=== PATIENT | female | born 1945 | race African-American/Black ===

== ENCOUNTER 2016-06-13 12:23 | Emergency (ER) | payer OTHER ==
[2016-06-13 12:38] VITALS: BMI 51.6
--- NOTE | 2016-06-13 12:43 | PDOC ---
History of Present Illness - History of Present Illness Initial Comments: 06/13/16 13:19 The patient is a 71 year old female with a past medical hx of hypertension, rheumatoid arthritis, diabetes, hypothyroidism, CHF who presents to the ED complaining of right lower back pain radiating down her right lower extremity for 1 week. The patient states she went to her PCP on Tuesday (2 days ago) for her symptoms. She notes the Doctor wrote her a prescription to get some testing done. She states she was unable to get into contact with a nurse to go over the testing. She reports she fell this morning. She states she was getting out of her bed to go to the bathroom when her right leg gave out. She notes this has not happened prior to today. The patient is also complaining of SOB. She reports she has been feeling short of breath when walking, which is not her baseline. The patient denies chest pain, fever, chills The patient denies abdominal pain, nausea, vomiting. PCP: Dr. Mccullough <Cora Morin - Last Filed: 06/13/16 18:42> <Jesus Duncan - Last Filed: 06/13/16 18:51> - General Chief Complaint: Pain Stated Complaint: SOB Time Seen by Provider: 06/13/16 12:42 Past History <Cora Morin - Last Filed: 06/13/16 18:42> - Past Medical History Anemia: Yes Asthma: Yes Cancer: No Cardiac Disorders: Yes CVA: Yes (2011) COPD: No CHF: No Dementia: No Diabetes: Yes (NIDDM) GI Disorders: Yes (HIATAL HERNIA, GASTRITIS, COLON POLYP, HEMORRHOIDS) Disorders: Yes (GOUT) HTN: Yes Hypercholesterolemia: Yes Liver Disease: No Suicide Attempt (Hx): No Seizures: No Thyroid Disease: Yes (HYPO) - Surgical History Abdominal Surgery: No Appendectomy: Yes Cardiac Surgery: No Cholecystectomy: Yes Lung Surgery: No Neurologic Surgery: No Orthopedic Surgery: Yes (CARITO. KNEE REPLACEMENTS) - Psycho/Social/Smoking Cessation Hx Anxiety: No Suicidal Ideation: No Smoking Status: Yes Smoking History: Never smoked Have you smoked in the past 12 months: No Number of Cigarettes Smoked Daily: 0 If you are a former smoker, when did you quit?: as a teenager Information on smoking cessation initiated: No Hx Alcohol Use: No Drug/Substance Use Hx: No Substance Use Type: None Hx Substance Use Treatment: No <Jesus Duncan - Last Filed: 06/13/16 18:51> - Past Medical History Allergies/Adverse Reactions: Allergies Allergy/AdvReac Type Severity Reaction Status Date / Time No Known Allergies Allergy Verified 06/13/16 12:37 Home Medications: Ambulatory Orders Albuterol Sulfate Inhaler - [Ventolin Hfa Inhaler -] 1 - 2 inh PO Q4H 06/13/16 Alprazolam [Xanax] 1 mg PO HS PRN 06/13/16 Amlodipine/Valsartan [Amlodipine-Valsartan 5-320 mg] 1 each PO DAILY 06/13/16 Atorvastatin Ca [Lipitor] 40 mg PO HS 06/13/16 Baclofen 10 mg PO DAILY 06/13/16 Cyclobenzaprine HCl [Flexeril 10 mg] 10 mg PO TID #30 tablet 06/13/16 Cyclosporine [Restasis] 1 each OU HS 06/13/16 Duloxetine HCl 30 mg PO DAILY 06/13/16 Febuxostat [Uloric -] 40 mg PO DAILY 06/13/16 Fluticasone/Vilanterol [Breo Ellipta 100-25 Mcg INH] 1 each IH BID 06/13/16 Furosemide [Lasix] 40 mg PO DAILY 06/13/16 Leflunomide 20 mg PO TID 06/13/16 Levothyroxine [Synthroid -] 175 mcg PO DAILY 06/13/16 Metoprolol Succinate [Toprol Xl] 200 mg PO DAILY 06/13/16 Montelukast Na [Singulair -] 10 mg PO HS 06/13/16 Nitrofurantoin Monohyd/M-Cryst [Macrobid -] 100 mg PO BID 06/13/16 Omeprazole 40 mg PO DAILY 06/13/16 Oxybutynin Chloride [Ditropan Xl] 10 mg PO BID 06/13/16 Oxycodone HCl/Acetaminophen [Endocet 7.5-325 mg Tablet] 1 each PO Q6H PRN Oxycodone HCl/Acetaminophen [Percocet 5-325 mg Tablet] 1 - 2 tab PO Q6H #20 tab MDD 4 06/13/16 Potassium Chloride [K-Dur -] 20 meq PO DAILY 06/13/16 Pregabalin [Lyrica -] 150 mg PO BID 06/13/16 Salmeterol/Fluticasone [Advair 500Mcg/50Mcg] 1 inh PO BID 06/13/16 Tofacitinib Citrate [Xeljanz] 5 mg PO BID 06/13/16 Review of Systems - Review of Systems Able to Perform ROS?: Yes Comments:: 06/13/16 13:20 GENERAL/CONSTITUTIONAL: No fever or chills. No weakness. HEAD, EYES, EARS, NOSE AND THROAT: No change in vision. No ear pain or discharge. No sore throat. CARDIOVASCULAR: No chest pain or shortness of breath. RESPIRATORY:+SOB. No cough, wheezing, or hemoptysis. GASTROINTESTINAL: No nausea, vomiting, diarrhea or constipation. GENITOURINARY: No dysuria, frequency, or change in urination. MUSCULOSKELETAL: +Right lower back pain radiating down right lower extremity. No neck pain. SKIN: No rash NEUROLOGIC: No headache, vertigo, loss of consciousness, or change in strength/ sensation. ENDOCRINE: No increased thirst. No abnormal weight change. HEMATOLOGIC/LYMPHATIC: No anemia, easy bleeding, or history of blood clots. ALLERGIC/IMMUNOLOGIC: No hives or skin allergy. <Cora Morin - Last Filed: 06/13/16 18:42> *Physical Exam - Vital Signs Last Vital Signs Temp Pulse Resp BP Pulse Ox 56 L 18 151/85 96 06/13/16 12:34 06/13/16 12:34 06/13/16 12:34 06/13/16 13:00 - Physical Exam Comments: 06/13/16 13:47 GENERAL: Awake, alert, and fully oriented, in no acute distress HEAD: No signs of trauma EYES: PERRLA, EOMI, sclera anicteric, conjunctiva clear ENT: Auricles normal inspection, hearing grossly normal, nares patent, oropharynx clear without exudates. Moist mucosa NECK: +JVD. Normal ROM, supple, no lymphadenopathy, or masses LUNGS: Breath sounds equal, clear to auscultation bilaterally, no rales. No wheezes, and no crackles HEART: Regular rate and rhythm, normal S1 and S2, no murmurs, rubs or gallops ABDOMEN: +Morbidly obese. Soft, nontender, normoactive bowel sounds. No guarding, no rebound. No masses EXTREMITIES:+Movement grossly restricted by size, swollen legs. No clubbing or cyanosis. No cords, erythema, or tenderness NEUROLOGICAL: Cranial nerves II through XII grossly intact. Normal speech, normal gait SKIN: Warm, Dry, normal turgor, no rashes or lesions noted. <Cora Morin - Last Filed: 06/13/16 18:42> - Vital Signs Last Vital Signs Temp Pulse Resp BP Pulse Ox 56 L 18 151/85 100 06/13/16 12:34 06/13/16 12:34 06/13/16 12:34 06/13/16 12:34 <Jesus Duncan - Last Filed: 06/13/16 18:51> ED Treatment Course - LABORATORY CBC & Chemistry Diagram: 06/13/16 15:50 06/13/16 14:50 - RADIOLOGY Radiograph Interpretation: 06/13/16 15:38 Chest X-Ray Imaging reveals a large heart with prominent central markings and increased density in the retrocardiac area which could represent some atelectasis or early infiltrate. There are some degenerative spine and shoulder changes. The angles are sharp and the soft tissues are intact. Correlation recommended Impression: Large heart. Prominent central markings. Questionable retrocardiac changes. Reported By: Davie Josue MD 06/13/16 1532 06/13/16 18:41 Referring Physician: Jesus Duncan Patient Name: Soo Gordon THIS IS A PRELIMINARY REPORT FROM [facility] EXAM: CT lumbar spine without contrast IMAGES: 287 DATE OF SERVICE: 2016-06-13 17:23:08.0 REASON FOR EXAM: Right- sided radiculopathy COMPARISON: None FINDINGS: No lumbar fracture is seen. The There is lumbar scoliosis. There is grade 1 spondylolisthesis of L4-L5. There is lumbar endplate spondylosis and facet arthropathy. Vacuum disc phenomena is noted at multiple levels. There is bulging of the annulus noted at L3-L4, L4-L5 and L5-S1. There is moderate central spinal stenosis a L3-L4 and L4-L5 due to bulging annulus and ligamentum flavum and facet hypertrophy. THIS DOCUMENT HAS BEEN ELECTRONICALLY SIGNED Iker Wasserman MD 2016 18:33 EST <Cora Morin - Last Filed: 06/13/16 18:42> - LABORATORY CBC & Chemistry Diagram: 06/13/16 15:50 06/13/16 14:50 <Jesus Duncan - Last Filed: 06/13/16 18:51> Medical Decision Making - Medical Decision Making 06/13/16 18:29 The patient is a 71 year old female with a past medical hx of hypertension, rheumatoid arthritis, diabetes, hypothyroidism, CHF who presents to the ED complaining of right lower back pain radiating down her right lower extremity for 1 week. The patient reports she went to see her PCP, Dr. Mccullough on Tuesday and was given a prescription for some tests. She states she was unable to read what the paper said so she called the nurse for clarification and did not receive a call back. She notes her right leg gave out today. She is also complaining of dyspnea and dyspnea on exertion for a few days. The plan is to order labs, CT lumbar spine, CXR 06/13/16 18:42 The patient can be discharged home. The radiology results and plan for discharge were discussed with the patient. The patient understands and agrees with the plan. All questions answered. <Cora Morin - Last Filed: 06/13/16 18:42> *DC/Admit/Observation/Transfer - Attestations Scribe Attestion: 06/13/16 13:19 Documentation prepared by Cora Morin, acting as medical parasitologist for Jesus Duncan MD/. <Cora Morin - Last Filed: 06/13/16 18:42> - Discharge Dispostion Admit: No - Attestations Physician Attestion: 06/13/16 12:43 I, Dr. Jesus Duncan, attest that this document has been prepared under my direction and personally reviewed by me in its entirety. I further attest, that it accurately reflects all work, treatment, procedures and medical decision -making performed by me. <Jesus Duncan - Last Filed: 06/13/16 18:51> Diagnosis at time of Disposition: Acute lumbar radiculopathy Sciatica Qualifiers: Laterality: right Qualified Code(s): M54.31 - Sciatica, right side - Discharge Dispostion Disposition: HOME Condition at time of disposition: Good - Prescriptions Prescriptions: Cyclobenzaprine HCl [Flexeril 10 mg] 10 mg PO TID #30 tablet Oxycodone HCl/Acetaminophen [Percocet 5-325 mg Tablet] 1 - 2 tab PO Q6H #20 tab MDD 4 - Patient Instructions Printed Discharge Instructions: DI for Lumbar Radiculopathy Additional Instructions: Mrs Gordon, Talk to your doctor about a referral for a surgeon. Walk !!! Yoga- Feel Better- Be Well Dr. Jesus Duncan
[2016-06-13] MEDS ORDERED: ONDANSETRON 4 MG/2 ML VIAL IVPUSH ONE (13:37)
[2016-06-13] MEDS ORDERED: HYDROmorphone HCL CARPU-JECT 1 MG/1 ML DISP.SYRIN IVPB ONE (13:37)
[2016-06-13] MEDS ORDERED: HYDROmorphone HCL CARPU-JECT 1 MG/1 ML DISP.SYRIN IVPUSH ONE (13:38)
[2016-06-13] MEDS ORDERED: HYDROmorphone HCL CARPU-JECT 1 MG/1 ML DISP.SYRIN ONE ×2 (13:59→15:32)
[2016-06-13] MEDS ORDERED: ONDANSETRON 4 MG/2 ML VIAL ONE (13:59)
[2016-06-13 15:28] LABS: URINE APPEARANCE SLCLOUDY; URINE BILIRUBIN NEGATIVE (NEGATIVE); URINE BLOOD NEGATIVE (NEGATIVE); URINE COLOR AMBER; URINE GLUCOSE (UA) NEGATIVE (NEGATIVE); URINE KETONE NEGATIVE (NEGATIVE); URINE NITRITE POSITIVE (NEGATIVE); URINE PROTEIN NEGATIVE (NEGATIVE); URINE UROBILINOGEN NEGATIVE E.U./dl (0.2-1.0)
[2016-06-13 15:31] LABS: URINE LEUK ESTERASE 3+ (NEGATIVE)
[2016-06-13 15:38] LABS: URINE BACTERIA FEW /hpf (NONE SEEN); URINE MUCUS RARE; URINE RBC 2 /hpf (0-3); URINE WBC 317 /hpf (3-5)
[2016-06-13 15:42] LABS: ALBUMIN 3.2 g/dl (3.4-5.0); ALK PHOS 87 U/L (45-117); ANION GAP 3 (8-16); BILIRUBIN,TOTAL 0.3 mg/dL (0.2-1.0); CO2 35 mmol/L (21-32); CREATININE 0.7 mg/dL (0.55-1.02); GLUCOSE,RANDOM 90 mg/dL (74-106); SGOT/AST 19 U/L (15-37); SGPT/ALT 20 U/L (12-78); TOT PROT 6.3 g/dl (6.4-8.2)
[2016-06-13] MEDS ORDERED: cefTRIAXone 1 GM/50 ML BAG (PRE-DOCKED) IVPB ONE (15:55)
[2016-06-13 15:56] VITALS: TEMP 97.2
[2016-06-13] MEDS ORDERED: CEFTRIAXONE 50 ML ONE (15:57)
[2016-06-13 16:03] LABS: EOSINOPHIL 1.6 % (0-4.5); MCH 28.7 pg (25.7-33.7); MCHC 32.4 g/dl (32.0-36.0); MEAN CELL VOLUME 88.6 fl (80-96); NEUTROPHILS 36.8 % (42.8-82.8); PLATELET COUNT 219 K/MM3 (134-434); RDW 16.9 % (11.6-15.6); WHITE BLOOD COUNT 4.3 K/mm3 (4.0-10.0)
[2016-06-13 16:19] LABS: INR 1.04 (0.82-1.09); PROTHROMBIN TIME (PATIENT) 11.5 SEC (9.98-11.88)
[2016-06-13 18:13] VITALS: BP 132/79; PULSE 67
[2016-06-13] MEDS ORDERED: CYCLOBENZAPRINE HCL 10 MG TABLET (FP) PO ONE (18:48)
[2016-06-13] MEDS ORDERED: CYCLOBENZAPRINE HCL 10 MG TABLET (FP) ONE (18:49)
[2016-06-13] MEDS ORDERED: ACETAMINOPHEN 325 MG TABLET (FP) ONE (18:51)
== END 2016-06-13 19:01 | disposition home or self-care (01) ==
LOC: JER 12:23
PROC: 3E033NZ Introduction of Analgesics, Hypnotics, Sedatives into Peripheral Vein, Percutaneous Approach (ICD-10-PCS; principal; 2016-06-13)
PROC: 3E033GC Introduction of Other Therapeutic Substance into Peripheral Vein, Percutaneous Approach (ICD-10-PCS; 2016-06-13)
PROC: 3E03329 Introduction of Other Anti-infective into Peripheral Vein, Percutaneous Approach (ICD-10-PCS; 2016-06-13)
DX: M54.16 Radiculopathy, lumbar region (principal); M54.41 Lumbago with sciatica, right side; D64.9 Anemia, unspecified; J45.909 Unspecified asthma, uncomplicated; I10 Essential (primary) hypertension; E11.9 Type 2 diabetes mellitus without complications; E03.9 Hypothyroidism, unspecified; M06.9 Rheumatoid arthritis, unspecified; Z86.73 Personal history of transient ischemic attack (TIA), and cerebral infarction without residual deficits; E66.01 Morbid (severe) obesity due to excess calories; Z68.43 Body mass index [BMI] 50.0-59.9, adult; W06.XXXA Fall from bed, initial encounter; Y93.89 Activity, other specified; Y92.032 Bedroom in apartment as the place of occurrence of the external cause
CPT/HCPCS: 36415; 71010-TC; 72131-TC; 80053; 81003; 81015; 83880; 85025; 85610; 87086; 87186; 96374; 96375; 99283-25

== ENCOUNTER 2016-06-19 10:59 | Inpatient (IN) | payer OTHER ==
--- NOTE | 2016-06-19 11:12 | PDOC ---
History of Present Illness - General History Source: Patient, Old Records Exam Limitations: No Limitations <Cathy Owens - Last Filed: 06/19/16 15:19> - History of Present Illness Initial Comments: 06/19/16 11:32 The patient is a morbidly obese 71 year old female with significant medical history of hypertension, hyperlipidemia, NIDDM, CHF, asthma, brought in by EMS for approximately 1 week of progressively shortness of breath, worse with exertion, with associated chest tightness and worsening bilateral lower extremity edema. She states she has been sleeping with 2 pillows instead of 1 in the past week. The patient states she has been taking her Albuterol pump for her shortness of breath, attributing it to asthma, with some relief of her symptoms. The patient also complains of pain in her right hip with radiation to the right thigh and groin. She is scheduled for a vascular US to r/o DVT in 2 days. The patient also complains of choking sensation and feelings of indigestion after eating. It is unclear whether this is related to her chest tightness. She states she forced herself to vomit secondary to her choking sensation, but denies abdominal pain, nausea, or diarrhea. The patient denies fever, chills, or diaphoresis. She denies lightheadedness or palpitations. The patient also reports she slipped and hit the back of her head several days ago. Her health aide at bedside reports the patient has seemed more forgetful lately. The patient denies headache, visual changes, paresthesias, or focal weakness. PCP: Dr. Madison Henriquez Library Assistant: Dr. Jurado <Benita Hernández - Last Filed: 06/19/16 16:27> - General Stated Complaint: TROUBLING BREATHING Time Seen by Provider: 06/19/16 11:12 Past History - Past Medical History Anemia: Yes Asthma: Yes Cancer: No Cardiac Disorders: Yes CVA: Yes (2011) COPD: No CHF: No Dementia: No Diabetes: Yes (NIDDM) GI Disorders: Yes (HIATAL HERNIA, GASTRITIS, COLON POLYP, HEMORRHOIDS) Disorders: Yes (GOUT) HTN: Yes Hypercholesterolemia: Yes Liver Disease: No Suicide Attempt (Hx): No Seizures: No Thyroid Disease: Yes (HYPO) - Surgical History Abdominal Surgery: No Appendectomy: Yes Cardiac Surgery: No Cholecystectomy: Yes Lung Surgery: No Neurologic Surgery: No Orthopedic Surgery: Yes (CARITO. KNEE REPLACEMENTS) - Psycho/Social/Smoking Cessation Hx Anxiety: No Suicidal Ideation: No Smoking Status: Yes Smoking History: Never smoked Have you smoked in the past 12 months: No Number of Cigarettes Smoked Daily: 0 If you are a former smoker, when did you quit?: as a teenager Hx Alcohol Use: No Drug/Substance Use Hx: No Substance Use Type: None Hx Substance Use Treatment: No <Cathy Owens - Last Filed: 06/19/16 15:19> <Benita Hernández - Last Filed: 06/19/16 16:27> - Past Medical History Allergies/Adverse Reactions: Allergies Allergy/AdvReac Type Severity Reaction Status Date / Time No Known Allergies Allergy Verified 06/19/16 13:35 Home Medications: Ambulatory Orders Albuterol Sulfate Inhaler - [Ventolin Hfa Inhaler -] 1 - 2 inh PO Q4H 06/13/16 Alprazolam [Xanax] 1 mg PO HS PRN 06/13/16 Amlodipine/Valsartan [Amlodipine-Valsartan 5-320 mg] 1 each PO DAILY 06/13/16 Atorvastatin Ca [Lipitor] 40 mg PO HS 06/13/16 Baclofen 10 mg PO DAILY 06/13/16 Cyclobenzaprine HCl [Flexeril 10 mg] 10 mg PO TID #30 tablet 06/13/16 Cyclosporine [Restasis] 1 each OU HS 06/13/16 Duloxetine HCl 30 mg PO DAILY 06/13/16 Febuxostat [Uloric -] 40 mg PO DAILY 06/13/16 Fluticasone/Vilanterol [Breo Ellipta 100-25 Mcg INH] 1 each IH BID 06/13/16 Furosemide [Lasix] 40 mg PO DAILY 06/13/16 Leflunomide 20 mg PO TID 06/13/16 Levothyroxine [Synthroid -] 175 mcg PO DAILY 06/13/16 Metoprolol Succinate [Toprol Xl] 200 mg PO DAILY 06/13/16 Montelukast Na [Singulair -] 10 mg PO HS 06/13/16 Nitrofurantoin Monohyd/M-Cryst [Macrobid -] 100 mg PO BID 06/13/16 Omeprazole 40 mg PO DAILY 06/13/16 Oxybutynin Chloride [Ditropan Xl] 10 mg PO BID 06/13/16 Oxycodone HCl/Acetaminophen [Endocet 7.5-325 mg Tablet] 1 each PO Q6H PRN Oxycodone HCl/Acetaminophen [Percocet 5-325 mg Tablet] 1 - 2 tab PO Q6H #20 tab MDD 4 06/13/16 Potassium Chloride [K-Dur -] 20 meq PO DAILY 06/13/16 Pregabalin [Lyrica -] 150 mg PO BID 06/13/16 Salmeterol/Fluticasone [Advair 500Mcg/50Mcg] 1 inh PO BID 06/13/16 Tofacitinib Citrate [Xeljanz] 5 mg PO BID 06/13/16 Review of Systems - Review of Systems Able to Perform ROS?: Yes Comments:: 06/19/16 11:41 GENERAL/CONSTITUTIONAL: No fever or chills. No weakness. HEAD, EYES, EARS, NOSE AND THROAT: +choking sensation. No change in vision. No ear pain or discharge. No sore throat. CARDIOVASCULAR: +Chest tightness, shortness of breath, worsening b/l LE edema. No true chest pain, lightheadedness, palpitations. RESPIRATORY: +Chest tightness, SOB. No wheezing or hemoptysis. GASTROINTESTINAL: +Voluntary vomiting. No abdominal pain, nausea, diarrhea or constipation. GENITOURINARY: No dysuria, frequency, or change in urination. MUSCULOSKELETAL: +Right hip pain with radiation to groin. No neck or back pain. SKIN: No rash NEUROLOGIC: +increased forgetfullness. No headache, vertigo, loss of consciousness, or change in strength/sensation. ENDOCRINE: No increased thirst. No abnormal weight change. HEMATOLOGIC/LYMPHATIC: No anemia, easy bleeding, or history of blood clots. ALLERGIC/IMMUNOLOGIC: No hives or skin allergy. <Benita Hernández - Last Filed: 06/19/16 16:27> *Physical Exam - Physical Exam Comments: 06/19/16 11:46 GENERAL: Awake, alert, and fully oriented, in no acute distress HEAD: 2x2 contusion to right occipital region. EYES: PERRLA, EOMI, sclera anicteric, conjunctiva clear ENT: Auricles normal inspection, hearing grossly normal, nares patent, oropharynx clear without exudates. Moist mucosa NECK: Normal ROM, supple, no lymphadenopathy, JVD, or masses LUNGS: Breath sounds equal, clear to auscultation bilaterally. No wheezes, and no crackles HEART: Regular rate and rhythm, normal S1 and S2, no murmurs, rubs or gallops ABDOMEN: Soft, obese, nontender, normoactive bowel sounds. No guarding, no rebound. No masses EXTREMITIES: +1 bipedal edema with right calf tenderness. Normal range of motion. No clubbing or cyanosis. No cords, erythema. NEUROLOGICAL: Cranial nerves II through XII grossly intact. Normal speech, gait deferred. Moving all extremities. SKIN: Warm, Dry, normal turgor, no rashes or lesions noted. <Benita Hernández - Last Filed: 06/19/16 16:27> ED Treatment Course - LABORATORY CBC & Chemistry Diagram: 06/19/16 12:30 06/19/16 12:30 <Cathy Owens - Last Filed: 06/19/16 15:19> - LABORATORY CBC & Chemistry Diagram: 06/19/16 12:30 06/19/16 12:30 - RADIOLOGY Radiograph Interpretation: 06/19/16 14:28 RLE Vascular Study, reviewed and interpreted by Dr. Montague, shows no DVT identified. 06/19/16 14:[address], reviewed and interpreted by Dr. Montague, shows no acute intracranial pathology. Chest x-ray, read and reviewed by Dr. Josue, shows elevated right hemidiaphragm, large heart, unfolded aorta, and congestive changes. Follow up recommended. <Benita Hernández - Last Filed: 06/19/16 16:27> Medical Decision Making - Medical Decision Making 06/19/16 12:00 71-year-old female with history of morbid obesity, diabetes, hypertension, hyperlipidemia, asthma/RULA, rheumatoid arthritis presents to the emergency department with one week history of right lower extremity pain and difficulty breathing with intermittent chest tightness. Differential diagnosis includes but is not limited to: PE/DVT, ACS, CHF, asthma exacerbation, electrolyte abnormality, anemia, toxic/metabolic derangement. Plan: 1. EKG 2. Chest x-ray 3. Labs 4. Right lower extremity duplex 5. Observe and reevaluate <Cathy Owens - Last Filed: 06/19/16 15:19> - Medical Decision Making 06/19/16 14:50 Placed call to patient's PCP, Dr. Henriquez, at [phone]. Awaiting call back. 06/19/16 14:[address] Henriquez, who requested the patient be admitted to covering physician, Dr. Mccullough. Call placed to Dr. Mccullough at [phone]. Awaiting callback. <Benita Hernández - Last Filed: 06/19/16 16:27> *DC/Admit/Observation/Transfer - Discharge Dispostion Admit: Yes - Attestations Physician Attestion: 06/19/16 12:02 I, Dr. Cathy Owens, attest that the scribes documentation that appears above has been prepared under my direction and personally reviewed by me in its entirety. I confirmed that the note above accurately reflects all work, treatment, procedures, and medical decision-making performed by me. <Cathy Owens - Last Filed: 06/19/16 15:19> - Attestations Scribe Attestion: 06/19/16 11:50 Documentation prepared by Benita Hernández, acting as biomedical manager for Cathy Owens MD. <Benita Hernández - Last Filed: 06/19/16 16:27> Diagnosis at time of Disposition: Shortness of breath, Chest pain, CHF (congestive heart failure), Asthma exacerbation - Discharge Dispostion Condition at time of disposition: Stable - Referrals Referrals: Madison Henriquez MD [Primary Care Provider] -
[2016-06-19] MEDS ORDERED: OXYCODONE/APAP 5/325MG COMBO TABLET ONE ×2 (12:44→17:22)
[2016-06-19 12:46] LABS: BASOPHIL 0.7 % (0-2.0); EOSINOPHIL 0.4 % (0-4.5); MCH 28.6 pg (25.7-33.7); MCHC 32.3 g/dl (32.0-36.0); MEAN CELL VOLUME 88.5 fl (80-96); MEAN PLT VOLUME 8.1 fl (7.5-11.1); NEUTROPHILS 77.1 % (42.8-82.8); PLATELET COUNT 215 K/MM3 (134-434); RDW 17.2 % (11.6-15.6); WHITE BLOOD COUNT 6.1 K/mm3 (4.0-10.0)
[2016-06-19 13:54] LABS: ALBUMIN 3.2 g/dl (3.4-5.0); ANION GAP 6 (8-16); BILIRUBIN,TOTAL 0.5 mg/dL (0.2-1.0); CALCIUM 8.8 mg/dL (8.5-10.1); CO2 28 mmol/L (21-32); CREATININE 0.7 mg/dL (0.55-1.02); GLUCOSE,RANDOM 110 mg/dL (74-106); SGPT/ALT 27 U/L (12-78); TOT PROT 6.6 g/dl (6.4-8.2)
[2016-06-19 13:57] LABS: ALK PHOS 88 U/L (45-117); TROPONIN I 0.03 ng/ml (0.00-0.05)
[2016-06-19 13:59] LABS: SGOT/AST 61 U/L (15-37)
[2016-06-19] MEDS ORDERED: IPRATROPIUM BR 0.02% 0.5 MG/2.5 ML VIAL.NEB. NEB ONE ×2 (14:49→14:59)
[2016-06-19] MEDS ORDERED: ALBUTEROL SO4 0.083% IH SOL 2.5 MG/3 ML VIAL.NEB. NEB ONE (14:49)
[2016-06-19] MEDS ORDERED: predniSONE 20 MG TABLET (UD) PO ONE (14:49)
[2016-06-19] MEDS ORDERED: FUROSEMIDE 40 MG/4 ML INJECTABLE VIAL IVPUSH ONE (14:57)
[2016-06-19] MEDS ORDERED: predniSONE 20 MG TABLET (UD) ONE (14:59)
[2016-06-19] MEDS ORDERED: FUROSEMIDE 40 MG TABLET (FP) ONE (15:18)
[2016-06-19] MEDS ORDERED: FUROSEMIDE 40 MG/4 ML INJECTABLE VIAL ONE (15:18)
[2016-06-19 16:52] LABS: URINE APPEARANCE CLEAR; URINE BILIRUBIN NEGATIVE (NEGATIVE); URINE BLOOD NEGATIVE (NEGATIVE); URINE COLOR AMBER; URINE GLUCOSE (UA) NEGATIVE (NEGATIVE); URINE KETONE NEGATIVE (NEGATIVE); URINE NITRITE NEGATIVE (NEGATIVE); URINE PROTEIN NEGATIVE (NEGATIVE); URINE UROBILINOGEN NEGATIVE E.U./dl (0.2-1.0)
[2016-06-19 16:57] LABS: URINE LEUK ESTERASE 1+ (NEGATIVE)
[2016-06-19 16:58] LABS: URINE MUCUS RARE; URINE RBC 1 /hpf (0-3); URINE WBC 20 /hpf (3-5)
[2016-06-19] MEDS ORDERED: ALPRAZolam 2 MG TABLET PO PRN ×2 (17:33→18:05)
[2016-06-19] MEDS ORDERED: ALBUTEROL SO4 2.5/IPRATROPIUM 0.5 INH SOL 3 ML VIAL.NEB. NEB PRN (17:37)
[2016-06-19] MEDS ORDERED: OXYCODONE/APAP 5/325MG COMBO TABLET PO SCH (17:45)
[2016-06-19] MEDS ORDERED: OXYCODONE/APAP 5/325MG COMBO TABLET PO ONE (17:57)
[2016-06-19] MEDS ORDERED: methylPREDNISolone NA SUCC 40 MG/1 ML VIAL ONE (21:03)
[2016-06-19] MEDS: methylPREDNISolone NA SUCC 40 MG/1 ML VIAL IVPB SCH (21:09)
[2016-06-19] MEDS ORDERED: HEPARIN NA (PORCINE) 5,000 UNITS/ML 1ML VIAL ONE (22:21)
[2016-06-19 22:26] LABS: TROPONIN I 0.04 ng/ml (0.00-0.05)
[2016-06-19] MEDS: ATORVASTATIN CA 40 MG TABLET (FP) PO SCH (22:28)
[2016-06-19] MEDS: HEPARIN NA (PORCINE) 5,000 UNITS/ML 1ML VIAL SQ SCH (22:28)
[2016-06-19] MEDS: MONTELUKAST NA 10 MG TABLET PO SCH (22:29)
[2016-06-19] MEDS: SOLIFENACIN SUCCINATE 5 MG TAB (FP) PO SCH (22:29)
[2016-06-19] MEDS: BUDESONIDE/FORMETEROL FUMARATE 160/4.5 mcg INHALER IH SCH (22:29)
[2016-06-19] MEDS ORDERED: PREGABALIN 50 MG CAPSULE ONE (22:32)
[2016-06-19] MEDS ORDERED: PREGABALIN 100 MG CAPSULE ONE (22:33)
[2016-06-19] MEDS: PREGABALIN 50 MG CAPSULE PO SCH (22:38)
[2016-06-19] MEDS: PATIENT'S OWN MEDICATION (NON-FORMULARY) (Cyclosporine [Restasis] 1 EACH) OU SCH (22:40)
[2016-06-19] MEDS: TOFACITINIB CITRATE 5 MG PO SCH (22:40)
[2016-06-19] MEDS: LEFLUNOMIDE 20 MG PO SCH (22:41)
[2016-06-20] MEDS: methylPREDNISolone NA SUCC 40 MG/1 ML VIAL IVPB SCH ×4 (03:25→20:17)
[2016-06-20] MEDS: oxyCODONE HCL 5 MG TABLET PO PRN (03:27)
[2016-06-20] MEDS: ACETAMINOPHEN 325 MG TABLET (FP) PO PRN (03:28)
[2016-06-20 03:51] LABS: TROPONIN I 0.04 ng/ml (0.00-0.05)
[2016-06-20 04:24] VITALS: BMI 52.9
[2016-06-20 06:02] LABS: BASOPHIL 0.2 % (0-2.0); MCH 28.7 pg (25.7-33.7); MCHC 32.3 g/dl (32.0-36.0); MEAN CELL VOLUME 89.1 fl (80-96); MEAN PLT VOLUME 8.6 fl (7.5-11.1); NEUTROPHILS 87.3 % (42.8-82.8); PLATELET COUNT 226 K/MM3 (134-434); WHITE BLOOD COUNT 5.4 K/mm3 (4.0-10.0)
[2016-06-20] MEDS: LEFLUNOMIDE 20 MG PO SCH ×3 (06:09→21:22)
[2016-06-20] MEDS ORDERED: LEVOTHYROXINE NA 75 MCG TABLET (FP) ONE (06:10)
[2016-06-20] MEDS ORDERED: LEVOTHYROXINE NA 100 MCG TABLET (FP) ONE (06:10)
[2016-06-20 06:23] LABS: ALBUMIN 3.1 g/dl (3.4-5.0); ALK PHOS 87 U/L (45-117); ANION GAP 9 (8-16); BILIRUBIN,TOTAL 0.4 mg/dL (0.2-1.0); CALCIUM 9.2 mg/dL (8.5-10.1); CO2 28 mmol/L (21-32); CREATININE 0.6 mg/dL (0.55-1.02); GLUCOSE,RANDOM 167 mg/dL (74-106); SGOT/AST 22 U/L (15-37); SGPT/ALT 24 U/L (12-78); TOT PROT 6.2 g/dl (6.4-8.2)
[2016-06-20] MEDS: LEVOTHYROXINE 100 MCG, LEVOTHYROXINE 75 MCG PO SCH (06:23)
[2016-06-20] MEDS ORDERED: PT OWN MED DRAWER 7, Y5N ONE ×2 (09:50→21:03)
[2016-06-20] MEDS: HEPARIN NA (PORCINE) 5,000 UNITS/ML 1ML VIAL SQ SCH ×2 (09:52→21:08)
[2016-06-20] MEDS: PREGABALIN 50 MG CAPSULE PO SCH ×2 (09:53→21:05)
[2016-06-20] MEDS: SOLIFENACIN SUCCINATE 5 MG TAB (FP) PO SCH ×2 (09:54→22:39)
[2016-06-20] MEDS ORDERED: VALSARTAN PO SCH (10:00)
[2016-06-20] MEDS ORDERED: amLODIPine BESYLATE 5 MG TABLET (FP) PO SCH (10:00)
[2016-06-20] MEDS ORDERED: AMLODIPINE PO SCH (10:00)
[2016-06-20] MEDS ORDERED: PANTOPRAZOLE 40 MG TABLET (FP) PO SCH ×2 (10:00)
[2016-06-20] MEDS ORDERED: POTASSIUM CHLORIDE TABS 20 MEQ TABLET.ER (FP) PO SCH (10:00)
[2016-06-20] MEDS ORDERED: METOPROLOL SUCCINATE 100 MG TAB.SR.24H (FP) PO SCH (10:00)
[2016-06-20] MEDS ORDERED: DULoxetine HCL 30 MG CAPSULE.DR (FP) PO SCH (10:00)
[2016-06-20] MEDS ORDERED: VALSARTAN 160 MG TABLET (UD) PO SCH (10:00)
[2016-06-20] MEDS ORDERED: [UNRECOGNIZED DRUG - OTHER] PO SCH (10:00)
[2016-06-20] MEDS ORDERED: BACLOFEN 10 MG TABLET (FP) PO SCH (10:00)
[2016-06-20] MEDS ORDERED: LEVOTHYROXINE NA 175 MCG TABLET PO SCH (10:00)
[2016-06-20] MEDS ORDERED: FEBUXOSTAT 40 MG TAB PO SCH (10:00)
[2016-06-20] MEDS: BUDESONIDE/FORMETEROL FUMARATE 160/4.5 mcg INHALER IH SCH ×2 (10:14→22:39)
--- NOTE | 2016-06-20 12:26 | EKG ---
Test Reason : Blood Pressure : / mmHG Vent. Rate : 076 BPM Atrial Rate : 076 BPM P-R Int : 192 ms QRS Dur : 074 ms QT Int : 358 ms P-R-T Axes : 048 -34 007 degrees QTc Int : 402 ms POOR DATA QUALITY, INTERPRETATION MAY BE ADVERSELY AFFECTED NORMAL SINUS RHYTHM LEFT AXIS DEVIATION NONSPECIFIC T WAVE ABNORMALITY ABNORMAL ECG WHEN COMPARED WITH ECG OF 01-OCT-2014 17:58, QT HAS LENGTHENED Confirmed by WAYNE PEREZ MD ([id number]) on 06/20/2016 12:26:45 PM Referred By: Confirmed By:WAYNE PEREZ MD
[2016-06-20] MEDS: TOFACITINIB CITRATE 5 MG PO SCH ×2 (14:12→22:35)
--- NOTE | 2016-06-20 15:22 | HP ---
Admitting History and Physical - Primary Care Physician PCP: Madison Henriquez I - Admission Chief Complaint: AAE. 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) Home Medications - Allergies Allergies/Adverse Reactions: Allergies Allergy/AdvReac Type Severity Reaction Status Date / Time No Known Allergies Allergy Verified 06/19/16 13:35 - Home Medications Home Medications: Ambulatory Orders Albuterol Sulfate Inhaler - [Ventolin Hfa Inhaler -] 1 - 2 inh PO Q4H 06/13/16 Alprazolam [Xanax] 1 mg PO HS PRN 06/13/16 Amlodipine/Valsartan [Amlodipine-Valsartan 5-320 mg] 1 each PO DAILY 06/13/16 Atorvastatin Ca [Lipitor] 40 mg PO HS 06/13/16 Baclofen 10 mg PO DAILY 06/13/16 Cyclobenzaprine HCl [Flexeril 10 mg] 10 mg PO TID #30 tablet 06/13/16 Cyclosporine [Restasis] 1 each OU HS 06/13/16 Duloxetine HCl 30 mg PO DAILY 06/13/16 Febuxostat [Uloric -] 40 mg PO DAILY 06/13/16 Fluticasone/Vilanterol [Breo Ellipta 100-25 Mcg INH] 1 each IH BID 06/13/16 Furosemide [Lasix] 40 mg PO DAILY 06/13/16 Leflunomide 20 mg PO TID 06/13/16 Levothyroxine [Synthroid -] 175 mcg PO DAILY 06/13/16 Metoprolol Succinate [Toprol Xl] 200 mg PO DAILY 06/13/16 Montelukast Na [Singulair -] 10 mg PO HS 06/13/16 Nitrofurantoin Monohyd/M-Cryst [Macrobid -] 100 mg PO BID 06/13/16 Omeprazole 40 mg PO DAILY 06/13/16 Oxybutynin Chloride [Ditropan Xl] 10 mg PO BID 06/13/16 Oxycodone HCl/Acetaminophen [Endocet 7.5-325 mg Tablet] 1 each PO Q6H PRN Oxycodone HCl/Acetaminophen [Percocet 5-325 mg Tablet] 1 - 2 tab PO Q6H #20 tab MDD 4 06/13/16 Potassium Chloride [K-Dur -] 20 meq PO DAILY 06/13/16 Pregabalin [Lyrica -] 150 mg PO BID 06/13/16 Salmeterol/Fluticasone [Advair 500Mcg/50Mcg] 1 inh PO BID 06/13/16 Tofacitinib Citrate [Xeljanz] 5 mg PO BID 06/13/16 Review of Systems - Review of Systems Constitutional: denies: Chills, Fever Cardiovascular: reports: Edema. denies: Chest Pain Respiratory: denies: SOB Gastrointestinal: denies: Abdominal Pain Physical Examination Vital Signs: Vital Signs Temperature 98.2 F 06/20/16 14:00 Pulse Rate 67 06/20/16 14:00 Respiratory Rate 15 06/20/16 14:00 Blood Pressure 132/68 06/20/16 14:00 O2 Sat by Pulse Oximetry (%) 94 L 06/20/16 08:20 Constitutional: Yes: Calm Eyes: Yes: PERRL HENT: Yes: Normocephalic Neck: Yes: Supple Cardiovascular: Yes: Regular Rate and Rhythm, S1, S2 Respiratory: Yes: CTA Bilaterally Gastrointestinal: Yes: Normal Bowel Sounds, Soft Edema: LLE: 1+, RLE: 1+ Neurological: Yes: WNL Labs: CBC, BMP 06/20/16 05:20 06/20/16 05:20 Imaging - Results Chest X-ray: Report Reviewed Cat Scan: Report Reviewed Ultrasound: Report Reviewed EKG: Report Reviewed Problem List - Problems (1) Asthma exacerbation Code(s): J45.901 - UNSPECIFIED ASTHMA WITH (ACUTE) EXACERBATION (2) CHF (congestive heart failure) Code(s): I50.9 - HEART FAILURE, UNSPECIFIED (3) Chest pain Code(s): R07.9 - CHEST PAIN, UNSPECIFIED (4) Shortness of breath Code(s): R06.02 - SHORTNESS OF BREATH (5) Diabetes Code(s): E11.9 - TYPE 2 DIABETES MELLITUS WITHOUT COMPLICATIONS (6) Hypertension Code(s): I10 - ESSENTIAL (PRIMARY) HYPERTENSION (7) Hypothyroid Code(s): E03.9 - HYPOTHYROIDISM, UNSPECIFIED (8) Leg edema Code(s): R60.0 - LOCALIZED EDEMA (9) UTI (urinary tract infection) Code(s): N39.0 - URINARY TRACT INFECTION, SITE NOT SPECIFIED Assessment/Plan 69-year-old female with past medical history significant for hypertension, rheumatoid arthritis, diabetes, hypothyroidism presents emergency department secondary to dyspnea. Patient states that she was seen by her leather belt shaper approximately 2 days ago. At that time she was given Lasix by her Dr. Patient states she has been taking the medication as directed but states that she has noted increased swelling to her lower extremities. Patient states that she feels winded and cannot ambulate as quickly or as far as she normally does secondary to the shortness of breath. Patient states that she did call her PCP informed her go to the emergency department for evaluation. Patient states that she has been experiencing these symptoms for a total of 3 days. Patient denies exacerbating or alleviating factors. Patient denies chest pain, back pain, wheezing, nausea/vomiting, dysuria, hematuria, fever, chills, abdominal pain, diarrhea or constipation.Patient denies use of any pvvy-oio-evsrucm medication for the treatment of this complaint. (1) Asthma exacerbation Code(s): J45.901 - UNSPECIFIED ASTHMA WITH (ACUTE) EXACERBATION ICU PULM CONSULTED IV STEROIDS DUONEB CXr SHOWS NO PNA (2) CHF (congestive heart failure) Code(s): I50.9 - HEART FAILURE, UNSPECIFIED TROP NEG x 3 -> NO ACS CXr SHOWS CONGESTIVE CHANGES IV LASIX CARDIO CONSULTED (3) Chest pain Code(s): R07.9 - CHEST PAIN, UNSPECIFIED (4) Shortness of breath Code(s): R06.02 - SHORTNESS OF BREATH (5) Diabetes Code(s): E11.9 - TYPE 2 DIABETES MELLITUS WITHOUT COMPLICATIONS BGM ISS (6) Hypertension Code(s): I10 - ESSENTIAL (PRIMARY) HYPERTENSION ACCEPTABLE CONTROL (7) Hypothyroid Code(s): E03.9 - HYPOTHYROIDISM, UNSPECIFIED TSH (8) Leg edema Code(s): R60.0 - LOCALIZED EDEMA IV LASIX DUPLEX -> NO DVT CPK 400 -> IV NS BOLUS -> MONITOR (9) UTI (urinary tract infection) Code(s): N39.0 - URINARY TRACT INFECTION, SITE NOT SPECIFIED 06/13 UCx +trae -> F/U BCx & UCx WBC NEG NO FEVER - ID RAT BREED[facility]
[2016-06-20] MEDS ORDERED: FUROSEMIDE 40 MG/4 ML INJECTABLE VIAL IVPUSH SCH (15:30)
[2016-06-20] MEDS ORDERED: SODIUM CHLORIDE 500 ML IV STA (15:35)
[2016-06-20] MEDS: INSULIN SLIDING SCALE (NOVOLOG) 1 VIAL SQ SCH ×2 (16:09→21:19)
[2016-06-20] MEDS: ATORVASTATIN CA 40 MG TABLET (FP) PO SCH (21:07)
[2016-06-20] MEDS: MONTELUKAST NA 10 MG TABLET PO SCH (21:07)
[2016-06-20] MEDS: PATIENT'S OWN MEDICATION (NON-FORMULARY) (Cyclosporine [Restasis] 1 EACH) OU SCH (21:20)
[2016-06-20] MEDS ORDERED: DOCUSATE SODIUM 100 MG CAPSULE (FP) PO SCH (22:00)
[2016-06-21] MEDS: ACETAMINOPHEN 325 MG TABLET (FP) PO PRN ×2 (01:14→17:24)
[2016-06-21] MEDS: oxyCODONE HCL 5 MG TABLET PO PRN ×2 (01:15→17:23)
[2016-06-21] MEDS: methylPREDNISolone NA SUCC 40 MG/1 ML VIAL IVPB SCH ×3 (03:08→23:04)
[2016-06-21 05:53] LABS: ANION GAP 7 (8-16); BILIRUBIN,TOTAL 0.3 mg/dL (0.2-1.0); CALCIUM 8.3 mg/dL (8.5-10.1); CO2 28 mmol/L (21-32); CREATININE 0.8 mg/dL (0.55-1.02); GLUCOSE,RANDOM 157 mg/dL (74-106); SGOT/AST 18 U/L (15-37); SGPT/ALT 24 U/L (12-78); TOT PROT 5.9 g/dl (6.4-8.2)
[2016-06-21 05:59] LABS: MCH 28.8 pg (25.7-33.7); MCHC 32.6 g/dl (32.0-36.0); MEAN CELL VOLUME 88.3 fl (80-96); MEAN PLT VOLUME 8.7 fl (7.5-11.1); PLATELET COUNT 245 K/MM3 (134-434); WHITE BLOOD COUNT 8.6 K/mm3 (4.0-10.0)
[2016-06-21 06:02] LABS: ALK PHOS 81 U/L (45-117); THYROID STIMULATING HORMONE 0.17 uIU/ml (0.358-3.74)
[2016-06-21] MEDS: LEFLUNOMIDE 20 MG PO SCH ×3 (06:09→22:47)
[2016-06-21] MEDS ORDERED: LEVOTHYROXINE NA 100 MCG TABLET (FP) ONE ×2 (06:18→07:16)
[2016-06-21] MEDS ORDERED: LEVOTHYROXINE NA 75 MCG TABLET (FP) ONE ×2 (06:18→07:17)
[2016-06-21] MEDS: LEVOTHYROXINE 100 MCG, LEVOTHYROXINE 75 MCG PO SCH (06:24)
[2016-06-21] MEDS: INSULIN SLIDING SCALE (NOVOLOG) 1 VIAL SQ SCH ×4 (06:26→23:07)
[2016-06-21] MEDS ORDERED: LEVOTHYROXINE NA 150 MCG TABLET PO SCH (07:23)
--- NOTE | 2016-06-21 07:26 | PN ---
Progress Note, Physician Chief Complaint: no complaints "i am ready to go home" had concerns about insurance - Current Medication List Current Medications: Active Medications Acetaminophen (Tylenol -) 325 mg PO Q6H PRN PRN Reason: PAIN Last Admin: 06/21/16 01:14 Dose: 325 mg Albuterol/Ipratropium (Duoneb -) 1 amp NEB Q4H PRN PRN Reason: SHORTNESS OF BREATH Alprazolam (Xanax -) 1 mg PO HS PRN PRN Reason: INSOMNIA Amlodipine Besylate (Norvasc -) 5 mg PO DAILY [facility] Last Admin: 06/20/16 10:01 Dose: 5 mg Atorvastatin Calcium (Lipitor -) 40 mg PO HS [facility] Last Admin: 06/20/16 21:07 Dose: 40 mg Baclofen (Lioresal -) 10 mg PO DAILY [facility] Last Admin: 06/20/16 11:08 Dose: 10 mg Budesonide/Formoterol Fumarate (Symbicort 160/4.5mcg -) 1 puff IH BID [facility] Last Admin: 06/20/16 22:39 Dose: 1 puff Docusate Sodium (Colace -) 100 mg PO HS [facility] Last Admin: 06/20/16 21:07 Dose: 100 mg Duloxetine HCl (Cymbalta -) 30 mg PO DAILY [facility] Last Admin: 06/20/16 09:52 Dose: 30 mg Febuxostat (Uloric -) 40 mg PO DAILY [facility] Last Admin: 06/20/16 12:39 Dose: 40 mg Furosemide (Lasix Injection -) 40 mg IVPUSH DAILY [facility] Last Admin: 06/20/16 16:02 Dose: 40 mg Heparin Sodium (Porcine) (Heparin -) 5,000 unit SQ BID [facility] Last Admin: 06/20/16 21:08 Dose: 5,000 unit Pantoprazole Sodium (Protonix 40mg Ivpb (Pre-Docked)) 100 mls @ 200 mls/hr IVPB DAILY [facility] Insulin Aspart (Novolog Vial Sliding Scale -) 1 vial SQ ACHS [facility] PRN Reason: Protocol Last Admin: 06/21/16 06:26 Dose: 2 units Levothyroxine Sodium (Synthroid -) 150 mcg PO DAILY@0700 [facility] Metoprolol Succinate (Toprol Xl -) 200 mg PO DAILY [facility] Last Admin: 06/20/16 09:54 Dose: 200 mg Montelukast Sodium (Singulair -) 10 mg PO HS [facility] Last Admin: 06/20/16 21:07 Dose: 10 mg Non-Formulary Medication (Cyclosporine [Restasis]) 1 each OU HS [facility] Last Admin: 06/20/16 21:20 Dose: Not Given Non-Formulary Medication (Leflunomide [Leflunomide]) 20 mg PO TID [facility] Last Admin: 06/21/16 06:09 Dose: Not Given Non-Formulary Medication (Tofacitinib Citrate [Xeljanz]) 5 mg PO BID [facility] Last Admin: 06/20/16 22:35 Dose: Not Given Oxycodone HCl (Roxicodone -) 5 mg PO Q6H PRN PRN Reason: PAIN Last Admin: 06/21/16 01:15 Dose: 5 mg Potassium Chloride (K-Dur -) 20 meq PO DAILY [facility] Last Admin: 06/20/16 09:52 Dose: 20 meq Pregabalin (Lyrica -) 150 mg PO BID [facility] Last Admin: 06/20/16 21:05 Dose: 150 mg Solifenacin (Vesicare -) 5 mg PO BID [facility] Last Admin: 06/20/16 22:39 Dose: 5 mg Valsartan (Diovan -) 320 mg PO DAILY [facility] Last Admin: 06/20/16 09:52 Dose: 320 mg - Objective Vital Signs: Vital Signs Temperature 98 F 06/21/16 06:00 Pulse Rate 65 06/21/16 06:00 Respiratory Rate 20 06/21/16 06:00 Blood Pressure 138/80 06/21/16 06:00 O2 Sat by Pulse Oximetry (%) 95 06/20/16 21:32 Constitutional: Yes: Calm Cardiovascular: Yes: Regular Rate and Rhythm, S1, S2 Respiratory: Yes: CTA Bilaterally Gastrointestinal: Yes: Normal Bowel Sounds, Soft Edema: Yes Labs: CBC, BMP 06/21/16 05:00 06/21/16 05:00 Problem List - Problems (1) Asthma exacerbation Code(s): J45.901 - UNSPECIFIED ASTHMA WITH (ACUTE) EXACERBATION (2) CHF (congestive heart failure) Code(s): I50.9 - HEART FAILURE, UNSPECIFIED (3) Chest pain Code(s): R07.9 - CHEST PAIN, UNSPECIFIED (4) Shortness of breath Code(s): R06.02 - SHORTNESS OF BREATH (5) Diabetes Code(s): E11.9 - TYPE 2 DIABETES MELLITUS WITHOUT COMPLICATIONS (6) Hypertension Code(s): I10 - ESSENTIAL (PRIMARY) HYPERTENSION (7) Hypothyroid Code(s): E03.9 - HYPOTHYROIDISM, UNSPECIFIED (8) Leg edema Code(s): R60.0 - LOCALIZED EDEMA (9) UTI (urinary tract infection) Code(s): N39.0 - URINARY TRACT INFECTION, SITE NOT SPECIFIED Assessment/Plan 69-year-old female with past medical history significant for hypertension, rheumatoid arthritis, diabetes, hypothyroidism presents emergency department secondary to dyspnea. Patient states that she was seen by her business insight and analytics manager approximately 2 days ago. At that time she was given Lasix by her Dr. Patient states she has been taking the medication as directed but states that she has noted increased swelling to her lower extremities. Patient states that she feels winded and cannot ambulate as quickly or as far as she normally does secondary to the shortness of breath. Patient states that she did call her PCP informed her go to the emergency department for evaluation. Patient states that she has been experiencing these symptoms for a total of 3 days. Patient denies exacerbating or alleviating factors. Patient denies chest pain, back pain, wheezing, nausea/vomiting, dysuria, hematuria, fever, chills, abdominal pain, diarrhea or constipation.Patient denies use of any hand-sjj-jkaeett medication for the treatment of this complaint. (1) Asthma exacerbation Code(s): J45.901 - UNSPECIFIED ASTHMA WITH (ACUTE) EXACERBATION ICU PULM CONSULTED IV STEROIDS -> TAPERING DUONEB CXr SHOWS NO PNA (2) CHF (congestive heart failure) Code(s): I50.9 - HEART FAILURE, UNSPECIFIED TROP NEG x 3 -> NO ACS CXr SHOWS CONGESTIVE CHANGES IV LASIX CARDIO CONSULTED (3) Chest pain Code(s): R07.9 - CHEST PAIN, UNSPECIFIED (4) Shortness of breath Code(s): R06.02 - SHORTNESS OF BREATH (5) Diabetes Code(s): E11.9 - TYPE 2 DIABETES MELLITUS WITHOUT COMPLICATIONS BGM ISS (6) Hypertension Code(s): I10 - ESSENTIAL (PRIMARY) HYPERTENSION ACCEPTABLE CONTROL (7) Hypothyroid Code(s): E03.9 - HYPOTHYROIDISM, UNSPECIFIED TSH LOW -> SYNTHROID ADJUSTED. RECHECK IN 4 WEEKS. (8) Leg edema Code(s): R60.0 - LOCALIZED EDEMA IV LASIX DUPLEX -> NO DVT CPK 400 -> IV NS BOLUS -> MONITOR (9) UTI (urinary tract infection) Code(s): N39.0 - URINARY TRACT INFECTION, SITE NOT SPECIFIED 3/ UCx +trae -> F/U BCx & UCx WBC NEG NO FEVER ID CONSULTED DISCHARGE PLANNING TRANSFER TO [facility]
[2016-06-21] MEDS ORDERED: ALBUTEROL SO4 2.5/IPRATROPIUM 0.5 INH SOL 3 ML VIAL.NEB. NEB PRN (08:35)
[2016-06-21] MEDS ORDERED: ALPRAZolam 0.25 MG TABLET PO PRN (08:35)
--- NOTE | 2016-06-21 08:40 | PN ---
Physical Exam: SUBJECTIVE: Patient seen and examined. Patient was sitting comfortably on couch no respiratory distress . Patient states that her breathing has slightly improved since before. Patient also reports regurgitation of food. patient also states that she has chronic edema on her legs and it has increased since before and she has not noticed any change in swelling since admission. OBJECTIVE: Vital Signs Period Temp Pulse Resp BP Sys/Santiago Pulse Ox Last 24 Hr 97.7 F-98.4 F 60-84 14-20 93-158/23-99 95-96 GENERAL: The patient is awake, alert, and fully oriented, in no acute distress. HEAD: Normal with no signs of trauma. EYES: PERRL, extraocular movements intact, ENT: nares patent, oropharynx clear without exudates, moist mucous membranes. NECK: Trachea midline, full range of motion, supple. LUNGS: Breath sounds equal, clear to auscultation bilaterally, no wheezes, no crackles, no accessory muscle use. HEART: Regular rate and rhythm, S1, S2 without murmur ABDOMEN: Soft, nontender, nondistended, normoactive bowel sounds, no guarding, no rebound, midline scar present. EXTREMITIES: 2+ pulses, warm, well-perfused, edema present. NEUROLOGICAL: Cranial nerves II through XII grossly intact. Normal speech, PSYCH: Normal mood, normal affect. SKIN: Warm, dry, normal turgor, Laboratory Results - last 24 hr 06/21/16 06/21/16 05:00 05:00 WBC 8.6 D RBC 4.18 Hgb 12.0 Hct 36.9 MCV 88.3 MCHC 32.6 RDW 18.0 H Plt Count 245 MPV 8.7 Neutrophils % 87.0 H Lymphocytes % 6.4 L D Monocytes % 6.6 D Eosinophils % 0.0 Basophils % 0.0 Sodium 143 Potassium 3.7 Chloride 108 H Carbon Dioxide 28 Anion Gap 7 L BUN 16 D Creatinine 0.8 D Creat Clearance w eGFR > 60 Random Glucose 157 H Calcium 8.3 L Total Bilirubin 0.3 D AST 18 ALT 24 Alkaline Phosphatase 81 Total Protein 5.9 L Albumin 3.0 L TSH 0.17 L Active Medications Generic Name Dose Route Start Last Admin Trade Name Freq PRN Reason Stop Dose Admin Acetaminophen 325 mg 06/19/16 18:30 06/21/16 01:14 Tylenol - PO 325 mg Q6H PRN Administration PAIN Albuterol/Ipratropium 1 amp 06/19/16 17:37 Duoneb - NEB Q4H PRN SHORTNESS OF BREATH Alprazolam 1 mg 06/19/16 18:05 Xanax - PO HS PRN INSOMNIA Amlodipine Besylate 5 mg 06/20/16 10:00 06/20/16 10:01 Norvasc - PO 5 mg DAILY [facility] Administration Atorvastatin Calcium 40 mg 06/19/16 22:00 06/20/16 21:07 Lipitor - PO 40 mg HS [facility] Administration Baclofen 10 mg 06/20/16 10:00 06/20/16 11:08 Lioresal - PO 10 mg DAILY [facility] Administration Budesonide/Formoterol Fumarate 1 puff 06/19/16 22:00 06/20/16 22:39 Symbicort 160/4.5mcg - IH 1 puff BID [facility] Administration Docusate Sodium 100 mg 06/20/16 22:00 06/20/16 21:07 Colace - PO 100 mg HS [facility] Administration Duloxetine HCl 30 mg 06/20/16 10:00 06/20/16 09:52 Cymbalta - PO 30 mg DAILY [facility] Administration Febuxostat 40 mg 06/20/16 10:00 06/20/16 12:39 Uloric - PO 40 mg DAILY [facility] Administration Furosemide 40 mg 06/20/16 15:30 06/20/16 16:02 Lasix Injection - IVPUSH 40 mg DAILY [facility] Administration Heparin Sodium (Porcine) 5,000 unit 06/19/16 22:00 06/20/16 21:08 Heparin - SQ 5,000 unit BID [facility] Administration Pantoprazole Sodium 100 mls @ 200 mls/hr 06/21/16 10:00 Protonix 40mg Ivpb (Pre-Docked) IVPB DAILY [facility] Insulin Aspart 1 vial 06/20/16 16:30 06/21/16 06:26 Novolog Vial Sliding Scale - SQ 2 units ACHS [facility] Administration Protocol Levothyroxine Sodium 150 mcg 06/21/16 07:23 Synthroid - PO DAILY@0700 [facility] Methylprednisolone Sodium Succinate 40 mg 06/21/16 10:00 Solu-Medrol - IVPB Q8H-IV [facility] Metoprolol Succinate 200 mg 06/20/16 10:00 06/20/16 09:54 Toprol Xl - PO 200 mg DAILY [facility] Administration Montelukast Sodium 10 mg 06/19/16 22:00 06/20/16 21:07 Singulair - PO 10 mg HS [facility] Administration Non-Formulary Medication 1 each 06/19/16 22:00 06/20/16 21:20 Cyclosporine [Restasis] OU Not Given HS [facility] Non-Formulary Medication 20 mg 06/19/16 22:00 06/21/16 06:09 Leflunomide [Leflunomide] PO Not Given TID [facility] Non-Formulary Medication 5 mg 06/19/16 22:00 06/20/16 22:35 Tofacitinib Citrate [Xeljanz] PO Not Given BID [facility] Oxycodone HCl 5 mg 06/19/16 18:30 06/21/16 01:15 Roxicodone - PO 5 mg Q6H PRN Administration PAIN Potassium Chloride 20 meq 06/20/16 10:00 06/20/16 09:52 K-Dur - PO 20 meq DAILY [facility] Administration Pregabalin 150 mg 06/19/16 22:00 06/20/16 21:05 Lyrica - PO 150 mg BID [facility] Administration Solifenacin 5 mg 06/19/16 22:00 06/20/16 22:39 Vesicare - PO 5 mg BID [facility] Administration Valsartan 320 mg 06/20/16 10:00 06/20/16 09:52 Diovan - PO 320 mg DAILY [facility] Administration ASSESSMENT/PLAN: (1) Asthma exacerbation Spo2 96% on room air On IV Steroid 40 mg ibv q8h ( taper ) Continue with Duoneb CXR reviewed NO PNA (2) CHF (congestive heart failure) TROP NEG x 3 -> NO ACS CXr Shows Congestive Changes continue with IV LASIX 40 mg IV push daily weight monitor intake/ output, maintain negative balance. repeat cxr cardiology consult (3) DM blood glucose monitoring on insulin sliding scale Diabetic diet (4) Hypertension controlled on medication on toprol xl 200 0n valsartan 320 on amlodipine 5 mg (5) Hypothyroid TSH LOW SYNTHROID decreased to 150 from 175 . RECHECK IN 4 WEEKS. (6) Leg edema IV LASIX DUPLEX -> NO DVT (7) UTI (urinary tract infection) F/U BCx & UCx wbc in urine 20 afebrile sleep apnea CPAP at 13 cm H2O QHS & PRN Fluid orally allowed Nutrition : Diabetic and low salt diet Dispo ; patient transferred to med surg Visit type - Emergency Visit Emergency Visit: Yes ED Registration Date: 06/19/16 Care time: The patient presented to the Emergency Department on the above date and was hospitalized for further evaluation of their emergent condition. - New Patient This patient is new to me today: Yes Date on this admission: 06/21/16 - Critical Care Critical Care patient: Yes Total Critical Care Time (in minutes): 30 Critical Care Statement: The care of this patient involved high complexity decision making to prevent further life threatening deterioration of the patient 's condition and/or to evalute & treat vital organ system(s) failure or risk of failure.
--- NOTE | 2016-06-21 08:49 | PN ---
Progress Note, Physician - Current Medication List Current Medications: Active Medications Acetaminophen (Tylenol -) 325 mg PO Q6H PRN PRN Reason: PAIN Albuterol/Ipratropium (Duoneb -) 1 amp NEB QID [facility] Alprazolam (Xanax -) 1 mg PO HS PRN PRN Reason: INSOMNIA Amlodipine Besylate (Norvasc -) 5 mg PO DAILY [facility] Atorvastatin Calcium (Lipitor -) 40 mg PO HS [facility] Baclofen (Lioresal -) 10 mg PO DAILY [facility] Budesonide/Formoterol Fumarate (Symbicort 160/4.5mcg -) 1 puff IH BID [facility] Docusate Sodium (Colace -) 100 mg PO HS [facility] Duloxetine HCl (Cymbalta -) 30 mg PO DAILY [facility] Febuxostat (Uloric -) 40 mg PO DAILY [facility] Furosemide (Lasix -) 60 mg PO DAILY [facility] Heparin Sodium (Porcine) (Heparin -) 5,000 unit SQ BID [facility] Insulin Aspart (Novolog Vial Sliding Scale -) 1 vial SQ ACHS [facility] PRN Reason: Protocol Levothyroxine Sodium (Synthroid -) 150 mcg PO DAILY@0700 [facility] Methylprednisolone Sodium Succinate (Solu-Medrol -) 40 mg IVPB BID [facility] Metoprolol Succinate (Toprol Xl -) 200 mg PO DAILY [facility] Montelukast Sodium (Singulair -) 10 mg PO HS [facility] Non-Formulary Medication (Cyclosporine [Restasis]) 1 each OU HS [facility] Non-Formulary Medication (Leflunomide [Leflunomide]) 20 mg PO TID [facility] Non-Formulary Medication (Tofacitinib Citrate [Xeljanz]) 5 mg PO BID [facility] Oxycodone HCl (Roxicodone -) 5 mg PO Q6H PRN PRN Reason: PAIN Pantoprazole Sodium (Protonix -) 40 mg PO DAILY [facility] Potassium Chloride (K-Dur -) 20 meq PO DAILY [facility] Pregabalin (Lyrica -) 150 mg PO BID [facility] Solifenacin (Vesicare -) 5 mg PO BID [facility] Valsartan (Diovan -) 320 mg PO DAILY [facility] - Objective Vital Signs: Vital Signs Temperature 98 F 06/21/16 06:00 Pulse Rate 72 06/21/16 07:45 Respiratory Rate 20 06/21/16 07:45 Blood Pressure 137/70 06/21/16 08:43 O2 Sat by Pulse Oximetry (%) 96 06/21/16 07:57 Labs: CBC, BMP 06/21/16 05:00 06/21/16 05:00 Assessment/Plan 69-year-old female with past medical history significant for hypertension, rheumatoid arthritis, diabetes, hypothyroidism presents emergency department secondary to dyspnea. Patient states that she was seen by her manager clinic approximately 2 days ago. At that time she was given Lasix by her Dr. Patient states she has been taking the medication as directed but states that she has noted increased swelling to her lower extremities. Patient states that she feels winded and cannot ambulate as quickly or as far as she normally does secondary to the shortness of breath. Patient states that she did call her PCP informed her go to the emergency department for evaluation. Patient states that she has been experiencing these symptoms for a total of 3 days. Patient denies exacerbating or alleviating factors. Patient denies chest pain, back pain, wheezing, nausea/vomiting, dysuria, hematuria, fever, chills, abdominal pain, diarrhea or constipation.Patient denies use of any mscr-qbv-bfsaatt medication for the treatment of this complaint. (1) Asthma exacerbation Code(s): J45.901 - UNSPECIFIED ASTHMA WITH (ACUTE) EXACERBATION ICU PULM CONSULTED IV STEROIDS -> TAPERING DUONEB CXr SHOWS NO PNA (2) CHF (congestive heart failure) Code(s): I50.9 - HEART FAILURE, UNSPECIFIED TROP NEG x 3 -> NO ACS CXr SHOWS CONGESTIVE CHANGES IV LASIX CARDIO CONSULTED (3) Chest pain Code(s): R07.9 - CHEST PAIN, UNSPECIFIED (4) Shortness of breath Code(s): R06.02 - SHORTNESS OF BREATH (5) Diabetes Code(s): E11.9 - TYPE 2 DIABETES MELLITUS WITHOUT COMPLICATIONS BGM ISS (6) Hypertension Code(s): I10 - ESSENTIAL (PRIMARY) HYPERTENSION ACCEPTABLE CONTROL (7) Hypothyroid Code(s): E03.9 - HYPOTHYROIDISM, UNSPECIFIED TSH LOW -> SYNTHROID ADJUSTED. RECHECK IN 4 WEEKS. (8) Leg edema Code(s): R60.0 - LOCALIZED EDEMA IV LASIX DUPLEX -> NO DVT CPK 400 -> IV NS BOLUS -> MONITOR (9) UTI (urinary tract infection) Code(s): N39.0 - URINARY TRACT INFECTION, SITE NOT SPECIFIED 06/13 UCx +trae -> F/U BCx & UCx WBC NEG NO FEVER ID CONSULTED
[2016-06-21] MEDS ORDERED: PT OWN MED DRAWER 7, Y5N ONE (09:07)
[2016-06-21] MEDS: VALSARTAN 160 MG TABLET (UD) PO SCH (09:09)
[2016-06-21] MEDS: DULoxetine HCL 30 MG CAPSULE.DR (FP) PO SCH (09:09)
[2016-06-21] MEDS: HEPARIN NA (PORCINE) 5,000 UNITS/ML 1ML VIAL SQ SCH ×2 (09:10→23:03)
[2016-06-21] MEDS: BACLOFEN 10 MG TABLET (FP) PO SCH (09:10)
[2016-06-21] MEDS: POTASSIUM CHLORIDE TABS 20 MEQ TABLET.ER (FP) PO SCH (09:10)
[2016-06-21] MEDS: amLODIPine BESYLATE 5 MG TABLET (FP) PO SCH (09:11)
[2016-06-21] MEDS: PREGABALIN 50 MG CAPSULE PO SCH ×2 (09:11→23:04)
[2016-06-21] MEDS: BUDESONIDE/FORMETEROL FUMARATE 160/4.5 mcg INHALER IH SCH ×2 (09:12→23:05)
[2016-06-21] MEDS: FEBUXOSTAT 40 MG TAB PO SCH (09:13)
[2016-06-21] MEDS: METOPROLOL SUCCINATE 100 MG TAB.SR.24H (FP) PO SCH (09:13)
[2016-06-21] MEDS: SOLIFENACIN SUCCINATE 5 MG TAB (FP) PO SCH ×2 (09:14→23:02)
[2016-06-21] MEDS: TOFACITINIB CITRATE 5 MG PO SCH ×2 (09:36→22:49)
[2016-06-21] MEDS: FUROSEMIDE 40 MG TABLET (FP) PO SCH (09:36)
[2016-06-21] MEDS: PANTOPRAZOLE 40 MG TABLET (FP) PO SCH (09:36)
--- NOTE | 2016-06-21 09:49 | PN ---
Progress Note (short form) - Note Progress Note: ID consult dictated imp/reccd 71 year old female pmh HTN, DM, CHF, asthma, RA, obesity admitted from home with increased CORNEJO and leg edema for the last week no fevers, no cough,no dysuria she has been using her inhaler more frequently she has chronic right hip pain and saw her PME about a week ago- he gave her an injection and an oral antibiotic (macrobid) for UTI she had a fall at home on Tuesday as well when her right leg gave out (she uses a walker) she took macrobid for 2-3 days it made her feel sick and she stopped former smoker given steroids and diuretics in the ED with some improvement duplex of legs negative for DVT, head ct od cxray-no infiltrate no suprapubic tenderness no CVAT probable copd exacerbation CHF improving with diuretics doubt UTI- follow up cultures observe off antibiotics RA- followed by Dr Chino
[2016-06-21] MEDS ORDERED: methylPREDNISolone NA SUCC 40 MG/1 ML VIAL IVPB SCH ×2 (10:00)
[2016-06-21] MEDS ORDERED: PANTOPRAZOLE SODIUM 100 ML IVPB SCH ×2 (10:00)
[2016-06-21] MEDS ORDERED: FUROSEMIDE 40 MG/4 ML INJECTABLE VIAL IVPUSH SCH (10:00)
--- NOTE | 2016-06-21 10:03 | CON.CARD ---
Consult Consult Specialty:: Cardiology Referred by:: Jennifer Mccullough MD Reason for Consultation:: Dyspnea on exertion, orthopnea - History of Present Illness Chief Complaint: CORNEJO, orthopnea History of Present Illness: 71-year-old -[place] female with past medical history significant for hypertension, rheumatoid arthritis, type 2 diabetes, hypothyroidism, hyperlipidemia, polymyalgia rheumatica, OSAS on cpap presented for progressive dyspnea on exertion, peripheral edema, orthopnea, PND and exercise intolerance despite increased outpatient diuresis. She denies associated sxs of chest pain, near or true syncope, palpitations, reports medication and diet compliance. - History Source History Provided By: Patient Limitations to Obtaining History: No Limitations - Past Medical History [facility]: Yes: CVA (?) Cardio/Vascular: Yes: CHF, HTN, Hyperlipdemia Pulmonary: Yes: Asthma Renal/: Yes: Renal Calculi ...: No Rheumatology: Yes: Rheumatoid Arthritis Endocrine: Yes: Diabetes Mellitus, Hypothyroidism - Alcohol/Substance Use Hx Alcohol Use: No - Smoking History Smoking history: Never smoked Have you smoked in the past 12 months: No Aproximately how many cigarettes per day: 0 If you are a former smoker, when did you quit?: as a teenager - Social History 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, 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) Home Medications - Allergies Allergies/Adverse Reactions: Allergies Allergy/AdvReac Type Severity Reaction Status Date / Time No Known Allergies Allergy Verified 06/19/16 13:35 - Home Medications Home Medications: Ambulatory Orders Albuterol Sulfate Inhaler - [Ventolin Hfa Inhaler -] 1 - 2 inh PO Q4H 06/13/16 Alprazolam [Xanax] 1 mg PO HS PRN 06/13/16 Amlodipine/Valsartan [Amlodipine-Valsartan 5-320 mg] 1 each PO DAILY 06/13/16 Atorvastatin Ca [Lipitor] 40 mg PO HS 06/13/16 Baclofen 10 mg PO DAILY 06/13/16 Cyclobenzaprine HCl [Flexeril 10 mg] 10 mg PO TID #30 tablet 06/13/16 Cyclosporine [Restasis] 1 each OU HS 06/13/16 Duloxetine HCl 30 mg PO DAILY 06/13/16 Febuxostat [Uloric -] 40 mg PO DAILY 06/13/16 Fluticasone/Vilanterol [Breo Ellipta 100-25 Mcg INH] 1 each IH BID 06/13/16 Furosemide [Lasix] 40 mg PO DAILY 06/13/16 Leflunomide 20 mg PO TID 06/13/16 Levothyroxine [Synthroid -] 175 mcg PO DAILY 06/13/16 Metoprolol Succinate [Toprol Xl] 200 mg PO DAILY 06/13/16 Montelukast Na [Singulair -] 10 mg PO HS 06/13/16 Nitrofurantoin Monohyd/M-Cryst [Macrobid -] 100 mg PO BID 06/13/16 Omeprazole 40 mg PO DAILY 06/13/16 Oxybutynin Chloride [Ditropan Xl] 10 mg PO BID 06/13/16 Oxycodone HCl/Acetaminophen [Endocet 7.5-325 mg Tablet] 1 each PO Q6H PRN Oxycodone HCl/Acetaminophen [Percocet 5-325 mg Tablet] 1 - 2 tab PO Q6H #20 tab MDD 4 06/13/16 Potassium Chloride [K-Dur -] 20 meq PO DAILY 06/13/16 Pregabalin [Lyrica -] 150 mg PO BID 06/13/16 Salmeterol/Fluticasone [Advair 500Mcg/50Mcg] 1 inh PO BID 06/13/16 Tofacitinib Citrate [Xeljanz] 5 mg PO BID 06/13/16 Review of Systems - Review of Systems Cardiovascular: reports: Edema, Shortness of Breath Respiratory: reports: Orthopnea, PND, SOB on Exertion Vital Signs: Vital Signs Temperature 98 F 06/21/16 06:00 Pulse Rate 72 06/21/16 07:45 Respiratory Rate 20 06/21/16 07:45 Blood Pressure 137/70 06/21/16 08:43 O2 Sat by Pulse Oximetry (%) 96 06/21/16 07:57 Constitutional: Yes: No Distress, Calm Neck: Yes: Supple Respiratory: Yes: Regular, Diminished, Orthopnea Gastrointestinal: Yes: Normal Bowel Sounds, Soft, Abdomen, Obese Cardiovascular: Yes: Regular Rate and Rhythm JVD: No Carotid Bruit: No Heart Sounds: Yes: S1, S2 Edema: Yes Edema: LLE: 2+, RLE: 2+ - Other Data Labs, Other Data: CBC, BMP 06/21/16 05:00 06/21/16 05:00 NSR low volts Imaging - Results Chest X-ray: Report Reviewed (NAD) Problem List - Problems (1) Leg edema Code(s): R60.0 - LOCALIZED EDEMA Qualifiers: Laterality: bilateral Qualified Code(s): R60.0 - Localized edema (2) Shortness of breath Code(s): R06.02 - SHORTNESS OF BREATH (3) Asthma Code(s): J45.909 - UNSPECIFIED ASTHMA, UNCOMPLICATED Qualifiers: Asthma severity: mild persistent (4) Diabetes Code(s): E11.9 - TYPE 2 DIABETES MELLITUS WITHOUT COMPLICATIONS Qualifiers: Diabetes mellitus type: type 2 (5) Hypertension Code(s): I10 - ESSENTIAL (PRIMARY) HYPERTENSION Qualifiers: Hypertension type: essential hypertension Qualified Code(s): I10 - Essential (primary) hypertension (6) Hypothyroid Code(s): E03.9 - HYPOTHYROIDISM, UNSPECIFIED (7) Volume overload Code(s): E87.70 - FLUID OVERLOAD, UNSPECIFIED Qualifiers: Hypervolemia type: unspecified Qualified Code(s): E87.70 - Fluid overload, unspecified (8) Acute on chronic diastolic CHF (congestive heart failure) Code(s): I50.33 - ACUTE ON CHRONIC DIASTOLIC (CONGESTIVE) HEART FAILURE (9) Arthritis, rheumatoid Code(s): M06.9 - RHEUMATOID ARTHRITIS, UNSPECIFIED (10) Obstructive sleep apnea on CPAP Code(s): G47.33 - OBSTRUCTIVE SLEEP APNEA (ADULT) (PEDIATRIC) (11) Polymyalgia rheumatica Code(s): M35.3 - POLYMYALGIA RHEUMATICA Assessment/Plan 1. Acute on chronic diastolic failure 2. Asthma 3. OSAS on cpap 4. HTN/HCVD 5. Type 2 DM 6. Hypothyroidism P:1. Diuresis with monitor diuretic response, renal fxn and electrolytes 2. Continue ASA 81 qd, Exforge 5/320 qd, Toprol XL 200 qd, Lipitor 40 qd 3. BD, O2, cpap qhs prn, steroid taper, off abx 4. DVT and GI prophylaxis 5. Thank you for consultative opportunity
[2016-06-21] MEDS ORDERED: ALBUTEROL SO4 2.5/IPRATROPIUM 0.5 INH SOL 3 ML VIAL.NEB. NEB ONE (10:04)
[2016-06-21] MEDS: ALBUTEROL SO4 2.5/IPRATROPIUM 0.5 INH SOL 3 ML VIAL.NEB. NEB SCH ×3 (11:26→23:03)
--- NOTE | 2016-06-21 12:26 | PN ---
Progress Note (short form) - Note Progress Note: Dr Ralph reports he is unable to come in today for EMG, and unable to come in tomorrow most likely due to severe weather. He will be in to perform EMG either Tuesday06/23/16 or 06/24/16.
--- NOTE | 2016-06-21 12:44 | PN ---
Teaching Attending Note Name of Resident: Rene Moy ATTENDING PHYSICIAN STATEMENT I saw and evaluated the patient. I reviewed the resident's note and discussed the case with the resident. I agree with the resident's findings and plan as documented. SUBJECTIVE: Patient seen and examined in the ICU. Breathing feels better. Some dry cough. No CP. Intake & Output 06/18/16 06/19/16 06/20/16 06/21/16 22:59 22:59 23:59 23:59 Intake Total 200 Output Total Balance 200 Weight 328 lb Last Vital Signs Temp Pulse Resp BP Pulse Ox 98 F 66 18 126/75 96 06/21/16 06:00 06/21/16 11:21 06/21/16 11:21 06/21/16 11:21 06/21/16 07:57 Active Medications Acetaminophen (Tylenol -) 325 mg PO Q6H PRN PRN Reason: PAIN Albuterol/Ipratropium (Duoneb -) 1 amp NEB QIDR [facility] Last Admin: 06/21/16 11:26 Dose: 1 amp Alprazolam (Xanax -) 1 mg PO HS PRN PRN Reason: INSOMNIA Amlodipine Besylate (Norvasc -) 5 mg PO DAILY [facility] Last Admin: 06/21/16 09:11 Dose: 5 mg Atorvastatin Calcium (Lipitor -) 40 mg PO HS [facility] Baclofen (Lioresal -) 10 mg PO DAILY [facility] Last Admin: 06/21/16 09:10 Dose: 10 mg Budesonide/Formoterol Fumarate (Symbicort 160/4.5mcg -) 1 puff IH BID [facility] Last Admin: 06/21/16 09:12 Dose: 1 puff Docusate Sodium (Colace -) 100 mg PO HS [facility] Duloxetine HCl (Cymbalta -) 30 mg PO DAILY [facility] Last Admin: 06/21/16 09:09 Dose: 30 mg Febuxostat (Uloric -) 40 mg PO DAILY [facility] Last Admin: 06/21/16 09:13 Dose: 40 mg Furosemide (Lasix -) 60 mg PO DAILY [facility] Last Admin: 06/21/16 09:36 Dose: 60 mg Heparin Sodium (Porcine) (Heparin -) 5,000 unit SQ BID [facility] Last Admin: 06/21/16 09:10 Dose: 5,000 unit Insulin Aspart (Novolog Vial Sliding Scale -) 1 vial SQ ACHS [facility] PRN Reason: Protocol Last Admin: 06/21/16 11:18 Dose: 2 units Levothyroxine Sodium (Synthroid -) 150 mcg PO DAILY@0700 [facility] Methylprednisolone Sodium Succinate (Solu-Medrol -) 40 mg IVPB BID [facility] Last Admin: 06/21/16 09:12 Dose: 40 mg Metoprolol Succinate (Toprol Xl -) 200 mg PO DAILY [facility] Last Admin: 06/21/16 09:13 Dose: 200 mg Montelukast Sodium (Singulair -) 10 mg PO HS [facility] Non-Formulary Medication (Cyclosporine [Restasis]) 1 each OU HS [facility] Non-Formulary Medication (Leflunomide [Leflunomide]) 20 mg PO TID [facility] Non-Formulary Medication (Tofacitinib Citrate [Xeljanz]) 5 mg PO BID [facility] Last Admin: 06/21/16 09:36 Dose: Not Given Oxycodone HCl (Roxicodone -) 5 mg PO Q6H PRN PRN Reason: PAIN Pantoprazole Sodium (Protonix -) 40 mg PO DAILY [facility] Last Admin: 06/21/16 09:36 Dose: 40 mg Potassium Chloride (K-Dur -) 20 meq PO DAILY [facility] Last Admin: 06/21/16 09:10 Dose: 20 meq Pregabalin (Lyrica -) 150 mg PO BID [facility] Last Admin: 06/21/16 09:11 Dose: 150 mg Solifenacin (Vesicare -) 5 mg PO BID [facility] Last Admin: 06/21/16 09:14 Dose: 5 mg Valsartan (Diovan -) 320 mg PO DAILY [facility] Last Admin: 06/21/16 09:09 Dose: 320 mg Constitutional: Yes: Awake and alert, NAD Cardiovascular: Yes: Regular Rate and Rhythm, S1, S2 Respiratory: Yes: Clear, diminished at the bases Gastrointestinal: Yes: Normal Bowel Sounds, Soft Edema: Yes Labs: Laboratory Results - last 24 hr 06/21/16 06/21/16 05:00 05:00 WBC 8.6 D RBC 4.18 Hgb 12.0 Hct 36.9 MCV 88.3 MCHC 32.6 RDW 18.0 H Plt Count 245 MPV 8.7 Neutrophils % 87.0 H Lymphocytes % 6.4 L D Monocytes % 6.6 D Eosinophils % 0.0 Basophils % 0.0 Sodium 143 Potassium 3.7 Chloride 108 H Carbon Dioxide 28 Anion Gap 7 L BUN 16 D Creatinine 0.8 D Creat Clearance w eGFR > 60 Random Glucose 157 H Calcium 8.3 L Total Bilirubin 0.3 D AST 18 ALT 24 Alkaline Phosphatase 81 Total Protein 5.9 L Albumin 3.0 L TSH 0.17 L Problem List - Problems (1) Asthma exacerbation Code(s): J45.901 - UNSPECIFIED ASTHMA WITH (ACUTE) EXACERBATION (2) CHF (congestive heart failure) Code(s): I50.9 - HEART FAILURE, UNSPECIFIED (3) Chest pain Code(s): R07.9 - CHEST PAIN, UNSPECIFIED (4) Shortness of breath Code(s): R06.02 - SHORTNESS OF BREATH (5) Diabetes Code(s): E11.9 - TYPE 2 DIABETES MELLITUS WITHOUT COMPLICATIONS (6) Hypertension Code(s): I10 - ESSENTIAL (PRIMARY) HYPERTENSION (7) Hypothyroid Code(s): E03.9 - HYPOTHYROIDISM, UNSPECIFIED (8) Leg edema Code(s): R60.0 - LOCALIZED EDEMA (9) UTI (urinary tract infection) Code(s): N39.0 - URINARY TRACT INFECTION, SITE NOT SPECIFIED Assessment/Plan Medrol -> can likely change to Prednisone in AM O2 as needed BD TX Symbicort BID CPAP at 13 cm H2O QHS & PRN VTE prophylaxis Lasix Monitor off ABX Floor Dr Mo CCTime 35"
--- NOTE | 2016-06-21 17:10 | CONSULT ---
- Consultation REQUESTING PROVIDER: Rm Perez (Vascular Surgery / Wound Care) CONSULT REQUEST: We have been asked to surgically evaluate this patient for right thigh pain. PCP: Aly Baptiste MD History Source: Patient and her medical records Limitations to Obtaining History: No Limitations HPI: Called to nikita 71 yo female with PMHx noted below. Admitted to [facility] for her progressive CORNEJO, PND, orthopnea, peripheral edema, and exercise intolerance despite increased outpatient diuresis. Patient is followed by Dr. Huff as out- patient. She is also c/o right thigh pain (lateral aspect). Patient admits to having this for the past couple of years. She states she just went for a stand- up MRI and will obtain the official impression for her medical record. She ambulates with a rolling walker device. Denies numbness/tingling/burning to her extremity. Denies difficulty urinating. RLE vascular study performed on 06/19/16 and DVT was ruled out. Lumbar CT performed on 06/13/16: chronic cogenic disease, facet joint arthropathy. Spinal stenosis. Severe narrowing of the neural foramina at L5-S1 PMHx: CVA (?), HTN, Asthma, Renal Calculi, Rheumatoid Arthritis, Type 2 DM, Hypothyroidism, Morbid Obesity, Sleep apnea (on CPAP), Chronic RLE pain, Scoliosis PSHx: Right TKR Allergies: NKDA Home Meds: Albuterol Sulfate Inhaler - [Ventolin Hfa Inhaler -] 1 - 2 inh PO Q4H 06/13/16 Alprazolam [Xanax] 1 mg PO HS PRN 06/13/16 Amlodipine/Valsartan [Amlodipine-Valsartan 5-320 mg] 1 each PO DAILY 06/13/16 Atorvastatin Ca [Lipitor] 40 mg PO HS 06/13/16 Baclofen 10 mg PO DAILY 06/13/16 Cyclobenzaprine HCl [Flexeril 10 mg] 10 mg PO TID #30 tablet 06/13/16 Cyclosporine [Restasis] 1 each OU HS 06/13/16 Duloxetine HCl 30 mg PO DAILY 06/13/16 Febuxostat [Uloric -] 40 mg PO DAILY 06/13/16 Fluticasone/Vilanterol [Breo Ellipta 100-25 Mcg INH] 1 each IH BID 06/13/16 Furosemide [Lasix] 40 mg PO DAILY 06/13/16 Leflunomide 20 mg PO TID 06/13/16 Levothyroxine [Synthroid -] 175 mcg PO DAILY 06/13/16 Metoprolol Succinate [Toprol Xl] 200 mg PO DAILY 06/13/16 Montelukast Na [Singulair -] 10 mg PO HS 06/13/16 Nitrofurantoin Monohyd/M-Cryst [Macrobid -] 100 mg PO BID 06/13/16 Omeprazole 40 mg PO DAILY 06/13/16 Oxybutynin Chloride [Ditropan Xl] 10 mg PO BID 06/13/16 Oxycodone HCl/Acetaminophen [Endocet 7.5-325 mg Tablet] 1 each PO Q6H PRN Oxycodone HCl/Acetaminophen [Percocet 5-325 mg Tablet] 1 - 2 tab PO Q6H #20 tab MDD 4 06/13/16 Potassium Chloride [K-Dur -] 20 meq PO DAILY 06/13/16 Pregabalin [Lyrica -] 150 mg PO BID 06/13/16 Salmeterol/Fluticasone [Advair 500Mcg/50Mcg] 1 inh PO BID 06/13/16 Tofacitinib Citrate [Xeljanz] 5 mg PO BID 06/13/16 ROS: Considered negative with exception to what's contained in HPI. PHYSICAL EXAM: GENERAL: Morbidly obese. Awake, alert, oriented, nad LE: 2+ pulses, warm, well-perfused. No calf tenderness. +1 b/l pedal edema. NEUROLOGICAL: Normal speech, gait not observed. Vital Signs Temperature 97.9 F 06/21/16 14:42 Pulse Rate 62 06/21/16 14:42 Respiratory Rate 18 06/21/16 14:42 Blood Pressure 130/74 06/21/16 14:42 O2 Sat by Pulse Oximetry (%) 96 06/21/16 07:57 Lab Results WBC 8.6 K/mm3 (4.0-10.0) D 06/21/16 05:00 RBC 4.18 M/mm3 (3.60-5.2) 06/21/16 05:00 Hgb 12.0 GM/dL (10.7-15.3) 06/21/16 05:00 Hct 36.9 % (32.4-45.2) 06/21/16 05:00 MCV 88.3 fl (80-96) 06/21/16 05:00 MCHC 32.6 g/dl (32.0-36.0) 06/21/16 05:00 RDW 18.0 % (11.6-15.6) H 06/21/16 05:00 Plt Count 245 K/MM3 (134-434) 06/21/16 05:00 Sodium 143 mmol/L (136-145) 06/21/16 05:00 Potassium 3.7 mmol/L (3.5-5.1) 06/21/16 05:00 Chloride 108 mmol/L (98-107) H 06/21/16 05:00 Carbon Dioxide 28 mmol/L (21-32) 06/21/16 05:00 Anion Gap 7 (8-16) L 06/21/16 05:00 BUN 16 mg/dL (7-18) D 06/21/16 05:00 Creatinine 0.8 mg/dL (0.55-1.02) D 06/21/16 05:00 Random Glucose 157 mg/dL (74-106) H 06/21/16 05:00 Calcium 8.3 mg/dL (8.5-10.1) L 06/21/16 05:00 Problem List - Problems (1) Lumbar radiculopathy, acute Assessment/Plan: After reviewing patients extensive medical history (previous hospital visits, imaging studies to include Lumbar CT, vascular studies) coupled with a physical exam, this patient has a chronic leg problem which stems from her lumbar radiculopathy. Would recommend pain management Referral to either Drs. Willian Segovia or Juan Ibrahim for an elective out-patient laminectomy should patient wish to proceed with this as an option. Rheumatology f/u Cont care per her primary medical team No vascular surgery intervention. Above discussed with Dr. Perez and agrees. Code(s): M54.16 - RADICULOPATHY, LUMBAR REGION (2) Acute on chronic diastolic CHF (congestive heart failure) Code(s): I50.33 - ACUTE ON CHRONIC DIASTOLIC (CONGESTIVE) HEART FAILURE (3) Shortness of breath Code(s): R06.02 - SHORTNESS OF BREATH Visit type - Case Type Case Type: ED Admission - Emergency Emergency Visit: Yes ED Registration Date: 06/19/16 Care time: The patient presented to the Emergency Department on the above date and was hospitalized for further evaluation of their emergent condition. - New patient This patient is new to me today: Yes Date on this admission: 06/21/16
--- NOTE | 2016-06-21 20:08 | CONS ---
DATE OF CONSULTATION: DATE OF DICTATION: 06/21/2016 INFECTIOUS DISEASE CONSULTATION REQUESTING PHYSICIAN: Aly Baptiste M.D. CONSULTING PHYSICIAN: Lalit Viramontes M.D. HISTORY OF PRESENT ILLNESS: This is a 71-year-old woman with a past medical history of diabetes, hypertension, congestive heart failure, asthma, as well as rheumatoid arthritis who presents to the emergency room with worsening shortness of breath and dyspnea as well as lower extremity edema. The dyspnea on exertion and edema have increased over the last week, for the last 2 she has been using her inhaler which she really only uses seasonally. She has chronic right hip pain and saw her doctor about a week to 10 days ago, she was given a right hip injection and placed on antibiotics, Macrobid for UTI which she took for several days, developed nausea and diarrhea and stopped. She had a fall at home as well and recalls having hit her head, but there is no loss of consciousness. The fall is because her right leg gave out. 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 There is no history of any fever, nausea, vomiting, cough. She has no dysuria. PAST MEDICAL HISTORY: Notable for history of anemia, asthma, congestive heart failure. She had a CVA in 2011. She has a history of non-insulin dependent diabetes, hiatal hernia, gout, hypertension, hypercholesterolemia, hypothyroidism, as well as rheumatoid arthritis. SURGICAL HISTORY: Notable for appendectomy, cholecystectomy, she has had bilateral knee replacements. FAMILY HISTORY: Her mother is alive and well at 90, and her father is . ALLERGIES: No known drug allergies. MEDICATION: List includes albuterol inhaler, Xanax, amlodipine, valsartan, atorvastatin, baclofen, cyclobenzaprine, cyclosporin eyedrops, duloxetine, Uloric, fluticasone inhaler, furosemide, leflunomide, levothyroxine, metoprolol, Singulair, the Macrobid which she has stopped, omeprazole, Ditropan, Percocet, potassium, Lyrica, Advair, and Xeljanz. SOCIAL HISTORY: Her granddaughter lives with her, she has an aid 8 hours a day, and she uses a walker. She is a former smoker, she stopped smoking in her 50s. 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 REVIEW OF SYSTEMS: She has no diarrhea, it resolved after she stopped the antibiotics . Her breathing is improved, though she still gets dyspneic on exertion. She has chronic right hip pain. PHYSICAL EXAMINATION: General: She is awake and alert. Vital signs: Temperature 98, pulse 72, blood pressure 137/70, respiratory rate 20. She is saturating 96% on room air. She weighs 328 pounds. HEENT: Normocephalic. Eyes are anicteric. She has no thrush or pharyngitis. Neck: Supple. Lungs: Diminished breath sounds at the bases. Heart: Regular rate and rhythm. Abdomen: Soft. She has a well healed midline scar which she says happened when she had a ruptured appendix. Extremities: She has bilateral well healed total knee replacement scars. She has 2+ pitting edema which she states is new. Her hands are notable for swan like deformities of both her hands. LABORATORY: Notable for white count of 8.6, hemoglobin 12, platelets 245. BUN and creatinine are 16 and 0.8. LFTs are normal. Albumin is 3. Urinalysis is notable for 20 white cells. Cultures are pending. Chest x-ray is negative for infiltrate, just revealed increased markings and a poor inspiration. Head CT is negative for any acute intracranial pathology and duplex of her legs is negative for DVT. IMPRESSION: In summary, this is a 71-year-old woman with past medical history of hypertension, diabetes, heart failure, asthma, rheumatoid arthritis, and obesity, admitted from home with increasing shortness of breath and leg edema for the last week. Her most likely she has chronic obstructive pulmonary disease exacerbation, congestive heart failure improving with diuretics. I doubt she has a urinary tract infection. She has no dysuria. She has no fever or leukocytosis. On exam, there is no suprapubic or cerebrovascular accident tenderness. I would follow up her cultures and observe her off antibiotics at this time. She has a history of rheumatoid arthritis for which she is on medications and followed by Dr. Chnio. LALIT VIRAMONTES M.D. [id number]
[2016-06-21] MEDS ORDERED: oxyCODONE HCL 5 MG TABLET PO ONE (21:30)
[2016-06-21] MEDS ORDERED: DOCUSATE SODIUM 100 MG CAPSULE (FP) PO SCH (22:00)
[2016-06-21] MEDS: PATIENT'S OWN MEDICATION (NON-FORMULARY) (Cyclosporine [Restasis] 1 EACH) OU SCH (22:46)
[2016-06-21] MEDS: ATORVASTATIN CA 40 MG TABLET (FP) PO SCH (23:03)
[2016-06-21] MEDS: MONTELUKAST NA 10 MG TABLET PO SCH (23:04)
[2016-06-21] MEDS: DOCUSATE SODIUM 100 MG CAPSULE (FP) PO SCH (23:04)
[2016-06-22] MEDS: ALBUTEROL SO4 2.5/IPRATROPIUM 0.5 INH SOL 3 ML VIAL.NEB. NEB SCH ×3 (06:20→17:21)
[2016-06-22] MEDS: LEFLUNOMIDE 20 MG PO SCH ×3 (06:24→22:18)
[2016-06-22] MEDS: INSULIN SLIDING SCALE (NOVOLOG) 1 VIAL SQ SCH ×4 (06:27→22:18)
[2016-06-22] MEDS: LEVOTHYROXINE NA 150 MCG TABLET PO SCH (06:28)
[2016-06-22] MEDS: ACETAMINOPHEN 325 MG TABLET (FP) PO PRN (06:31)
[2016-06-22] MEDS: oxyCODONE HCL 5 MG TABLET PO PRN ×3 (06:31→23:11)
[2016-06-22 07:26] LABS: BASOPHIL 0.5 % (0-2.0); MCH 28.4 pg (25.7-33.7); MCHC 31.7 g/dl (32.0-36.0); MEAN CELL VOLUME 89.3 fl (80-96); MEAN PLT VOLUME 8.8 fl (7.5-11.1); NEUTROPHILS 83.9 % (42.8-82.8); PLATELET COUNT 230 K/MM3 (134-434); RDW 17.4 % (11.6-15.6); WHITE BLOOD COUNT 7.7 K/mm3 (4.0-10.0)
[2016-06-22 07:42] LABS: ALBUMIN 3.3 g/dl (3.4-5.0); ALK PHOS 85 U/L (45-117); ANION GAP 9 (8-16); BILIRUBIN,TOTAL 0.3 mg/dL (0.2-1.0); CALCIUM 8.7 mg/dL (8.5-10.1); CO2 29 mmol/L (21-32); CREATININE 0.7 mg/dL (0.55-1.02); GLUCOSE,RANDOM 155 mg/dL (74-106); SGOT/AST 19 U/L (15-37); SGPT/ALT 26 U/L (12-78); TOT PROT 6.5 g/dl (6.4-8.2)
[2016-06-22 08:45] LABS: TROPONIN I < 0.02 ng/ml (0.00-0.05)
--- NOTE | 2016-06-22 11:00 | PN ---
Progress Note (short form) - Note Progress Note: PULMONARY Breathing continues to improve. Occasional cough and wheezing. Last Vital Signs Temp Pulse Resp BP Pulse Ox 97.6 F 62 20 130/77 96 06/22/16 14:00 06/22/16 14:00 06/22/16 14:00 06/22/16 14:00 06/22/16 09:00 Gen: NAD at rest Heart: RRR Lung: distant breath sounds, no wheezes Abd: soft, nontender Ext: + edema CBC, BMP 06/22/16 05:35 06/22/16 05:35 Active Medications Acetaminophen (Tylenol -) 325 mg PO Q6H PRN PRN Reason: PAIN Last Admin: 06/22/16 06:31 Dose: 325 mg Albuterol/Ipratropium (Duoneb -) 1 amp NEB QIDR [facility] Last Admin: 06/22/16 11:24 Dose: 1 amp Alprazolam (Xanax -) 1 mg PO HS PRN PRN Reason: INSOMNIA Amlodipine Besylate (Norvasc -) 5 mg PO DAILY [facility] Last Admin: 06/22/16 11:19 Dose: 5 mg Atorvastatin Calcium (Lipitor -) 40 mg PO HS [facility] Last Admin: 06/21/16 23:03 Dose: 40 mg Baclofen (Lioresal -) 10 mg PO DAILY [facility] Last Admin: 06/22/16 11:18 Dose: 10 mg Budesonide/Formoterol Fumarate (Symbicort 160/4.5mcg -) 1 puff IH BID [facility] Last Admin: 06/22/16 11:33 Dose: 1 puff Docusate Sodium (Colace -) 200 mg PO HS [facility] Last Admin: 06/21/16 23:04 Dose: 200 mg Duloxetine HCl (Cymbalta -) 30 mg PO DAILY [facility] Last Admin: 06/22/16 11:19 Dose: 30 mg Febuxostat (Uloric -) 40 mg PO DAILY [facility] Last Admin: 06/22/16 11:33 Dose: 40 mg Furosemide (Lasix -) 60 mg PO DAILY [facility] Last Admin: 06/22/16 11:18 Dose: 60 mg Heparin Sodium (Porcine) (Heparin -) 5,000 unit SQ BID [facility] Last Admin: 06/22/16 11:19 Dose: 5,000 unit Insulin Aspart (Novolog Vial Sliding Scale -) 1 vial SQ ACHS [facility] PRN Reason: Protocol Last Admin: 06/22/16 11:53 Dose: Not Given Levothyroxine Sodium (Synthroid -) 150 mcg PO DAILY@0700 [facility] Last Admin: 06/22/16 06:28 Dose: 150 mcg Methylnaltrexone Morrison (Relistor -) 8 mg SQ DAILY [facility] Methylprednisolone Sodium Succinate (Solu-Medrol -) 40 mg IVPB BID [facility] Last Admin: 06/22/16 11:20 Dose: 40 mg Metoprolol Succinate (Toprol Xl -) 200 mg PO DAILY [facility] Last Admin: 06/22/16 11:17 Dose: 200 mg Montelukast Sodium (Singulair -) 10 mg PO HS [facility] Last Admin: 06/21/16 23:04 Dose: 10 mg Non-Formulary Medication (Cyclosporine [Restasis]) 1 each OU HS [facility] Last Admin: 06/21/16 22:46 Dose: Not Given Non-Formulary Medication (Leflunomide [Leflunomide]) 20 mg PO TID [facility] Last Admin: 06/22/16 14:27 Dose: Not Given Non-Formulary Medication (Tofacitinib Citrate [Xeljanz]) 5 mg PO BID [facility] Last Admin: 06/22/16 11:39 Dose: Not Given Oxycodone HCl (Roxicodone -) 10 mg PO Q6H PRN PRN Reason: PAIN Pantoprazole Sodium (Protonix -) 40 mg PO DAILY [facility] Last Admin: 06/22/16 11:21 Dose: 40 mg Potassium Chloride (K-Dur -) 20 meq PO DAILY [facility] Last Admin: 06/22/16 11:19 Dose: 20 meq Pregabalin (Lyrica -) 150 mg PO BID [facility] Last Admin: 06/22/16 11:18 Dose: 150 mg Senna (Senna -) 1 tab PO BID [facility] Solifenacin (Vesicare -) 5 mg PO BID [facility] Last Admin: 06/22/16 11:39 Dose: Not Given Valsartan (Diovan -) 320 mg PO DAILY [facility] Last Admin: 06/22/16 11:17 Dose: 320 mg A/P Acute COPD Exacerbation Acute on Chronic LV Diastolic Heart Failure RULA HTN DM Hypothyroidism - medrol taper - inhaled bronchodilators - O2 as needed - CPAP at night - lasix - monitor urine output, creatinine - daily weights - DVT prophylaxis
[2016-06-22] MEDS: METOPROLOL SUCCINATE 100 MG TAB.SR.24H (FP) PO SCH (11:17)
[2016-06-22] MEDS: VALSARTAN 160 MG TABLET (UD) PO SCH (11:17)
[2016-06-22] MEDS: PREGABALIN 50 MG CAPSULE PO SCH ×2 (11:18→22:14)
[2016-06-22] MEDS: BACLOFEN 10 MG TABLET (FP) PO SCH (11:18)
[2016-06-22] MEDS: FUROSEMIDE 40 MG TABLET (FP) PO SCH (11:18)
[2016-06-22] MEDS: HEPARIN NA (PORCINE) 5,000 UNITS/ML 1ML VIAL SQ SCH ×2 (11:19→22:20)
[2016-06-22] MEDS: DULoxetine HCL 30 MG CAPSULE.DR (FP) PO SCH (11:19)
[2016-06-22] MEDS: POTASSIUM CHLORIDE TABS 20 MEQ TABLET.ER (FP) PO SCH (11:19)
[2016-06-22] MEDS: amLODIPine BESYLATE 5 MG TABLET (FP) PO SCH (11:19)
[2016-06-22] MEDS: methylPREDNISolone NA SUCC 40 MG/1 ML VIAL IVPB SCH ×2 (11:20→22:11)
[2016-06-22] MEDS: PANTOPRAZOLE 40 MG TABLET (FP) PO SCH (11:21)
[2016-06-22] MEDS ORDERED: PT OWN MED DRAWER 7, Y5N ONE (11:31)
[2016-06-22] MEDS: FEBUXOSTAT 40 MG TAB PO SCH (11:33)
[2016-06-22] MEDS: BUDESONIDE/FORMETEROL FUMARATE 160/4.5 mcg INHALER IH SCH ×2 (11:33→22:22)
[2016-06-22] MEDS: TOFACITINIB CITRATE 5 MG PO SCH ×2 (11:39→22:22)
[2016-06-22] MEDS: SOLIFENACIN SUCCINATE 5 MG TAB (FP) PO SCH ×2 (11:39→23:11)
--- NOTE | 2016-06-22 16:37 | PN ---
Progress Note, Physician Chief Complaint: MY FIRST MEDICAL ENCOUNTER WITH THIS PATIENT NAD C/O CONSTIPATION - Current Medication List Current Medications: Active Medications Acetaminophen (Tylenol -) 325 mg PO Q6H PRN PRN Reason: PAIN Last Admin: 06/22/16 06:31 Dose: 325 mg Albuterol/Ipratropium (Duoneb -) 1 amp NEB QIDR [facility] Last Admin: 06/22/16 11:24 Dose: 1 amp Alprazolam (Xanax -) 1 mg PO HS PRN PRN Reason: INSOMNIA Amlodipine Besylate (Norvasc -) 5 mg PO DAILY [facility] Last Admin: 06/22/16 11:19 Dose: 5 mg Atorvastatin Calcium (Lipitor -) 40 mg PO HS [facility] Last Admin: 06/21/16 23:03 Dose: 40 mg Baclofen (Lioresal -) 10 mg PO DAILY [facility] Last Admin: 06/22/16 11:18 Dose: 10 mg Budesonide/Formoterol Fumarate (Symbicort 160/4.5mcg -) 1 puff IH BID [facility] Last Admin: 06/22/16 11:33 Dose: 1 puff Docusate Sodium (Colace -) 200 mg PO HS [facility] Last Admin: 06/21/16 23:04 Dose: 200 mg Duloxetine HCl (Cymbalta -) 30 mg PO DAILY [facility] Last Admin: 06/22/16 11:19 Dose: 30 mg Febuxostat (Uloric -) 40 mg PO DAILY [facility] Last Admin: 06/22/16 11:33 Dose: 40 mg Furosemide (Lasix -) 60 mg PO DAILY [facility] Last Admin: 06/22/16 11:18 Dose: 60 mg Heparin Sodium (Porcine) (Heparin -) 5,000 unit SQ BID [facility] Last Admin: 06/22/16 11:19 Dose: 5,000 unit Insulin Aspart (Novolog Vial Sliding Scale -) 1 vial SQ ACHS [facility] PRN Reason: Protocol Last Admin: 06/22/16 11:53 Dose: Not Given Levothyroxine Sodium (Synthroid -) 150 mcg PO DAILY@0700 [facility] Last Admin: 06/22/16 06:28 Dose: 150 mcg Methylnaltrexone [place] (Relistor -) 8 mg SQ DAILY [facility] Methylprednisolone Sodium Succinate (Solu-Medrol -) 40 mg IVPB BID [facility] Last Admin: 06/22/16 11:20 Dose: 40 mg Metoprolol Succinate (Toprol Xl -) 200 mg PO DAILY [facility] Last Admin: 06/22/16 11:17 Dose: 200 mg Montelukast Sodium (Singulair -) 10 mg PO HS [facility] Last Admin: 06/21/16 23:04 Dose: 10 mg Non-Formulary Medication (Cyclosporine [Restasis]) 1 each OU HS [facility] Last Admin: 06/21/16 22:46 Dose: Not Given Non-Formulary Medication (Leflunomide [Leflunomide]) 20 mg PO TID [facility] Last Admin: 06/22/16 14:27 Dose: Not Given Non-Formulary Medication (Tofacitinib Citrate [Xeljanz]) 5 mg PO BID [facility] Last Admin: 06/22/16 11:39 Dose: Not Given Oxycodone HCl (Roxicodone -) 10 mg PO Q6H PRN PRN Reason: PAIN Pantoprazole Sodium (Protonix -) 40 mg PO DAILY [facility] Last Admin: 06/22/16 11:21 Dose: 40 mg Potassium Chloride (K-Dur -) 20 meq PO DAILY [facility] Last Admin: 06/22/16 11:19 Dose: 20 meq Pregabalin (Lyrica -) 150 mg PO BID [facility] Last Admin: 06/22/16 11:18 Dose: 150 mg Senna (Senna -) 1 tab PO BID [facility] Solifenacin (Vesicare -) 5 mg PO BID [facility] Last Admin: 06/22/16 11:39 Dose: Not Given Valsartan (Diovan -) 320 mg PO DAILY [facility] Last Admin: 06/22/16 11:17 Dose: 320 mg - Objective Vital Signs: Vital Signs Temperature 97.6 F 06/22/16 14:00 Pulse Rate 62 06/22/16 14:00 Respiratory Rate 20 06/22/16 14:00 Blood Pressure 130/77 06/22/16 14:00 O2 Sat by Pulse Oximetry (%) 96 06/22/16 09:00 Constitutional: Yes: Mild Distress Eyes: Yes: WNL HENT: Yes: WNL Neck: Yes: WNL Cardiovascular: Yes: WNL, Pulse Irregular Respiratory: Yes: WNL Gastrointestinal: Yes: WNL Genitourinary: Yes: WNL Musculoskeletal: Yes: WNL Extremities: Yes: WNL Edema: Yes Edema: LLE: 1+, RLE: 1+ Peripheral Pulses WNL: Yes Integumentary: Yes: WNL Wound/Incision: Yes: Clean/Dry Neurological: Yes: WNL ...Motor Strength: WNL Psychiatric: Yes: WNL Labs: CBC, BMP 06/22/16 05:35 06/22/16 05:35 Problem List - Problems (1) Acute on chronic diastolic CHF (congestive heart failure) Code(s): I50.33 - ACUTE ON CHRONIC DIASTOLIC (CONGESTIVE) HEART FAILURE (2) Asthma exacerbation Code(s): J45.901 - UNSPECIFIED ASTHMA WITH (ACUTE) EXACERBATION (3) CHF (congestive heart failure) Code(s): I50.9 - HEART FAILURE, UNSPECIFIED (4) Chest pain Code(s): R07.9 - CHEST PAIN, UNSPECIFIED (5) Leg edema Code(s): R60.0 - LOCALIZED EDEMA Qualifiers: Laterality: bilateral Qualified Code(s): R60.0 - Localized edema (6) Obstructive sleep apnea on CPAP Code(s): G47.33 - OBSTRUCTIVE SLEEP APNEA (ADULT) (PEDIATRIC) (7) Polymyalgia rheumatica Code(s): M35.3 - POLYMYALGIA RHEUMATICA (8) Shortness of breath Code(s): R06.02 - SHORTNESS OF BREATH (9) Diabetes Code(s): E11.9 - TYPE 2 DIABETES MELLITUS WITHOUT COMPLICATIONS Qualifiers: Diabetes mellitus type: type 2 (10) Dyspnea Code(s): R06.00 - DYSPNEA, UNSPECIFIED (11) Hypertension Code(s): I10 - ESSENTIAL (PRIMARY) HYPERTENSION Qualifiers: Hypertension type: essential hypertension Qualified Code(s): I10 - Essential (primary) hypertension (12) Hypothyroid Code(s): E03.9 - HYPOTHYROIDISM, UNSPECIFIED (13) Lumbar radiculopathy, acute Code(s): M54.16 - RADICULOPATHY, LUMBAR REGION (14) Sciatica Code(s): M54.30 - SCIATICA, UNSPECIFIED SIDE Qualifiers: Laterality: right Qualified Code(s): M54.31 - Sciatica, right side Assessment/Plan EVENTS AND CHART REVIEWED CONTINUE NEBS 02 SUPPORT RELISTOR FOR CONSTIPATION PAIN MEDS ADJUSTED OOB TO CHAIR AC
[2016-06-22] MEDS: SENNOSIDES 8.6MG TABLET (FP) PO SCH (22:14)
[2016-06-22] MEDS: ATORVASTATIN CA 40 MG TABLET (FP) PO SCH (22:14)
[2016-06-22] MEDS: PATIENT'S OWN MEDICATION (NON-FORMULARY) (Cyclosporine [Restasis] 1 EACH) OU SCH (22:18)
[2016-06-22] MEDS: DOCUSATE SODIUM 100 MG CAPSULE (FP) PO SCH (22:19)
[2016-06-22] MEDS: MONTELUKAST NA 10 MG TABLET PO SCH (22:20)
[2016-06-23] MEDS: ALBUTEROL SO4 2.5/IPRATROPIUM 0.5 INH SOL 3 ML VIAL.NEB. NEB SCH ×4 (00:24→18:53)
[2016-06-23] MEDS: LEFLUNOMIDE 20 MG PO SCH ×3 (06:13→21:25)
[2016-06-23] MEDS: INSULIN SLIDING SCALE (NOVOLOG) 1 VIAL SQ SCH ×4 (06:13→21:25)
[2016-06-23] MEDS: LEVOTHYROXINE NA 150 MCG TABLET PO SCH (06:14)
[2016-06-23 08:23] LABS: ALBUMIN 3.3 g/dl (3.4-5.0); ANION GAP 9 (8-16); CALCIUM 8.8 mg/dL (8.5-10.1); CO2 30 mmol/L (21-32); GLUCOSE,RANDOM 136 mg/dL (74-106); SGPT/ALT 26 U/L (12-78)
[2016-06-23 08:28] LABS: ALK PHOS 83 U/L (45-117); BILIRUBIN,TOTAL 0.6 mg/dL (0.2-1.0); CREATININE 0.8 mg/dL (0.55-1.02); SGOT/AST 19 U/L (15-37); TOT PROT 6.4 g/dl (6.4-8.2)
[2016-06-23] MEDS: oxyCODONE HCL 5 MG TABLET PO PRN (09:15)
[2016-06-23] MEDS: ACETAMINOPHEN 325 MG TABLET (FP) PO PRN (09:16)
[2016-06-23] MEDS: methylPREDNISolone NA SUCC 40 MG/1 ML VIAL IVPB SCH (11:00)
--- NOTE | 2016-06-23 11:06 | PN ---
Progress Note (short form) - Note Progress Note: PULMONARY VSS/AFEBRILE ANICTERIC CLEAR S1S2 RSR OBESE 2+ EDEMA B/L LOWER EXT LABS/MEDS/NOTES/IMAGING REVIEWED Acute COPD Exacerbation Acute on Chronic LV Diastolic Heart Failure RULA HTN DM Hypothyroidism - change medrol to oral steroids - inhaled bronchodilators - O2 as needed - CPAP at night(non-compliant) - lasix - monitor urine output, creatinine - daily weights - DVT prophylaxis Susan ELLISON MD
[2016-06-23] MEDS: BACLOFEN 10 MG TABLET (FP) PO SCH (11:19)
[2016-06-23] MEDS: FUROSEMIDE 40 MG TABLET (FP) PO SCH (11:19)
[2016-06-23] MEDS: SENNOSIDES 8.6MG TABLET (FP) PO SCH ×2 (11:20→21:26)
[2016-06-23] MEDS: amLODIPine BESYLATE 5 MG TABLET (FP) PO SCH (11:21)
[2016-06-23] MEDS: METOPROLOL SUCCINATE 100 MG TAB.SR.24H (FP) PO SCH (11:21)
[2016-06-23] MEDS: PREGABALIN 50 MG CAPSULE PO SCH ×2 (11:22→21:25)
[2016-06-23] MEDS: PANTOPRAZOLE 40 MG TABLET (FP) PO SCH (11:22)
[2016-06-23] MEDS: POTASSIUM CHLORIDE TABS 20 MEQ TABLET.ER (FP) PO SCH (11:22)
[2016-06-23] MEDS: DULoxetine HCL 30 MG CAPSULE.DR (FP) PO SCH (11:22)
[2016-06-23] MEDS: HEPARIN NA (PORCINE) 5,000 UNITS/ML 1ML VIAL SQ SCH ×2 (11:23→21:25)
[2016-06-23] MEDS: TOFACITINIB CITRATE 5 MG PO SCH ×2 (11:29→21:26)
[2016-06-23] MEDS: VALSARTAN 160 MG TABLET (UD) PO SCH (11:36)
[2016-06-23] MEDS: Methylnaltrexone Bromide 12 MG/0.6 ML KIT SQ SCH (11:37)
[2016-06-23] MEDS: BUDESONIDE/FORMETEROL FUMARATE 160/4.5 mcg INHALER IH SCH ×2 (11:38→21:26)
[2016-06-23] MEDS: SOLIFENACIN SUCCINATE 5 MG TAB (FP) PO SCH ×2 (11:38→21:26)
[2016-06-23] MEDS: FEBUXOSTAT 40 MG TAB PO SCH (12:00)
[2016-06-23] MEDS: predniSONE 20 MG TABLET (UD) PO SCH (12:15)
--- NOTE | 2016-06-23 13:09 | PN ---
Progress Note, Physician History of Present Illness: FEELS BETTER - Current Medication List Current Medications: Active Medications Acetaminophen (Tylenol -) 325 mg PO Q6H PRN PRN Reason: PAIN Last Admin: 06/23/16 09:16 Dose: 325 mg Albuterol/Ipratropium (Duoneb -) 1 amp NEB QIDR [facility] Last Admin: 06/23/16 12:05 Dose: 1 amp Alprazolam (Xanax -) 1 mg PO HS PRN PRN Reason: INSOMNIA Amlodipine Besylate (Norvasc -) 5 mg PO DAILY [facility] Last Admin: 06/23/16 11:21 Dose: 5 mg Atorvastatin Calcium (Lipitor -) 40 mg PO HS [facility] Last Admin: 06/22/16 22:14 Dose: 40 mg Baclofen (Lioresal -) 10 mg PO DAILY [facility] Last Admin: 06/23/16 11:19 Dose: 10 mg Budesonide/Formoterol Fumarate (Symbicort 160/4.5mcg -) 1 puff IH BID [facility] Last Admin: 06/23/16 11:38 Dose: 1 puff Docusate Sodium (Colace -) 200 mg PO HS [facility] Last Admin: 06/22/16 22:19 Dose: 200 mg Duloxetine HCl (Cymbalta -) 30 mg PO DAILY [facility] Last Admin: 06/23/16 11:22 Dose: 30 mg Febuxostat (Uloric -) 40 mg PO DAILY [facility] Last Admin: 06/22/16 11:33 Dose: 40 mg Furosemide (Lasix -) 60 mg PO DAILY [facility] Last Admin: 06/23/16 11:19 Dose: 60 mg Heparin Sodium (Porcine) (Heparin -) 5,000 unit SQ BID [facility] Last Admin: 06/23/16 11:23 Dose: 5,000 unit Insulin Aspart (Novolog Vial Sliding Scale -) 1 vial SQ ACHS [facility] PRN Reason: Protocol Last Admin: 06/23/16 11:23 Dose: Not Given Levothyroxine Sodium (Synthroid -) 150 mcg PO DAILY@0700 [facility] Last Admin: 06/23/16 06:14 Dose: 150 mcg Methylnaltrexone [place] (Relistor -) 8 mg SQ DAILY [facility] Last Admin: 06/23/16 11:37 Dose: 8 mg Metoprolol Succinate (Toprol Xl -) 200 mg PO DAILY [facility] Last Admin: 06/23/16 11:21 Dose: 200 mg Montelukast Sodium (Singulair -) 10 mg PO HS [facility] Last Admin: 06/22/16 22:20 Dose: 10 mg Non-Formulary Medication (Cyclosporine [Restasis]) 1 each OU HS [facility] Last Admin: 06/22/16 22:18 Dose: Not Given Non-Formulary Medication (Leflunomide [Leflunomide]) 20 mg PO TID [facility] Last Admin: 06/23/16 06:13 Dose: Not Given Non-Formulary Medication (Tofacitinib Citrate [Xeljanz]) 5 mg PO BID [facility] Last Admin: 06/23/16 11:29 Dose: Not Given Oxycodone HCl (Roxicodone -) 10 mg PO Q6H PRN PRN Reason: PAIN Last Admin: 06/23/16 09:15 Dose: 10 mg Pantoprazole Sodium (Protonix -) 40 mg PO DAILY [facility] Last Admin: 06/23/16 11:22 Dose: 40 mg Potassium Chloride (K-Dur -) 20 meq PO DAILY [facility] Last Admin: 06/23/16 11:22 Dose: 20 meq Prednisone (Deltasone -) 20 mg PO DAILY [facility] Last Admin: 06/23/16 12:15 Dose: 20 mg Pregabalin (Lyrica -) 150 mg PO BID [facility] Last Admin: 06/23/16 11:22 Dose: 150 mg Senna (Senna -) 1 tab PO BID [facility] Last Admin: 06/23/16 11:20 Dose: 1 tab Solifenacin (Vesicare -) 5 mg PO BID [facility] Last Admin: 06/23/16 11:38 Dose: 5 mg Valsartan (Diovan -) 320 mg PO DAILY [facility] Last Admin: 06/23/16 11:36 Dose: 320 mg - Objective Vital Signs: Vital Signs Temperature 97.7 F 06/23/16 06:00 Pulse Rate 77 06/23/16 11:40 Respiratory Rate 20 06/23/16 06:00 Blood Pressure 124/71 06/23/16 06:00 O2 Sat by Pulse Oximetry (%) 94 L 06/23/16 11:40 Cardiovascular: Yes: Regular Rate and Rhythm Respiratory: Yes: Regular, CTA Bilaterally Gastrointestinal: Yes: Normal Bowel Sounds, Soft Edema: Yes Labs: CBC, BMP 06/22/16 05:35 03/15/17 06:30 Assessment/Plan 69-year-old female with past medical history significant for hypertension, rheumatoid arthritis, diabetes, hypothyroidism presents emergency department secondary to dyspnea. 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 At that time she was given Lasix by her Dr. Patient states she has been taking the medication as directed but states that she has noted increased swelling to her lower extremities. Patient states that she feels winded and cannot ambulate as quickly or as far as she normally does secondary to the shortness of breath. Patient states that she did call her PCP informed her go to the emergency department for evaluation. Patient states that she has been experiencing these symptoms for a total of 3 days. Patient denies exacerbating or alleviating factors. Patient denies chest pain, back pain, wheezing, nausea/vomiting, dysuria, hematuria, fever, chills, abdominal pain, diarrhea or constipation.Patient denies use of any [id number] medication for the treatment of this complaint. (1) Asthma exacerbation Code(s): J45.901 - UNSPECIFIED ASTHMA WITH (ACUTE) EXACERBATION ICU PULM CONSULTED IV STEROIDS -> TAPERING--TO ORAL DUONEB CXr SHOWS NO PNA (2) CHF (congestive heart failure) Code(s): I50.9 - HEART FAILURE, UNSPECIFIED TROP NEG x 3 -> NO ACS CXr SHOWS CONGESTIVE CHANGES IV LASIX--PO 60 QD CARDIO CONSULTED (3) Chest pain Code(s): R07.9 - CHEST PAIN, UNSPECIFIED (4) Shortness of breath Code(s): R06.02 - SHORTNESS OF BREATH (5) Diabetes Code(s): E11.9 - TYPE 2 DIABETES MELLITUS WITHOUT COMPLICATIONS BGM ISS (6) Hypertension Code(s): I10 - ESSENTIAL (PRIMARY) HYPERTENSION ACCEPTABLE CONTROL (7) Hypothyroid Code(s): E03.9 - HYPOTHYROIDISM, UNSPECIFIED TSH LOW -> SYNTHROID ADJUSTED. RECHECK IN 4 WEEKS. (8) Leg edema Code(s): R60.0 - LOCALIZED EDEMA IV LASIX--PO DUPLEX -> NO DVT CPK 400 -> IV NS BOLUS -> MONITOR (9) UTI (urinary tract infection) Code(s): N39.0 - URINARY TRACT INFECTION, SITE NOT SPECIFIED 3/5 UCx +trae -> F/U BCx & UCx WBC NEG NO FEVER ID CONSULTED
--- NOTE | 2016-06-23 13:52 | PN ---
Progress Note, Physician History of Present Illness: Dyspnea, orthopnea, PND and exercise intolerance resolving. - Current Medication List Current Medications: Active Medications Acetaminophen (Tylenol -) 325 mg PO Q6H PRN PRN Reason: PAIN Last Admin: 06/23/16 09:16 Dose: 325 mg Albuterol/Ipratropium (Duoneb -) 1 amp NEB QIDR [facility] Last Admin: 06/23/16 12:05 Dose: 1 amp Alprazolam (Xanax -) 1 mg PO HS PRN PRN Reason: INSOMNIA Amlodipine Besylate (Norvasc -) 5 mg PO DAILY [facility] Last Admin: 06/23/16 11:21 Dose: 5 mg Atorvastatin Calcium (Lipitor -) 40 mg PO HS [facility] Last Admin: 06/22/16 22:14 Dose: 40 mg Baclofen (Lioresal -) 10 mg PO DAILY [facility] Last Admin: 06/23/16 11:19 Dose: 10 mg Budesonide/Formoterol Fumarate (Symbicort 160/4.5mcg -) 1 puff IH BID [facility] Last Admin: 06/23/16 11:38 Dose: 1 puff Docusate Sodium (Colace -) 200 mg PO HS [facility] Last Admin: 06/22/16 22:19 Dose: 200 mg Duloxetine HCl (Cymbalta -) 30 mg PO DAILY [facility] Last Admin: 06/23/16 11:22 Dose: 30 mg Febuxostat (Uloric -) 40 mg PO DAILY [facility] Last Admin: 06/22/16 11:33 Dose: 40 mg Furosemide (Lasix -) 60 mg PO DAILY [facility] Last Admin: 06/23/16 11:19 Dose: 60 mg Heparin Sodium (Porcine) (Heparin -) 5,000 unit SQ BID [facility] Last Admin: 06/23/16 11:23 Dose: 5,000 unit Insulin Aspart (Novolog Vial Sliding Scale -) 1 vial SQ ACHS [facility] PRN Reason: Protocol Last Admin: 06/23/16 11:23 Dose: Not Given Levothyroxine Sodium (Synthroid -) 150 mcg PO DAILY@0700 [facility] Last Admin: 06/23/16 06:14 Dose: 150 mcg Methylnaltrexone [place] (Relistor -) 8 mg SQ DAILY [facility] Last Admin: 06/23/16 11:37 Dose: 8 mg Metoprolol Succinate (Toprol Xl -) 200 mg PO DAILY [facility] Last Admin: 06/23/16 11:21 Dose: 200 mg Montelukast Sodium (Singulair -) 10 mg PO HS [facility] Last Admin: 06/22/16 22:20 Dose: 10 mg Non-Formulary Medication (Cyclosporine [Restasis]) 1 each OU HS [facility] Last Admin: 06/22/16 22:18 Dose: Not Given Non-Formulary Medication (Leflunomide [Leflunomide]) 20 mg PO TID [facility] Last Admin: 06/23/16 06:13 Dose: Not Given Non-Formulary Medication (Tofacitinib Citrate [Xeljanz]) 5 mg PO BID [facility] Last Admin: 06/23/16 11:29 Dose: Not Given Oxycodone HCl (Roxicodone -) 10 mg PO Q6H PRN PRN Reason: PAIN Last Admin: 06/23/16 09:15 Dose: 10 mg Pantoprazole Sodium (Protonix -) 40 mg PO DAILY [facility] Last Admin: 06/23/16 11:22 Dose: 40 mg Potassium Chloride (K-Dur -) 20 meq PO DAILY [facility] Last Admin: 06/23/16 11:22 Dose: 20 meq Prednisone (Deltasone -) 20 mg PO DAILY [facility] Last Admin: 06/23/16 12:15 Dose: 20 mg Pregabalin (Lyrica -) 150 mg PO BID [facility] Last Admin: 06/23/16 11:22 Dose: 150 mg Senna (Senna -) 1 tab PO BID [facility] Last Admin: 06/23/16 11:20 Dose: 1 tab Solifenacin (Vesicare -) 5 mg PO BID [facility] Last Admin: 06/23/16 11:38 Dose: 5 mg Valsartan (Diovan -) 320 mg PO DAILY [facility] Last Admin: 06/23/16 11:36 Dose: 320 mg - Objective Vital Signs: Vital Signs Temperature 97.7 F 06/23/16 06:00 Pulse Rate 77 06/23/16 11:40 Respiratory Rate 20 06/23/16 06:00 Blood Pressure 124/71 06/23/16 06:00 O2 Sat by Pulse Oximetry (%) 94 L 06/23/16 11:40 Constitutional: Yes: No Distress, Calm Neck: Yes: Supple Cardiovascular: Yes: Regular Rate and Rhythm Respiratory: Yes: Regular, Diminished Gastrointestinal: Yes: Normal Bowel Sounds, Soft, Abdomen, Obese Edema: Yes Edema: LLE: 1+, RLE: 1+ Labs: CBC, BMP 06/22/16 05:35 06/23/16 06:30 Problem List - Problems (1) Leg edema Code(s): R60.0 - LOCALIZED EDEMA Qualifiers: Laterality: bilateral Qualified Code(s): R60.0 - Localized edema (2) Shortness of breath Code(s): R06.02 - SHORTNESS OF BREATH (3) Asthma Code(s): J45.909 - UNSPECIFIED ASTHMA, UNCOMPLICATED Qualifiers: Asthma severity: mild persistent (4) Diabetes Code(s): E11.9 - TYPE 2 DIABETES MELLITUS WITHOUT COMPLICATIONS Qualifiers: Diabetes mellitus type: type 2 (5) Hypertension Code(s): I10 - ESSENTIAL (PRIMARY) HYPERTENSION Qualifiers: Hypertension type: essential hypertension Qualified Code(s): I10 - Essential (primary) hypertension (6) Hypothyroid Code(s): E03.9 - HYPOTHYROIDISM, UNSPECIFIED (7) Volume overload Code(s): E87.70 - FLUID OVERLOAD, UNSPECIFIED Qualifiers: Hypervolemia type: unspecified Qualified Code(s): E87.70 - Fluid overload, unspecified (8) Acute on chronic diastolic CHF (congestive heart failure) Code(s): I50.33 - ACUTE ON CHRONIC DIASTOLIC (CONGESTIVE) HEART FAILURE (9) Arthritis, rheumatoid Code(s): M06.9 - RHEUMATOID ARTHRITIS, UNSPECIFIED (10) Obstructive sleep apnea on CPAP Code(s): G47.33 - OBSTRUCTIVE SLEEP APNEA (ADULT) (PEDIATRIC) (11) Polymyalgia rheumatica Code(s): M35.3 - POLYMYALGIA RHEUMATICA Assessment/Plan 1. Acute COPD Exacerbation improving 2. Acute on chronic diastolic failure improving 3. OSAS on cpap 4. HTN/HCVD 5. Type 2 DM 6. Hypothyroidism P:1. Oral diuresis at home dose with monitor diuretic response, renal fxn and electrolytes 2. Continue ASA 81 qd, Exforge 5/320 qd, Toprol XL 200 qd, Lipitor 40 qd 3. BD, O2, cpap qhs prn, oral steroid taper, off abx 4. DVT and GI prophylaxis, mobilize and d/c planning
[2016-06-23] MEDS ORDERED: FUROSEMIDE 40 MG TABLET (FP) PO SCH (14:10)
[2016-06-23] MEDS ORDERED: INSULIN (NOVOLOG) ASPART 100 UNITS/ML 10ML VIAL ONE (20:59)
[2016-06-23] MEDS: DOCUSATE SODIUM 100 MG CAPSULE (FP) PO SCH (21:24)
[2016-06-23] MEDS: ATORVASTATIN CA 40 MG TABLET (FP) PO SCH (21:25)
[2016-06-23] MEDS: PATIENT'S OWN MEDICATION (NON-FORMULARY) (Cyclosporine [Restasis] 1 EACH) OU SCH (21:25)
[2016-06-23] MEDS: MONTELUKAST NA 10 MG TABLET PO SCH (21:26)
--- NOTE | 2016-06-23 22:31 | CONS ---
DATE OF CONSULTATION: 06/23/2016 REFERRING PHYSICIAN: Jennifer Mccullough MD HISTORY OF PRESENT ILLNESS: The patient is a 71-year-old woman with past medical history of diabetes and chronic back pain who recently was seen in the emergency room on June 13, undergoing a lumbar CT, which demonstrated moderate degenerative facet arthropathy with calcified right ligamentum flavum, resulting in spinal stenosis. There was also central canal stenosis noted at L3-L4 and L4-L5. Patient notes pain radiating from her back into the right lower extremity, especially with numbness in the right anterolateral thigh as well as radiating down into her right calf. Patient also has numbness, tingling in her feet. She did undergo an ultrasound after she was admitted with shortness of breath on June 19. Her ultrasound was negative for deep venous thrombosis. On June 19, 2016, she also had a CT of the head, which showed no acute intracranial pathology, and multiple chest x-rays, which showed no evidence of vascular congestion. There was no air space opacification in the visualized lungs, although there was some noted difficulty at the base of one of her lungs. Patient was diagnosed with acute COPD exacerbation and [id number] left ventricular diastolic heart failure; treated with IV steroids as well as inhaled bronchodilators, CPAP at night, and diuresis with Lasix. Her most recent blood work showed normal WBC 7.7, hemoglobin 13.0, platelet count 230. Her chemistry showed normal BUN 17 and creatinine 0.8, sodium 144, potassium 3.8, chloride 105, CO2 of 30. Albumin was low at 3.3. Patient is unsure if she has tried medication such as gabapentin, but, currently, is taking Lyrica 150 mg twice a day, possibly for the underlying diabetic peripheral neuropathy and, again, is on steroids, but continues to have pain and buckling in her right lower extremity, especially when she stands or ambulates. She has Roxicodone for breakthrough pain and is maintained on subcutaneous heparin for deep venous thrombosis prophylaxis. Patient is brought down in a stretcher and there is no physical therapy evaluation to know her current functional status. She was referred for electrodiagnostic evaluation and is reportedly considering some sort of lumbar procedure, but she could not recall the physician's name. 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 SOCIAL HISTORY: She is not a known tobacco user. Premorbidly, she was living in an apartment with limited ability to ambulate. She had a home health aide. No alcohol use. No known drug allergies. REVIEW OF SYSTEMS: No headache. No lightheadedness, dizziness. No blurry vision, double vision that is new. No nausea, vomiting, difficulty swallowing, difficulty chewing. She does get numbness, tingling in her hands and has weakness in both hands with arthritic changes. She also gets numbness, tingling in her feet, back pain radiating into the right lower extremity, especially into the anterolateral thigh and right calf. No bowel, bladder incontinence. No fever, chills. She has had shortness of breath, but is improving. PHYSICAL EXAMINATION: General: Overweight woman, seen lying on a stretcher. She is awake, conversant, has fairly good insight into her medical conditions. HEENT: She is normocephalic, atraumatic. Extraocular muscles appear intact. She has no obvious facial weakness, no oral ulcers. Dry mucous membranes. Neck: Supple. Extremities: Without any calf tenderness, but she has diffuse edema and quite a bit of soft tissue due to body habitus. Skin: No skin rash. Neuromuscular: She is awake, alert, cooperative. Cranial nerves 2 through 12 appear grossly intact. Again, she has rheumatoid arthritic changes in her hands with slightly diminished sensation, median more than ulnar distribution. She also has diminished sensation in the distal lower extremities to pinprick and in the right S1 and L3 versus L4 distribution in the right lower extremity with weakness of the proximal knee extensors. The left side has better proximal sensation. Difficult to evaluate her back, but she has some tenderness in the right paraspinals and right gluteal musculature. RESULTS OF ELECTROMYELOGRAM NERVE CONDUCTION STUDIES: Please refer to EMG report for details. OVERALL IMPRESSION: 1. Limited nerve conduction studies involving the lower extremities due to patient's body habitus as well as her edema of the lower extremities. 2. Multiple nerve root impingement, most likely right S1 and L3 versus L4 nerve roots. 3. Most likely, underlying polyneuropathy from diabetes affecting the lower extremities more than the upper extremities. 4. No definite right carpal tunnel syndrome. 5. Gait disorder. 6. Chronic obstructive pulmonary disease exacerbation. 7. [id number] congestive heart failure, left ventricular diastolic heart failure. 8. Obstructive sleep apnea syndrome. 9. Hypertension. 10. Hypothyroidism. 11. Bilateral total knee replacements. 12. Rheumatoid arthritis affecting at least her hands and possibly her knees prior to knee replacements. PLAN/SUGGESTION: 1. Physical therapy for mobilization, transfers, gait training as able, strengthening, reconditioning. 2. Follow up with Spine Surgery. 3. Patient is already on Lyrica, so cannot add any gabapentin. 4. Patient has tried lumbar epidural steroid injection without improvement. 5. Weight reduction; consider dietary management. 6. Continue pain medication, including baclofen and Roxicodone as needed. 7. Continue DVT prophylaxis until more mobile with subcutaneous heparin. 8. May require short-term rehabilitation in a custodial facility prior to discharge. Thank you for this referral. WILLIE CARMONA M.D. [id number]
[2016-06-24] MEDS: ALBUTEROL SO4 2.5/IPRATROPIUM 0.5 INH SOL 3 ML VIAL.NEB. NEB SCH ×4 (00:16→14:33)
[2016-06-24] MEDS: oxyCODONE HCL 5 MG TABLET PO PRN (03:52)
[2016-06-24] MEDS: ACETAMINOPHEN 325 MG TABLET (FP) PO PRN (03:55)
[2016-06-24] MEDS: LEFLUNOMIDE 20 MG PO SCH ×2 (06:37→16:10)
[2016-06-24] MEDS: LEVOTHYROXINE NA 150 MCG TABLET PO SCH (06:43)
[2016-06-24] MEDS: INSULIN SLIDING SCALE (NOVOLOG) 1 VIAL SQ SCH ×2 (06:44→11:54)
[2016-06-24] MEDS: BUDESONIDE/FORMETEROL FUMARATE 160/4.5 mcg INHALER IH SCH (10:00)
--- NOTE | 2016-06-24 11:21 | PN ---
Progress Note (short form) - Note Progress Note: PULMONARY Breathing continues to improve. Ambulating in hallways. Last Vital Signs Temp Pulse Resp BP Pulse Ox 97.8 F 58 L 18 114/71 92 L 06/24/16 09:11 06/24/16 09:11 06/24/16 09:11 06/24/16 09:11 06/23/16 21:00 Gen: NAD at rest Heart: RRR Lung: distant breath sounds, no wheezes Abd: soft, nontender Ext: + edema CBC, BMP 06/22/16 05:35 06/23/16 06:30 Active Medications Acetaminophen (Tylenol -) 325 mg PO Q6H PRN PRN Reason: PAIN Last Admin: 06/24/16 03:55 Dose: 325 mg Albuterol/Ipratropium (Duoneb -) 1 amp NEB QIDR [facility] Last Admin: 06/24/16 06:45 Dose: Not Given Alprazolam (Xanax -) 1 mg PO HS PRN PRN Reason: INSOMNIA Amlodipine Besylate (Norvasc -) 5 mg PO DAILY [facility] Last Admin: 06/23/16 11:21 Dose: 5 mg Atorvastatin Calcium (Lipitor -) 40 mg PO HS [facility] Last Admin: 06/23/16 21:25 Dose: 40 mg Baclofen (Lioresal -) 10 mg PO DAILY [facility] Last Admin: 06/23/16 11:19 Dose: 10 mg Budesonide/Formoterol Fumarate (Symbicort 160/4.5mcg -) 1 puff IH BID [facility] Last Admin: 06/23/16 21:26 Dose: 1 puff Docusate Sodium (Colace -) 200 mg PO HS [facility] Last Admin: 06/23/16 21:24 Dose: 200 mg Duloxetine HCl (Cymbalta -) 30 mg PO DAILY [facility] Last Admin: 06/23/16 11:22 Dose: 30 mg Febuxostat (Uloric -) 40 mg PO DAILY [facility] Last Admin: 06/23/16 12:00 Dose: 40 mg Furosemide (Lasix -) 40 mg PO DAILY [facility] Heparin Sodium (Porcine) (Heparin -) 5,000 unit SQ BID [facility] Last Admin: 06/23/16 21:25 Dose: 5,000 unit Insulin Aspart (Novolog Vial Sliding Scale -) 1 vial SQ ACHS [facility] PRN Reason: Protocol Last Admin: 06/24/16 06:44 Dose: Not Given Levothyroxine Sodium (Synthroid -) 150 mcg PO DAILY@0700 [facility] Last Admin: 06/24/16 06:43 Dose: 150 mcg Methylnaltrexone [place] (Relistor -) 8 mg SQ DAILY [facility] Last Admin: 06/23/16 11:37 Dose: 8 mg Metoprolol Succinate (Toprol Xl -) 200 mg PO DAILY [facility] Last Admin: 06/23/16 11:21 Dose: 200 mg Montelukast Sodium (Singulair -) 10 mg PO HS [facility] Last Admin: 06/23/16 21:26 Dose: 10 mg Non-Formulary Medication (Cyclosporine [Restasis]) 1 each OU HS [facility] Last Admin: 06/23/16 21:25 Dose: Not Given Non-Formulary Medication (Leflunomide [Leflunomide]) 20 mg PO TID [facility] Last Admin: 06/24/16 06:37 Dose: Not Given Non-Formulary Medication (Tofacitinib Citrate [Xeljanz]) 5 mg PO BID [facility] Last Admin: 06/23/16 21:26 Dose: Not Given Oxycodone HCl (Roxicodone -) 10 mg PO Q6H PRN PRN Reason: PAIN Last Admin: 06/24/16 03:52 Dose: 10 mg Pantoprazole Sodium (Protonix -) 40 mg PO DAILY [facility] Last Admin: 06/23/16 11:22 Dose: 40 mg Potassium Chloride (K-Dur -) 20 meq PO DAILY [facility] Last Admin: 06/23/16 11:22 Dose: 20 meq Prednisone (Deltasone -) 20 mg PO DAILY [facility] Last Admin: 06/23/16 12:15 Dose: 20 mg Pregabalin (Lyrica -) 150 mg PO BID [facility] Last Admin: 06/23/16 21:25 Dose: 150 mg Senna (Senna -) 1 tab PO BID [facility] Last Admin: 06/23/16 21:26 Dose: 1 tab Solifenacin (Vesicare -) 5 mg PO BID [facility] Last Admin: 06/23/16 21:26 Dose: 5 mg Valsartan (Diovan -) 320 mg PO DAILY [facility] Last Admin: 06/23/16 11:36 Dose: 320 mg A/P Acute COPD Exacerbation Acute on Chronic LV Diastolic Heart Failure RULA HTN DM Hypothyroidism - prednisone taper - inhaled bronchodilators - O2 as needed - CPAP at night - lasix - monitor urine output, creatinine - daily weights - DVT prophylaxis - can be discharged from pulmonary standpoint
--- NOTE | 2016-06-24 11:30 | PN ---
Progress Note, Physician History of Present Illness: Dyspnea, orthopnea, PND and exercise intolerance resolving. - Current Medication List Current Medications: Active Medications Acetaminophen (Tylenol -) 325 mg PO Q6H PRN PRN Reason: PAIN Last Admin: 06/24/16 03:55 Dose: 325 mg Albuterol/Ipratropium (Duoneb -) 1 amp NEB QIDR [facility] Last Admin: 06/24/16 06:45 Dose: Not Given Alprazolam (Xanax -) 1 mg PO HS PRN PRN Reason: INSOMNIA Amlodipine Besylate (Norvasc -) 5 mg PO DAILY [facility] Last Admin: 06/23/16 11:21 Dose: 5 mg Atorvastatin Calcium (Lipitor -) 40 mg PO HS [facility] Last Admin: 06/23/16 21:25 Dose: 40 mg Baclofen (Lioresal -) 10 mg PO DAILY [facility] Last Admin: 06/23/16 11:19 Dose: 10 mg Budesonide/Formoterol Fumarate (Symbicort 160/4.5mcg -) 1 puff IH BID [facility] Last Admin: 06/23/16 21:26 Dose: 1 puff Docusate Sodium (Colace -) 200 mg PO HS [facility] Last Admin: 06/23/16 21:24 Dose: 200 mg Duloxetine HCl (Cymbalta -) 30 mg PO DAILY [facility] Last Admin: 06/23/16 11:22 Dose: 30 mg Febuxostat (Uloric -) 40 mg PO DAILY [facility] Last Admin: 06/23/16 12:00 Dose: 40 mg Furosemide (Lasix -) 40 mg PO DAILY [facility] Heparin Sodium (Porcine) (Heparin -) 5,000 unit SQ BID [facility] Last Admin: 06/23/16 21:25 Dose: 5,000 unit Insulin Aspart (Novolog Vial Sliding Scale -) 1 vial SQ ACHS [facility] PRN Reason: Protocol Last Admin: 06/24/16 06:44 Dose: Not Given Levothyroxine Sodium (Synthroid -) 150 mcg PO DAILY@0700 [facility] Last Admin: 06/24/16 06:43 Dose: 150 mcg Methylnaltrexone [place] (Relistor -) 8 mg SQ DAILY [facility] Last Admin: 06/23/16 11:37 Dose: 8 mg Metoprolol Succinate (Toprol Xl -) 200 mg PO DAILY [facility] Last Admin: 03/15/17 11:21 Dose: 200 mg Montelukast Sodium (Singulair -) 10 mg PO HS [facility] Last Admin: 06/23/16 21:26 Dose: 10 mg Non-Formulary Medication (Cyclosporine [Restasis]) 1 each OU HS [facility] Last Admin: 06/23/16 21:25 Dose: Not Given Non-Formulary Medication (Leflunomide [Leflunomide]) 20 mg PO TID [facility] Last Admin: 06/24/16 06:37 Dose: Not Given Non-Formulary Medication (Tofacitinib Citrate [Xeljanz]) 5 mg PO BID [facility] Last Admin: 06/23/16 21:26 Dose: Not Given Oxycodone HCl (Roxicodone -) 10 mg PO Q6H PRN PRN Reason: PAIN Last Admin: 06/24/16 03:52 Dose: 10 mg Pantoprazole Sodium (Protonix -) 40 mg PO DAILY [facility] Last Admin: 06/23/16 11:22 Dose: 40 mg Potassium Chloride (K-Dur -) 20 meq PO DAILY [facility] Last Admin: 06/23/16 11:22 Dose: 20 meq Prednisone (Deltasone -) 20 mg PO DAILY [facility] Last Admin: 06/23/16 12:15 Dose: 20 mg Pregabalin (Lyrica -) 150 mg PO BID [facility] Last Admin: 06/23/16 21:25 Dose: 150 mg Senna (Senna -) 1 tab PO BID [facility] Last Admin: 06/23/16 21:26 Dose: 1 tab Solifenacin (Vesicare -) 5 mg PO BID [facility] Last Admin: 06/23/16 21:26 Dose: 5 mg Valsartan (Diovan -) 320 mg PO DAILY [facility] Last Admin: 06/23/16 11:36 Dose: 320 mg - Objective Vital Signs: Vital Signs Temperature 97.8 F 06/24/16 09:11 Pulse Rate 58 L 06/24/16 09:11 Respiratory Rate 18 06/24/16 09:11 Blood Pressure 114/71 06/24/16 09:11 O2 Sat by Pulse Oximetry (%) 92 L 06/23/16 21:00 Constitutional: Yes: No Distress, Calm Neck: Yes: Supple Cardiovascular: Yes: Regular Rate and Rhythm Respiratory: Yes: Regular, Diminished Gastrointestinal: Yes: Normal Bowel Sounds, Soft, Abdomen, Obese Edema: Yes Edema: LLE: Trace, RLE: Trace Labs: CBC, BMP 06/22/16 05:35 06/23/16 06:30 Problem List - Problems (1) Leg edema Code(s): R60.0 - LOCALIZED EDEMA Qualifiers: Laterality: bilateral Qualified Code(s): R60.0 - Localized edema (2) Shortness of breath Code(s): R06.02 - SHORTNESS OF BREATH (3) Asthma Code(s): J45.909 - UNSPECIFIED ASTHMA, UNCOMPLICATED Qualifiers: Asthma severity: mild persistent (4) Diabetes Code(s): E11.9 - TYPE 2 DIABETES MELLITUS WITHOUT COMPLICATIONS Qualifiers: Diabetes mellitus type: type 2 (5) Hypertension Code(s): I10 - ESSENTIAL (PRIMARY) HYPERTENSION Qualifiers: Hypertension type: essential hypertension Qualified Code(s): I10 - Essential (primary) hypertension (6) Hypothyroid Code(s): E03.9 - HYPOTHYROIDISM, UNSPECIFIED (7) Acute on chronic diastolic CHF (congestive heart failure) Code(s): I50.33 - ACUTE ON CHRONIC DIASTOLIC (CONGESTIVE) HEART FAILURE (8) Arthritis, rheumatoid Code(s): M06.9 - RHEUMATOID ARTHRITIS, UNSPECIFIED (9) Obstructive sleep apnea on CPAP Code(s): G47.33 - OBSTRUCTIVE SLEEP APNEA (ADULT) (PEDIATRIC) (10) Polymyalgia rheumatica Code(s): M35.3 - POLYMYALGIA RHEUMATICA Assessment/Plan 1. Acute COPD Exacerbation improving 2. Acute on chronic diastolic failure improving 3. OSAS on cpap 4. HTN/HCVD 5. Type 2 DM 6. Hypothyroidism P:1. Oral diuresis at home dose with monitor diuretic response, renal fxn and electrolytes 2. Continue ASA 81 qd, Exforge 5/320 qd, Toprol XL 200 qd, Lipitor 40 qd 3. BD, O2, cpap qhs prn, oral steroid taper, off abx 4. DVT and GI prophylaxis, d/c planning with f/u in office
[2016-06-24] MEDS: SOLIFENACIN SUCCINATE 5 MG TAB (FP) PO SCH (11:33)
[2016-06-24] MEDS: FEBUXOSTAT 40 MG TAB PO SCH (11:33)
[2016-06-24] MEDS: SENNOSIDES 8.6MG TABLET (FP) PO SCH (11:33)
[2016-06-24] MEDS: POTASSIUM CHLORIDE TABS 20 MEQ TABLET.ER (FP) PO SCH (11:34)
[2016-06-24] MEDS: PANTOPRAZOLE 40 MG TABLET (FP) PO SCH (11:34)
[2016-06-24] MEDS: DULoxetine HCL 30 MG CAPSULE.DR (FP) PO SCH (11:34)
[2016-06-24] MEDS: PREGABALIN 50 MG CAPSULE PO SCH (11:34)
[2016-06-24] MEDS: predniSONE 20 MG TABLET (UD) PO SCH (11:34)
[2016-06-24] MEDS: VALSARTAN 160 MG TABLET (UD) PO SCH (11:34)
[2016-06-24] MEDS: METOPROLOL SUCCINATE 100 MG TAB.SR.24H (FP) PO SCH (11:35)
[2016-06-24] MEDS: HEPARIN NA (PORCINE) 5,000 UNITS/ML 1ML VIAL SQ SCH (11:35)
[2016-06-24] MEDS: BACLOFEN 10 MG TABLET (FP) PO SCH (11:35)
[2016-06-24] MEDS: amLODIPine BESYLATE 5 MG TABLET (FP) PO SCH (11:35)
[2016-06-24] MEDS: TOFACITINIB CITRATE 5 MG PO SCH (11:37)
--- NOTE | 2016-06-24 13:01 | DS ---
Physical Examination Vital Signs: Vital Signs Temperature 97.8 F 06/24/16 09:11 Pulse Rate 58 L 06/24/16 09:11 Respiratory Rate 18 06/24/16 09:11 Blood Pressure 114/71 06/24/16 09:11 O2 Sat by Pulse Oximetry (%) 92 L 06/23/16 21:00 Constitutional: Yes: Calm, Obese Neck: Yes: Trachea Midline Cardiovascular: Yes: Regular Rate and Rhythm, S1, S2 Respiratory: Yes: CTA Bilaterally, Diminished (at bases) Gastrointestinal: Yes: Normal Bowel Sounds, Soft, Abdomen, Obese Edema: Yes Neurological: Yes: Alert, Oriented Labs: CBC, BMP 06/22/16 05:35 06/23/16 06:30 Discharge Summary Reason For Visit: SOB,CHF,CHEST PAIN Current Active Problems Acute on chronic diastolic CHF (congestive heart failure) (Acute) Asthma exacerbation (Acute) CHF (congestive heart failure) (Acute) Chest pain (Acute) Leg edema (Acute) Obstructive sleep apnea on CPAP (Acute) Polymyalgia rheumatica (Acute) Shortness of breath (Acute) UTI (urinary tract infection) (Acute) Hospital Course: The patient is a morbidly obese 71 year old female with significant medical history of hypertension, hyperlipidemia, NIDDM, CHF, asthma, brought in by EMS for approximately 1 week of progressively shortness of breath, worse with exertion, with associated chest tightness and worsening bilateral lower extremity edema. She states she has been sleeping with 2 pillows instead of 1 in the past week. The patient states she has been taking her Albuterol pump for her shortness of breath, attributing it to asthma, with some relief of her symptoms. The patient also complains of pain in her right hip with radiation to the right thigh and groin. She is scheduled for a vascular US to r/o DVT in 2 days. The patient also complains of choking sensation and feelings of indigestion after eating. It is unclear whether this is related to her chest tightness. She states she forced herself to vomit secondary to her choking sensation, but denies abdominal pain, nausea, or diarrhea. The patient denies fever, chills, or diaphoresis. She denies lightheadedness or palpitations. The patient also reports she slipped and hit the back of her head several days ago. Her health aide at bedside reports the patient has seemed more forgetful lately. The patient denies headache, visual changes, paresthesias, or focal weakness. PCP: Dr. Madison Henriquez Retail Route Supervisor: Dr. Jurado acute copd exacerbation on steroids acute on chronic heart failure improving hypothyroid tsh is low synthroid dose decreased nerve conduction study multiple nerve impingement L1-l3 ON LYRICA baclofen not helping her will give trial of flexeril FU with PMD Condition: Stable - Instructions Diet, Activity, Other Instructions: prednsione taper flexeril 5mg daily Referrals: Madison Henriquez MD [Primary Care Provider] - Disposition: HOME - Home Medications Comprehensive Discharge Medication List: Ambulatory Orders Albuterol Sulfate Inhaler - [Ventolin Hfa Inhaler -] 1 - 2 inh PO Q4H 06/13/16 Alprazolam [Xanax] 1 mg PO HS PRN 06/13/16 Amlodipine/Valsartan [Amlodipine-Valsartan 5-320 mg] 1 each PO DAILY 06/13/16 Atorvastatin Ca [Lipitor] 40 mg PO HS 06/13/16 Baclofen 10 mg PO DAILY 06/13/16 Cyclobenzaprine HCl [Flexeril 10 mg] 10 mg PO TID #30 tablet 06/13/16 Cyclosporine [Restasis] 1 each OU HS 06/13/16 Duloxetine HCl 30 mg PO DAILY 06/13/16 Febuxostat [Uloric -] 40 mg PO DAILY 06/13/16 Fluticasone/Vilanterol [Breo Ellipta 100-25 Mcg INH] 1 each IH BID 06/13/16 Furosemide [Lasix] 40 mg PO DAILY 06/13/16 Leflunomide 20 mg PO TID 06/13/16 Levothyroxine [Synthroid -] 175 mcg PO DAILY 06/13/16 Metoprolol Succinate [Toprol Xl] 200 mg PO DAILY 06/13/16 Montelukast Na [Singulair -] 10 mg PO HS 06/13/16 Nitrofurantoin Monohyd/M-Cryst [Macrobid -] 100 mg PO BID 06/13/16 Omeprazole 40 mg PO DAILY 06/13/16 Oxybutynin Chloride [Ditropan Xl] 10 mg PO BID 06/13/16 Oxycodone HCl/Acetaminophen [Endocet 7.5-325 mg Tablet] 1 each PO Q6H PRN Oxycodone HCl/Acetaminophen [Percocet 5-325 mg Tablet] 1 - 2 tab PO Q6H #20 tab MDD 4 06/13/16 Potassium Chloride [K-Dur -] 20 meq PO DAILY 06/13/16 Pregabalin [Lyrica -] 150 mg PO BID 06/13/16 Salmeterol/Fluticasone [Advair 500Mcg/50Mcg] 1 inh PO BID 06/13/16 Tofacitinib Citrate [Xeljanz] 5 mg PO BID 06/13/16
[2016-06-24 16:07] VITALS: BP 120/70; PULSE 60; TEMP 97.9
[2016-06-24] MEDS: Methylnaltrexone Bromide 12 MG/0.6 ML KIT SQ SCH (16:09)
== END 2016-06-24 15:00 | disposition home or self-care (01) | DRG 190 ==
LOC: JER 10:59 → JERBED 15:54 → JICU 06-20 01:53 → J7W 06-21 13:30
PROVIDERS: ADMIT Family Medicine; ATTEND Family Medicine
DX: J44.1 Chronic obstructive pulmonary disease with (acute) exacerbation (principal); I50.33 Acute on chronic diastolic (congestive) heart failure; N39.0 Urinary tract infection, site not specified; Z68.43 Body mass index [BMI] 50.0-59.9, adult; I11.0 Hypertensive heart disease with heart failure; E78.5 Hyperlipidemia, unspecified; D64.9 Anemia, unspecified; K44.9 Diaphragmatic hernia without obstruction or gangrene; K63.5 Polyp of colon; M35.3 Polymyalgia rheumatica; M10.9 Gout, unspecified; M06.9 Rheumatoid arthritis, unspecified; R60.0 Localized edema; E03.9 Hypothyroidism, unspecified; M54.16 Radiculopathy, lumbar region; M41.80 Other forms of scoliosis, site unspecified; N20.0 Calculus of kidney; E66.01 Morbid (severe) obesity due to excess calories; Z71.3 Dietary counseling and surveillance; G47.33 Obstructive sleep apnea (adult) (pediatric); Z96.653 Presence of artificial knee joint, bilateral
CPT/HCPCS: 36415; 70450-TC; 71010-TC; 80053; 81003; 81015; 82550; 82553; 83690; 83880; 84443; 84484; 85025; 87040; 87086; 93005; 93010; 93971-TC; 94640; 94660; 95860-TC; 97116-GP; 97161-GP; 99283-25; J0475; J1644

== ENCOUNTER 2016-11-08 08:37 | Day surgery (SDC) | payer OTHER ==
[2016-11-05 11:18] VITALS: BMI 46.6
[2016-11-08] MEDS ORDERED: LIDOCAINE HCL 1%, 10 MG/ML (20ML VIAL) ONE (09:55)
[2016-11-08] MEDS ORDERED: MIDAZOLAM HCL 2 MG/2 ML SINGLE DOSE VIAL ONE ×2 (10:08→10:43)
[2016-11-08] MEDS ORDERED: ceFAZolin SODIUM 1 GM VIAL IVPB ONE (10:17)
[2016-11-08] MEDS ORDERED: PROPOFOL 20 ML ONE (10:26)
[2016-11-08] MEDS ORDERED: LACTATED RINGERS SOLUTION 1,000 ML IV SCH (11:00)
[2016-11-08 11:56] VITALS: TEMP 97.7
[2016-11-08 14:25] VITALS: BP 139/71; PULSE 64
--- NOTE | 2016-11-08 14:43 | OP ---
Operative Note - Note: Operative Date: 11/08/16 Pre-Operative Diagnosis: urge incontinence/neurogenic bladder Operation: Interstim II Therapy Full System Full System Implant Post-Operative Diagnosis: Same as Pre-op Surgeon: Luca Leong Anesthesia: Local, Fractional
--- NOTE | 2016-11-09 09:02 | OP ---
DATE OF OPERATION: 11/08/2016 PREOPERATIVE DIAGNOSIS: Urge incontinence and neurogenic bladder. POSTOPERATIVE DIAGNOSIS: Urge incontinence and neurogenic bladder. PROCEDURE: InterStim tube therapy full system implant. ATTENDING: Marlene Abdi MD ANESTHESIA: Local with fractional. DESCRIPTION OF PROCEDURE: The patient was properly identified and placed in prone position as per operating room protocol. MAC anesthesia was administered. The patient was given 1 g of Ancef. Pillows were placed under the lower abdomen to flatten the sacrum and under the shins to allow the toes to dangle freely. Tape was placed on each buttock and pulled laterally to separate cheeks adequately to visualize anal sphincter. The patient was prepped and draped in the usual sterile manner using ChloraPrep prep solution. The C-arm was moved into the PA position to provide fluoroscopy visual and the midline of the vertebrae. S1 notches and medial foraminal borders were marked. The C-arm was moved to the lateral position to image the area from sacral promontory to the coccyx. Local injection of lidocaine was administered. A 3.5-inch size needle was introduced approximately 2 cm above the SI notch and 3 cm lateral to the vertebral midline, feeling for foraminal margins until the S3 foramen was identified and penetrated. The depth of the needle was confirmed and adjusted fluoroscopically. Proper needle position was confirmed by patient identification of location of sensation, direct observation of the lifting of the perineum or bellowing, and observation of plantar flexion of the great toe utilizing the test stimulator box. The needle stylet was removed and a directional guidewire was placed and confirmed fluoroscopically. The foramen needle was removed. An incision was made peripherally to the directional guidewire through the fascial layer. The dilator and introducer sheath were placed over the directional guidewire and directed into the foramen until the opaque marker of the dilator was seen on the anterior rim of the sacrum. The dilator obturator was unlocked and removed. The lead was then placed through the introducer sheath to the first white line. Position was checked fluoroscopically. The lead was then further introduced until 3 electrodes were visible below the sacrum. Each electrode was tested for location of patient sensation, visualization of reagan and plantar flexion of the great toe. After satisfactory positioning was confirmed, under continuous fluoroscopy, the introducer sheath was retracted, deploying the lead tines into the perisacral tissue. Further incision was made into the subcutaneous tissue posterior to the iliac crest and blunt dissection was continued until the gluteal fascia was identified and hemostasis was achieved, allowing for a sufficient pocket for the neurostimulator. A tunneling tool and tube were placed from the lead subcutaneously to the incised pocket site. The tunneling tool was removed and the lead was fed through the tube and pulled out at the pocket site. The lead was cleansed of bodily fluids and a boot was placed over the lead. The lead was inserted into the InterStim II pulse generator and the metal bands were aligned with the white lead tip clearly visible in the distal portion of the pulse generator header. The single set screw was tightened with the hex wrench. The pulse generator was placed into the subcutaneous pocket with the etched identification side placed upward and the extension wrapped counterclockwise around the pulse generator. The programming head was placed over the implanted neurostimulator. The impedance was verified to ensure adequate lead placement and the parameters were within normal limits. If impedance is greater than the normal limits, a second interrogation is required. If the second interrogation is required, further troubleshooting may be required. Impedances were checked, confirmed to be within normal limits at greater than 50 and less than 4000. After implantation of the neurostimulator was completed, complex programming of the neurostimulator was performed based on impedance values. Final electrode sensations were set to 0+1-2-. Estimated time for analysis and complex programming was 30 minutes. The wounds were irrigated with antibiotic solution and water and closed with a subcutaneous and subcuticular stitch. Counts were correct. Steri-Strips and gauze were placed over the incision under the cable connector. The estimated blood loss was less than 3 mL. The patient was transferred to postop in satisfactory condition. Using the clinician server programmer, the patient was programmed to the lead of optimum sensation and given instructions on utilizing the patient server programmer prior to discharge. MARLENE ABDI M.D. [id number]
== END 2016-11-08 14:15 | disposition home or self-care (01) ==
LOC: JASU-SURG 08:37
PROVIDERS: ATTEND Urology
PROC: 01HY0MZ Insertion of Neurostimulator Lead into Peripheral Nerve, Open Approach (ICD-10-PCS; 2016-11-08)
PROC: 0JH70BZ Insertion of Single Array Stimulator Generator into Back Subcutaneous Tissue and Fascia, Open Approach (ICD-10-PCS; principal; 2016-11-08 09:30)
DX: N39.41 Urge incontinence (principal); N31.8 Other neuromuscular dysfunction of bladder
CPT/HCPCS: 64581; 64590; C1767; C1778; 76000-TC; 94760

== ENCOUNTER 2017-03-07 07:47 | Day surgery (SDC) | payer OTHER ==
[2017-03-02 09:28] VITALS: BMI 47.9
[2017-03-07] MEDS ORDERED: ceFAZolin SODIUM 1 GM VIAL IVPB ONE (09:20)
[2017-03-07] MEDS ORDERED: MIDAZOLAM HCL 2 MG/2 ML SINGLE DOSE VIAL ONE ×2 (09:25→09:28)
[2017-03-07] MEDS ORDERED: PROPOFOL 20 ML ONE (09:29)
[2017-03-07] MEDS ORDERED: BACITRACIN 50,000 UNITS VIAL NR ONE (09:30)
[2017-03-07] MEDS ORDERED: LIDOCAINE HCL 1%, 10 MG/ML (20ML VIAL) INF ONE (09:38)
[2017-03-07] MEDS ORDERED: LIDOCAINE HCL 1%, 10 MG/ML (20ML VIAL) ONE (09:42)
[2017-03-07 11:32] VITALS: TEMP 98.1
--- NOTE | 2017-03-07 11:46 | OP ---
Operative Note - Note: Operative Date: 03/07/17 Pre-Operative Diagnosis: urge incontinence/infected neuromodulator Operation: removal of interstim neuromodulator Post-Operative Diagnosis: Same as Pre-op Anesthesia: Local, Fractional Specimens Removed: interstim Operative Report Dictated: Yes
[2017-03-07] MEDS ORDERED: oxyCODONE HCL 5 MG TABLET PO ONE (12:20)
[2017-03-07] MEDS ORDERED: oxyCODONE HCL 5 MG TABLET ONE (12:25)
[2017-03-07 13:01] VITALS: BP 119/55; PULSE 75
--- NOTE | 2017-03-07 20:05 | OP ---
DATE OF OPERATION: 03/07/2017 PREOPERATIVE DIAGNOSES: Urge incontinence and infected InterStim neuromodulator. POSTOPERATIVE DIAGNOSIS: Urge incontinence and infected InterStim neuromodulator. PROCEDURE: Removal of InterStim neuromodulator. ATTENDING: Marlene Abdi MD ANESTHESIA: Local with sedation. DESCRIPTION OF OPERATION: The patient was brought in the operating room, placed in a prone position on the operating room table. She was prepped and draped in the usual sterile manner. Sedation with local anesthesia was utilized. The InterStim neuromodulator was located on the right buttock. An incision was made over the previous incision. The patient had had an infection of the site previously which healed with secondary intention. However, because of the open wound, the neuromodulator and its leads shifted, leading it to fail in its control of the patient's urinary symptoms. The patient will consider replacement of the system at a later date. The patient was given all risks and benefits. She decided to have it removed. The neurostimulator was identified, and sharp and blunt dissection was utilized to take me down to the level of the neurostimulator. The neurostimulator was brought out of the wound at this point. A dimpling at the mid-sacral area was noted, and a small incision was made at this dimpling site. A stab incision was made, and the right-angle clamp was utilized to bring the wire out of the wound. The wire was then cut, and the InterStim neuromodulator was sent for pathology. The wire was then brought out slowly and in totality. This was also sent for pathologic evaluation. Antibiotic irrigation was utilized. It must be noted that the patient was given Ancef preoperatively. The patient had a 2-layer closure performed with no complications noted. The patient tolerated the procedure very well. MARLENE ABDI M.D. [id number]
--- NOTE | 2017-03-08 09:28 | PATH ---
Surgical Pathology Report Patient Name: RASHARD ENCINAS Med. Rec. 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 MACROSCOPIC DIAGNOSIS. Electronically Signed Latrice Guerra M.D. Gross Description Received fresh labeled "InterStim implant," is a 4.8 x 4.3 x 0.7 cm valencia metallic device, consistent with a battery. The specimen has the following inscription: "[employer] InterStim II SN: [id number]." Also received within the same container is a 25 cm in length portion of morris metallic wire. No soft tissue is present. No sections are submitted, gross only. /03/07/2017 [place]03/07/2017
== END 2017-03-07 13:20 | disposition home or self-care (01) ==
LOC: JASU-SURG 07:47
PROVIDERS: ATTEND Urology
PROC: 0JPT0MZ Removal of Stimulator Generator from Trunk Subcutaneous Tissue and Fascia, Open Approach (ICD-10-PCS; 2017-03-07)
PROC: 01PY0MZ Removal of Neurostimulator Lead from Peripheral Nerve, Open Approach (ICD-10-PCS; principal; 2017-03-07 08:00)
DX: T85.738A Infection and inflammatory reaction due to other nervous system device, implant or graft, initial encounter (principal); N39.41 Urge incontinence
CPT/HCPCS: 88300-TC; 94760

== ENCOUNTER 2017-06-07 15:07 | Inpatient (IN) | payer OTHER ==
--- NOTE | 2017-06-07 15:12 | PDOC ---
Rapid Medical Evaluation Time Seen by Provider: 06/07/17 15:08 Medical Evaluation: Allergies Allergy/AdvReac Type Severity Reaction Status Date / Time No Known Allergies Allergy Verified 03/02/17 09:28 06/07/17 15:09 I have performed a brief in-person evaluation of this patient. The patient presents with a chief complaint of: UTI x "1 year", sent by PCP Florence and urologist Carli for admission/IV abx, c/o chills Pertinent physical exam findings: well appearing I have ordered the following: labs, urine The patient will proceed to the ED for further evaluation. Discharge Disposition - Diagnosis UTI (urinary tract infection) - Referrals - Patient Instructions - Post Discharge Activity
[2017-06-07 15:14] VITALS: BMI 48.6
[2017-06-07 15:47] LABS: BASO % 0.4 % (0-2.0); EOS % 3.3 % (0-4.5); HEMATOCRIT 44.2 % (32.4-45.2); HEMOGLOBIN 13.9 GM/dL (10.7-15.3); MCH 25.5 pg (25.7-33.7); MCHC 31.5 g/dl (32.0-36.0); MEAN CELL VOLUME 80.9 fl (80-96); MEAN PLT VOLUME 9.1 fl (7.5-11.1); MONO % 10.8 % (3.8-10.2); NEUT % 52.5 % (42.8-82.8); PLATELET COUNT 191 K/MM3 (134-434); RBC 5.46 M/mm3 (3.60-5.2); RDW 18.9 % (11.6-15.6); WHITE BLOOD COUNT 4.6 K/mm3 (4.0-10.0)
[2017-06-07 16:13] LABS: ALBUMIN 3.6 g/dl (3.4-5.0); ALK PHOS 116 U/L (45-117); ANION GAP 5 (8-16); BILIRUBIN,TOTAL 0.3 mg/dL (0.2-1.0); BLOOD UREA NITROGEN 12 mg/dL (7-18); CALCIUM 8.8 mg/dL (8.5-10.1); CHLORIDE 109 mmol/L (98-107); CO2 29 mmol/L (21-32); CREATININE 0.7 mg/dL (0.55-1.02); GLUCOSE,RANDOM 93 mg/dL (74-106); SGOT/AST 27 U/L (15-37); SGPT/ALT 40 U/L (12-78); SODIUM 143 mmol/L (136-145); TOT PROT 6.8 g/dl (6.4-8.2)
[2017-06-07] MEDS ORDERED: PIPERACILLIN/TAZOB 3.375 GM 3.375 GM in DEXTROSE 5%-WATER - 50 ML IVPB ONE (16:43)
--- NOTE | 2017-06-07 16:53 | PDOC ---
History of Present Illness - General Chief Complaint: Urinary Problem Stated Complaint: SENT BY PCP Time Seen by Provider: 06/07/17 15:08 History Source: Patient Exam Limitations: No Limitations - History of Present Illness Initial Comments: 06/07/17 16:40 72-year-old female presents to the ED with complaints of intermittent dysuria associated with left sided aching 3 days. Patient denies fever, chills and states had her urine checked by her PCP Dr. Henriquez and recommended she come to the ER for admission. Patient denies abdominal pain, fever, chills, nausea weakness. Patient was told that she needs to be admitted for IV antibiotics and she will be seen by infectious disease doctor. Timing/Duration: other Severity: mild Associated Symptoms: reports: denies symptoms Past History - Travel Traveled outside of the country in the last 30 days: Yes - Past Medical History Allergies/Adverse Reactions: Allergies Allergy/AdvReac Type Severity Reaction Status Date / Time No Known Allergies Allergy Verified 06/07/17 15:12 Home Medications: Ambulatory Orders Albuterol Sulfate Inhaler - [Ventolin HFA Inhaler -] 1 - 2 inh PO Q4H 06/13/16 Alprazolam [Xanax] 1 mg PO HS PRN 06/13/16 Atorvastatin Ca [Lipitor] 40 mg PO HS 06/13/16 Duloxetine HCl 30 mg PO DAILY 06/13/16 Febuxostat [Uloric -] 40 mg PO DAILY 06/13/16 Fluticasone/Vilanterol [Breo Ellipta 100-25 Mcg INH] 1 each IH BID 06/13/16 Furosemide [Lasix] 40 mg PO DAILY 06/13/16 Metoprolol Succinate [Toprol Xl] 200 mg PO DAILY 06/13/16 Montelukast Na [Singulair -] 10 mg PO HS 06/13/16 Omeprazole 40 mg PO DAILY 06/13/16 Oxybutynin Chloride [Ditropan Xl] 10 mg PO BID 06/13/16 Oxycodone HCl/Acetaminophen [Percocet 5-325 mg Tablet] 1 - 2 tab PO Q6H #20 tab MDD 4 06/13/16 Potassium Chloride [K-Dur -] 20 meq PO DAILY 06/13/16 Pregabalin [Lyrica -] 150 mg PO BID 06/13/16 Levothyroxine [Synthroid -] 175 mcg PO DAILY@0700 11/08/16 hydrALAZINE HCL [Apresoline -] 25 mg PO BID 03/02/17 Amlodipine/Valsartan [Exforge 5-320 mg Tablet] 1 tab PO DAILY 03/07/17 Aspirin [ASA -] 81 mg PO DAILY 03/07/17 Docusate Sodium [Colace -] 100 mg PO DAILY 03/07/17 Duloxetine HCl [Cymbalta] 60 mg PO DAILY 03/07/17 Ergocalciferol (Vitamin D2) [Vitamin D2] 2,000 unit PO DAILY 03/07/17 Salmeterol/Fluticasone [Advair 500Mcg/50Mcg] 1 inh PO BID 03/07/17 levoFLOXacin [Levaquin -] 500 mg PO DAILY #7 tablet 03/07/17 Anemia: No Asthma: Yes Cancer: No Cardiac Disorders: No CVA: Yes (2012, TIA, NO RESIDUAL) COPD: No CHF: No Dementia: No Diabetes: Yes (NIDDM, DIET CONTROL) GI Disorders: Yes (REFLUX) Disorders: No HTN: Yes Hypercholesterolemia: Yes Liver Disease: No Seizures: No Thyroid Disease: Yes (HYPO) - Surgical History Abdominal Surgery: No Appendectomy: Yes Cardiac Surgery: No Cholecystectomy: Yes Lung Surgery: No Neurologic Surgery: No Orthopedic Surgery: Yes (CARITO. KNEE REPLACEMENTS) - Suicide/Smoking/Psychosocial Hx Smoking Status: Yes Smoking History: Former smoker Have you smoked in the past 12 months: No Number of Cigarettes Smoked Daily: 0 If you are a former smoker, when did you quit?: as a teenager Information on smoking cessation initiated: No Hx Alcohol Use: No Drug/Substance Use Hx: No Substance Use Type: None Hx Substance Use Treatment: No Patient Lives Alone: No Review of Systems - Review of Systems Able to Perform ROS?: Yes Constitutional: No: Symptoms Reported HEENTM: No: Symptoms Reported Respiratory: No: Symptoms reported Cardiac (ROS): No: Symptoms Reported ABD/GI: Yes: Abdominal cramping : Yes: Frequency, Flank Pain, Urgency Musculoskeletal: No: Symptoms Reported Integumentary: No: Symptoms Reported Neurological: No: Symptoms reported Hematologic/Lymphatic: No: Symptoms Reported *Physical Exam - Vital Signs Last Vital Signs Temp Pulse Resp BP Pulse Ox 98 F 69 20 154/81 98 06/07/17 15:12 02/27/18 15:12 06/07/17 15:12 06/07/17 15:12 06/07/17 15:12 - Physical Exam General Appearance: Yes: Nourished, Appropriately Dressed. No: Apparent Distress Gastrointestinal/Abdominal: positive: Soft. negative: Tenderness Musculoskeletal: negative: CVA Tenderness (R) Extremity: positive: Normal Capillary Refill Integumentary: positive: Normal Color, Warm, Moist Neurologic: positive: Motor Strength 5/5 (ambulatory with walker) ED Treatment Course - LABORATORY CBC & Chemistry Diagram: 06/07/17 15:35 06/07/17 15:32 - ADDITIONAL ORDERS Additional order review: Laboratory Results 06/07/17 15:32 Sodium 143 Potassium 4.0 Chloride 109 H Carbon Dioxide 29 Anion Gap 5 L BUN 12 Creatinine 0.7 Creat Clearance w eGFR > 60 Random Glucose 93 Calcium 8.8 Total Bilirubin 0.3 D AST 27 ALT 40 Alkaline Phosphatase 116 Total Protein 6.8 Albumin 3.6 06/07/17 15:35 RBC 5.46 H MCV 80.9 MCHC 31.5 L RDW 18.9 H MPV 9.1 Neutrophils % 52.5 D Lymphocytes % 33.0 D Monocytes % 10.8 H Eosinophils % 3.3 D Basophils % 0.4 Medical Decision Making - Medical Decision Making 06/07/17 16:52 Patient sent here for admission secondary recurrent UTI positive for Klebsiella pneumonia. Patient sensitivity was sent with patient and will order Zosyn IV along with labs and repeat urine. ID consult placed. Awaiting Dr. Mccullough to update. 06/07/17 18:14 Case discussed with hospitalist and will admit to [facility]. *DC/Admit/Observation/Transfer Diagnosis at time of Disposition: UTI (urinary tract infection), Recurrent UTI (urinary tract infection) - Discharge Dispostion Admit: Yes - Referrals - Patient Instructions - Post Discharge Activity
[2017-06-07 18:28] LABS: URINE APPEARANCE SLCLOUDY; URINE BILIRUBIN NEGATIVE (NEGATIVE); URINE BLOOD NEGATIVE (NEGATIVE); URINE COLOR AMBER; URINE GLUCOSE (UA) NEGATIVE (NEGATIVE); URINE KETONE NEGATIVE (NEGATIVE); URINE NITRITE NEGATIVE (NEGATIVE)
[2017-06-07 18:29] LABS: URINE LEUK ESTERASE 3+ (NEGATIVE); URINE PROTEIN 2+ (NEGATIVE)
[2017-06-07 18:38] LABS: EPI CELLS RARE /HPF (FEW); URINE BACTERIA MODERATE /hpf (NONE SEEN)
--- NOTE | 2017-06-07 18:41 | PN ---
Progress Note (short form) - Note Progress Note: ID Consult dictated Recurrent UTI Possible sepsis secondary to UTI RA on immunosuppressive therapy Await cultures Renal sonogram Urology consult Zosyn 4.5 gm IVPB q8h Hold Jeet
--- NOTE | 2017-06-07 19:15 | PN ---
Teaching Attending Note Name of Resident: Silvino Perez ATTENDING PHYSICIAN STATEMENT I saw and evaluated the patient. I reviewed the resident's note and discussed the case with the resident. I agree with the resident's findings and plan as documented. SUBJECTIVE: 72 M with pmhx. of CVA, HTN, Ashtma, nephrolithiasis, RA, DM, hypothyriodism, who presensts with dysuria and and left sided pain X3 days in duration. States he urine was checked by her PCP who reccommened she come to ED. States she has right sided CVA tenderness. No chest pain or pressure. No fevers or chills. No N , V,D. OBJECTIVE: Physical: VS: Vital Signs Period Temp Pulse Resp BP Sys/[place] Pulse Ox Last 24 Hr 98 F 69 20 154/81 98 GEN: NAD, Resting in bed, AA0X3 HEENT: NCAT, PERRL, Throat without erythema or exudates CARD: RRR S1, S2 RESP:CTAB ABD: BSx4, TTP R, Flank EXT:-C/C/e CBCD WBC 4.6 K/mm3 (4.0-10.0) D 06/07/17 15:35 RBC 5.46 M/mm3 (3.60-5.2) H 06/07/17 15:35 Hgb 13.9 GM/dL (10.7-15.3) 06/07/17 15:35 Hct 44.2 % (32.4-45.2) 06/07/17 15:35 MCV 80.9 fl (80-96) 06/07/17 15:35 MCHC 31.5 g/dl (32.0-36.0) L 06/07/17 15:35 RDW 18.9 % (11.6-15.6) H 06/07/17 15:35 Plt Count 191 K/MM3 (134-434) 06/07/17 15:35 MPV 9.1 fl (7.5-11.1) 06/07/17 15:35 CMP Sodium 143 mmol/L (136-145) 06/07/17 15:32 Potassium 4.0 mmol/L (3.5-5.1) 06/07/17 15:32 Chloride 109 mmol/L (98-107) H 06/07/17 15:32 Carbon Dioxide 29 mmol/L (21-32) 06/07/17 15:32 Anion Gap 5 (8-16) L 06/07/17 15:32 BUN 12 mg/dL (7-18) 06/07/17 15:32 Creatinine 0.7 mg/dL (0.55-1.02) 06/07/17 15:32 Creat Clearance w eGFR > 60 (>60) 06/07/17 15:32 Random Glucose 93 mg/dL (74-106) 06/07/17 15:32 Calcium 8.8 mg/dL (8.5-10.1) 06/07/17 15:32 Total Bilirubin 0.3 mg/dL (0.2-1.0) D 06/07/17 15:32 AST 27 U/L (15-37) 06/07/17 15:32 ALT 40 U/L (12-78) 06/07/17 15:32 Alkaline Phosphatase 116 U/L (45-117) 06/07/17 15:32 Total Protein 6.8 g/dl (6.4-8.2) 06/07/17 15:32 Albumin 3.6 g/dl (3.4-5.0) 06/07/17 15:32 Urine Test Results Urine Color Tia 06/07/17 17:50 Urine Appearance Slcloudy 06/07/17 17:50 Urine pH 5.0 (5.0-8.0) D 06/07/17 17:50 Ur Specific [place] 1.026 (1.001-1.035) 06/07/17 17:50 Urine Protein 2+ (NEGATIVE) H 06/07/17 17:50 Urine Glucose (UA) Negative (NEGATIVE) 06/07/17 17:50 Urine Ketones Negative (NEGATIVE) 06/07/17 17:50 Urine Blood Negative (NEGATIVE) 06/07/17 17:50 Urine Nitrite Negative (NEGATIVE) 06/07/17 17:50 Urine Bilirubin Negative (NEGATIVE) 06/07/17 17:50 Ur Leukocyte Esterase 3+ (NEGATIVE) H D 06/07/17 17:50 Ur Epithelial Cells Rare /HPF (FEW) 06/07/17 17:50 Urine Bacteria Moderate /hpf (NONE SEEN) 06/07/17 17:50 Ambulatory Orders Albuterol Sulfate Inhaler - [Ventolin HFA Inhaler -] 1 - 2 inh PO Q4H 06/13/16 Alprazolam [Xanax] 1 mg PO BID 06/13/16 Atorvastatin Ca [Lipitor] 40 mg PO HS 06/13/16 Furosemide [Lasix] 40 mg PO DAILY 06/13/16 Metoprolol Succinate [Toprol Xl] 200 mg PO DAILY 06/13/16 Montelukast Na [Singulair -] 10 mg PO HS 06/13/16 Omeprazole 40 mg PO DAILY 06/13/16 Pregabalin [Lyrica -] 150 mg PO BID 06/13/16 Levothyroxine [Synthroid -] 175 mcg PO DAILY@0700 11/08/16 hydrALAZINE HCL [Apresoline -] 25 mg PO BID 03/02/17 Amlodipine/Valsartan [Exforge 5-320 mg Tablet] 1 tab PO DAILY 03/07/17 Duloxetine HCl [Cymbalta] 60 mg PO DAILY 03/07/17 Salmeterol/Fluticasone [Advair 500Mcg/50Mcg] 1 inh PO BID 03/07/17 Diphenhydramine HCl [Benadryl -] 25 mg PO Q6H 06/07/17 Leflunomide 20 mg PO DAILY 06/07/17 Leflunomide 20 mg PO DAILY 06/07/17 Mirabegron [Myrbetriq] 50 mg PO DAILY 06/07/17 Nitrofurantoin Monohyd/M-Cryst [Macrobid -] 100 mg PO DAILY 06/07/17 Oxybutynin Chloride [Oxybutynin Chloride ER] 15 mg PO DAILY 06/07/17 Oxycodone HCl/Acetaminophen [Endocet 7.5-325 mg Tablet] 1 tab PO Q6H PRN Tofacitinib Citrate [Xeljanz] 5 mg PO BID 06/07/17 Prior Cx + Kleb/Proteus ASSESSMENT AND PLAN: 72 M with pmhx. of , HTN, Ashtma, nephrolithiasis, RA, DM, hypothyriodism, who presensts with dysuria and and left sided pain X3 days in duration, being admitted for UTI 1.) UTI - Prior Cx + Kelb/Proteus - C/W Zosyn - ID on board rec appreciated - Await cx - IVF - IF Cva tenderness persists consider US 2.) HTN - C.W Exforge/Toprol 3.) Hypothyriodism - C/W Synthriod 4.) Asthma - Nebs prn - Montneuklast 5.) RA - C/W Leflunamide 6.) Dvt Ppx - Heparin [address] in Med-Sx
[2017-06-07] MEDS ORDERED: PIPERACILLIN/TAZOB 3.375 GM 3.375 GM/50 ML BAG IVPB ONE (19:33)
[2017-06-07] MEDS: PIPERACILLIN/TAZOB 3.375 GM 3.375 GM in DEXTROSE 5%-WATER - 50 ML IVPB SCH (19:40)
--- NOTE | 2017-06-07 19:43 | HP ---
CHIEF COMPLAINT: Recurrent Painful urination and side pain x 3 days PCP: Dr Henriquez HISTORY OF PRESENT ILLNESS: Pt is a 72 yo F with PMHx asthma, CVA, DM, acid reflux, HTN, HLD, hypothyroidism, Rh Arthritis (on a DMARD), cystocoele, and recurrent/persistent UTIs. 3 days a go she started to have dysuria, nocturia, increased frequency, chills and flank pain. She was seen by her PCP-Dr Henriquez and sent to the ED following lab diagnosis of a UTI following failed out patient oral treatment of UTI. Pt denies fever, and viola hematuria. Pt was diagnosed by her bottom sander about 3 days ago with a recurrent cystocoele. She had an interstim placed twice in the past, but refused the procedure a third time due to recurrent infections. Patient's recent urine culture was positive for Klebsiella and sensitive to zosyn ER course was notable for: (1) zosyn -3.37mg given (2) UA- LE 3+, WBC-462, RBC-28, mod bacteria, Pr-2+ (3) Recent Travel: PAST MEDICAL HISTORY: asthma, CVA, DM, acid reflux, HTN, HLD, hypothyroidism, Rh Arthritis (on a DMARD), cystocoele, recurrent UTIs PAST SURGICAL HISTORY: Social History: Smoking: Former Alcohol: Drugs: Family History: Allergies No Known Allergies Allergy (Verified 06/07/17 15:12) HOME MEDICATIONS: Home Medications Medication Instructions Recorded Albuterol Sulfate Inhaler - 1 - 2 inh PO Q4H 06/13/16 [Ventolin HFA Inhaler -] Alprazolam [Xanax] 1 mg PO BID 06/13/16 Atorvastatin Ca [Lipitor] 40 mg PO HS 06/13/16 Furosemide [Lasix] 40 mg PO DAILY 06/13/16 Metoprolol Succinate [Toprol Xl] 200 mg PO DAILY 06/13/16 Montelukast Na [Singulair -] 10 mg PO HS 06/13/16 Omeprazole 40 mg PO DAILY 06/13/16 Pregabalin [Lyrica -] 150 mg PO BID 06/13/16 Levothyroxine [Synthroid -] 175 mcg PO DAILY@0700 11/08/16 hydrALAZINE HCL [Apresoline -] 25 mg PO BID 11/22/17 Amlodipine/Valsartan [Exforge 1 tab PO DAILY 03/07/17 5-320 mg Tablet] Duloxetine HCl [Cymbalta] 60 mg PO DAILY 03/07/17 Salmeterol/Fluticasone [Advair 1 inh PO BID 03/07/17 500Mcg/50Mcg] Diphenhydramine HCl [Benadryl -] 25 mg PO Q6H 06/07/17 Leflunomide 20 mg PO DAILY 06/07/17 Leflunomide 20 mg PO DAILY 06/07/17 Mirabegron [Myrbetriq] 50 mg PO DAILY 06/07/17 Nitrofurantoin Monohyd/M-Cryst 100 mg PO DAILY 06/07/17 [Macrobid -] Oxybutynin Chloride [Oxybutynin 15 mg PO DAILY 06/07/17 Chloride ER] Oxycodone HCl/Acetaminophen 1 tab PO Q6H PRN 06/07/17 [Endocet 7.5-325 mg Tablet] Tofacitinib Citrate [Xeljanz] 5 mg PO BID 06/07/17 REVIEW OF SYSTEMS CONSTITUTIONAL: chills+ Absent: fever, diaphoresis, generalized weakness, malaise, loss of appetite, weight change HEENT: Absent: rhinorrhea, nasal congestion, throat pain, throat swelling, difficulty swallowing, mouth swelling, ear pain, eye pain, visual changes CARDIOVASCULAR: Absent: chest pain, syncope, palpitations, irregular heart rate, lightheadedness , peripheral edema RESPIRATORY: Absent: cough, shortness of breath, dyspnea with exertion, orthopnea, wheezing, stridor, hemoptysis GASTROINTESTINAL: Absent: abdominal pain+, abdominal distension, nausea, vomiting, diarrhea, constipation, melena, hematochezia GENITOURINARY: dysuria+, frequency+, flank pain+, Absent: urgency, hesitancy, hematuria, genital pain MUSCULOSKELETAL: Absent: myalgia, arthralgia, joint swelling, back pain, neck pain SKIN: Absent: rash, itching, pallor HEMATOLOGIC/IMMUNOLOGIC: Absent: easy bleeding, easy bruising, lymphadenopathy, frequent infections ENDOCRINE: Absent: unexplained weight gain, unexplained weight loss, heat intolerance, cold intolerance NEUROLOGIC: Absent: headache, focal weakness or paresthesias, dizziness, unsteady gait, seizure, mental status changes, bladder or bowel incontinence PSYCHIATRIC: Absent: anxiety, depression, suicidal or homicidal ideation, hallucinations. PHYSICAL EXAMINATION Vital Signs - 24 hr 06/07/17 15:12 Temperature 98 F Pulse Rate 69 Respiratory 20 Rate Blood Pressure 154/81 O2 Sat by Pulse 98 Oximetry (%) GENERAL: Obese, Awake, alert, and fully oriented, in no acute distress. HEAD: Normal with no signs of trauma. EYES: Pupils equal, round and reactive to light, extraocular movements intact, sclera anicteric, conjunctiva clear. EARS, NOSE, THROAT: Ears normal, nares patent, oropharynx clear without exudates. Moist mucous membranes. NECK: Normal range of motion, supple without lymphadenopathy, JVD, or masses. LUNGS: Breath sounds equal, clear to auscultation bilaterally. No wheezes, and no crackles. 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 No peripheral edema. Late stage rh arthritis deformities bilateral LOWER EXTREMITIES: 2+ pulses, warm, well-perfused. No calf tenderness. Bilateral peripheral edema +1. NEUROLOGICAL: Cranial nerves II-XII intact. Normal speech. gait not observed. PSYCHIATRIC: Cooperative. Good eye contact. Laboratory Results - last 24 hr 06/07/17 06/07/17 06/07/17 15:32 15:35 17:50 WBC 4.6 D RBC 5.46 H Hgb 13.9 Hct 44.2 MCV 80.9 MCH 25.5 L D MCHC 31.5 L RDW 18.9 H Plt Count 191 MPV 9.1 Neutrophils % 52.5 D Lymphocytes % 33.0 D Monocytes % 10.8 H Eosinophils % 3.3 D Basophils % 0.4 Sodium 143 Potassium 4.0 Chloride 109 H Carbon Dioxide 29 Anion Gap 5 L BUN 12 Creatinine 0.7 Creat Clearance w eGFR > 60 Random Glucose 93 Calcium 8.8 Total Bilirubin 0.3 D AST 27 ALT 40 Alkaline Phosphatase 116 Total Protein 6.8 Albumin 3.6 Urine Color Tia Urine Appearance Slcloudy Urine pH 5.0 D Ur Specific [place] 1.026 Urine Protein 2+ H Urine Glucose (UA) Negative Urine Ketones Negative Urine Blood Negative Urine Nitrite Negative Urine Bilirubin Negative Urine Urobilinogen 2.0 H Ur Leukocyte Esterase 3+ H D Urine WBC (Auto) 462 Urine RBC (Auto) 28 Ur Epithelial Cells Rare Urine Bacteria Moderate Ambulatory Orders Albuterol Sulfate Inhaler - [Ventolin HFA Inhaler -] 1 - 2 inh PO Q4H 06/13/16 Alprazolam [Xanax] 1 mg PO BID 06/13/16 Atorvastatin Ca [Lipitor] 40 mg PO HS 06/13/16 Furosemide [Lasix] 40 mg PO DAILY 06/13/16 Metoprolol Succinate [Toprol Xl] 200 mg PO DAILY 06/13/16 Montelukast Na [Singulair -] 10 mg PO HS 06/13/16 Omeprazole 40 mg PO DAILY 06/13/16 Pregabalin [Lyrica -] 150 mg PO BID 06/13/16 Levothyroxine [Synthroid -] 175 mcg PO DAILY@0700 11/08/16 hydrALAZINE HCL [Apresoline -] 25 mg PO BID 03/02/17 Amlodipine/Valsartan [Exforge 5-320 mg Tablet] 1 tab PO DAILY 03/07/17 Duloxetine HCl [Cymbalta] 60 mg PO DAILY 03/07/17 Salmeterol/Fluticasone [Advair 500Mcg/50Mcg] 1 inh PO BID 03/07/17 Diphenhydramine HCl [Benadryl -] 25 mg PO Q6H 06/07/17 Leflunomide 20 mg PO DAILY 06/07/17 Leflunomide 20 mg PO DAILY 06/07/17 Mirabegron [Myrbetriq] 50 mg PO DAILY 06/07/17 Nitrofurantoin Monohyd/M-Cryst [Macrobid -] 100 mg PO DAILY 06/07/17 Oxybutynin Chloride [Oxybutynin Chloride ER] 15 mg PO DAILY 06/07/17 Oxycodone HCl/Acetaminophen [Endocet 7.5-325 mg Tablet] 1 tab PO Q6H PRN Tofacitinib Citrate [Xeljanz] 5 mg PO BID 06/07/17 ASSESSMENT/PLAN: Pt is a 72 yo F with PMHx asthma, CVA, DM, acid reflux, HTN, HLD, hypothyroidism, Rh Arthritis (on a DMARD), cystocoele, and recurrent UTIs. Sent from PCP-for lab diagnosis of a UTI. Complicated UTI: On DMARDS-leflunomide/Tofacitinib for Rh arthritis UA-- LE 3+, WBC-462, RBC-28, mod bacteria, Pr-2+ Failed outpatient treatment recent diagnosis of cystocoele Continue iv zosyn ID consult- Dr Schaffer on board Abd/pelvic US Tylenol for fever Blood cx urine cx Asthma: Not in acute exacerbation Nebs on board-Salmeterol/Fluticasone [Advair 500Mcg/50Mcg] Albuterol Sulfate Inhaler - [Ventolin HFA Inhaler -] 1 - 2 inh Montelukast Na [Singulair -] 10 mg PO HS CVA/HTN/HLD: Metoprolol Succinate [Toprol Xl] 200 mg PO DAILY hydralazine HCL [Apresoline -] 25 mg PO BID Amlodipine/Valsartan [Exforge 5-320 mg Tablet] 1 tab PO DAILY Atorvastatin Ca [Lipitor] 40 mg PO HS DM: Diet controlled at home ISS BGM Acid reflux: Omeprazole 40 mg PO DAILY Hypothyroidism: Levothyroxine [Synthroid -] 175 mcg PO DAILY Rh Arthritis: Leflunomide 20 mg PO DAILY 06/07/17 Tofacitinib Citrate [Xeljanz] 5 mg PO BID Fibromyalgia: Pregabalin [Lyrica -] 150 mg PO BID Cystocoele/ urge incontinence: Oxybutynin Chloride [Oxybutynin Chloride ER] 15 mg PO DAILY Mirabegron [Myrbetriq] 50 mg PO DAILY Depression: Duloxetine HCl [Cymbalta] 60 mg PO DAILY Bilateral leg edema: Furosemide [Lasix] 40 mg PO DAILY Chronic pain: Home Oxycodone HCl/Acetaminophen [Endocet 7.5-325 mg Tablet] 1 tab PO Q6H PRN FEN: NS @75/L Monitor lytes and replete as needed Diabetic and sodium controlled diet PPx: Heparin SQ 5000iu Q8H Dispo: Med Surg Visit type - Emergency Visit Emergency Visit: Yes ED Registration Date: 06/07/17 Care time: The patient presented to the Emergency Department on the above date and was hospitalized for further evaluation of their emergent condition. - New Patient This patient is new to me today: Yes Date on this admission: 06/08/17 - Critical Care Critical Care patient: No Hospitalist Screening - Colonoscopy Questionnaire Colonoscopy Questionnaire: Colonoscopy Questionnaire - Patient: 50 - 75 years old and never had a screening colonoscopy: No History of colon or rectal polyps, or CA: No History of IBD, Crohn's disease or UC: No History of abdominal radiation therapy as a child: No - Relative: 1 with colon or rectal CA, or polyps at age 60 or younger: No Colon or rectal CA diagnosed at age 45 or younger: No Multiple relatives with colon or rectal CA: No - Outcome: Screening Result: Negative Screen
[2017-06-07] MEDS: SODIUM CHLORIDE 1,000 ML IV SCH (20:40)
[2017-06-07] MEDS ORDERED: TOFACITINIB CITRATE 5 MG PO SCH (22:00)
[2017-06-07] MEDS: BUDESONIDE/FORMETEROL FUMARATE 160/4.5 mcg INHALER IH SCH (23:42)
[2017-06-07] MEDS ORDERED: PREGABALIN 50 MG CAPSULE ONE (23:44)
[2017-06-07] MEDS ORDERED: PREGABALIN 100 MG CAPSULE ONE (23:45)
[2017-06-07] MEDS ORDERED: hydrALAZINE HCL 25 MG TABLET (FP) ONE (23:45)
[2017-06-07] MEDS ORDERED: MONTELUKAST NA 10 MG TABLET ONE (23:46)
[2017-06-07] MEDS ORDERED: HEPARIN NA (PORCINE) 5,000 UNITS/ML 1ML VIAL ONE (23:46)
[2017-06-07] MEDS ORDERED: ATORVASTATIN CA 40 MG TABLET (FP) ONE (23:46)
[2017-06-07] MEDS: ATORVASTATIN CA 40 MG TABLET (FP) PO SCH (23:53)
[2017-06-07] MEDS: hydrALAZINE HCL 25 MG TABLET (FP) PO SCH (23:53)
[2017-06-07] MEDS: PREGABALIN 50 MG CAPSULE PO SCH (23:54)
[2017-06-07] MEDS: MONTELUKAST NA 10 MG TABLET PO SCH (23:54)
[2017-06-08] MEDS ORDERED: ALPRAZolam 2 MG TABLET ONE ×2 (01:37→11:33)
[2017-06-08] MEDS: ALPRAZolam 0.25 MG TABLET PO SCH ×3 (01:41→21:10)
[2017-06-08] MEDS: HEPARIN NA (PORCINE) 5,000 UNITS/ML 1ML VIAL SQ SCH ×4 (01:41→21:12)
[2017-06-08] MEDS ORDERED: PIPERACILLIN/TAZOB 4.5 GM 4.5 GM/100 ML BAG IVPB ONE ×2 (02:03→11:34)
[2017-06-08] MEDS: PIPERACILLIN/TAZOB 4.5 GM 4.5 GM in DEXTROSE 5%-WATER - 100 ML IVPB SCH ×3 (02:08→20:54)
[2017-06-08] MEDS ORDERED: PATIENT'S OWN MEDICATION (NON-FORMULARY) (Oxycodone Hcl/Acetaminophen [Endocet 7.5-325 Mg PO PRN (06:06)
[2017-06-08 06:08] LABS: BASO % 0.6 % (0-2.0); EOS % 2.4 % (0-4.5); HEMATOCRIT 44.2 % (32.4-45.2); HEMOGLOBIN 13.9 GM/dL (10.7-15.3); LYMPH % 25.7 % (8-40); MCH 25.8 pg (25.7-33.7); MCHC 31.4 g/dl (32.0-36.0); MEAN CELL VOLUME 82.2 fl (80-96); MONO % 7.5 % (3.8-10.2); NEUT % 63.8 % (42.8-82.8); PLATELET COUNT 206 K/MM3 (134-434); RBC 5.38 M/mm3 (3.60-5.2); RDW 19.3 % (11.6-15.6); WHITE BLOOD COUNT 4.9 K/mm3 (4.0-10.0)
[2017-06-08] MEDS ORDERED: ACETAMINOPHEN 325 MG TABLET (FP) ONE (06:26)
[2017-06-08] MEDS ORDERED: oxyCODONE HCL 5 MG TABLET ONE (06:27)
[2017-06-08] MEDS ORDERED: HEPARIN NA (PORCINE) 5,000 UNITS/ML 1ML VIAL ONE (06:27)
[2017-06-08 06:46] LABS: ALBUMIN 3.6 g/dl (3.4-5.0); ALK PHOS 133 U/L (45-117); ANION GAP 6 (8-16); BILIRUBIN,TOTAL 0.6 mg/dL (0.2-1.0); BLOOD UREA NITROGEN 13 mg/dL (7-18); CALCIUM 8.8 mg/dL (8.5-10.1); CHLORIDE 107 mmol/L (98-107); CO2 30 mmol/L (21-32); CREATININE 0.7 mg/dL (0.55-1.02); GLUCOSE,RANDOM 100 mg/dL (74-106); PHOSPHOROUS 3.1 mg/dL (2.5-4.9); POTASSIUM 3.7 mmol/L (3.5-5.1); SGOT/AST 121 U/L (15-37); SGPT/ALT 88 U/L (12-78); SODIUM 143 mmol/L (136-145); TOT PROT 6.7 g/dl (6.4-8.2)
[2017-06-08] MEDS ORDERED: LEVOTHYROXINE NA 175 MCG TABLET PO SCH (07:00)
[2017-06-08] MEDS: LEVOTHYROXINE 150 MCG, LEVOTHYROXINE 25 MCG PO SCH (07:07)
--- NOTE | 2017-06-08 09:45 | CONS ---
DATE OF CONSULTATION: DATE OF DICTATION: 06/08/2017 The patient is a 72-year-old female who is evaluated for recurrent urinary tract infection. The patient reports a history of recurrent urinary tract infections for the past 1 year. She reports that over the past 3 days she has had increasing urinary frequency, dysuria, right flank pain, and chills. She presented to her primary care physician and was referred to the emergency room for admission. At the present time she is awake and alert. She complains of some urinary frequency and dysuria as well as right flank pain. According to the notes, a urine culture was done as an outpatient and was positive for klebsiella sensitive to piperacillin/tazobactam. PAST MEDICAL HISTORY: Positive for morbid obesity, TIA, gastroesophageal reflux, hypertension, bronchial asthma, nephrolithiasis, rheumatoid arthritis on immunosuppressive therapy, diabetes mellitus, hypothyroidism. PAST SURGICAL HISTORY: Status post total knee replacements. ALLERGIES: No known allergies. MEDICATIONS: Include Ventolin, Xanax, Lipitor, Lasix, Toprol, Singulair, omeprazole, Lyrica, Synthroid, Apresoline, aspirin, Cymbalta. SOCIAL HISTORY: Former smoker. REVIEW OF SYSTEMS: Neurologic: No loss of consciousness, seizure activity, focal weakness. Cardiac: Negative chest pain or palpitations. Respiratory: Negative cough or sputum production. Gastrointestinal: Negative vomiting or diarrhea. Genitourinary: As per HPI. LABORATORY DATA: White count 4.6, hematocrit 44.2, platelet count 191. BUN 12, creatinine 0.7. Liver enzymes: Total bilirubin 0.3, alkaline phosphatase 116, AST 27. Urinalysis: White cells 464. Urine and blood cultures are pending. PHYSICAL EXAMINATION: General: She is awake and alert. She is out of bed to chair. She is morbidly obese. Vital Signs: Temperature 98.0, blood pressure 154/81, pulse 69, regular. Respiration 20 per minute. HEENT: Sclerae are anicteric. Cardiovascular: Heart sounds S1, S2. Lungs: Clear. Abdomen: Obese, soft, nontender. Positive right CVA tenderness and suprapubic tenderness. Extremities: Positive for edema. IMPRESSION: 1. Recurrent urinary tract infection. 2. Possible sepsis secondary to urinary tract infection. 3. Rheumatoid arthritis on immunosuppressive therapy. Await culture results, obtain renal sonogram. Urology consult, empiric antibiotic coverage with Zosyn 4.5 IV piggyback every 8 hours. Hold Xeljanz. Will follow. Thank you for the kind referral. WAYNE DUMONT M.D. [id number]
[2017-06-08] MEDS ORDERED: PATIENT'S OWN MEDICATION (NON-FORMULARY) (Amlodipine/Valsartan [Exforge 5-320 Mg Tablet] 1 PO SCH (10:00)
[2017-06-08] MEDS ORDERED: LEFLUNOMIDE 20 MG PO SCH (10:00)
[2017-06-08] MEDS ORDERED: PATIENT'S OWN MEDICATION (NON-FORMULARY) (Mirabegron [Myrbetriq] 50 MG) PO SCH (10:00)
[2017-06-08] MEDS: BUDESONIDE/FORMETEROL FUMARATE 160/4.5 mcg INHALER IH SCH ×2 (11:11→23:35)
[2017-06-08] MEDS: PANTOPRAZOLE 40 MG TABLET (FP) PO SCH (11:21)
[2017-06-08] MEDS: VALSARTAN 160 MG TABLET (UD) PO SCH (11:21)
[2017-06-08] MEDS: NITROFURANTOIN MACROCRYSTAL 50 MG CAPSULE (FP) PO SCH ×2 (11:21→23:37)
[2017-06-08] MEDS: FUROSEMIDE 40 MG TABLET (FP) PO SCH (11:21)
[2017-06-08] MEDS: DULoxetine HCL 30 MG CAPSULE.DR (FP) PO SCH (11:21)
[2017-06-08] MEDS: amLODIPine BESYLATE 5 MG TABLET (FP) PO SCH (11:21)
[2017-06-08] MEDS: hydrALAZINE HCL 25 MG TABLET (FP) PO SCH ×2 (11:22→21:10)
[2017-06-08] MEDS: SOLIFENACIN SUCCINATE 5 MG TAB (FP) PO SCH (11:22)
[2017-06-08] MEDS ORDERED: PREGABALIN 50 MG CAPSULE ONE (11:33)
[2017-06-08] MEDS ORDERED: PREGABALIN 100 MG CAPSULE ONE (11:34)
[2017-06-08] MEDS: PREGABALIN 50 MG CAPSULE PO SCH ×2 (11:37→21:10)
--- NOTE | 2017-06-08 12:43 | PN ---
Progress Note, Physician History of Present Illness: Awake, alert Still with complaints of frequency/ urgency R flank discomfort No c/o fever/ chills WBC WNL Cultures pending - Current Medication List Current Medications: Active Medications Alprazolam (Xanax -) 1 mg PO BID [facility] Last Admin: 06/08/17 11:37 Dose: 1 mg Amlodipine Besylate (Norvasc -) 5 mg PO DAILY [facility] Last Admin: 06/08/17 11:21 Dose: 5 mg Atorvastatin Calcium (Lipitor -) 40 mg PO HS [facility] Last Admin: 06/07/17 23:53 Dose: 40 mg Budesonide/Formoterol Fumarate (Symbicort 160/4.5mcg -) 2 puff IH BID [facility] Last Admin: 06/08/17 11:11 Dose: Not Given Duloxetine HCl (Cymbalta -) 60 mg PO DAILY [facility] Last Admin: 06/08/17 11:21 Dose: 60 mg Furosemide (Lasix -) 40 mg PO DAILY [facility] Last Admin: 06/08/17 11:21 Dose: 40 mg Heparin Sodium (Porcine) (Heparin -) 5,000 unit SQ TID [facility] Last Admin: 06/08/17 06:39 Dose: 5,000 unit Hydralazine HCl (Apresoline -) 25 mg PO BID [facility] Last Admin: 06/08/17 11:22 Dose: 25 mg Piperacillin Sod/Tazobactam (Sod 3.375 gm/ Dextrose) 50 mls @ 100 mls/hr IVPB ONCE [facility] Last Admin: 06/07/17 19:40 Dose: 100 mls/hr Piperacillin Sod/Tazobactam (Sod 4.5 gm/ Dextrose) 100 mls @ 200 mls/hr IVPB Q8H-IV [facility] PRN Reason: Protocol Last Admin: 06/08/17 11:48 Dose: 200 mls/hr Sodium Chloride (Normal Saline -) 1,000 mls @ 75 mls/hr IV ASDIR [facility] Last Admin: 06/07/17 20:40 Dose: 75 mls/hr Levothyroxine Sodium 150 mcg/ (Levothyroxine Sodium 25 mcg) 175 mcg PO DAILY@ 0700 [facility] Last Admin: 06/08/17 07:07 Dose: Not Given Metoprolol Succinate (Toprol Xl -) 200 mg PO DAILY [facility] Last Admin: 06/08/17 11:21 Dose: 200 mg Montelukast Sodium (Singulair -) 10 mg PO HS [facility] Last Admin: 06/07/17 23:54 Dose: 10 mg Nitrofurantoin Macrocrystals (Macrodantin -) 50 mg PO BID [facility] Last Admin: 06/08/17 11:21 Dose: 50 mg Non-Formulary Medication (Leflunomide [Leflunomide]) 20 mg PO DAILY [facility] Non-Formulary Medication (Mirabegron [Myrbetriq]) 50 mg PO DAILY [facility] Non-Formulary Medication (Tofacitinib Citrate [Xeljanz]) 5 mg PO BID [facility] Non-Formulary Medication (Oxycodone Hcl/Acetaminophen [Endocet 7.5-325 Mg Tablet ]) 1 tab PO Q6H PRN PRN Reason: PAIN Last Admin: 06/08/17 06:40 Dose: 1 tab Pantoprazole Sodium (Protonix -) 40 mg PO DAILY [facility] Last Admin: 06/08/17 11:21 Dose: 40 mg Pregabalin (Lyrica -) 150 mg PO BID [facility] Last Admin: 06/08/17 11:37 Dose: 150 mg Solifenacin (Vesicare -) 10 mg PO DAILY [facility] Last Admin: 06/08/17 11:22 Dose: 10 mg Valsartan (Diovan -) 320 mg PO DAILY [facility] Last Admin: 06/08/17 11:21 Dose: 320 mg - Objective Vital Signs: Vital Signs Temperature 98.3 F 06/08/17 06:43 Pulse Rate 60 06/08/17 08:33 Respiratory Rate 18 06/08/17 08:33 Blood Pressure 115/63 06/08/17 08:33 O2 Sat by Pulse Oximetry (%) 99 06/08/17 08:33 Constitutional: Yes: No Distress, Obese Cardiovascular: Yes: Regular Rate and Rhythm, S1, S2 Respiratory: Yes: CTA Bilaterally Gastrointestinal: Yes: Normal Bowel Sounds, Soft, Abdomen, Obese. No: Tenderness Labs: CBC, BMP 06/08/17 05:48 06/08/17 05:48 Assessment/Plan Recurrent UTI Possible sepsis secondary to UTI RA on immunosupressive therapy Await c/s Continue Zosyn
--- NOTE | 2017-06-08 13:26 | PN ---
Progress Note, Physician Chief Complaint: UTI History of Present Illness: NAD, afebrile mild right flank pain seen by ID IV abx UC pending - Current Medication List Current Medications: Active Medications Alprazolam (Xanax -) 1 mg PO BID [facility] Last Admin: 06/08/17 11:37 Dose: 1 mg Amlodipine Besylate (Norvasc -) 5 mg PO DAILY [facility] Last Admin: 06/08/17 11:21 Dose: 5 mg Atorvastatin Calcium (Lipitor -) 40 mg PO HS [facility] Last Admin: 06/07/17 23:53 Dose: 40 mg Budesonide/Formoterol Fumarate (Symbicort 160/4.5mcg -) 2 puff IH BID [facility] Last Admin: 06/08/17 11:11 Dose: Not Given Duloxetine HCl (Cymbalta -) 60 mg PO DAILY [facility] Last Admin: 06/08/17 11:21 Dose: 60 mg Furosemide (Lasix -) 40 mg PO DAILY [facility] Last Admin: 06/08/17 11:21 Dose: 40 mg Heparin Sodium (Porcine) (Heparin -) 5,000 unit SQ TID [facility] Last Admin: 06/08/17 06:39 Dose: 5,000 unit Hydralazine HCl (Apresoline -) 25 mg PO BID [facility] Last Admin: 06/08/17 11:22 Dose: 25 mg Piperacillin Sod/Tazobactam (Sod 3.375 gm/ Dextrose) 50 mls @ 100 mls/hr IVPB ONCE [facility] Last Admin: 06/07/17 19:40 Dose: 100 mls/hr Piperacillin Sod/Tazobactam (Sod 4.5 gm/ Dextrose) 100 mls @ 200 mls/hr IVPB Q8H-IV [facility] PRN Reason: Protocol Last Admin: 06/08/17 11:48 Dose: 200 mls/hr Sodium Chloride (Normal Saline -) 1,000 mls @ 75 mls/hr IV ASDIR [facility] Last Admin: 06/07/17 20:40 Dose: 75 mls/hr Levothyroxine Sodium 150 mcg/ (Levothyroxine Sodium 25 mcg) 175 mcg PO DAILY@ 0700 [facility] Last Admin: 06/08/17 07:07 Dose: Not Given Metoprolol Succinate (Toprol Xl -) 200 mg PO DAILY [facility] Last Admin: 06/08/17 11:21 Dose: 200 mg Montelukast Sodium (Singulair -) 10 mg PO HS [facility] Last Admin: 06/07/17 23:54 Dose: 10 mg Nitrofurantoin Macrocrystals (Macrodantin -) 50 mg PO BID [facility] Last Admin: 06/08/17 11:21 Dose: 50 mg Non-Formulary Medication (Leflunomide [Leflunomide]) 20 mg PO DAILY [facility] Non-Formulary Medication (Mirabegron [Myrbetriq]) 50 mg PO DAILY [facility] Non-Formulary Medication (Tofacitinib Citrate [Xeljanz]) 5 mg PO BID [facility] Non-Formulary Medication (Oxycodone Hcl/Acetaminophen [Endocet 7.5-325 Mg Tablet ]) 1 tab PO Q6H PRN PRN Reason: PAIN Last Admin: 06/08/17 06:40 Dose: 1 tab Pantoprazole Sodium (Protonix -) 40 mg PO DAILY [facility] Last Admin: 06/08/17 11:21 Dose: 40 mg Pneumococcal 13-Valent Conj Vacc (Prevnar 13 Syringe -) 0.5 ml IM .ONCE ONE Stop: 06/08/17 14:01 Pregabalin (Lyrica -) 150 mg PO BID [facility] Last Admin: 06/08/17 11:37 Dose: 150 mg Solifenacin (Vesicare -) 10 mg PO DAILY [facility] Last Admin: 06/08/17 11:22 Dose: 10 mg Valsartan (Diovan -) 320 mg PO DAILY [facility] Last Admin: 06/08/17 11:21 Dose: 320 mg - Objective Vital Signs: Vital Signs Temperature 98.3 F 06/08/17 06:43 Pulse Rate 55 L 06/08/17 12:30 Respiratory Rate 18 06/08/17 12:30 Blood Pressure 139/67 06/08/17 12:30 O2 Sat by Pulse Oximetry (%) 91 L 06/08/17 12:30 Constitutional: Yes: Well Nourished, No Distress, Calm Cardiovascular: Yes: Regular Rate and Rhythm Respiratory: Yes: Regular Gastrointestinal: Yes: Normal Bowel Sounds, Soft Neurological: Yes: Alert, Oriented Psychiatric: Yes: Alert, Oriented Labs: CBC, BMP 06/08/17 05:48 06/08/17 05:48 Problem List - Problems (1) Recurrent UTI (urinary tract infection) Assessment/Plan: -ID consult on board -IV abx -IVF -UC pending Code(s): N39.0 - URINARY TRACT INFECTION, SITE NOT SPECIFIED (2) Elevated liver enzymes Assessment/Plan: -repeat BMP in am -U/S liver Code(s): R74.8 - ABNORMAL LEVELS OF OTHER SERUM ENZYMES Assessment/Plan see problem list
[2017-06-08] MEDS ORDERED: PNEUMOC 13-VAL CONJ-DIP CRM/PF 0.5 ML DISP.SYRIN IM ONE (14:00)
[2017-06-08] MEDS ORDERED: oxyCODONE HCL 5 MG TABLET PO PRN (15:01)
[2017-06-08] MEDS ORDERED: ACETAMINOPHEN 325 MG TABLET (FP) PO PRN (15:02)
[2017-06-08] MEDS: SODIUM CHLORIDE 1,000 ML IV SCH ×2 (15:38→20:52)
[2017-06-08] MEDS: PIPERACILLIN/TAZOB 3.375 GM 3.375 GM in DEXTROSE 5%-WATER - 50 ML IVPB SCH (16:41)
[2017-06-08] MEDS: oxyCODONE HCL 5 MG TABLET PO PRN (21:02)
[2017-06-08] MEDS: MONTELUKAST NA 10 MG TABLET PO SCH (21:10)
[2017-06-08] MEDS: ATORVASTATIN CA 40 MG TABLET (FP) PO SCH (21:10)
[2017-06-08] MEDS ORDERED: PT OWN MED DRAWER 7, Y5N ONE (23:40)
[2017-06-09] MEDS: PIPERACILLIN/TAZOB 4.5 GM 4.5 GM in DEXTROSE 5%-WATER - 100 ML IVPB SCH ×3 (01:27→21:34)
[2017-06-09] MEDS ORDERED: LEVOTHYROXINE NA 150 MCG TABLET ONE (05:06)
[2017-06-09] MEDS ORDERED: LEVOTHYROXINE NA 25 MCG TABLET (FP) ONE (05:06)
[2017-06-09] MEDS: HEPARIN NA (PORCINE) 5,000 UNITS/ML 1ML VIAL SQ SCH ×3 (05:25→21:37)
[2017-06-09] MEDS: oxyCODONE HCL 5 MG TABLET PO PRN ×4 (05:32→21:35)
[2017-06-09] MEDS: LEVOTHYROXINE 150 MCG, LEVOTHYROXINE 25 MCG PO SCH (06:09)
[2017-06-09 07:02] LABS: BASO % 0.7 % (0-2.0); EOS % 2.7 % (0-4.5); HEMOGLOBIN 12.5 GM/dL (10.7-15.3); LYMPH % 19.2 % (8-40); MCH 26.7 pg (25.7-33.7); MCHC 32.9 g/dl (32.0-36.0); MEAN PLT VOLUME 8.9 fl (7.5-11.1); MONO % 12.6 % (3.8-10.2); NEUT % 64.8 % (42.8-82.8); PLATELET COUNT 172 K/MM3 (134-434); RDW 18.9 % (11.6-15.6); WHITE BLOOD COUNT 3.8 K/mm3 (4.0-10.0)
[2017-06-09 07:18] LABS: ANION GAP 11 (8-16); BLOOD UREA NITROGEN 13 mg/dL (7-18); CALCIUM 8.5 mg/dL (8.5-10.1); CHLORIDE 109 mmol/L (98-107); CO2 28 mmol/L (21-32); GLUCOSE,RANDOM 96 mg/dL (74-106); POTASSIUM 3.5 mmol/L (3.5-5.1); SODIUM 148 mmol/L (136-145)
[2017-06-09 07:21] LABS: CREATININE 0.5 mg/dL (0.55-1.02)
[2017-06-09] MEDS ORDERED: PT OWN MED DRAWER 7, Y5N ONE (10:01)
[2017-06-09] MEDS: SOLIFENACIN SUCCINATE 5 MG TAB (FP) PO SCH (10:06)
[2017-06-09] MEDS: VALSARTAN 160 MG TABLET (UD) PO SCH (10:06)
[2017-06-09] MEDS: FUROSEMIDE 40 MG TABLET (FP) PO SCH (10:06)
[2017-06-09] MEDS: hydrALAZINE HCL 25 MG TABLET (FP) PO SCH ×2 (10:06→21:35)
[2017-06-09] MEDS: DULoxetine HCL 30 MG CAPSULE.DR (FP) PO SCH (10:06)
[2017-06-09] MEDS: PANTOPRAZOLE 40 MG TABLET (FP) PO SCH (10:06)
[2017-06-09] MEDS: PREGABALIN 50 MG CAPSULE PO SCH ×2 (10:06→21:36)
[2017-06-09] MEDS: ALPRAZolam 0.25 MG TABLET PO SCH ×2 (10:06→21:37)
[2017-06-09] MEDS: amLODIPine BESYLATE 5 MG TABLET (FP) PO SCH (10:06)
[2017-06-09] MEDS: NITROFURANTOIN MACROCRYSTAL 50 MG CAPSULE (FP) PO SCH ×2 (10:07→21:46)
[2017-06-09] MEDS: BUDESONIDE/FORMETEROL FUMARATE 160/4.5 mcg INHALER IH SCH ×2 (10:07→21:46)
[2017-06-09] MEDS: ACETAMINOPHEN 325 MG TABLET (FP) PO PRN ×3 (10:15→21:37)
--- NOTE | 2017-06-09 10:37 | PN ---
Progress Note, Physician Chief Complaint: UTI History of Present Illness: NAD, afebrile mild right flank pain seen by ID IV abx UC pending - Current Medication List Current Medications: Active Medications Acetaminophen (Tylenol -) 650 mg PO Q6H PRN PRN Reason: PAIN LEVEL 1-5 Last Admin: 06/09/17 10:15 Dose: 650 mg Alprazolam (Xanax -) 1 mg PO BID [facility] Last Admin: 06/09/17 10:06 Dose: 1 mg Amlodipine Besylate (Norvasc -) 5 mg PO DAILY [facility] Last Admin: 06/09/17 10:06 Dose: 5 mg Atorvastatin Calcium (Lipitor -) 40 mg PO HS [facility] Last Admin: 06/08/17 21:10 Dose: 40 mg Budesonide/Formoterol Fumarate (Symbicort 160/4.5mcg -) 2 puff IH BID [facility] Last Admin: 06/09/17 10:07 Dose: 2 inh Duloxetine HCl (Cymbalta -) 60 mg PO DAILY [facility] Last Admin: 06/09/17 10:06 Dose: 60 mg Furosemide (Lasix -) 40 mg PO DAILY [facility] Last Admin: 06/09/17 10:06 Dose: 40 mg Heparin Sodium (Porcine) (Heparin -) 5,000 unit SQ TID [facility] Last Admin: 06/09/17 05:25 Dose: 5,000 unit Hydralazine HCl (Apresoline -) 25 mg PO BID [facility] Last Admin: 06/09/17 10:06 Dose: 25 mg Piperacillin Sod/Tazobactam (Sod 4.5 gm/ Dextrose) 100 mls @ 200 mls/hr IVPB Q8H-IV [facility] PRN Reason: Protocol Last Admin: 06/09/17 10:07 Dose: 200 mls/hr Sodium Chloride (Normal Saline -) 1,000 mls @ 75 mls/hr IV ASDIR [facility] Last Admin: 06/08/17 20:52 Dose: Not Given Levothyroxine Sodium 150 mcg/ (Levothyroxine Sodium 25 mcg) 175 mcg PO DAILY@ 0700 [facility] Last Admin: 06/09/17 06:09 Dose: 175 mcg Metoprolol Succinate (Toprol Xl -) 200 mg PO DAILY [facility] Last Admin: 06/09/17 10:06 Dose: 200 mg Montelukast Sodium (Singulair -) 10 mg PO HS [facility] Last Admin: 06/08/17 21:10 Dose: 10 mg Nitrofurantoin Macrocrystals (Macrodantin -) 50 mg PO BID [facility] Last Admin: 06/09/17 10:07 Dose: 50 mg Non-Formulary Medication (Leflunomide [Leflunomide]) 20 mg PO DAILY [facility] Non-Formulary Medication (Mirabegron [Myrbetriq]) 50 mg PO DAILY [facility] Non-Formulary Medication (Tofacitinib Citrate [Xeljanz]) 5 mg PO BID [facility] Oxycodone HCl (Roxicodone -) 7.5 mg PO Q6H PRN PRN Reason: PAIN LEVEL 6-10 Last Admin: 06/09/17 10:15 Dose: 7.5 mg Pantoprazole Sodium (Protonix -) 40 mg PO DAILY [facility] Last Admin: 06/09/17 10:06 Dose: 40 mg Pregabalin (Lyrica -) 150 mg PO BID [facility] Last Admin: 06/09/17 10:06 Dose: 150 mg Solifenacin (Vesicare -) 10 mg PO DAILY [facility] Last Admin: 06/09/17 10:06 Dose: 10 mg Valsartan (Diovan -) 320 mg PO DAILY [facility] Last Admin: 06/09/17 10:06 Dose: 320 mg - Objective Vital Signs: Vital Signs Temperature 98.2 F 06/09/17 06:00 Pulse Rate 58 L 06/09/17 06:00 Respiratory Rate 20 06/09/17 06:00 Blood Pressure 130/57 06/09/17 06:00 O2 Sat by Pulse Oximetry (%) 95 06/08/17 21:00 Constitutional: Yes: Well Nourished, No Distress, Calm Cardiovascular: Yes: Regular Rate and Rhythm Respiratory: Yes: Regular Gastrointestinal: Yes: Normal Bowel Sounds, Soft Musculoskeletal: Yes: WNL Extremities: Yes: WNL Edema: No Peripheral Pulses WNL: Yes Neurological: Yes: Alert, Oriented Psychiatric: Yes: Alert, Oriented Labs: CBC, BMP 06/09/17 06:30 06/09/17 06:30 Problem List - Problems (1) Recurrent UTI (urinary tract infection) Assessment/Plan: -ID consult on board -IV abx -IVF -UC: Microbiology 06/07/17 17:50 Urine Culture - Preliminary Urine - Urine Clean Catch Lactose Fermenting Neg Bacilli Proteus Species 06/07/17 15:32 Blood Culture - Preliminary Blood - Peripheral Venous NO GROWTH OBTAINED AFTER 24 HOURS, INCUBATION TO CONTINUE FOR 4 DAYS. 06/07/17 15:32 Blood Culture - Preliminary Blood - Peripheral Venous NO GROWTH OBTAINED AFTER 24 HOURS, INCUBATION TO CONTINUE FOR 4 DAYS. Code(s): N39.0 - URINARY TRACT INFECTION, SITE NOT SPECIFIED (2) Elevated liver enzymes Assessment/Plan: -hepatic panel -U/S liver Code(s): R74.8 - ABNORMAL LEVELS OF OTHER SERUM ENZYMES Assessment/Plan see problem list
[2017-06-09 11:14] LABS: BILIRUBIN,DIRECT 0.2 mg/dL (0.0-0.2); BILIRUBIN,TOTAL 0.5 mg/dL (0.2-1.0); TOT PROT 5.7 g/dl (6.4-8.2)
[2017-06-09] MEDS: MONTELUKAST NA 10 MG TABLET PO SCH (21:34)
[2017-06-09] MEDS: ATORVASTATIN CA 40 MG TABLET (FP) PO SCH (21:38)
[2017-06-09] MEDS: SODIUM CHLORIDE 1,000 ML IV SCH (21:46)
--- NOTE | 2017-06-09 22:00 | PN ---
Progress Note, Physician History of Present Illness: Awake, alert Still with complaints of frequency/ urgency, R flank discomfort No c/o fever/ chills Cultures pending - Current Medication List Current Medications: Active Medications Acetaminophen (Tylenol -) 650 mg PO Q6H PRN PRN Reason: PAIN LEVEL 1-5 Last Admin: 06/09/17 21:37 Dose: 650 mg Alprazolam (Xanax -) 1 mg PO BID [facility] Last Admin: 06/09/17 21:37 Dose: 1 mg Amlodipine Besylate (Norvasc -) 5 mg PO DAILY [facility] Last Admin: 06/09/17 10:06 Dose: 5 mg Atorvastatin Calcium (Lipitor -) 40 mg PO HS [facility] Last Admin: 06/09/17 21:38 Dose: 40 mg Budesonide/Formoterol Fumarate (Symbicort 160/4.5mcg -) 2 puff IH BID [facility] Last Admin: 06/09/17 21:46 Dose: 2 inh Duloxetine HCl (Cymbalta -) 60 mg PO DAILY [facility] Last Admin: 06/09/17 10:06 Dose: 60 mg Furosemide (Lasix -) 40 mg PO DAILY [facility] Last Admin: 06/09/17 10:06 Dose: 40 mg Heparin Sodium (Porcine) (Heparin -) 5,000 unit SQ TID [facility] Last Admin: 06/09/17 21:37 Dose: 5,000 unit Hydralazine HCl (Apresoline -) 25 mg PO BID [facility] Last Admin: 06/09/17 21:35 Dose: 25 mg Piperacillin Sod/Tazobactam (Sod 4.5 gm/ Dextrose) 100 mls @ 200 mls/hr IVPB Q8H-IV [facility] PRN Reason: Protocol Last Admin: 06/09/17 21:34 Dose: 200 mls/hr Sodium Chloride (Normal Saline -) 1,000 mls @ 75 mls/hr IV ASDIR [facility] Last Admin: 06/09/17 21:46 Dose: 75 mls/hr Levothyroxine Sodium 150 mcg/ (Levothyroxine Sodium 25 mcg) 175 mcg PO DAILY@ 0700 [facility] Last Admin: 06/09/17 06:09 Dose: 175 mcg Metoprolol Succinate (Toprol Xl -) 200 mg PO DAILY [facility] Last Admin: 06/09/17 10:06 Dose: 200 mg Montelukast Sodium (Singulair -) 10 mg PO HS [facility] Last Admin: 06/09/17 21:34 Dose: 10 mg Nitrofurantoin Macrocrystals (Macrodantin -) 50 mg PO BID [facility] Last Admin: 06/09/17 21:46 Dose: 50 mg Non-Formulary Medication (Leflunomide [Leflunomide]) 20 mg PO DAILY [facility] Non-Formulary Medication (Mirabegron [Myrbetriq]) 50 mg PO DAILY [facility] Non-Formulary Medication (Tofacitinib Citrate [Xeljanz]) 5 mg PO BID [facility] Oxycodone HCl (Roxicodone -) 7.5 mg PO Q6H PRN PRN Reason: PAIN LEVEL 6-10 Last Admin: 06/09/17 21:35 Dose: 7.5 mg Pantoprazole Sodium (Protonix -) 40 mg PO DAILY [facility] Last Admin: 06/09/17 10:06 Dose: 40 mg Pregabalin (Lyrica -) 150 mg PO BID [facility] Last Admin: 06/09/17 21:36 Dose: 150 mg Solifenacin (Vesicare -) 10 mg PO DAILY [facility] Last Admin: 06/09/17 10:06 Dose: 10 mg Valsartan (Diovan -) 320 mg PO DAILY [facility] Last Admin: 06/09/17 10:06 Dose: 320 mg - Objective Vital Signs: Vital Signs Temperature 98.1 F 06/09/17 19:37 Pulse Rate 69 06/09/17 19:37 Respiratory Rate 20 06/09/17 19:37 Blood Pressure 130/76 06/09/17 19:37 O2 Sat by Pulse Oximetry (%) 95 06/09/17 09:00 Constitutional: Yes: No Distress, Obese Cardiovascular: Yes: Regular Rate and Rhythm, S1, S2 Respiratory: Yes: CTA Bilaterally Edema: Yes Labs: CBC, BMP 06/09/17 06:30 06/09/17 06:30 Assessment/Plan Recurrent UTI Possible sepsis secondary to UTI RA on immunosupressive therapy Await c/s Continue Zosyn
[2017-06-10] MEDS: PIPERACILLIN/TAZOB 4.5 GM 4.5 GM in DEXTROSE 5%-WATER - 100 ML IVPB SCH ×3 (01:12→16:59)
[2017-06-10] MEDS ORDERED: LEVOTHYROXINE NA 150 MCG TABLET ONE (05:00)
[2017-06-10] MEDS ORDERED: LEVOTHYROXINE NA 25 MCG TABLET (FP) ONE (05:00)
[2017-06-10] MEDS: HEPARIN NA (PORCINE) 5,000 UNITS/ML 1ML VIAL SQ SCH ×3 (05:38→21:28)
[2017-06-10] MEDS: LEVOTHYROXINE 150 MCG, LEVOTHYROXINE 25 MCG PO SCH (06:11)
[2017-06-10] MEDS ORDERED: PT OWN MED DRAWER 7, Y5N ONE ×2 (09:47→21:24)
[2017-06-10] MEDS: PREGABALIN 50 MG CAPSULE PO SCH ×2 (10:13→21:28)
[2017-06-10] MEDS: VALSARTAN 160 MG TABLET (UD) PO SCH (10:13)
[2017-06-10] MEDS: hydrALAZINE HCL 25 MG TABLET (FP) PO SCH ×2 (10:13→21:28)
[2017-06-10] MEDS: FUROSEMIDE 40 MG TABLET (FP) PO SCH (10:13)
[2017-06-10] MEDS: DULoxetine HCL 30 MG CAPSULE.DR (FP) PO SCH (10:13)
[2017-06-10] MEDS: amLODIPine BESYLATE 5 MG TABLET (FP) PO SCH (10:14)
[2017-06-10] MEDS: BUDESONIDE/FORMETEROL FUMARATE 160/4.5 mcg INHALER IH SCH ×2 (10:14→23:00)
[2017-06-10] MEDS: NITROFURANTOIN MACROCRYSTAL 50 MG CAPSULE (FP) PO SCH ×2 (10:14→21:28)
[2017-06-10] MEDS: PANTOPRAZOLE 40 MG TABLET (FP) PO SCH (10:14)
[2017-06-10] MEDS: ALPRAZolam 0.25 MG TABLET PO SCH ×2 (10:15→21:27)
[2017-06-10] MEDS: SOLIFENACIN SUCCINATE 5 MG TAB (FP) PO SCH (10:15)
[2017-06-10] MEDS: oxyCODONE HCL 5 MG TABLET PO PRN (10:28)
--- NOTE | 2017-06-10 10:57 | PN ---
Progress Note, Physician Chief Complaint: UTI History of Present Illness: NAD, afebrile mild right flank pain seen by ID IV abx UC final pending -Patient has Bladder suspension surgery for chronic urinary incontinence, urgency by Dr Gutierrez - Current Medication List Current Medications: Active Medications Acetaminophen (Tylenol -) 650 mg PO Q6H PRN PRN Reason: PAIN LEVEL 1-5 Last Admin: 06/09/17 21:37 Dose: 650 mg Alprazolam (Xanax -) 1 mg PO BID [facility] Last Admin: 06/10/17 10:15 Dose: 1 mg Amlodipine Besylate (Norvasc -) 5 mg PO DAILY [facility] Last Admin: 06/10/17 10:14 Dose: 5 mg Atorvastatin Calcium (Lipitor -) 40 mg PO HS [facility] Last Admin: 06/09/17 21:38 Dose: 40 mg Budesonide/Formoterol Fumarate (Symbicort 160/4.5mcg -) 2 puff IH BID [facility] Last Admin: 06/10/17 10:14 Dose: 2 inh Duloxetine HCl (Cymbalta -) 60 mg PO DAILY [facility] Last Admin: 06/10/17 10:13 Dose: 60 mg Furosemide (Lasix -) 40 mg PO DAILY [facility] Last Admin: 06/10/17 10:13 Dose: 40 mg Heparin Sodium (Porcine) (Heparin -) 5,000 unit SQ TID [facility] Last Admin: 06/10/17 05:38 Dose: Not Given Hydralazine HCl (Apresoline -) 25 mg PO BID [facility] Last Admin: 06/10/17 10:13 Dose: 25 mg Piperacillin Sod/Tazobactam (Sod 4.5 gm/ Dextrose) 100 mls @ 200 mls/hr IVPB Q8H-IV [facility] PRN Reason: Protocol Last Admin: 06/10/17 01:12 Dose: 200 mls/hr Sodium Chloride (Normal Saline -) 1,000 mls @ 75 mls/hr IV ASDIR [facility] Last Admin: 06/09/17 21:46 Dose: 75 mls/hr Levothyroxine Sodium 150 mcg/ (Levothyroxine Sodium 25 mcg) 175 mcg PO DAILY@ 0700 [facility] Last Admin: 06/10/17 06:11 Dose: 175 mcg Metoprolol Succinate (Toprol Xl -) 200 mg PO DAILY [facility] Last Admin: 06/10/17 10:15 Dose: 200 mg Montelukast Sodium (Singulair -) 10 mg PO HS [facility] Last Admin: 06/09/17 21:34 Dose: 10 mg Nitrofurantoin Macrocrystals (Macrodantin -) 50 mg PO BID [facility] Last Admin: 06/10/17 10:14 Dose: 50 mg Non-Formulary Medication (Leflunomide [Leflunomide]) 20 mg PO DAILY [facility] Non-Formulary Medication (Mirabegron [Myrbetriq]) 50 mg PO DAILY [facility] Non-Formulary Medication (Tofacitinib Citrate [Xeljanz]) 5 mg PO BID [facility] Oxycodone HCl (Roxicodone -) 7.5 mg PO Q6H PRN PRN Reason: PAIN LEVEL 6-10 Last Admin: 06/10/17 10:28 Dose: 7.5 mg Pantoprazole Sodium (Protonix -) 40 mg PO DAILY [facility] Last Admin: 06/10/17 10:14 Dose: 40 mg Pregabalin (Lyrica -) 150 mg PO BID [facility] Last Admin: 06/10/17 10:13 Dose: 150 mg Solifenacin (Vesicare -) 10 mg PO DAILY [facility] Last Admin: 06/10/17 10:15 Dose: 10 mg Valsartan (Diovan -) 320 mg PO DAILY [facility] Last Admin: 06/10/17 10:13 Dose: 320 mg - Objective Vital Signs: Vital Signs Temperature 97.6 F 06/10/17 06:00 Pulse Rate 61 06/10/17 06:00 Respiratory Rate 16 06/10/17 06:00 Blood Pressure 125/69 06/10/17 06:00 O2 Sat by Pulse Oximetry (%) 95 06/09/17 21:00 Constitutional: Yes: Well Nourished, No Distress, Calm Cardiovascular: Yes: Regular Rate and Rhythm Respiratory: Yes: Regular Gastrointestinal: Yes: Normal Bowel Sounds Genitourinary: Yes: Incontinence, Polyuria Musculoskeletal: Yes: WNL Extremities: Yes: WNL Edema: No Peripheral Pulses WNL: Yes Neurological: Yes: Alert, Oriented Psychiatric: Yes: Alert, Oriented Labs: CBC, BMP 06/09/17 06:30 06/09/17 06:30 Problem List - Problems (1) Recurrent UTI (urinary tract infection) Assessment/Plan: -ID consult on board -IV abx -IVF -UC: Microbiology 06/07/17 17:50 Urine Culture - Preliminary Urine - Urine Clean Catch Lactose Fermenting Neg Bacilli Proteus Species 06/07/17 15:32 Blood Culture - Preliminary Blood - Peripheral Venous NO GROWTH OBTAINED AFTER 24 HOURS, INCUBATION TO CONTINUE FOR 4 DAYS. 06/07/17 15:32 Blood Culture - Preliminary Blood - Peripheral Venous NO GROWTH OBTAINED AFTER 24 HOURS, INCUBATION TO CONTINUE FOR 4 DAYS. Code(s): N39.0 - URINARY TRACT INFECTION, SITE NOT SPECIFIED (2) Elevated liver enzymes Assessment/Plan: -hepatic panel normalized -U/S liver showed fatty liver Code(s): R74.8 - ABNORMAL LEVELS OF OTHER SERUM ENZYMES Assessment/Plan see problem list
--- NOTE | 2017-06-10 13:15 | PN ---
Progress Note, Physician History of Present Illness: Awake, alert Reports less frequency/ urgency, R flank discomfort No c/o fever/ chills Final urine culture pending - Current Medication List Current Medications: Active Medications Acetaminophen (Tylenol -) 650 mg PO Q6H PRN PRN Reason: PAIN LEVEL 1-5 Last Admin: 06/09/17 21:37 Dose: 650 mg Alprazolam (Xanax -) 1 mg PO BID [facility] Last Admin: 06/10/17 10:15 Dose: 1 mg Amlodipine Besylate (Norvasc -) 5 mg PO DAILY [facility] Last Admin: 06/10/17 10:14 Dose: 5 mg Atorvastatin Calcium (Lipitor -) 40 mg PO HS [facility] Last Admin: 06/09/17 21:38 Dose: 40 mg Budesonide/Formoterol Fumarate (Symbicort 160/4.5mcg -) 2 puff IH BID [facility] Last Admin: 06/10/17 10:14 Dose: 2 inh Duloxetine HCl (Cymbalta -) 60 mg PO DAILY [facility] Last Admin: 06/10/17 10:13 Dose: 60 mg Furosemide (Lasix -) 40 mg PO DAILY [facility] Last Admin: 06/10/17 10:13 Dose: 40 mg Heparin Sodium (Porcine) (Heparin -) 5,000 unit SQ TID [facility] Last Admin: 06/10/17 05:38 Dose: Not Given Hydralazine HCl (Apresoline -) 25 mg PO BID [facility] Last Admin: 06/10/17 10:13 Dose: 25 mg Piperacillin Sod/Tazobactam (Sod 4.5 gm/ Dextrose) 100 mls @ 200 mls/hr IVPB Q8H-IV [facility] PRN Reason: Protocol Last Admin: 06/10/17 11:26 Dose: 200 mls/hr Sodium Chloride (Normal Saline -) 1,000 mls @ 75 mls/hr IV ASDIR [facility] Last Admin: 06/09/17 21:46 Dose: 75 mls/hr Levothyroxine Sodium 150 mcg/ (Levothyroxine Sodium 25 mcg) 175 mcg PO DAILY@ 0700 [facility] Last Admin: 06/10/17 06:11 Dose: 175 mcg Metoprolol Succinate (Toprol Xl -) 200 mg PO DAILY [facility] Last Admin: 06/10/17 10:15 Dose: 200 mg Montelukast Sodium (Singulair -) 10 mg PO HS [facility] Last Admin: 06/09/17 21:34 Dose: 10 mg Nitrofurantoin Macrocrystals (Macrodantin -) 50 mg PO BID [facility] Last Admin: 06/10/17 10:14 Dose: 50 mg Non-Formulary Medication (Leflunomide [Leflunomide]) 20 mg PO DAILY [facility] Non-Formulary Medication (Mirabegron [Myrbetriq]) 50 mg PO DAILY [facility] Non-Formulary Medication (Tofacitinib Citrate [Xeljanz]) 5 mg PO BID [facility] Oxycodone HCl (Roxicodone -) 7.5 mg PO Q6H PRN PRN Reason: PAIN LEVEL 6-10 Last Admin: 06/10/17 10:28 Dose: 7.5 mg Pantoprazole Sodium (Protonix -) 40 mg PO DAILY [facility] Last Admin: 06/10/17 10:14 Dose: 40 mg Pregabalin (Lyrica -) 150 mg PO BID [facility] Last Admin: 06/10/17 10:13 Dose: 150 mg Solifenacin (Vesicare -) 10 mg PO DAILY [facility] Last Admin: 06/10/17 10:15 Dose: 10 mg Valsartan (Diovan -) 320 mg PO DAILY [facility] Last Admin: 06/10/17 10:13 Dose: 320 mg - Objective Vital Signs: Vital Signs Temperature 98.0 F 06/10/17 08:00 Pulse Rate 61 06/10/17 08:00 Respiratory Rate 20 06/10/17 08:00 Blood Pressure 137/87 06/10/17 08:00 O2 Sat by Pulse Oximetry (%) 95 06/10/17 08:00 Constitutional: Yes: No Distress, Obese Eyes: Yes: Conjunctiva Clear Cardiovascular: Yes: Regular Rate and Rhythm, S1, S2 Respiratory: Yes: Diminished Gastrointestinal: Yes: Normal Bowel Sounds, Soft. No: Tenderness Genitourinary: No: CVA Tenderness - Left, CVA Tenderness - Right Labs: CBC, BMP 06/09/17 06:30 06/09/17 06:30 Assessment/Plan Recurrent UTI Possible sepsis secondary to UTI RA on immunosupressive therapy Await final c/s Continue Zosyn
[2017-06-10] MEDS: SODIUM CHLORIDE 1,000 ML IV SCH (20:40)
--- NOTE | 2017-06-10 21:16 | HOSP ---
Subjective - Review of Symptoms Events since last encounter: Hospitalist Encounter Was notified by RN that the patient needed a new peripheral IV site, currently on Unasyn IV for recurrent UTI. Subjective: Arrived to bedside, patient is asleep but arousable has no complaints IV site attempted x2, unsuccessful Recommend PICC line placement in am RN to call ID Specialist for recommendations for PO ABX. Physical Examination Vital Signs: Vital Signs Temperature 97.8 F 06/10/17 14:16 Pulse Rate 61 06/10/17 14:16 Respiratory Rate 20 06/10/17 14:16 Blood Pressure 144/66 06/10/17 14:16 O2 Sat by Pulse Oximetry (%) 95 06/10/17 08:00 Constitutional: Yes: Well Nourished, No Distress, Calm, Obese Eyes: Yes: WNL, Conjunctiva Clear, EOM Intact, PERRL HENT: Yes: WNL, Atraumatic, Normocephalic Neck: Yes: WNL, Supple, Trachea Midline Cardiovascular: Yes: WNL, Regular Rate and Rhythm, S1, S2 Respiratory: Yes: WNL, Regular, CTA Bilaterally Gastrointestinal: Yes: Normal Bowel Sounds, Soft, Abdomen, Obese ...Rectal Exam: Yes: Deferred Renal/: Yes: WNL Edema: Yes Peripheral Pulses WNL: Yes Integumentary: Yes: Bruising (eccyhmotic bruising for prior IV sites), Rash ( upper left arm, left leg) Neurological: Yes: WNL, Alert, Oriented, Cran Nerves II-XII Intact ...Motor Strength: WNL Psychiatric: Yes: WNL, Alert, Oriented Labs: CBC, BMP 06/09/17 06:30 06/09/17 06:30 Microbiology 06/07/17 15:32 Blood Culture - Preliminary Blood - Peripheral Venous NO GROWTH OBTAINED AFTER 72 HOURS, INCUBATION TO CONTINUE FOR 2 DAYS. 06/07/17 15:32 Blood Culture - Preliminary Blood - Peripheral Venous NO GROWTH OBTAINED AFTER 72 HOURS, INCUBATION TO CONTINUE FOR 2 DAYS. 06/07/17 17:50 Urine Culture - Preliminary Urine - Urine Clean Catch Lactose Fermenting Neg Bacilli Proteus Mirabilis Intake & Output 06/07/17 06/08/17 06/09/17 06/10/17 23:59 23:59 23:59 23:59 Intake Total 1400 1825 2075 Balance 1400 1825 2075 Weight 145.15 kg 145.15 kg Current Medications Generic Name Dose Route Start Last Admin Trade Name Freq PRN Reason Stop Dose Admin Acetaminophen 650 mg 06/08/17 17:06 06/09/17 21:37 Tylenol - PO 650 mg Q6H PRN Administration PAIN LEVEL 1-5 Alprazolam 1 mg 06/07/17 22:00 06/10/17 10:15 Xanax - PO 1 mg BID NALDO Administration Amlodipine Besylate 5 mg 06/08/17 10:00 06/10/17 10:14 Norvasc - PO 5 mg DAILY NALDO Administration Atorvastatin Calcium 40 mg 06/07/17 22:00 06/09/17 21:38 Lipitor - PO 40 mg HS NALDO Administration Budesonide/Formoterol Fumarate 2 puff 06/07/17 22:00 06/10/17 10:14 Symbicort 160/4.5mcg - IH 2 inh BID NALDO Administration Duloxetine HCl 60 mg 06/08/17 10:00 06/10/17 10:13 Cymbalta - PO 60 mg DAILY NALDO Administration Furosemide 40 mg 06/08/17 10:00 06/10/17 10:13 Lasix - PO 40 mg DAILY NALDO Administration Heparin Sodium (Porcine) 5,000 unit 06/07/17 22:00 06/10/17 14:47 Heparin - SQ 5,000 unit TID NALDO Administration Hydralazine HCl 25 mg 06/07/17 22:00 06/10/17 10:13 Apresoline - PO 25 mg BID NALDO Administration Piperacillin Sod/Tazobactam 100 mls @ 200 mls/hr 06/08/17 02:00 06/10/17 16: 59 Sod 4.5 gm/ Dextrose IVPB 200 mls/hr Q8H-IV NALDO Administration Protocol Sodium Chloride 1,000 mls @ 75 mls/hr 06/07/17 20:45 06/09/17 21:46 Normal Saline - IV 75 mls/hr ASDIR NALDO Administration Levothyroxine Sodium 150 mcg/ 175 mcg 06/08/17 07:00 06/10/17 06:11 Levothyroxine Sodium 25 mcg PO 175 mcg DAILY@0700 NALDO Administration Metoprolol Succinate 200 mg 06/08/17 10:00 06/10/17 10:15 Toprol Xl - PO 200 mg DAILY NALDO Administration Montelukast Sodium 10 mg 06/07/17 22:00 06/09/17 21:34 Singulair - PO 10 mg HS NALDO Administration Nitrofurantoin Macrocrystals 50 mg 06/08/17 10:00 06/10/17 10:14 Macrodantin - PO 50 mg BID NALDO Administration Non-Formulary Medication 20 mg 06/08/17 10:00 Leflunomide [Leflunomide] PO DAILY NALDO Non-Formulary Medication 50 mg 06/08/17 10:00 Mirabegron [Myrbetriq] PO DAILY NALDO Non-Formulary Medication 5 mg 06/07/17 22:00 Tofacitinib Citrate [Xeljanz] PO BID NALDO Oxycodone HCl 7.5 mg 06/08/17 17:07 06/10/17 10:28 Roxicodone - PO 7.5 mg Q6H PRN Administration PAIN LEVEL 6-10 Pantoprazole Sodium 40 mg 06/08/17 10:00 06/10/17 10:14 Protonix - PO 40 mg DAILY NALDO Administration Pregabalin 150 mg 06/07/17 22:00 06/10/17 10:13 Lyrica - PO 150 mg BID NALDO Administration Solifenacin 10 mg 06/08/17 10:00 06/10/17 10:15 Vesicare - PO 10 mg DAILY NALDO Administration Valsartan 320 mg 06/08/17 10:00 06/10/17 10:13 Diovan - PO 320 mg DAILY NALDO Administration
[2017-06-10] MEDS: ATORVASTATIN CA 40 MG TABLET (FP) PO SCH (21:28)
[2017-06-10] MEDS: MONTELUKAST NA 10 MG TABLET PO SCH (21:28)
[2017-06-11] MEDS: PIPERACILLIN/TAZOB 4.5 GM 4.5 GM in DEXTROSE 5%-WATER - 100 ML IVPB SCH ×3 (01:40→18:26)
[2017-06-11] MEDS ORDERED: LEVOTHYROXINE NA 150 MCG TABLET ONE (05:56)
[2017-06-11] MEDS ORDERED: LEVOTHYROXINE NA 25 MCG TABLET (FP) ONE (05:56)
[2017-06-11] MEDS: LEVOTHYROXINE 150 MCG, LEVOTHYROXINE 25 MCG PO SCH (06:10)
[2017-06-11] MEDS: HEPARIN NA (PORCINE) 5,000 UNITS/ML 1ML VIAL SQ SCH ×3 (06:10→21:43)
[2017-06-11] MEDS ORDERED: PT OWN MED DRAWER 7, Y5N ONE ×3 (10:06→21:40)
[2017-06-11] MEDS: SOLIFENACIN SUCCINATE 5 MG TAB (FP) PO SCH (10:10)
[2017-06-11] MEDS: PREGABALIN 50 MG CAPSULE PO SCH ×2 (10:10→21:43)
[2017-06-11] MEDS: DULoxetine HCL 30 MG CAPSULE.DR (FP) PO SCH (10:10)
[2017-06-11] MEDS: hydrALAZINE HCL 25 MG TABLET (FP) PO SCH ×2 (10:10→21:43)
[2017-06-11] MEDS: ALPRAZolam 0.25 MG TABLET PO SCH ×3 (10:11→21:43)
[2017-06-11] MEDS: BUDESONIDE/FORMETEROL FUMARATE 160/4.5 mcg INHALER IH SCH ×2 (10:11→21:43)
[2017-06-11] MEDS: FUROSEMIDE 40 MG TABLET (FP) PO SCH (10:11)
[2017-06-11] MEDS: VALSARTAN 160 MG TABLET (UD) PO SCH (10:11)
[2017-06-11] MEDS: amLODIPine BESYLATE 5 MG TABLET (FP) PO SCH (10:11)
[2017-06-11] MEDS: PANTOPRAZOLE 40 MG TABLET (FP) PO SCH (10:11)
[2017-06-11] MEDS: NITROFURANTOIN MACROCRYSTAL 50 MG CAPSULE (FP) PO SCH (10:11)
[2017-06-11] MEDS: oxyCODONE HCL 5 MG TABLET PO PRN ×2 (10:12→19:25)
[2017-06-11] MEDS: ACETAMINOPHEN 325 MG TABLET (FP) PO PRN (10:12)
--- NOTE | 2017-06-11 11:45 | PN ---
Progress Note, Physician Chief Complaint: UTI History of Present Illness: NAD, afebrile mild right flank pain seen by ID IV abx UC final: Microbiology 06/07/17 15:32 Blood Culture - Preliminary Blood - Peripheral Venous NO GROWTH OBTAINED AFTER 72 HOURS, INCUBATION TO CONTINUE FOR 2 DAYS. 06/07/17 15:32 Blood Culture - Preliminary Blood - Peripheral Venous NO GROWTH OBTAINED AFTER 72 HOURS, INCUBATION TO CONTINUE FOR 2 DAYS. 06/07/17 17:50 Urine Culture - Preliminary Urine - Urine Clean Catch Lactose Fermenting Neg Bacilli Proteus Mirabilis -Patient has Bladder suspension surgery for chronic urinary incontinence, urgency by Dr Boyce - Current Medication List Current Medications: Active Medications Acetaminophen (Tylenol -) 650 mg PO Q6H PRN PRN Reason: PAIN LEVEL 1-5 Last Admin: 06/11/17 10:12 Dose: 650 mg Alprazolam (Xanax -) 1 mg PO BID [facility] Last Admin: 06/11/17 10:28 Dose: Not Given Amlodipine Besylate (Norvasc -) 5 mg PO DAILY [facility] Last Admin: 06/11/17 10:11 Dose: 5 mg Atorvastatin Calcium (Lipitor -) 40 mg PO HS [facility] Last Admin: 06/10/17 21:28 Dose: 40 mg Budesonide/Formoterol Fumarate (Symbicort 160/4.5mcg -) 2 puff IH BID [facility] Last Admin: 06/11/17 10:11 Dose: 2 inh Duloxetine HCl (Cymbalta -) 60 mg PO DAILY [facility] Last Admin: 06/11/17 10:10 Dose: 60 mg Furosemide (Lasix -) 40 mg PO DAILY [facility] Last Admin: 06/11/17 10:11 Dose: 40 mg Heparin Sodium (Porcine) (Heparin -) 5,000 unit SQ TID [facility] Last Admin: 06/11/17 06:10 Dose: 5,000 unit Hydralazine HCl (Apresoline -) 25 mg PO BID [facility] Last Admin: 06/11/17 10:10 Dose: 25 mg Piperacillin Sod/Tazobactam (Sod 4.5 gm/ Dextrose) 100 mls @ 200 mls/hr IVPB Q8H-IV NALDO PRN Reason: Protocol Last Admin: 06/11/17 10:12 Dose: 200 mls/hr Sodium Chloride (Normal Saline -) 1,000 mls @ 75 mls/hr IV ASDIR [facility] Last Admin: 06/10/17 20:40 Dose: Not Given Levothyroxine Sodium 150 mcg/ (Levothyroxine Sodium 25 mcg) 175 mcg PO DAILY@ 0700 [facility] Last Admin: 06/11/17 06:10 Dose: 175 mcg Metoprolol Succinate (Toprol Xl -) 200 mg PO DAILY [facility] Last Admin: 06/11/17 10:11 Dose: 200 mg Montelukast Sodium (Singulair -) 10 mg PO HS [facility] Last Admin: 06/10/17 21:28 Dose: 10 mg Non-Formulary Medication (Leflunomide [Leflunomide]) 20 mg PO DAILY [facility] Non-Formulary Medication (Mirabegron [Myrbetriq]) 50 mg PO DAILY [facility] Non-Formulary Medication (Tofacitinib Citrate [Xeljanz]) 5 mg PO BID [facility] Oxycodone HCl (Roxicodone -) 7.5 mg PO Q6H PRN PRN Reason: PAIN LEVEL 6-10 Last Admin: 06/11/17 10:12 Dose: 7.5 mg Pantoprazole Sodium (Protonix -) 40 mg PO DAILY [facility] Last Admin: 06/11/17 10:11 Dose: 40 mg Pregabalin (Lyrica -) 150 mg PO BID [facility] Last Admin: 06/11/17 10:10 Dose: 150 mg Solifenacin (Vesicare -) 10 mg PO DAILY [facility] Last Admin: 06/11/17 10:10 Dose: 10 mg Valsartan (Diovan -) 320 mg PO DAILY [facility] Last Admin: 06/11/17 10:11 Dose: 320 mg - Objective Vital Signs: Vital Signs Temperature 97.6 F 06/11/17 09:00 Pulse Rate 60 06/11/17 11:30 Respiratory Rate 20 06/11/17 11:30 Blood Pressure 148/74 06/11/17 11:30 O2 Sat by Pulse Oximetry (%) 91 L 06/11/17 09:00 Constitutional: Yes: Well Nourished, No Distress, Calm Cardiovascular: Yes: Regular Rate and Rhythm Respiratory: Yes: Regular Gastrointestinal: Yes: Normal Bowel Sounds, Soft Genitourinary: Yes: Incontinence, Polyuria, Other (Urgency) Musculoskeletal: Yes: WNL Extremities: Yes: WNL Edema: No Peripheral Pulses WNL: Yes Neurological: Yes: Alert, Oriented Psychiatric: Yes: Alert, Oriented Labs: CBC, BMP 06/09/17 06:30 06/09/17 06:30 Problem List - Problems (1) Recurrent UTI (urinary tract infection) Assessment/Plan: -ID consult on board -IV abx -UC: Microbiology 06/07/17 17:50 Urine Culture - Final Urine - Urine Clean Catch Klebsiella Pneumoniae - Esbl Proteus Mirabilis 06/07/17 15:32 Blood Culture - Preliminary Blood - Peripheral Venous NO GROWTH OBTAINED AFTER 72 HOURS, INCUBATION TO CONTINUE FOR 2 DAYS. 06/07/17 15:32 Blood Culture - Preliminary Blood - Peripheral Venous NO GROWTH OBTAINED AFTER 72 HOURS, INCUBATION TO CONTINUE FOR 2 DAYS. Code(s): N39.0 - URINARY TRACT INFECTION, SITE NOT SPECIFIED (2) Elevated liver enzymes Assessment/Plan: -hepatic panel normalized -U/S liver showed fatty liver Code(s): R74.8 - ABNORMAL LEVELS OF OTHER SERUM ENZYMES Assessment/Plan see problem list
[2017-06-11] MEDS: MONTELUKAST NA 10 MG TABLET PO SCH (21:43)
[2017-06-11] MEDS: ATORVASTATIN CA 40 MG TABLET (FP) PO SCH (21:43)
[2017-06-11] MEDS: SODIUM CHLORIDE 1,000 ML IV SCH ×2 (22:20→22:21)
[2017-06-12] MEDS: PIPERACILLIN/TAZOB 4.5 GM 4.5 GM in DEXTROSE 5%-WATER - 100 ML IVPB SCH ×2 (01:58→10:53)
[2017-06-12] MEDS: oxyCODONE HCL 5 MG TABLET PO PRN ×2 (03:52→09:48)
[2017-06-12] MEDS ORDERED: LEVOTHYROXINE NA 150 MCG TABLET ONE (06:14)
[2017-06-12] MEDS ORDERED: LEVOTHYROXINE NA 25 MCG TABLET (FP) ONE (06:14)
[2017-06-12] MEDS: HEPARIN NA (PORCINE) 5,000 UNITS/ML 1ML VIAL SQ SCH (06:16)
[2017-06-12] MEDS: LEVOTHYROXINE 150 MCG, LEVOTHYROXINE 25 MCG PO SCH (06:16)
[2017-06-12] MEDS: PANTOPRAZOLE 40 MG TABLET (FP) PO SCH (09:47)
[2017-06-12] MEDS: PREGABALIN 50 MG CAPSULE PO SCH (09:47)
[2017-06-12] MEDS: hydrALAZINE HCL 25 MG TABLET (FP) PO SCH (09:47)
[2017-06-12] MEDS: FUROSEMIDE 40 MG TABLET (FP) PO SCH (09:47)
[2017-06-12] MEDS: SOLIFENACIN SUCCINATE 5 MG TAB (FP) PO SCH (09:47)
[2017-06-12] MEDS: DULoxetine HCL 30 MG CAPSULE.DR (FP) PO SCH (09:47)
[2017-06-12] MEDS: ACETAMINOPHEN 325 MG TABLET (FP) PO PRN (09:48)
[2017-06-12] MEDS: amLODIPine BESYLATE 5 MG TABLET (FP) PO SCH (09:48)
[2017-06-12] MEDS ORDERED: PT OWN MED DRAWER 7, Y5N ONE (09:57)
[2017-06-12] MEDS: BUDESONIDE/FORMETEROL FUMARATE 160/4.5 mcg INHALER IH SCH (10:02)
[2017-06-12] MEDS: ALPRAZolam 0.25 MG TABLET PO SCH (10:02)
[2017-06-12] MEDS: VALSARTAN 160 MG TABLET (UD) PO SCH (10:02)
[2017-06-12 11:12] VITALS: BP 141/78; PULSE 83; TEMP 98.1
--- NOTE | 2017-06-12 11:38 | PN ---
Progress Note, Physician History of Present Illness: Awake, alert Reports improvement in urinary tract symptoms No c/o fever/ chills - Current Medication List Current Medications: Active Medications Acetaminophen (Tylenol -) 650 mg PO Q6H PRN PRN Reason: PAIN LEVEL 1-5 Last Admin: 06/12/17 09:48 Dose: 650 mg Alprazolam (Xanax -) 1 mg PO BID [facility] Last Admin: 06/12/17 10:02 Dose: Not Given Amlodipine Besylate (Norvasc -) 5 mg PO DAILY [facility] Last Admin: 06/12/17 09:48 Dose: 5 mg Atorvastatin Calcium (Lipitor -) 40 mg PO HS [facility] Last Admin: 06/11/17 21:43 Dose: 40 mg Budesonide/Formoterol Fumarate (Symbicort 160/4.5mcg -) 2 puff IH BID [facility] Last Admin: 06/12/17 10:02 Dose: 2 puff Doxycycline Hyclate (Vibramycin -) 100 mg PO BID@1000,1800 [facility] Duloxetine HCl (Cymbalta -) 60 mg PO DAILY [facility] Last Admin: 06/12/17 09:47 Dose: 60 mg Furosemide (Lasix -) 40 mg PO DAILY [facility] Last Admin: 06/12/17 09:47 Dose: 40 mg Heparin Sodium (Porcine) (Heparin -) 5,000 unit SQ TID [facility] Last Admin: 06/12/17 06:16 Dose: 5,000 unit Hydralazine HCl (Apresoline -) 25 mg PO BID [facility] Last Admin: 06/12/17 09:47 Dose: 25 mg Sodium Chloride (Normal Saline -) 1,000 mls @ 75 mls/hr IV ASDIR [facility] Last Admin: 06/11/17 22:21 Dose: Not Given Levothyroxine Sodium 150 mcg/ (Levothyroxine Sodium 25 mcg) 175 mcg PO DAILY@ 0700 [facility] Last Admin: 06/12/17 06:16 Dose: 175 mcg Metoprolol Succinate (Toprol Xl -) 200 mg PO DAILY [facility] Last Admin: 06/12/17 09:47 Dose: 200 mg Montelukast Sodium (Singulair -) 10 mg PO HS [facility] Last Admin: 06/11/17 21:43 Dose: 10 mg Non-Formulary Medication (Leflunomide [Leflunomide]) 20 mg PO DAILY [facility] Non-Formulary Medication (Mirabegron [Myrbetriq]) 50 mg PO DAILY [facility] Non-Formulary Medication (Tofacitinib Citrate [Xeljanz]) 5 mg PO BID [facility] Oxycodone HCl (Roxicodone -) 7.5 mg PO Q6H PRN PRN Reason: PAIN LEVEL 6-10 Last Admin: 06/12/17 09:48 Dose: 7.5 mg Pantoprazole Sodium (Protonix -) 40 mg PO DAILY [facility] Last Admin: 06/12/17 09:47 Dose: 40 mg Pregabalin (Lyrica -) 150 mg PO BID [facility] Last Admin: 06/12/17 09:47 Dose: 150 mg Solifenacin (Vesicare -) 10 mg PO DAILY [facility] Last Admin: 06/12/17 09:47 Dose: 10 mg Valsartan (Diovan -) 320 mg PO DAILY [facility] Last Admin: 06/12/17 10:02 Dose: 320 mg - Objective Vital Signs: Vital Signs Temperature 98.1 F 06/12/17 09:00 Pulse Rate 83 06/12/17 09:00 Respiratory Rate 21 06/12/17 09:00 Blood Pressure 141/78 06/12/17 09:00 O2 Sat by Pulse Oximetry (%) 95 06/11/17 22:00 Constitutional: Yes: Obese Cardiovascular: Yes: Regular Rate and Rhythm, S1, S2 Respiratory: Yes: CTA Bilaterally Gastrointestinal: Yes: Normal Bowel Sounds, Soft, Abdomen, Obese. No: Tenderness Edema: Yes Labs: CBC, BMP 06/09/17 06:30 06/09/17 06:30 Assessment/Plan Recurrent UTI Possible sepsis secondary to UTI RA on immunosupressive therapy Day 6 zosyn Substitute doxycycline 100mg po bid x7d Outpatient followup
--- NOTE | 2017-06-12 11:53 | DS ---
Physical Examination Vital Signs: Vital Signs Temperature 98.1 F 06/12/17 09:00 Pulse Rate 83 06/12/17 09:00 Respiratory Rate 21 06/12/17 09:00 Blood Pressure 141/78 06/12/17 09:00 O2 Sat by Pulse Oximetry (%) 95 06/11/17 22:00 Constitutional: Yes: Well Nourished, No Distress, Calm Cardiovascular: Yes: Regular Rate and Rhythm Respiratory: Yes: Regular Neurological: Yes: Alert, Oriented Psychiatric: Yes: Alert, Oriented Labs: CBC, BMP 06/09/17 06:30 06/09/17 06:30 Discharge Summary Reason For Visit: RECURRENT URINARY TRACT INFECTION Current Active Problems Elevated liver enzymes (Acute) Recurrent UTI (urinary tract infection) (Acute) UTI (urinary tract infection) (Acute) Hospital Course: Pt is a 72 yo F with PMHx asthma, CVA, DM, acid reflux, HTN, HLD, hypothyroidism, Rh Arthritis (on a DMARD), cystocoele, and recurrent/persistent UTIs. 3 days a go she started to have dysuria, nocturia, increased frequency, chills and flank pain. She was seen by her PCP-Dr Henriquez and sent to the ED following lab diagnosis of a UTI following failed out patient oral treatment of UTI. Pt denies fever, and viola hematuria. 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 She had an interstim placed twice in the past, but refused the procedure a third time due to recurrent infections. Patient's recent urine culture was positive for Klebsiella and sensitive to zosyn Condition: Stable - Instructions Diet, Activity, Other Instructions: -Follow up with Urology outpatient -Doxycycline 100 mg 1 tab 2 x day for 7 days Referrals: Madison Henriquez MD [Primary Care Provider] - Zach Boyce MD [Staff Physician] - Disposition: VNS/HOME HEALTH CARE - Home Medications Comprehensive Discharge Medication List: Ambulatory Orders Albuterol Sulfate Inhaler - [Ventolin HFA Inhaler -] 1 - 2 inh PO Q4H 06/13/16 Alprazolam [Xanax] 1 mg PO BID 06/13/16 Atorvastatin Ca [Lipitor] 40 mg PO HS 06/13/16 Furosemide [Lasix] 40 mg PO DAILY 06/13/16 Metoprolol Succinate [Toprol Xl] 200 mg PO DAILY 06/13/16 Montelukast Na [Singulair -] 10 mg PO HS 06/13/16 Omeprazole 40 mg PO DAILY 06/13/16 Pregabalin [Lyrica -] 150 mg PO BID 06/13/16 Levothyroxine [Synthroid -] 175 mcg PO DAILY@0700 11/08/16 hydrALAZINE HCL [Apresoline -] 25 mg PO BID 03/02/17 Amlodipine/Valsartan [Exforge 5-320 mg Tablet] 1 tab PO DAILY 03/07/17 Duloxetine HCl [Cymbalta] 60 mg PO DAILY 03/07/17 Salmeterol/Fluticasone [Advair 500Mcg/50Mcg -] 1 inh PO BID 03/07/17 Diphenhydramine HCl [Benadryl Capsule -] 25 mg PO Q6H 06/07/17 Leflunomide 20 mg PO DAILY 06/07/17 Leflunomide 20 mg PO DAILY 06/07/17 Mirabegron [Myrbetriq] 50 mg PO DAILY 06/07/17 Nitrofurantoin Monohyd/M-Cryst [Macrobid -] 100 mg PO DAILY 06/07/17 Oxybutynin Chloride [Oxybutynin Chloride ER] 15 mg PO DAILY 06/07/17 Oxycodone HCl/Acetaminophen [Endocet 7.5-325 mg Tablet] 1 tab PO Q6H PRN Tofacitinib Citrate [Xeljanz] 5 mg PO BID 06/07/17 Doxycycline Hyclate [Vibramycin -] 100 mg PO BID@1000,1800 #14 capsule 06/12/17
[2017-06-12] MEDS ORDERED: DOXYCYCLINE HYCLATE 100 MG CAPSULE PO SCH (13:15)
== END 2017-06-12 13:50 | disposition home health service (06) | DRG 690 ==
LOC: JER 15:07 → JERBED 16:53 → J6S 06-08 12:44
PROVIDERS: ADMIT Hospitalist; ATTEND Family Medicine
DX: N39.0 Urinary tract infection, site not specified (principal); Z68.42 Body mass index [BMI] 45.0-49.9, adult; E11.9 Type 2 diabetes mellitus without complications; I10 Essential (primary) hypertension; Z86.73 Personal history of transient ischemic attack (TIA), and cerebral infarction without residual deficits; E78.00 Pure hypercholesterolemia, unspecified; E03.9 Hypothyroidism, unspecified; Z96.653 Presence of artificial knee joint, bilateral; Z87.891 Personal history of nicotine dependence; J45.909 Unspecified asthma, uncomplicated; M06.9 Rheumatoid arthritis, unspecified; B96.4 Proteus (mirabilis) (morganii) as the cause of diseases classified elsewhere; B96.1 Klebsiella pneumoniae [K. pneumoniae] as the cause of diseases classified elsewhere; N81.10 Cystocele, unspecified; Z16.29 Resistance to other single specified antibiotic; M79.7 Fibromyalgia; G89.29 Other chronic pain; F32.9 Major depressive disorder, single episode, unspecified; E66.9 Obesity, unspecified; N39.41 Urge incontinence; K76.0 Fatty (change of) liver, not elsewhere classified; K21.9 Gastro-esophageal reflux disease without esophagitis
CPT/HCPCS: 36415; 76705-TC; 76856-TC; 80048; 80053; 80076; 81003; 81015; 82962; 83735; 84100; 85025; 87040; 87086; 87186; 90670; 99284-25; J1644

== ENCOUNTER 2017-06-23 17:21 | Inpatient (IN) | payer OTHER ==
[2017-06-23 19:06] LABS: URINE APPEARANCE SLCLOUDY; URINE BILIRUBIN NEGATIVE (NEGATIVE); URINE BLOOD 1+ (NEGATIVE); URINE COLOR AMBER; URINE GLUCOSE (UA) NEGATIVE (NEGATIVE); URINE KETONE NEGATIVE (NEGATIVE); URINE NITRITE POSITIVE (NEGATIVE); URINE UROBILINOGEN 4.0 E.U/dl mg/dL (0.2-1.0)
[2017-06-23 19:15] LABS: URINE LEUK ESTERASE 2+ (NEGATIVE); URINE PROTEIN 1+ (NEGATIVE)
[2017-06-23 19:18] LABS: EPI CELLS RARE /HPF (FEW); URINE BACTERIA MODERATE /hpf (NONE SEEN); URINE MUCUS RARE
--- NOTE | 2017-06-23 20:47 | PDOC ---
History of Present Illness <Michael Lindsay - Last Filed: 06/23/17 20:54> - General History Source: Patient Exam Limitations: No Limitations - History of Present Illness Initial Comments: 06/23/17 21:31 The patient is a 72-year-old female, with a significant past medical history of asthma, recurrent UTIs (prolapsed bladder), CVA (2011, TIA, no residual), diabetes, gerd, HTN, hypercholesterolemia, thyroid disease, who presents to the ED with dysuria and frequency. The patient was admitted to the hospital on for UTI and was on a 6-day course of zosyn and discharged with doxycycline. The patient has not seen any improvement in her symptoms. She continues to have pain with urination, frequency, and reports noting what she thinks is blood in her urine. She states her urine is orange and this could be due to the medication her PCP prescribed her. She is scheduled to have bladder surgery next week on 06/29/17. Patient reports some shortness of breath on exam. The patient denies any fever, chills, nausea, vomiting, diarrhea, or abdominal pain. Allergies: NKA Social History: Former smoker. No reported alcohol or drug use. Surgical History: Appendectomy, Cholecystectomy, Bilateral Knee Replacements PCP: Dr. Madison Henriquez <Jeanine Rasmussen - Last Filed: 06/23/17 21:34> - General Chief Complaint: Urinary Problem Stated Complaint: INFECTION, 2nd visit Time Seen by Provider: 06/23/17 20:46 Past History - Past Medical History Anemia: No Asthma: Yes Cancer: No Cardiac Disorders: No CVA: Yes (2011, TIA, NO RESIDUAL) COPD: No CHF: No DVT: No Dementia: No Diabetes: Yes GI Disorders: Yes (REFLUX) Disorders: No HTN: Yes Hypercholesterolemia: Yes Liver Disease: No Seizures: No Thyroid Disease: Yes - Surgical History Abdominal Surgery: No Appendectomy: Yes Cardiac Surgery: No Cholecystectomy: Yes Lung Surgery: No Neurologic Surgery: No Orthopedic Surgery: Yes (CARITO. KNEE REPLACEMENTS) - Suicide/Smoking/Psychosocial Hx Smoking Status: Yes Smoking History: Never smoked Have you smoked in the past 12 months: No Number of Cigarettes Smoked Daily: 0 If you are a former smoker, when did you quit?: as a teenager Information on smoking cessation initiated: No Hx Alcohol Use: No Drug/Substance Use Hx: No Substance Use Type: None Hx Substance Use Treatment: No <Michael Lindsay - Last Filed: 06/23/17 20:54> <Jeanine Rasmussen - Last Filed: 06/23/17 21:34> - Past Medical History Allergies/Adverse Reactions: Allergies Allergy/AdvReac Type Severity Reaction Status Date / Time No Known Allergies Allergy Verified 06/23/17 17:28 Home Medications: Ambulatory Orders Albuterol Sulfate Inhaler - [Ventolin HFA Inhaler -] 1 - 2 inh PO Q4H 06/13/16 Alprazolam [Xanax] 1 mg PO BID 06/13/16 Atorvastatin Ca [Lipitor] 40 mg PO HS 06/13/16 Furosemide [Lasix] 40 mg PO DAILY 06/13/16 Metoprolol Succinate [Toprol Xl] 200 mg PO DAILY 06/13/16 Montelukast Na [Singulair -] 10 mg PO HS 06/13/16 Omeprazole 40 mg PO DAILY 06/13/16 Pregabalin [Lyrica -] 150 mg PO BID 06/13/16 Levothyroxine [Synthroid -] 175 mcg PO DAILY@0700 11/08/16 hydrALAZINE HCL [Apresoline -] 25 mg PO BID 03/02/17 Amlodipine/Valsartan [Exforge 5-320 mg Tablet] 1 tab PO DAILY 03/07/17 Duloxetine HCl [Cymbalta] 60 mg PO DAILY 03/07/17 Salmeterol/Fluticasone [Advair 500Mcg/50Mcg -] 1 inh PO BID 03/07/17 Diphenhydramine HCl [Benadryl Capsule -] 25 mg PO Q6H 06/07/17 Leflunomide 20 mg PO DAILY 06/07/17 Leflunomide 20 mg PO DAILY 06/07/17 Mirabegron [Myrbetriq] 50 mg PO DAILY 06/07/17 Nitrofurantoin Monohyd/M-Cryst [Macrobid -] 100 mg PO DAILY 06/07/17 Oxybutynin Chloride [Oxybutynin Chloride ER] 15 mg PO DAILY 06/07/17 Oxycodone HCl/Acetaminophen [Endocet 7.5-325 mg Tablet] 1 tab PO Q6H PRN Tofacitinib Citrate [Xeljanz] 5 mg PO BID 06/07/17 Doxycycline Hyclate [Vibramycin -] 100 mg PO BID@1000,1800 #14 capsule 06/12/17 Review of Systems - Review of Systems Able to Perform ROS?: Yes Comments:: 06/23/17 21:33 CONSTITUTIONAL: Absent: fever, no chills, no fatigue EYES: Absent: visual changes ENT: Absent: ear pain, no sore throat CARDIOVASCULAR: Absent: chest pain, no palpitations RESPIRATORY: Absent: cough, no SOB GI: Absent: abdominal pain, no nausea, no vomiting, no constipation, no diarrhea GENITOURINARY: Present: dysuria, frequency, hematuria MUSKULOSKELETAL: Absent: back pain, no arthralgia, no myalgia SKIN: Absent: rash NEURO: Absent: headache <Jeanine Rasmussen - Last Filed: 06/23/17 21:34> *Physical Exam - Vital Signs Last Vital Signs Temp Pulse Resp BP Pulse Ox 97.9 F 72 19 154/54 100 06/23/17 17:26 06/23/17 17:26 06/23/17 17:26 06/23/17 17:26 06/23/17 17:26 <Michael Lindsay - Last Filed: 06/23/17 20:54> - Vital Signs Last Vital Signs Temp Pulse Resp BP Pulse Ox 97.9 F 72 19 154/54 100 06/23/17 17:26 06/23/17 17:26 06/23/17 17:26 06/23/17 17:26 06/23/17 17:26 - Physical Exam Comments: 06/23/17 21:34 GENERAL: Well-appearing, well-nourished. No apparent distress. HEENT: Normocephalic, atraumatic. PERRL, EOM intact. CARDIOVASCULAR: Normal S1, S2. Regular rate and rhythm. PULMONARY: Clear to auscultation bilaterally. ABDOMEN: Soft, non-distended, non-tender. EXTREMITIES: Normal ROM in all four extremities. No gross deformities. SKIN: Warm, dry. No rash NEUROLOGICAL: No focal neurological deficits. <Jeanine Rasmussen - Last Filed: 06/23/17 21:34> ED Treatment Course - ADDITIONAL ORDERS Additional order review: Laboratory Results 06/23/17 18:52 Urine Color Tia Urine Appearance Slcloudy Urine pH 6.0 Ur Specific [place] 1.018 Urine Protein 1+ H Urine Glucose (UA) Negative Urine Ketones Negative Urine Blood 1+ H Urine Nitrite Positive Urine Bilirubin Negative Urine Urobilinogen 4.0 e.u/dl H Ur Leukocyte Esterase 2+ H Urine WBC (Auto) 493 Urine RBC (Auto) 110 Ur Epithelial Cells Rare Urine Bacteria Moderate Urine Mucus Rare <Michael Lindsay - Last Filed: 06/23/17 20:54> - ADDITIONAL ORDERS Additional order review: Laboratory Results 06/23/17 18:52 Urine Color Tia Urine Appearance Slcloudy Urine pH 6.0 Ur Specific [place] 1.018 Urine Protein 1+ H Urine Glucose (UA) Negative Urine Ketones Negative Urine Blood 1+ H Urine Nitrite Positive Urine Bilirubin Negative Urine Urobilinogen 4.0 e.u/dl H Ur Leukocyte Esterase 2+ H Urine WBC (Auto) 493 Urine RBC (Auto) 110 Ur Epithelial Cells Rare Urine Bacteria Moderate Urine Mucus Rare <Jeanine Rasmussen - Last Filed: 06/23/17 21:34> *DC/Admit/Observation/Transfer - Discharge Dispostion Admit: Yes <Michael Lindsay - Last Filed: 06/23/17 20:54> - Attestations Scribe Attestion: 06/23/17 21:34 Documentation prepared by Jeainne Rasmussen, acting as medical office assistant for Michael Lindsay MD. <Jeanine Rasmussen - Last Filed: 06/23/17 21:34> Diagnosis at time of Disposition: UTI (urinary tract infection) - Discharge Dispostion Condition at time of disposition: Stable - Referrals Referrals: Madison Henriquez MD [Primary Care Provider] - - Patient Instructions - Post Discharge Activity
[2017-06-23] MEDS ORDERED: PIPERACILLIN/TAZOB 4.5 GM 4.5 GM/100 ML BAG IVPB ONE ×2 (21:01→23:31)
[2017-06-23] MEDS ORDERED: GENTAMICIN 80 MG PREMIXED IVPB 80 MG/100 ML BAG IVPB ONE ×2 (21:05→23:31)
[2017-06-23] MEDS ORDERED: ALBUTEROL SO4 18 GM HFA INHALER IH PRN (21:32)
[2017-06-23] MEDS ORDERED: PATIENT'S OWN MEDICATION (NON-FORMULARY) (Oxycodone Hcl/Acetaminophen [Endocet 7.5-325 Mg PO PRN (21:38)
[2017-06-23] MEDS ORDERED: PIPERACILLIN/TAZOB 3.375 GM/50 ML PRE-DOCKED IVPB SCH (21:45)
[2017-06-23 21:53] LABS: BASO % 0.9 % (0-2.0); EOS % 1.5 % (0-4.5); HEMATOCRIT 42.6 % (32.4-45.2); HEMOGLOBIN 14.3 GM/dL (10.7-15.3); LYMPH % 21.5 % (8-40); MCHC 33.5 g/dl (32.0-36.0); MEAN CELL VOLUME 80.6 fl (80-96); MEAN PLT VOLUME 8.9 fl (7.5-11.1); NEUT % 67.1 % (42.8-82.8); PLATELET COUNT 290 K/MM3 (134-434); RBC 5.29 M/mm3 (3.60-5.2); RDW 19.2 % (11.6-15.6); WHITE BLOOD COUNT 7.6 K/mm3 (4.0-10.0)
[2017-06-23] MEDS ORDERED: TOFACITINIB CITRATE 5 MG PO SCH (22:00)
[2017-06-23] MEDS ORDERED: PATIENT'S OWN MEDICATION (NON-FORMULARY) (Salmeterol/Fluticasone [Advair 500mcg/50mcg -] 1 PO SCH (22:00)
--- NOTE | 2017-06-23 22:02 | HP ---
CHIEF COMPLAINT: dysuria PCP: Dr. Henriquez HISTORY OF PRESENT ILLNESS: 72 year old female with a hx of DM, asthma, CVA, GERD, hypothyroid, HTN, HLD, rheumatoid arthritis, cystocele, obstructive sleep apnea and recurrent UTIs presented to the ED for dysuria. Patient was admitted several weeks ago for ESBL Klebsiella UTI and was treated with zosyn. She was sent home on doxycycline and macrobid PO. Patient states that her symptoms never fully dissipated and that she continued to have dysuria. She arrived at the ER today because she felt it was time for a re-evaluation. Currently, patient states she urinates several times a day and has pain when she urinates. Denies any overt blood in her stream. She states that it "dribbles" occasionally post-void. States that she had an episode of chills a couple of days ago that have since resolved. Patient is scheduled for a procedure with Dr. Boyce Denies fevers, flank pain, chest pain, shortness of breath, abdominal pain, nausea, vomiting, diarrhea. ER course was notable for: (1) (+) UA (2) normal vitals (3) Recent Travel: PAST MEDICAL HISTORY: DM, asthma, CVA, GERD, hypothyroid, HTN, HLD, rheumatoid arthritis, cystocele, obstructive sleep apnea and recurrent UTIs PAST SURGICAL HISTORY: appendectomy, cholecystectomy Social History: Smoking: former smoker Alcohol: none Drugs: none Allergies No Known Allergies Allergy (Verified 06/23/17 17:28) HOME MEDICATIONS: Home Medications Medication Instructions Recorded Albuterol Sulfate Inhaler - 1 - 2 inh PO Q4H 06/13/16 [Ventolin HFA Inhaler -] Alprazolam [Xanax] 1 mg PO BID 06/13/16 Atorvastatin Ca [Lipitor] 40 mg PO HS 06/13/16 Furosemide [Lasix] 40 mg PO DAILY 06/13/16 Metoprolol Succinate [Toprol Xl] 200 mg PO DAILY 06/13/16 Montelukast Na [Singulair -] 10 mg PO HS 06/13/16 Omeprazole 40 mg PO DAILY 06/13/16 Pregabalin [Lyrica -] 150 mg PO BID 06/13/16 Levothyroxine [Synthroid -] 175 mcg PO DAILY@0700 11/08/16 hydrALAZINE HCL [Apresoline -] 25 mg PO BID 03/02/17 Amlodipine/Valsartan [Exforge 1 tab PO DAILY 03/07/17 5-320 mg Tablet] Duloxetine HCl [Cymbalta] 60 mg PO DAILY 03/07/17 Salmeterol/Fluticasone [Advair 1 inh PO BID 03/07/17 500Mcg/50Mcg -] Diphenhydramine HCl [Benadryl 25 mg PO Q6H 06/07/17 Capsule -] Leflunomide 20 mg PO DAILY 06/07/17 Leflunomide 20 mg PO DAILY 06/07/17 Mirabegron [Myrbetriq] 50 mg PO DAILY 06/07/17 Nitrofurantoin Monohyd/M-Cryst 100 mg PO DAILY 06/07/17 [Macrobid -] Oxybutynin Chloride [Oxybutynin 15 mg PO DAILY 06/07/17 Chloride ER] Oxycodone HCl/Acetaminophen 1 tab PO Q6H PRN 06/07/17 [Endocet 7.5-325 mg Tablet] Tofacitinib Citrate [Xeljanz] 5 mg PO BID 06/07/17 Doxycycline Hyclate [Vibramycin -] 100 mg PO BID@1000,1800 #14 capsule 06/12/17 REVIEW OF SYSTEMS CONSTITUTIONAL: Absent: fever, chills, diaphoresis, generalized weakness, malaise, loss of appetite, weight change HEENT: Absent: rhinorrhea, nasal congestion, throat pain, throat swelling, difficulty swallowing, mouth swelling, ear pain, eye pain, visual changes CARDIOVASCULAR: Absent: chest pain, syncope, palpitations, irregular heart rate, lightheadedness , peripheral edema RESPIRATORY: Absent: cough, shortness of breath, dyspnea with exertion, orthopnea, wheezing, stridor, hemoptysis GASTROINTESTINAL: Absent: abdominal pain, abdominal distension, nausea, vomiting, diarrhea, constipation, melena, hematochezia GENITOURINARY: dysuria, frequency, urgency, hesitancy Absent: hematuria, flank pain, genital pain MUSCULOSKELETAL: Absent: myalgia, arthralgia, joint swelling, back pain, neck pain SKIN: Absent: rash, itching, pallor HEMATOLOGIC/IMMUNOLOGIC: Absent: easy bleeding, easy bruising, lymphadenopathy, frequent infections ENDOCRINE: Absent: unexplained weight gain, unexplained weight loss, heat intolerance, cold intolerance NEUROLOGIC: Absent: headache, focal weakness or paresthesias, dizziness, unsteady gait, seizure, mental status changes, bladder or bowel incontinence PSYCHIATRIC: Absent: anxiety, depression, suicidal or homicidal ideation, hallucinations. PHYSICAL EXAMINATION Vital Signs - 24 hr 06/23/17 17:26 Temperature 97.9 F Pulse Rate 72 Respiratory 19 Rate Blood Pressure 154/54 O2 Sat by Pulse 100 Oximetry (%) GENERAL: A&O x 3 CARDS: RRR, no murmurs LUNGS: CTA ABD: Obese, soft, nontender, BS present NEURO: CN II-XII intact, no focal deficits EXT: 2+ pulses bilaterally, 1+ pitting edema b/l Laboratory Results - last 24 hr 06/23/17 06/23/17 18:52 21:44 WBC 7.6 D RBC 5.29 H Hgb 14.3 D Hct 42.6 MCV 80.6 MCH 27.0 MCHC 33.5 RDW 19.2 H Plt Count 290 D MPV 8.9 Neutrophils % 67.1 Lymphocytes % 21.5 Monocytes % 9.0 Eosinophils % 1.5 Basophils % 0.9 Urine Color Tia Urine Appearance Slcloudy Urine pH 6.0 Ur Specific [place] 1.018 Urine Protein 1+ H Urine Glucose (UA) Negative Urine Ketones Negative Urine Blood 1+ H Urine Nitrite Positive Urine Bilirubin Negative Urine Urobilinogen 4.0 e.u/dl H Ur Leukocyte Esterase 2+ H Urine WBC (Auto) 493 Urine RBC (Auto) 110 Ur Epithelial Cells Rare Urine Bacteria Moderate Urine Mucus Rare Home Medication List Medication Instructions Recorded Confirmed Type Albuterol Sulfate Inhaler - 1 - 2 inh PO Q4H 06/13/16 06/23/17 History [Ventolin HFA Inhaler -] Alprazolam [Xanax] 1 mg PO BID 06/13/16 06/23/17 History Atorvastatin Ca [Lipitor] 40 mg PO HS 06/13/16 06/23/17 History Furosemide [Lasix] 40 mg PO DAILY 06/13/16 06/23/17 History Metoprolol Succinate [Toprol Xl] 200 mg PO DAILY 06/13/16 06/23/17 History Montelukast Na [Singulair -] 10 mg PO HS 06/13/16 06/23/17 History Omeprazole 40 mg PO DAILY 06/13/16 06/23/17 History Pregabalin [Lyrica -] 150 mg PO BID 06/13/16 06/23/17 History Levothyroxine [Synthroid -] 175 mcg PO DAILY@0700 11/08/16 06/23/17 History hydrALAZINE HCL [Apresoline -] 25 mg PO BID 03/02/17 06/23/17 History Amlodipine/Valsartan [Exforge 1 tab PO DAILY 03/07/17 06/23/17 History 5-320 mg Tablet] Duloxetine HCl [Cymbalta] 60 mg PO DAILY 03/07/17 06/23/17 History Salmeterol/Fluticasone [Advair 1 inh PO BID 03/07/17 06/23/17 History 500Mcg/50Mcg -] Diphenhydramine HCl [Benadryl 25 mg PO Q6H 06/07/17 06/23/17 History Capsule -] Leflunomide 20 mg PO DAILY 06/07/17 06/23/17 History Leflunomide 20 mg PO DAILY 06/07/17 06/23/17 History Mirabegron [Myrbetriq] 50 mg PO DAILY 06/07/17 06/23/17 History Nitrofurantoin Monohyd/M-Cryst 100 mg PO DAILY 06/07/17 06/23/17 History [Macrobid -] Oxybutynin Chloride [Oxybutynin 15 mg PO DAILY 06/07/17 06/23/17 History Chloride ER] Oxycodone HCl/Acetaminophen 1 tab PO Q6H PRN 06/07/17 06/23/17 History [Endocet 7.5-325 mg Tablet] Tofacitinib Citrate [Xeljanz] 5 mg PO BID 06/07/17 06/23/17 History Current Medications Albuterol Sulfate (Ventolin Hfa Inhaler -) 1 - 2 puff IH Q4H PRN PRN Reason: SHORT OF BREATH/WHEEZING Atorvastatin Calcium (Lipitor -) 40 mg PO HS [facility] Duloxetine HCl (Cymbalta -) 60 mg PO DAILY [facility] Furosemide (Lasix -) 40 mg PO DAILY [facility] Hydralazine HCl (Apresoline -) 25 mg PO BID [facility] Levothyroxine Sodium (Synthroid -) 175 mcg PO DAILY@0700 [facility] Metoprolol Succinate (Toprol Xl -) 200 mg PO DAILY [facility] Montelukast Sodium (Singulair -) 10 mg PO HS [facility] Non-Formulary Medication (Amlodipine/Valsartan [Exforge 5-320 Mg Tablet]) 1 tab PO DAILY [facility] Non-Formulary Medication (Leflunomide [Leflunomide]) 20 mg PO DAILY [facility] Non-Formulary Medication (Mirabegron [Myrbetriq]) 50 mg PO DAILY [facility] Non-Formulary Medication (Omeprazole) 40 mg PO DAILY [facility] Non-Formulary Medication (Oxybutynin Chloride [Oxybutynin Chloride Er]) 15 mg PO DAILY [facility] Non-Formulary Medication (Salmeterol/Fluticasone [Advair 500mcg/50mcg -]) 1 inh PO BID [facility] Non-Formulary Medication (Tofacitinib Citrate [Xeljanz]) 5 mg PO BID [facility] Non-Formulary Medication (Oxycodone Hcl/Acetaminophen [Endocet 7.5-325 Mg Tablet ]) 1 tab PO Q6H PRN PRN Reason: PAIN Last Admin: 06/23/17 23:38 Dose: 1 tab Piperacillin Sod/Tazobactam Sod (Zosyn 3.375gm Ivpb (Pre-Docked)) 3.375 gm IVPB Q8H [facility] PRN Reason: Protocol Pregabalin (Lyrica -) 150 mg PO BID [facility] ASSESSMENT/PLAN: 72 year old female with a hx of asthma, recurrent UTIs (prolapsed bladder), CVA , diabetes, GERD, HTN, hypercholesterolemia, hypothyroidism presents with dysuria and frequency suggestive of UTI #Urinary Tract Infection: recurring infection, previous infection was ESBL klebsiella -UA positive for UTI -continue zosyn for now, consider ertapenem on discharge seeing as how patient did not improve previously on zosyn as an inpatient - although infection was sensitive to zosyn on previous admission -ID consult Dr. Schaffer appreciated, has seen patient in the past -Uro consult Dr. Boyce appreciated for cystocele eval -f/u urine cultures -f/u blood cultures #Diabetes Mellitus: from hx, stable -A1C -BGMs -ISS #Hypertension: stable -continue Furosemide 40 mg PO DAILY [facility] -continue Hydralazine HCl 25 mg PO BID [facility] -confirm home medications #Unclear hx of CHF: patient is on lasix, patient is unsure if she was diagnosed with CHF -continue home lasix 40mg PO #FEN -light on hydration -replete lytes if necessary in AM -diabetic diet #Prophylaxis -heparin 5000 subQ TID #Disposition -admit to med-surg Visit type - Emergency Visit Emergency Visit: Yes ED Registration Date: 06/23/17 Care time: The patient presented to the Emergency Department on the above date and was hospitalized for further evaluation of their emergent condition. - New Patient This patient is new to me today: Yes Date on this admission: 06/24/17 - Critical Care Critical Care patient: No Hospitalist Screening - Colonoscopy Questionnaire Colonoscopy Questionnaire: Colonoscopy Questionnaire - Patient: 50 - 75 years old and never had a screening colonoscopy: Unknown History of colon or rectal polyps, or CA: Unknown History of IBD, Crohn's disease or UC: Unknown History of abdominal radiation therapy as a child: Unknown - Relative: 1 with colon or rectal CA, or polyps at age 60 or younger: Unknown Colon or rectal CA diagnosed at age 45 or younger: Unknown Multiple relatives with colon or rectal CA: Unknown - Outcome: Screening Result: Negative Screen
[2017-06-23 22:07] LABS: INR 1.12 (0.82-1.09); PROTHROMBIN TIME (PATIENT) 12.6 SEC (9.98-11.88)
[2017-06-23] MEDS ORDERED: hydrALAZINE HCL 25 MG TABLET (FP) ONE (23:57)
[2017-06-23] MEDS ORDERED: PREGABALIN 50 MG CAPSULE ONE (23:57)
[2017-06-23] MEDS ORDERED: PREGABALIN 100 MG CAPSULE ONE (23:58)
[2017-06-23] MEDS ORDERED: MONTELUKAST NA 10 MG TABLET ONE (23:58)
[2017-06-23] MEDS ORDERED: ATORVASTATIN CA 40 MG TABLET (FP) ONE (23:58)
[2017-06-24] MEDS: hydrALAZINE HCL 25 MG TABLET (FP) PO SCH ×3 (00:10→21:54)
[2017-06-24] MEDS: PREGABALIN 50 MG CAPSULE PO SCH ×3 (00:11→21:54)
[2017-06-24] MEDS: ATORVASTATIN CA 40 MG TABLET (FP) PO SCH ×2 (00:11→21:54)
[2017-06-24] MEDS: MONTELUKAST NA 10 MG TABLET PO SCH ×2 (00:11→21:54)
[2017-06-24 00:18] LABS: ALBUMIN 3.2 g/dl (3.4-5.0); ANION GAP 13 (8-16); BILIRUBIN,TOTAL 0.4 mg/dL (0.2-1.0); BLOOD UREA NITROGEN 14 mg/dL (7-18); CALCIUM 8.9 mg/dL (8.5-10.1); CHLORIDE 107 mmol/L (98-107); CO2 23 mmol/L (21-32); CREATININE 0.7 mg/dL (0.55-1.02); GLUCOSE,RANDOM 112 mg/dL (74-106); POTASSIUM 3.5 mmol/L (3.5-5.1); SGOT/AST 31 U/L (15-37); SGPT/ALT 46 U/L (12-78); SODIUM 143 mmol/L (136-145); TOT PROT 6.8 g/dl (6.4-8.2)
[2017-06-24 00:19] LABS: ALK PHOS 124 U/L (45-117)
[2017-06-24] MEDS ORDERED: POTASSIUM CHLORIDE TABS 20 MEQ TABLET.ER (FP) PO ONE (00:27)
[2017-06-24] MEDS ORDERED: ALBUTEROL SO4 18 GM HFA INHALER IH PRN (00:52)
[2017-06-24 01:04] VITALS: BMI 48.4
--- NOTE | 2017-06-24 04:00 | PN ---
Teaching Attending Note Name of Resident: Davie Nelson ATTENDING PHYSICIAN STATEMENT I saw and evaluated the patient. I reviewed the resident's note and discussed the case with the resident. I agree with the resident's findings and plan as documented. SUBJECTIVE: 72F with hx of recuurent UTI by ESBL bacteria presents with burning frequency pain with urination. was on zosyn inpatient and discahrged last time on doxy and macrobid OBJECTIVE: NAD AAOx3 Abd: soft, NTND previous Micro : ESBL Kleb and Proteum sensitive to carbapenems and Zosyn ASSESSMENT AND PLAN: 72F with UTI drug resistent ESBL bacteria and likely failed to be fully treated from last time. Not in sepsis follow up cultures resume Zosyn ID eval, consider alternate discharge abx therapy Urology consult
[2017-06-24] MEDS ORDERED: PIPERACILLIN/TAZOB 3.375 GM/50 ML PRE-DOCKED IVPB ONE (05:00)
[2017-06-24] MEDS ORDERED: PIPERACILLIN/TAZOB 3.375 GM/50 ML PRE-DOCKED IVPB SCH (05:00)
[2017-06-24] MEDS ORDERED: LEVOTHYROXINE NA 75 MCG TABLET (FP) ONE (06:12)
[2017-06-24] MEDS ORDERED: LEVOTHYROXINE NA 100 MCG TABLET (FP) ONE (06:12)
[2017-06-24] MEDS: LEVOTHYROXINE 100 MCG, LEVOTHYROXINE 75 MCG PO SCH (06:14)
[2017-06-24] MEDS ORDERED: PT OWN MED DRAWER 7, Y5N ONE ×3 (06:46→11:41)
[2017-06-24] MEDS ORDERED: LEVOTHYROXINE NA 150 MCG TABLET PO SCH (07:00)
[2017-06-24 08:01] LABS: BASO % 0.7 % (0-2.0); EOS % 1.8 % (0-4.5); HEMATOCRIT 44.5 % (32.4-45.2); HEMOGLOBIN 14.5 GM/dL (10.7-15.3); LYMPH % 23.9 % (8-40); MCH 26.6 pg (25.7-33.7); MCHC 32.5 g/dl (32.0-36.0); MEAN CELL VOLUME 81.9 fl (80-96); MEAN PLT VOLUME 8.8 fl (7.5-11.1); MONO % 10.2 % (3.8-10.2); NEUT % 63.4 % (42.8-82.8); PLATELET COUNT 221 K/MM3 (134-434); RBC 5.44 M/mm3 (3.60-5.2); RDW 19.4 % (11.6-15.6); WHITE BLOOD COUNT 5.1 K/mm3 (4.0-10.0)
[2017-06-24 08:28] LABS: CHLORIDE 106 mmol/L (98-107); POTASSIUM 3.9 mmol/L (3.5-5.1); SODIUM 145 mmol/L (136-145)
[2017-06-24 08:41] LABS: ALBUMIN 3.4 g/dl (3.4-5.0); ALK PHOS 116 U/L (45-117); ANION GAP 13 (8-16); BILIRUBIN,TOTAL 0.7 mg/dL (0.2-1.0); BLOOD UREA NITROGEN 13 mg/dL (7-18); CALCIUM 9.4 mg/dL (8.5-10.1); CO2 26 mmol/L (21-32); CREATININE 0.7 mg/dL (0.55-1.02); GLUCOSE,RANDOM 85 mg/dL (74-106); PHOSPHOROUS 3.3 mg/dL (2.5-4.9); SGOT/AST 27 U/L (15-37); SGPT/ALT 45 U/L (12-78); TOT PROT 6.8 g/dl (6.4-8.2)
--- NOTE | 2017-06-24 08:54 | PN ---
Progress Note (short form) - Note Progress Note: ID Full note dictated Selected Entries 06/24/17 06:00 Temperature 97.9 F Pulse Rate 66 Respiratory 20 Rate Blood Pressure 146/58 Microbiology 06/07/17 17:50 Urine - Urine Clean Catch Urine Culture - Final Klebsiella Pneumoniae - Esbl Proteus Mirabilis Laboratory Tests 06/23/17 06/24/17 06/24/17 18:52 06:45 06:45 WBC 5.1 D Hgb 14.5 Plt Count 221 D BUN 13 Creatinine 0.7 Ur Leukocyte Esterase 2+ H Urine WBC (Auto) 493 Urine RBC (Auto) 110 Assessment may have to go long term care phlebotomist ( 14 days) Ertepenem gram daily 14 days prior to bladder surgery PICC ? Mitchel CARDONA Problem List - Problems (1) Infection with multi-drug resistant microorganisms Code(s): Z16.35 - RESISTANCE TO MULTIPLE ANTIMICROBIAL DRUGS (2) UTI (urinary tract infection) Code(s): N39.0 - URINARY TRACT INFECTION, SITE NOT SPECIFIED
[2017-06-24] MEDS ORDERED: LEFLUNOMIDE 20 MG PO SCH (10:00)
[2017-06-24] MEDS ORDERED: PATIENT'S OWN MEDICATION (NON-FORMULARY) (Mirabegron [Myrbetriq] 50 MG) PO SCH ×2 (10:00)
[2017-06-24] MEDS ORDERED: PATIENT'S OWN MEDICATION (NON-FORMULARY) (Amlodipine/Valsartan [Exforge 5-320 Mg Tablet] 1 PO SCH (10:00)
[2017-06-24] MEDS ORDERED: TOFACITINIB CITRATE 5 MG PO SCH (10:00)
--- NOTE | 2017-06-24 10:01 | CONS ---
DATE OF CONSULTATION: DATE OF DICTATION: 06/24/2017 HISTORY OF PRESENT ILLNESS: This is a 72-year-old female who I am asked to see for treatment of recurrent drug-resistant urinary tract infection. She was recently treated in the hospital for a ESBL Klebsiella pneumoniae urinary tract infection for which she received piperacillin tazobactam and sent home with Macrobid. She is readmitted now noting severe dysuria and urinary frequency noting that she is scheduled to have a bladder surgery procedure done with Dr. Boyce later this month. She had no fever or chills at the time of admission. PAST MEDICAL HISTORY: Includes diabetes, morbid obesity, hypothyroidism, hypertension, rheumatoid arthritis, sleep apnea, appendectomy, cholecystectomy. SOCIAL HISTORY: A former smoker. No alcohol use. HIV status unknown. MEDICATIONS: Albuterol, atorvastatin, Lasix, metoprolol, Singulair, omeprazole, levothyroxine, nitrofurantoin, most recent antibiotic, oxycodone, doxycycline recently. FAMILY HISTORY: Reviewed and noncontributory. REVIEW OF SYSTEMS: Respiratory: Sleep apnea. Denies cough, hemoptysis. Cardiac: No chest pain, palpitations, syncope. Gastrointestinal: No nausea, vomiting, diarrhea. Genitourinary: As noted in history of present illness. PHYSICAL EXAMINATION: Vital signs: The temperature was 97.9 on admission, pulse 72, respiratory rate 19, blood pressure 150/54. Neck: Supple, no adenopathy. Lungs: Clear to percussion auscultation. Heart: At regular rhythm, without murmur or gallop. Abdomen: Obese, soft, nontender. Positive bowel sounds. No guarding or rebound. Extremities: With peripheral edema 1-2+. The white count was 5.1, hemoglobin 14.5, platelets 221. BUN 13, creatinine 0.7, alkaline phosphatase 116. Urinalysis with 500 white cells, 110 red cells, moderate bacteria noted. Recent abdominal ultrasound done early June shows fatty liver status post cholecystectomy, multiple right renal cortical cysts, no change. ASSESSMENT: A 72-year-old female with recurrent urinary tract infection, history of incontinence, and infected neuromodulator removed by Dr. Emanuel aLzo March 07, 2017, schedule for bladder surgery with Dr. Boyce, readmitted now with urinary complaints and a recent history of an extended-spectrum beta-lactamase Klebsiella and proteus and a urine culture dated June 07. PLAN: Contact isolation per protocol, [id number] organism. Empiric therapy with ertapenem, which she may need to continue for an extended period, as long as 14 days, with a PICC line, particularly given anticipated urological surgery planned for later this month. Urology followup. RADHA MENENDEZ M.D. [place]/[id number]
--- NOTE | 2017-06-24 10:04 | PN ---
Progress Note, Physician Chief Complaint: Recurrent UTI History of Present Illness: NAD, in bed dysuria seen by ID IV abx - Current Medication List Current Medications: Active Medications Acetaminophen (Tylenol -) 325 mg PO Q6H PRN PRN Reason: PAIN LEVEL 6-10 Albuterol Sulfate (Ventolin Hfa Inhaler -) 2 puff IH Q4H PRN PRN Reason: SHORT OF BREATH/WHEEZING Amlodipine Besylate (Norvasc -) 5 mg PO DAILY [facility] Atorvastatin Calcium (Lipitor -) 40 mg PO HS [facility] Last Admin: 06/24/17 00:11 Dose: 40 mg Budesonide/Formoterol Fumarate (Symbicort 160/4.5mcg -) 2 puff IH BID [facility] Duloxetine HCl (Cymbalta -) 60 mg PO DAILY [facility] Furosemide (Lasix -) 40 mg PO DAILY [facility] Hydralazine HCl (Apresoline -) 25 mg PO BID [facility] Last Admin: 06/24/17 00:10 Dose: 25 mg Piperacillin Sod/Tazobactam (Sod 3.375 gm/ Dextrose) 50 mls @ 100 mls/hr IVPB Q8H-IV [facility] Ertapenem 1 gm/ Sodium (Chloride) 50 mls @ 50 mls/hr IVPB DAILY [facility] PRN Reason: Protocol Leflunomide (Arava -) 20 mg PO DAILY [facility] Levothyroxine Sodium 100 mcg/ (Levothyroxine Sodium 75 mcg) 175 mcg PO DAILY@ 0700 [facility] Last Admin: 06/24/17 06:14 Dose: 175 mcg Metoprolol Succinate (Toprol Xl -) 200 mg PO DAILY [facility] Montelukast Sodium (Singulair -) 10 mg PO [facility] Last Admin: 06/24/17 00:11 Dose: 10 mg Non-Formulary Medication (Mirabegron [Myrbetriq]) 50 mg PO DAILY [facility] Non-Formulary Medication (Tofacitinib Citrate [Xeljanz]) 5 mg PO BID [facility] Oxycodone HCl (Roxicodone -) 7.5 mg PO Q6H PRN PRN Reason: PAIN LEVEL 6-10 Pantoprazole Sodium (Protonix -) 40 mg PO DAILY [facility] Pregabalin (Lyrica -) 150 mg PO BID [facility] Last Admin: 06/24/17 00:11 Dose: 150 mg Solifenacin (Vesicare -) 10 mg PO DAILY [facility] Valsartan (Diovan -) 320 mg PO DAILY [facility] - Objective Vital Signs: Vital Signs Temperature 98.3 F 06/24/17 09:25 Pulse Rate 68 06/24/17 09:25 Respiratory Rate 20 06/24/17 09:25 Blood Pressure 134/95 06/24/17 09:25 O2 Sat by Pulse Oximetry (%) 97 06/23/17 20:54 Constitutional: Yes: Well Nourished, No Distress, Calm Cardiovascular: Yes: Regular Rate and Rhythm Respiratory: Yes: Regular Gastrointestinal: Yes: Normal Bowel Sounds, Soft, Abdomen, Obese Musculoskeletal: Yes: WNL Extremities: Yes: WNL Edema: No Peripheral Pulses WNL: Yes Neurological: Yes: Alert, Oriented Psychiatric: Yes: Alert, Oriented Labs: CBC, BMP 06/24/17 06:45 06/24/17 06:45 INR, PTT INR 1.12 (0.82-1.09) 06/23/17 21:44 Problem List - Problems (1) Infection with multi-drug resistant microorganisms Assessment/Plan: -ID on board -UC pending -IV abx Code(s): Z16.35 - RESISTANCE TO MULTIPLE ANTIMICROBIAL DRUGS (2) UTI (urinary tract infection) Assessment/Plan: -Urology -UC pending -IV abx -ID on board Code(s): N39.0 - URINARY TRACT INFECTION, SITE NOT SPECIFIED Assessment/Plan see problem list
[2017-06-24] MEDS: oxyCODONE HCL 5 MG TABLET PO PRN ×2 (10:12→21:52)
[2017-06-24] MEDS: ACETAMINOPHEN 325 MG TABLET (FP) PO PRN ×2 (10:14→21:53)
[2017-06-24] MEDS: DULoxetine HCL 30 MG CAPSULE.DR (FP) PO SCH (10:15)
[2017-06-24] MEDS: VALSARTAN 160 MG TABLET (UD) PO SCH (10:16)
[2017-06-24] MEDS: SOLIFENACIN SUCCINATE 5 MG TAB (FP) PO SCH (10:17)
[2017-06-24] MEDS: PANTOPRAZOLE 40 MG TABLET (FP) PO SCH (10:17)
[2017-06-24] MEDS: FUROSEMIDE 40 MG TABLET (FP) PO SCH (10:18)
[2017-06-24] MEDS: amLODIPine BESYLATE 5 MG TABLET (FP) PO SCH (10:18)
[2017-06-24] MEDS: BUDESONIDE/FORMETEROL FUMARATE 160/4.5 mcg INHALER IH SCH ×2 (10:19→21:56)
[2017-06-24] MEDS: LEFLUNOMIDE 10 MG TABLET PO SCH (10:20)
--- NOTE | 2017-06-24 10:37 | EKG ---
Test Reason : Blood Pressure : / mmHG Vent. Rate : 058 BPM Atrial Rate : 058 BPM P-R Int : 198 ms QRS Dur : 076 ms QT Int : 416 ms P-R-T Axes : 053 -42 051 degrees QTc Int : 408 ms SINUS BRADYCARDIA LEFT AXIS DEVIATION MINIMAL VOLTAGE CRITERIA FOR LVH, MAY BE NORMAL VARIANT ABNORMAL ECG NONSPECIFIC ST ABNORMALITY Confirmed by WAYNE PEREZ MD ([id number]) on 06/24/2017 10:37:09 AM Referred By: Confirmed By:WAYNE PEREZ MD
[2017-06-24] MEDS: ERTAPENEM SODIUM 1 GM in SODIUM CHLORIDE 50 ML IVPB SCH (11:18)
[2017-06-24] MEDS ORDERED: PIPERACILLIN/TAZOB 3.375 GM 3.375 GM in DEXTROSE 5%-WATER - 50 ML IVPB SCH (18:00)
[2017-06-24] MEDS: HEPARIN NA (PORCINE) 5,000 UNITS/ML 1ML VIAL SQ SCH (21:54)
[2017-06-25] MEDS ORDERED: LEVOTHYROXINE NA 75 MCG TABLET (FP) ONE ×2 (05:49→06:04)
[2017-06-25] MEDS ORDERED: LEVOTHYROXINE NA 100 MCG TABLET (FP) ONE ×2 (05:49→06:04)
[2017-06-25] MEDS: oxyCODONE HCL 5 MG TABLET PO PRN ×2 (06:00→17:28)
[2017-06-25] MEDS: HEPARIN NA (PORCINE) 5,000 UNITS/ML 1ML VIAL SQ SCH ×3 (06:01→22:00)
[2017-06-25] MEDS: LEVOTHYROXINE 100 MCG, LEVOTHYROXINE 75 MCG PO SCH (06:01)
[2017-06-25] MEDS ORDERED: PT OWN MED DRAWER 7, Y5N ONE (10:07)
--- NOTE | 2017-06-25 10:10 | PN ---
Progress Note (short form) - Note Progress Note: ID Seen with Dr Joe Ertepenem day 1 Rx Selected Entries 06/25/17 06:00 Temperature 97.8 F Respiratory 20 Rate Blood Pressure 153/89 Microbiology 06/23/17 21:44 Blood - Peripheral Venous Blood Culture - Preliminary NO GROWTH OBTAINED AFTER 24 HOURS, INCUBATION TO CONTINUE FOR 4 DAYS. 06/23/17 21:44 Blood - Peripheral Venous Blood Culture - Preliminary NO GROWTH OBTAINED AFTER 24 HOURS, INCUBATION TO CONTINUE FOR 4 DAYS. Laboratory Tests 06/24/17 06/24/17 06:45 06:45 WBC 5.1 D Hgb 14.5 Plt Count 221 D BUN 13 Creatinine 0.7 Assessment Recurrent UTI ? MDRO ESBL Plan Continue Ertepenem pending c/s Urology evaluation for planned surgery bladder Mitchel CARDONA Problem List - Problems (1) Infection with multi-drug resistant microorganisms Code(s): Z16.35 - RESISTANCE TO MULTIPLE ANTIMICROBIAL DRUGS (2) UTI (urinary tract infection) Code(s): N39.0 - URINARY TRACT INFECTION, SITE NOT SPECIFIED
[2017-06-25] MEDS: SOLIFENACIN SUCCINATE 5 MG TAB (FP) PO SCH (10:23)
[2017-06-25] MEDS: amLODIPine BESYLATE 5 MG TABLET (FP) PO SCH (10:23)
[2017-06-25] MEDS: PREGABALIN 50 MG CAPSULE PO SCH ×2 (10:23→22:00)
[2017-06-25] MEDS: FUROSEMIDE 40 MG TABLET (FP) PO SCH (10:23)
[2017-06-25] MEDS: PANTOPRAZOLE 40 MG TABLET (FP) PO SCH (10:23)
[2017-06-25] MEDS: hydrALAZINE HCL 25 MG TABLET (FP) PO SCH ×2 (10:23→22:00)
[2017-06-25] MEDS: DULoxetine HCL 30 MG CAPSULE.DR (FP) PO SCH (10:23)
[2017-06-25] MEDS: LEFLUNOMIDE 10 MG TABLET PO SCH (10:24)
[2017-06-25] MEDS: VALSARTAN 160 MG TABLET (UD) PO SCH (10:24)
[2017-06-25] MEDS: BUDESONIDE/FORMETEROL FUMARATE 160/4.5 mcg INHALER IH SCH ×2 (10:24→22:45)
--- NOTE | 2017-06-25 10:29 | PN ---
Physical Exam: SUBJECTIVE: Patient seen and examined. Patient reports pain when she urinates. She says burning has resolved. OBJECTIVE: Vital Signs Period Temp Pulse Resp BP Sys/Santiago Pulse Ox Last 24 Hr 97.3 F-98 F 69-70 20-20 135-153/70-89 97 GENERAL: The patient is awake, alert, and fully oriented, in no acute distress. LUNGS: Breath sounds equal, clear to auscultation bilaterally, no wheezes, no crackles, no accessory muscle use. HEART: Regular rate and rhythm, S1, S2 without murmur, rub or gallop. ABDOMEN: Obese, soft, nontender, nondistended, normoactive bowel sounds, no guarding, no rebound, no hepatosplenomegaly, no masses. EXTREMITIES: 2+ pulses, warm, well-perfused, no edema. Laboratory Results - last 24 hr 06/24/17 06/24/17 06/24/17 06:45 11:56 16:53 POC Glucometer 108 101 Hemoglobin A1c % 6.2 H 06/25/17 06:19 POC Glucometer 102 Hemoglobin A1c % Active Medications Generic Name Dose Route Start Last Admin Trade Name Freq PRN Reason Stop Dose Admin Acetaminophen 325 mg 06/24/17 01:10 06/24/17 21:53 Tylenol - PO 325 mg Q6H PRN Administration PAIN LEVEL 6-10 Albuterol Sulfate 2 puff 06/24/17 00:52 Ventolin Hfa Inhaler - IH Q4H PRN SHORT OF BREATH/WHEEZING Amlodipine Besylate 5 mg 06/24/17 10:00 06/25/17 10:23 Norvasc - PO 5 mg DAILY [facility] Administration Atorvastatin Calcium 40 mg 06/23/17 22:00 06/24/17 21:54 Lipitor - PO 40 mg HS [facility] Administration Budesonide/Formoterol Fumarate 2 puff 06/24/17 10:00 06/25/17 10:24 Symbicort 160/4.5mcg - IH 2 puff BID [facility] Administration Duloxetine HCl 60 mg 06/24/17 10:00 06/25/17 10:23 Cymbalta - PO 60 mg DAILY [facility] Administration Furosemide 40 mg 06/24/17 10:00 06/25/17 10:23 Lasix - PO 40 mg DAILY [facility] Administration Heparin Sodium (Porcine) 5,000 unit 06/24/17 22:00 06/25/17 06:01 Heparin - SQ 5,000 unit TID [facility] Administration Hydralazine HCl 25 mg 06/23/17 22:00 06/25/17 10:23 Apresoline - PO 25 mg BID [facility] Administration Piperacillin Sod/Tazobactam 50 mls @ 100 mls/hr 06/24/17 18:00 Sod 3.375 gm/ Dextrose IVPB Q8H-IV [facility] Ertapenem 1 gm/ Sodium 50 mls @ 50 mls/hr 06/24/17 10:00 06/24/17 11:18 Chloride IVPB 50 mls/hr DAILY [facility] Administration Protocol Leflunomide 20 mg 06/24/17 10:00 06/25/17 10:24 Arava - PO 20 mg DAILY [facility] Administration Levothyroxine Sodium 100 mcg/ 175 mcg 06/24/17 07:00 06/25/17 06:01 Levothyroxine Sodium 75 mcg PO 175 mcg DAILY@0700 [facility] Administration Metoprolol Succinate 200 mg 06/24/17 10:00 06/25/17 10:23 Toprol Xl - PO 200 mg DAILY [facility] Administration Montelukast Sodium 10 mg 06/23/17 22:00 06/24/17 21:54 Singulair - PO 10 mg HS [facility] Administration Non-Formulary Medication 50 mg 06/24/17 10:00 Mirabegron [Myrbetriq] PO DAILY [facility] Non-Formulary Medication 5 mg 06/24/17 10:00 Tofacitinib Citrate [Xeljanz] PO BID [facility] Oxycodone HCl 7.5 mg 06/24/17 01:10 06/25/17 06:00 Roxicodone - PO 7.5 mg Q6H PRN Administration PAIN LEVEL 6-10 Pantoprazole Sodium 40 mg 06/24/17 10:00 06/25/17 10:23 Protonix - PO 40 mg DAILY [facility] Administration Pregabalin 150 mg 06/23/17 22:00 06/25/17 10:23 Lyrica - PO 150 mg BID [facility] Administration Solifenacin 10 mg 06/24/17 10:00 06/25/17 10:23 Vesicare - PO 10 mg DAILY [facility] Administration Valsartan 320 mg 06/24/17 10:00 06/25/17 10:24 Diovan - PO 320 mg DAILY [facility] Administration ASSESSMENT/PLAN: 1. Recurrent UTI - History of ESBL Klebsiella - Continue Invanz - Urine culture pending 2. Type 2 DM - Fingersticks with Novolog sliding scale 3. HTN - Continue Norvasc, Diovan, Hydralazine, Toprol XL, Lasix 4. Hyperlipidemia - Continue Lipitor 5. GERD 6. Asthma - Stable - Continue Singulair, Symbicort, Albuterol as needed 7. RA - Continue Arava, Xeljanz 8. Morbid obesity 9. RULA 10. Hypothyroidism - Continue Synthroid Visit type - Emergency Visit Emergency Visit: Yes ED Registration Date: 06/23/17 Care time: The patient presented to the Emergency Department on the above date and was hospitalized for further evaluation of their emergent condition. - New Patient This patient is new to me today: Yes Date on this admission: 06/25/17 - Critical Care Critical Care patient: No - Discharge Referral Referred to [facility] Med [facility] No
--- NOTE | 2017-06-25 10:33 | CONSULT ---
Consult - text type - Consultation Consultation Note: 72 yo female c one year hx of recurrent uti now w mult resistance currently on pipercillan an aztrepan Pt w no clinical signs of sepsis Voiding Plan for ncct scan to r/o stone Will follow
[2017-06-25] MEDS: ERTAPENEM SODIUM 1 GM in SODIUM CHLORIDE 50 ML IVPB SCH (12:33)
[2017-06-25] MEDS: ACETAMINOPHEN 325 MG TABLET (FP) PO PRN (17:29)
[2017-06-25] MEDS: MONTELUKAST NA 10 MG TABLET PO SCH (22:00)
[2017-06-25] MEDS: ATORVASTATIN CA 40 MG TABLET (FP) PO SCH (22:00)
[2017-06-26] MEDS: ACETAMINOPHEN 325 MG TABLET (FP) PO PRN ×3 (00:48→22:11)
[2017-06-26] MEDS ORDERED: LEVOTHYROXINE NA 100 MCG TABLET (FP) ONE (06:08)
[2017-06-26] MEDS ORDERED: LEVOTHYROXINE NA 75 MCG TABLET (FP) ONE (06:08)
[2017-06-26] MEDS: HEPARIN NA (PORCINE) 5,000 UNITS/ML 1ML VIAL SQ SCH ×3 (06:49→21:58)
[2017-06-26] MEDS: LEVOTHYROXINE 100 MCG, LEVOTHYROXINE 75 MCG PO SCH (06:49)
[2017-06-26 09:00] LABS: BASO % 0.8 % (0-2.0); EOS % 2.8 % (0-4.5); HEMATOCRIT 41.9 % (32.4-45.2); HEMOGLOBIN 13.5 GM/dL (10.7-15.3); LYMPH % 23.1 % (8-40); MCH 26.3 pg (25.7-33.7); MCHC 32.2 g/dl (32.0-36.0); MEAN CELL VOLUME 81.7 fl (80-96); MEAN PLT VOLUME 8.5 fl (7.5-11.1); MONO % 9.7 % (3.8-10.2); NEUT % 63.6 % (42.8-82.8); PLATELET COUNT 212 K/MM3 (134-434); RBC 5.12 M/mm3 (3.60-5.2); RDW 19.7 % (11.6-15.6); WHITE BLOOD COUNT 3.4 K/mm3 (4.0-10.0)
[2017-06-26 09:20] LABS: ANION GAP 6 (8-16); BLOOD UREA NITROGEN 9 mg/dL (7-18); CALCIUM 8.8 mg/dL (8.5-10.1); CHLORIDE 108 mmol/L (98-107); CO2 30 mmol/L (21-32); CREATININE 0.7 mg/dL (0.55-1.02); GLUCOSE,RANDOM 110 mg/dL (74-106); POTASSIUM 3.5 mmol/L (3.5-5.1); SODIUM 144 mmol/L (136-145)
[2017-06-26] MEDS ORDERED: PT OWN MED DRAWER 7, Y5N ONE ×2 (09:53→21:17)
[2017-06-26] MEDS: BUDESONIDE/FORMETEROL FUMARATE 160/4.5 mcg INHALER IH SCH ×2 (09:55→21:58)
[2017-06-26] MEDS: ERTAPENEM SODIUM 1 GM in SODIUM CHLORIDE 50 ML IVPB SCH (09:56)
[2017-06-26] MEDS: hydrALAZINE HCL 25 MG TABLET (FP) PO SCH ×2 (10:00→21:58)
[2017-06-26] MEDS: PANTOPRAZOLE 40 MG TABLET (FP) PO SCH (10:00)
[2017-06-26] MEDS: amLODIPine BESYLATE 5 MG TABLET (FP) PO SCH (10:00)
[2017-06-26] MEDS: DULoxetine HCL 30 MG CAPSULE.DR (FP) PO SCH (10:00)
[2017-06-26] MEDS: FUROSEMIDE 40 MG TABLET (FP) PO SCH (10:00)
[2017-06-26] MEDS: VALSARTAN 160 MG TABLET (UD) PO SCH (10:01)
[2017-06-26] MEDS: PREGABALIN 50 MG CAPSULE PO SCH ×2 (10:01→21:58)
[2017-06-26] MEDS: SOLIFENACIN SUCCINATE 5 MG TAB (FP) PO SCH (10:01)
[2017-06-26] MEDS: LEFLUNOMIDE 10 MG TABLET PO SCH (10:02)
--- NOTE | 2017-06-26 10:42 | PN ---
Physical Exam: SUBJECTIVE: Patient seen and examined. No new complaints. OBJECTIVE: Vital Signs Period Temp Pulse Resp BP Sys/Santiago Pulse Ox Last 24 Hr 98.4 F-98.6 F 65-90 20-22 119-142/60-78 GENERAL: The patient is awake, alert, and fully oriented, in no acute distress. LUNGS: Breath sounds equal, clear to auscultation bilaterally, no wheezes, no crackles, no accessory muscle use. HEART: Regular rate and rhythm, S1, S2 without murmur, rub or gallop. ABDOMEN: Obese, soft, nontender, nondistended, normoactive bowel sounds, no guarding, no rebound, no hepatosplenomegaly, no masses. EXTREMITIES: 2+ pulses, warm, well-perfused, no edema. Laboratory Results - last 24 hr 06/26/17 06/26/17 06/26/17 06:48 08:39 08:39 WBC 3.4 L D RBC 5.12 Hgb 13.5 Hct 41.9 MCV 81.7 MCH 26.3 MCHC 32.2 RDW 19.7 H Plt Count 212 MPV 8.5 Neutrophils % 63.6 Lymphocytes % 23.1 Monocytes % 9.7 Eosinophils % 2.8 Basophils % 0.8 Sodium 144 Potassium 3.5 Chloride 108 H Carbon Dioxide 30 Anion Gap 6 L BUN 9 Creatinine 0.7 POC Glucometer 97 Random Glucose 110 H Calcium 8.8 Active Medications Generic Name Dose Route Start Last Admin Trade Name Freq PRN Reason Stop Dose Admin Acetaminophen 325 mg 06/24/17 01:10 06/26/17 00:48 Tylenol - PO 325 mg Q6H PRN Administration PAIN LEVEL 6-10 Albuterol Sulfate 2 puff 06/24/17 00:52 Ventolin Hfa Inhaler - IH Q4H PRN SHORT OF BREATH/WHEEZING Amlodipine Besylate 5 mg 06/24/17 10:00 06/26/17 10:00 Norvasc - PO 5 mg DAILY NALDO Administration Atorvastatin Calcium 40 mg 06/23/17 22:00 06/25/17 22:00 Lipitor - PO 40 mg HS NALDO Administration Budesonide/Formoterol Fumarate 2 puff 06/24/17 10:00 06/26/17 09:55 Symbicort 160/4.5mcg - IH 2 puff BID NALDO Administration Duloxetine HCl 60 mg 06/24/17 10:00 06/26/17 10:00 Cymbalta - PO 60 mg DAILY NALDO Administration Furosemide 40 mg 06/24/17 10:00 06/26/17 10:00 Lasix - PO 40 mg DAILY NALDO Administration Heparin Sodium (Porcine) 5,000 unit 06/24/17 22:00 06/26/17 06:49 Heparin - SQ 5,000 unit TID NALDO Administration Hydralazine HCl 25 mg 06/23/17 22:00 06/26/17 10:00 Apresoline - PO 25 mg BID NALDO Administration Ertapenem 1 gm/ Sodium 50 mls @ 50 mls/hr 06/24/17 10:00 06/26/17 09:56 Chloride IVPB 50 mls/hr DAILY NALDO Administration Protocol Leflunomide 20 mg 06/24/17 10:00 06/26/17 10:02 Arava - PO 20 mg DAILY NALDO Administration Levothyroxine Sodium 100 mcg/ 175 mcg 06/24/17 07:00 06/26/17 06:49 Levothyroxine Sodium 75 mcg PO 175 mcg DAILY@0700 NALDO Administration Metoprolol Succinate 200 mg 06/24/17 10:00 06/26/17 10:01 Toprol Xl - PO 200 mg DAILY NALDO Administration Montelukast Sodium 10 mg 06/23/17 22:00 06/25/17 22:00 Singulair - PO 10 mg HS NALDO Administration Non-Formulary Medication 50 mg 06/24/17 10:00 Mirabegron [Myrbetriq] PO DAILY NALDO Non-Formulary Medication 5 mg 06/24/17 10:00 Tofacitinib Citrate [Xeljanz] PO BID NALDO Oxycodone HCl 7.5 mg 06/24/17 01:10 06/25/17 17:28 Roxicodone - PO 7.5 mg Q6H PRN Administration PAIN LEVEL 6-10 Pantoprazole Sodium 40 mg 06/24/17 10:00 06/26/17 10:00 Protonix - PO 40 mg DAILY NALDO Administration Pregabalin 150 mg 06/23/17 22:00 06/26/17 10:01 Lyrica - PO 150 mg BID NALDO Administration Solifenacin 10 mg 06/24/17 10:00 06/26/17 10:01 Vesicare - PO 10 mg DAILY NALDO Administration Valsartan 320 mg 06/24/17 10:00 06/26/17 10:01 Diovan - PO 320 mg DAILY NALDO Administration ASSESSMENT/PLAN: 1. Recurrent UTI - History of ESBL Klebsiella - Continue Invanz - Urine culture contaminated - CT shows no stones 2. Type 2 DM - Fingersticks with Novolog sliding scale 3. HTN - Continue Norvasc, Diovan, Hydralazine, Toprol XL, Lasix 4. Hyperlipidemia - Continue Lipitor 5. GERD 6. Asthma - Stable - Continue Singulair, Symbicort, Albuterol as needed 7. RA - Continue Arava, Xeljanz 8. Morbid obesity 9. RULA 10. Hypothyroidism - Continue Synthroid Visit type - Emergency Visit Emergency Visit: Yes ED Registration Date: 06/23/17 Care time: The patient presented to the Emergency Department on the above date and was hospitalized for further evaluation of their emergent condition. - New Patient This patient is new to me today: No - Critical Care Critical Care patient: No - Discharge Referral Referred to [facility] No
[2017-06-26] MEDS: oxyCODONE HCL 5 MG TABLET PO PRN ×2 (16:30→22:10)
[2017-06-26] MEDS: INSULIN SLIDING SCALE (NOVOLOG) 1 VIAL SQ SCH ×2 (16:50→21:58)
[2017-06-26] MEDS: MONTELUKAST NA 10 MG TABLET PO SCH (21:58)
[2017-06-26] MEDS: ATORVASTATIN CA 40 MG TABLET (FP) PO SCH (21:58)
[2017-06-27] MEDS ORDERED: LEVOTHYROXINE NA 75 MCG TABLET (FP) ONE (05:50)
[2017-06-27] MEDS ORDERED: LEVOTHYROXINE NA 100 MCG TABLET (FP) ONE (05:50)
[2017-06-27] MEDS: INSULIN SLIDING SCALE (NOVOLOG) 1 VIAL SQ SCH ×4 (06:19→22:24)
[2017-06-27] MEDS: HEPARIN NA (PORCINE) 5,000 UNITS/ML 1ML VIAL SQ SCH ×3 (06:20→22:24)
[2017-06-27] MEDS: LEVOTHYROXINE 100 MCG, LEVOTHYROXINE 75 MCG PO SCH (06:21)
[2017-06-27] MEDS ORDERED: PT OWN MED DRAWER 7, Y5N ONE (09:04)
[2017-06-27] MEDS: PANTOPRAZOLE 40 MG TABLET (FP) PO SCH (09:12)
[2017-06-27] MEDS: DULoxetine HCL 30 MG CAPSULE.DR (FP) PO SCH (09:12)
[2017-06-27] MEDS: PREGABALIN 50 MG CAPSULE PO SCH ×2 (09:12→22:24)
[2017-06-27] MEDS: amLODIPine BESYLATE 5 MG TABLET (FP) PO SCH (09:13)
[2017-06-27] MEDS: FUROSEMIDE 40 MG TABLET (FP) PO SCH (09:13)
[2017-06-27] MEDS: SOLIFENACIN SUCCINATE 5 MG TAB (FP) PO SCH (09:13)
[2017-06-27] MEDS: VALSARTAN 160 MG TABLET (UD) PO SCH (09:14)
[2017-06-27] MEDS: hydrALAZINE HCL 25 MG TABLET (FP) PO SCH ×2 (09:14→22:24)
[2017-06-27] MEDS: LEFLUNOMIDE 10 MG TABLET PO SCH (09:16)
[2017-06-27] MEDS: ERTAPENEM SODIUM 1 GM in SODIUM CHLORIDE 50 ML IVPB SCH (09:16)
[2017-06-27] MEDS: BUDESONIDE/FORMETEROL FUMARATE 160/4.5 mcg INHALER IH SCH ×2 (09:23→22:28)
[2017-06-27] MEDS: ACETAMINOPHEN 325 MG TABLET (FP) PO PRN ×2 (12:43→20:23)
[2017-06-27] MEDS: oxyCODONE HCL 5 MG TABLET PO PRN ×2 (12:43→20:23)
--- NOTE | 2017-06-27 15:44 | PN ---
Progress Note, Physician Chief Complaint: offers no new complints remained afebrile on abx - Current Medication List Current Medications: Active Medications Acetaminophen (Tylenol -) 325 mg PO Q6H PRN PRN Reason: PAIN LEVEL 6-10 Last Admin: 06/27/17 12:43 Dose: 325 mg Albuterol Sulfate (Ventolin Hfa Inhaler -) 2 puff IH Q4H PRN PRN Reason: SHORT OF BREATH/WHEEZING Amlodipine Besylate (Norvasc -) 5 mg PO DAILY [facility] Last Admin: 06/27/17 09:13 Dose: 5 mg Atorvastatin Calcium (Lipitor -) 40 mg PO HS [facility] Last Admin: 06/26/17 21:58 Dose: 40 mg Budesonide/Formoterol Fumarate (Symbicort 160/4.5mcg -) 2 puff IH BID [facility] Last Admin: 06/27/17 09:23 Dose: 2 puff Duloxetine HCl (Cymbalta -) 60 mg PO DAILY [facility] Last Admin: 06/27/17 09:12 Dose: 60 mg Furosemide (Lasix -) 40 mg PO DAILY [facility] Last Admin: 06/27/17 09:13 Dose: 40 mg Heparin Sodium (Porcine) (Heparin -) 5,000 unit SQ TID [facility] Last Admin: 06/27/17 14:59 Dose: 5,000 unit Hydralazine HCl (Apresoline -) 25 mg PO BID [facility] Last Admin: 06/27/17 09:14 Dose: 25 mg Ertapenem 1 gm/ Sodium (Chloride) 50 mls @ 50 mls/hr IVPB DAILY [facility] PRN Reason: Protocol Last Admin: 06/27/17 09:16 Dose: 50 mls/hr Insulin Aspart (Novolog Vial Sliding Scale -) 1 vial SQ ACHS [facility] PRN Reason: Protocol Last Admin: 06/27/17 11:55 Dose: Not Given Leflunomide (Arava -) 20 mg PO DAILY [facility] Last Admin: 06/27/17 09:16 Dose: 20 mg Levothyroxine Sodium 100 mcg/ (Levothyroxine Sodium 75 mcg) 175 mcg PO DAILY@ 0700 [facility] Last Admin: 06/27/17 06:21 Dose: 175 mcg Metoprolol Succinate (Toprol Xl -) 200 mg PO DAILY [facility] Last Admin: 06/27/17 09:13 Dose: 200 mg Montelukast Sodium (Singulair -) 10 mg PO HS [facility] Last Admin: 06/26/17 21:58 Dose: 10 mg Non-Formulary Medication (Mirabegron [Myrbetriq]) 50 mg PO DAILY [facility] Non-Formulary Medication (Tofacitinib Citrate [Xeljanz]) 5 mg PO BID [facility] Oxycodone HCl (Roxicodone -) 7.5 mg PO Q6H PRN PRN Reason: PAIN SCALE 5-10 Last Admin: 06/27/17 12:43 Dose: 7.5 mg Pantoprazole Sodium (Protonix -) 40 mg PO DAILY [facility] Last Admin: 06/27/17 09:12 Dose: 40 mg Pregabalin (Lyrica -) 150 mg PO BID [facility] Last Admin: 06/27/17 09:12 Dose: 150 mg Solifenacin (Vesicare -) 10 mg PO DAILY [facility] Last Admin: 06/27/17 09:13 Dose: 10 mg Valsartan (Diovan -) 320 mg PO DAILY [facility] Last Admin: 06/27/17 09:14 Dose: 320 mg - Objective Vital Signs: Vital Signs Temperature 98.7 F 06/27/17 15:35 Pulse Rate 59 L 06/27/17 15:35 Respiratory Rate 20 06/27/17 15:35 Blood Pressure 131/60 06/27/17 15:35 O2 Sat by Pulse Oximetry (%) 97 06/26/17 21:00 Elderly F not in distress HEENT: Mm moist, anemia, PERRLA EOMI NECK: No JVd No Bruit CHEST: CTA B/L CVS; S1S2 R ABD: No distention, non tender Bs + EXT: Trace hari afeet, PUlses + [employer]: Non focal Labs: CBC, BMP 06/26/17 08:39 06/26/17 08:39 INR, PTT INR 1.12 (0.82-1.09) 06/23/17 21:44 Problem List - Problems (1) UTI (urinary tract infection) Assessment/Plan: On Ertapenem f/u cultures and ID recommendations Code(s): N39.0 - URINARY TRACT INFECTION, SITE NOT SPECIFIED (2) Arthritis, rheumatoid Assessment/Plan: Stable cont Home medications Code(s): M06.9 - RHEUMATOID ARTHRITIS, UNSPECIFIED (3) T2DM (type 2 diabetes mellitus) Assessment/Plan: Cont current management optimze glycemic control Code(s): E11.9 - TYPE 2 DIABETES MELLITUS WITHOUT COMPLICATIONS (4) Hypertension Assessment/Plan: Well controlled on current medications Code(s): I10 - ESSENTIAL (PRIMARY) HYPERTENSION Qualifiers: Hypertension type: essential hypertension Qualified Code(s): I10 - Essential (primary) hypertension (5) Asthma Assessment/Plan: Cont current nebs and MDis Code(s): J45.909 - UNSPECIFIED ASTHMA, UNCOMPLICATED Qualifiers: Asthma severity: mild persistent (6) Hypothyroid Assessment/Plan: On Levothyroxine Code(s): E03.9 - HYPOTHYROIDISM, UNSPECIFIED
[2017-06-27] MEDS: ATORVASTATIN CA 40 MG TABLET (FP) PO SCH (22:24)
[2017-06-27] MEDS: MONTELUKAST NA 10 MG TABLET PO SCH (22:24)
[2017-06-28] MEDS ORDERED: LEVOTHYROXINE NA 100 MCG TABLET (FP) ONE (06:00)
[2017-06-28] MEDS ORDERED: LEVOTHYROXINE NA 75 MCG TABLET (FP) ONE (06:00)
[2017-06-28] MEDS: LEVOTHYROXINE 100 MCG, LEVOTHYROXINE 75 MCG PO SCH (06:14)
[2017-06-28] MEDS: oxyCODONE HCL 5 MG TABLET PO PRN ×2 (06:15→19:56)
[2017-06-28] MEDS: HEPARIN NA (PORCINE) 5,000 UNITS/ML 1ML VIAL SQ SCH ×3 (06:15→22:02)
[2017-06-28] MEDS: INSULIN SLIDING SCALE (NOVOLOG) 1 VIAL SQ SCH ×4 (06:16→22:07)
[2017-06-28 08:30] LABS: BASO % 0.7 % (0-2.0); EOS % 3.2 % (0-4.5); HEMATOCRIT 41.6 % (32.4-45.2); HEMOGLOBIN 13.5 GM/dL (10.7-15.3); LYMPH % 31.6 % (8-40); MCH 26.7 pg (25.7-33.7); MCHC 32.5 g/dl (32.0-36.0); MEAN CELL VOLUME 82.1 fl (80-96); MEAN PLT VOLUME 8.9 fl (7.5-11.1); MONO % 12.2 % (3.8-10.2); NEUT % 52.3 % (42.8-82.8); PLATELET COUNT 205 K/MM3 (134-434); RBC 5.07 M/mm3 (3.60-5.2); WHITE BLOOD COUNT 3.8 K/mm3 (4.0-10.0)
--- NOTE | 2017-06-28 08:44 | PN ---
Progress Note, Physician - Current Medication List Current Medications: Active Medications Acetaminophen (Tylenol -) 325 mg PO Q6H PRN PRN Reason: PAIN LEVEL 6-10 Last Admin: 06/27/17 20:23 Dose: 325 mg Albuterol Sulfate (Ventolin Hfa Inhaler -) 2 puff IH Q4H PRN PRN Reason: SHORT OF BREATH/WHEEZING Amlodipine Besylate (Norvasc -) 5 mg PO DAILY [facility] Last Admin: 06/27/17 09:13 Dose: 5 mg Atorvastatin Calcium (Lipitor -) 40 mg PO HS [facility] Last Admin: 06/27/17 22:24 Dose: 40 mg Budesonide/Formoterol Fumarate (Symbicort 160/4.5mcg -) 2 puff IH BID [facility] Last Admin: 06/27/17 22:28 Dose: 2 puff Duloxetine HCl (Cymbalta -) 60 mg PO DAILY [facility] Last Admin: 06/27/17 09:12 Dose: 60 mg Furosemide (Lasix -) 40 mg PO DAILY [facility] Last Admin: 06/27/17 09:13 Dose: 40 mg Heparin Sodium (Porcine) (Heparin -) 5,000 unit SQ TID [facility] Last Admin: 06/28/17 06:15 Dose: 5,000 unit Hydralazine HCl (Apresoline -) 25 mg PO BID [facility] Last Admin: 06/27/17 22:24 Dose: 25 mg Ertapenem 1 gm/ Sodium (Chloride) 50 mls @ 50 mls/hr IVPB DAILY [facility] PRN Reason: Protocol Last Admin: 06/27/17 09:16 Dose: 50 mls/hr Insulin Aspart (Novolog Vial Sliding Scale -) 1 vial SQ ACHS [facility] PRN Reason: Protocol Last Admin: 06/28/17 06:16 Dose: Not Given Leflunomide (Arava -) 20 mg PO DAILY [facility] Last Admin: 06/27/17 09:16 Dose: 20 mg Levothyroxine Sodium 100 mcg/ (Levothyroxine Sodium 75 mcg) 175 mcg PO DAILY@ 0700 [facility] Last Admin: 06/28/17 06:14 Dose: 175 mcg Metoprolol Succinate (Toprol Xl -) 200 mg PO DAILY [facility] Last Admin: 06/27/17 09:13 Dose: 200 mg Montelukast Sodium (Singulair -) 10 mg PO HS [facility] Last Admin: 06/27/17 22:24 Dose: 10 mg Non-Formulary Medication (Mirabegron [Myrbetriq]) 50 mg PO DAILY [facility] Non-Formulary Medication (Tofacitinib Citrate [Xeljanz]) 5 mg PO BID [facility] Oxycodone HCl (Roxicodone -) 7.5 mg PO Q6H PRN PRN Reason: PAIN SCALE 5-10 Last Admin: 06/28/17 06:15 Dose: 7.5 mg Pantoprazole Sodium (Protonix -) 40 mg PO DAILY [facility] Last Admin: 06/27/17 09:12 Dose: 40 mg Pregabalin (Lyrica -) 150 mg PO BID [facility] Last Admin: 06/27/17 22:24 Dose: 150 mg Solifenacin (Vesicare -) 10 mg PO DAILY [facility] Last Admin: 06/27/17 09:13 Dose: 10 mg Valsartan (Diovan -) 320 mg PO DAILY [facility] Last Admin: 06/27/17 09:14 Dose: 320 mg - Objective Vital Signs: Vital Signs Temperature 98.5 F 06/28/17 05:42 Pulse Rate 55 L 06/28/17 05:42 Respiratory Rate 20 06/28/17 05:42 Blood Pressure 122/67 06/28/17 05:42 O2 Sat by Pulse Oximetry (%) 97 06/26/17 21:00 Cardiovascular: Yes: Regular Rate and Rhythm Respiratory: Yes: Regular, CTA Bilaterally Gastrointestinal: Yes: Normal Bowel Sounds, Soft Labs: INR, PTT INR 1.12 (0.82-1.09) 06/23/17 21:44 Problem List - Problems (1) Infection with multi-drug resistant microorganisms Assessment/Plan: IV ABX PER ID Code(s): Z16.35 - RESISTANCE TO MULTIPLE ANTIMICROBIAL DRUGS (2) T2DM (type 2 diabetes mellitus) Assessment/Plan: BGM Code(s): E11.9 - TYPE 2 DIABETES MELLITUS WITHOUT COMPLICATIONS (3) Recurrent UTI (urinary tract infection) Assessment/Plan: IV ABX UROLOGY CONSULT--BLADDER PROCEDURE PER PT Code(s): N39.0 - URINARY TRACT INFECTION, SITE NOT SPECIFIED
[2017-06-28 08:48] LABS: CHLORIDE 108 mmol/L (98-107); POTASSIUM 3.5 mmol/L (3.5-5.1); SODIUM 143 mmol/L (136-145)
[2017-06-28 09:03] LABS: ANION GAP 7 (8-16); BLOOD UREA NITROGEN 7 mg/dL (7-18); CALCIUM 8.4 mg/dL (8.5-10.1); CO2 28 mmol/L (21-32); CREATININE 0.6 mg/dL (0.55-1.02); GLUCOSE,RANDOM 94 mg/dL (74-106)
[2017-06-28] MEDS ORDERED: PT OWN MED DRAWER 7, Y5N ONE (09:32)
[2017-06-28] MEDS: ERTAPENEM SODIUM 1 GM in SODIUM CHLORIDE 50 ML IVPB SCH (09:37)
[2017-06-28] MEDS: SOLIFENACIN SUCCINATE 5 MG TAB (FP) PO SCH (09:37)
[2017-06-28] MEDS: FUROSEMIDE 40 MG TABLET (FP) PO SCH (09:37)
[2017-06-28] MEDS: amLODIPine BESYLATE 5 MG TABLET (FP) PO SCH (09:38)
[2017-06-28] MEDS: PREGABALIN 50 MG CAPSULE PO SCH ×2 (09:38→22:01)
[2017-06-28] MEDS: PANTOPRAZOLE 40 MG TABLET (FP) PO SCH (09:38)
[2017-06-28] MEDS: hydrALAZINE HCL 25 MG TABLET (FP) PO SCH ×2 (09:38→22:01)
[2017-06-28] MEDS: VALSARTAN 160 MG TABLET (UD) PO SCH (09:38)
[2017-06-28] MEDS: DULoxetine HCL 30 MG CAPSULE.DR (FP) PO SCH (09:38)
[2017-06-28] MEDS: LEFLUNOMIDE 10 MG TABLET PO SCH (09:39)
[2017-06-28] MEDS: BUDESONIDE/FORMETEROL FUMARATE 160/4.5 mcg INHALER IH SCH ×2 (09:39→22:01)
[2017-06-28 14:04] LABS: URINE APPEARANCE CLEAR; URINE BILIRUBIN NEGATIVE (NEGATIVE); URINE BLOOD NEGATIVE (NEGATIVE); URINE COLOR STRAW; URINE GLUCOSE (UA) NEGATIVE (NEGATIVE); URINE KETONE NEGATIVE (NEGATIVE); URINE NITRITE NEGATIVE (NEGATIVE); URINE PROTEIN NEGATIVE (NEGATIVE); URINE UROBILINOGEN NEGATIVE mg/dL (0.2-1.0)
[2017-06-28 14:15] LABS: URINE LEUK ESTERASE 1+ (NEGATIVE)
[2017-06-28 14:19] LABS: EPI CELLS RARE /HPF (FEW); URINE MUCUS RARE
--- NOTE | 2017-06-28 14:19 | PN ---
Progress Note (short form) - Note Progress Note: patient with resistant UTI. Had previously been scheduled for suburethal sling for 06/29/17. Will reschedule as outpatient after IV abx course is complete.
--- NOTE | 2017-06-28 14:55 | PN ---
Progress Note, Physician History of Present Illness: C/O vague discomfort with micuration No feber/ chills Afebrile Leukopenia BC (-) - Current Medication List Current Medications: Active Medications Acetaminophen (Tylenol -) 325 mg PO Q6H PRN PRN Reason: PAIN LEVEL 6-10 Last Admin: 06/27/17 20:23 Dose: 325 mg Albuterol Sulfate (Ventolin Hfa Inhaler -) 2 puff IH Q4H PRN PRN Reason: SHORT OF BREATH/WHEEZING Amlodipine Besylate (Norvasc -) 5 mg PO DAILY [facility] Last Admin: 06/28/17 09:38 Dose: 5 mg Atorvastatin Calcium (Lipitor -) 40 mg PO HS [facility] Last Admin: 06/27/17 22:24 Dose: 40 mg Budesonide/Formoterol Fumarate (Symbicort 160/4.5mcg -) 2 puff IH BID [facility] Last Admin: 06/28/17 09:39 Dose: 2 puff Duloxetine HCl (Cymbalta -) 60 mg PO DAILY [facility] Last Admin: 06/28/17 09:38 Dose: 60 mg Furosemide (Lasix -) 40 mg PO DAILY [facility] Last Admin: 06/28/17 09:37 Dose: 40 mg Heparin Sodium (Porcine) (Heparin -) 5,000 unit SQ TID [facility] Last Admin: 06/28/17 14:37 Dose: 5,000 unit Hydralazine HCl (Apresoline -) 25 mg PO BID [facility] Last Admin: 06/28/17 09:38 Dose: 25 mg Ertapenem 1 gm/ Sodium (Chloride) 50 mls @ 50 mls/hr IVPB DAILY [facility] PRN Reason: Protocol Last Admin: 06/28/17 09:37 Dose: 50 mls/hr Insulin Aspart (Novolog Vial Sliding Scale -) 1 vial SQ ACHS [facility] PRN Reason: Protocol Last Admin: 06/28/17 12:03 Dose: Not Given Leflunomide (Arava -) 20 mg PO DAILY [facility] Last Admin: 06/28/17 09:39 Dose: 20 mg Levothyroxine Sodium 100 mcg/ (Levothyroxine Sodium 75 mcg) 175 mcg PO DAILY@ 0700 [facility] Last Admin: 06/28/17 06:14 Dose: 175 mcg Metoprolol Succinate (Toprol Xl -) 200 mg PO DAILY [facility] Last Admin: 06/28/17 09:37 Dose: 200 mg Montelukast Sodium (Singulair -) 10 mg PO HS [facility] Last Admin: 06/27/17 22:24 Dose: 10 mg Non-Formulary Medication (Mirabegron [Myrbetriq]) 50 mg PO DAILY [facility] Non-Formulary Medication (Tofacitinib Citrate [Xeljanz]) 5 mg PO BID [facility] Oxycodone HCl (Roxicodone -) 7.5 mg PO Q6H PRN PRN Reason: PAIN SCALE 5-10 Last Admin: 06/28/17 06:15 Dose: 7.5 mg Pantoprazole Sodium (Protonix -) 40 mg PO DAILY [facility] Last Admin: 06/28/17 09:38 Dose: 40 mg Pregabalin (Lyrica -) 150 mg PO BID [facility] Last Admin: 06/28/17 09:38 Dose: 150 mg Solifenacin (Vesicare -) 10 mg PO DAILY [facility] Last Admin: 06/28/17 09:37 Dose: 10 mg Valsartan (Diovan -) 320 mg PO DAILY [facility] Last Admin: 06/28/17 09:38 Dose: 320 mg - Objective Vital Signs: Vital Signs Temperature 97.8 F 06/28/17 09:00 Pulse Rate 65 06/28/17 09:00 Respiratory Rate 20 06/28/17 09:00 Blood Pressure 129/67 06/28/17 09:00 O2 Sat by Pulse Oximetry (%) 97 06/26/17 21:00 Constitutional: Yes: No Distress, Obese Cardiovascular: Yes: Regular Rate and Rhythm, S1, S2 Respiratory: Yes: CTA Bilaterally Gastrointestinal: Yes: Normal Bowel Sounds, Soft. No: Tenderness Labs: CBC, BMP 06/28/17 07:00 06/28/17 07:00 INR, PTT INR 1.12 (0.82-1.09) 06/23/17 21:44 Assessment/Plan Recurrent UTI Hx ESBL UTI Stress urinary incontinence Discussed with Complete 14d course ertapenem before bladder sling procedure PICC for outpatient antibiotics Ertapenem 1gm IVPB qd x 10d
[2017-06-28] MEDS: ACETAMINOPHEN 325 MG TABLET (FP) PO PRN (19:55)
[2017-06-28] MEDS: MONTELUKAST NA 10 MG TABLET PO SCH (22:01)
[2017-06-28] MEDS: ATORVASTATIN CA 40 MG TABLET (FP) PO SCH (22:01)
[2017-06-29] MEDS ORDERED: LEVOTHYROXINE NA 100 MCG TABLET (FP) ONE (06:27)
[2017-06-29] MEDS ORDERED: LEVOTHYROXINE NA 75 MCG TABLET (FP) ONE (06:27)
[2017-06-29] MEDS: HEPARIN NA (PORCINE) 5,000 UNITS/ML 1ML VIAL SQ SCH ×2 (06:42→22:00)
[2017-06-29] MEDS: LEVOTHYROXINE 100 MCG, LEVOTHYROXINE 75 MCG PO SCH (06:42)
[2017-06-29] MEDS: INSULIN SLIDING SCALE (NOVOLOG) 1 VIAL SQ SCH ×4 (06:42→22:00)
[2017-06-29] MEDS ORDERED: PICC LINE 8 ML FLUSH PROTOCOL IVPUSH PRN (09:01)
--- NOTE | 2017-06-29 09:02 | PN ---
Progress Note, Physician - Current Medication List Current Medications: Active Medications Acetaminophen (Tylenol -) 325 mg PO Q6H PRN PRN Reason: PAIN LEVEL 6-10 Last Admin: 06/28/17 19:55 Dose: 325 mg Albuterol Sulfate (Ventolin Hfa Inhaler -) 2 puff IH Q4H PRN PRN Reason: SHORT OF BREATH/WHEEZING Amlodipine Besylate (Norvasc -) 5 mg PO DAILY [facility] Last Admin: 06/28/17 09:38 Dose: 5 mg Atorvastatin Calcium (Lipitor -) 40 mg PO HS [facility] Last Admin: 06/28/17 22:01 Dose: 40 mg Budesonide/Formoterol Fumarate (Symbicort 160/4.5mcg -) 2 puff IH BID [facility] Last Admin: 06/28/17 22:01 Dose: 2 puff Duloxetine HCl (Cymbalta -) 60 mg PO DAILY [facility] Last Admin: 06/28/17 09:38 Dose: 60 mg Furosemide (Lasix -) 40 mg PO DAILY [facility] Last Admin: 06/28/17 09:37 Dose: 40 mg Heparin Sodium (Porcine) (Heparin -) 5,000 unit SQ TID [facility] Last Admin: 06/29/17 06:42 Dose: 5,000 unit Hydralazine HCl (Apresoline -) 25 mg PO BID [facility] Last Admin: 06/28/17 22:01 Dose: 25 mg Ertapenem 1 gm/ Sodium (Chloride) 50 mls @ 50 mls/hr IVPB DAILY [facility] PRN Reason: Protocol Last Admin: 06/28/17 09:37 Dose: 50 mls/hr Insulin Aspart (Novolog Vial Sliding Scale -) 1 vial SQ ACHS [facility] PRN Reason: Protocol Last Admin: 06/29/17 06:42 Dose: Not Given Leflunomide (Arava -) 20 mg PO DAILY [facility] Last Admin: 06/28/17 09:39 Dose: 20 mg Levothyroxine Sodium 100 mcg/ (Levothyroxine Sodium 75 mcg) 175 mcg PO DAILY@ 0700 [facility] Last Admin: 06/29/17 06:42 Dose: 175 mcg Metoprolol Succinate (Toprol Xl -) 200 mg PO DAILY [facility] Last Admin: 06/28/17 09:37 Dose: 200 mg Montelukast Sodium (Singulair -) 10 mg PO HS [facility] Last Admin: 06/28/17 22:01 Dose: 10 mg Non-Formulary Medication (Mirabegron [Myrbetriq]) 50 mg PO DAILY [facility] Non-Formulary Medication (Tofacitinib Citrate [Xeljanz]) 5 mg PO BID [facility] Oxycodone HCl (Roxicodone -) 7.5 mg PO Q6H PRN PRN Reason: PAIN SCALE 5-10 Last Admin: 06/28/17 19:56 Dose: 7.5 mg Pantoprazole Sodium (Protonix -) 40 mg PO DAILY [facility] Last Admin: 06/28/17 09:38 Dose: 40 mg Pregabalin (Lyrica -) 150 mg PO BID [facility] Last Admin: 06/28/17 22:01 Dose: 150 mg Solifenacin (Vesicare -) 10 mg PO DAILY [facility] Last Admin: 06/28/17 09:37 Dose: 10 mg Valsartan (Diovan -) 320 mg PO DAILY [facility] Last Admin: 06/28/17 09:38 Dose: 320 mg - Objective Vital Signs: Vital Signs Temperature 98.0 F 06/28/17 23:13 Pulse Rate 61 06/28/17 23:13 Respiratory Rate 20 06/28/17 23:13 Blood Pressure 140/74 06/28/17 23:13 O2 Sat by Pulse Oximetry (%) 97 06/26/17 21:00 Cardiovascular: Yes: Regular Rate and Rhythm Respiratory: Yes: Regular, CTA Bilaterally Gastrointestinal: Yes: Normal Bowel Sounds, Soft Labs: CBC, BMP 06/28/17 07:00 06/28/17 07:00 INR, PTT INR 1.12 (0.82-1.09) 06/23/17 21:44 Problem List - Problems (1) Infection with multi-drug resistant microorganisms Assessment/Plan: IV ABX PER ID PICC LINE AND IV ABX WANTS TO GO HOME Code(s): Z16.35 - RESISTANCE TO MULTIPLE ANTIMICROBIAL DRUGS (2) T2DM (type 2 diabetes mellitus) Assessment/Plan: BGM Code(s): E11.9 - TYPE 2 DIABETES MELLITUS WITHOUT COMPLICATIONS (3) Recurrent UTI (urinary tract infection) Assessment/Plan: IV ABX UROLOGY CONSULT--BLADDER PROCEDURE PER PT--AFTER COMPLETION OF ABX Code(s): N39.0 - URINARY TRACT INFECTION, SITE NOT SPECIFIED
[2017-06-29] MEDS ORDERED: PT OWN MED DRAWER 7, Y5N ONE (11:16)
[2017-06-29] MEDS: VALSARTAN 160 MG TABLET (UD) PO SCH (11:19)
[2017-06-29] MEDS: hydrALAZINE HCL 25 MG TABLET (FP) PO SCH ×2 (11:19→21:59)
[2017-06-29] MEDS: PREGABALIN 50 MG CAPSULE PO SCH ×2 (11:20→21:59)
[2017-06-29] MEDS: SOLIFENACIN SUCCINATE 5 MG TAB (FP) PO SCH (11:20)
[2017-06-29] MEDS: DULoxetine HCL 30 MG CAPSULE.DR (FP) PO SCH (11:20)
[2017-06-29] MEDS: LEFLUNOMIDE 10 MG TABLET PO SCH (11:20)
[2017-06-29] MEDS: amLODIPine BESYLATE 5 MG TABLET (FP) PO SCH (11:21)
[2017-06-29] MEDS: BUDESONIDE/FORMETEROL FUMARATE 160/4.5 mcg INHALER IH SCH ×2 (11:21→22:02)
[2017-06-29] MEDS: ERTAPENEM SODIUM 1 GM in SODIUM CHLORIDE 50 ML IVPB SCH (11:21)
[2017-06-29] MEDS: PANTOPRAZOLE 40 MG TABLET (FP) PO SCH (11:21)
[2017-06-29] MEDS: FUROSEMIDE 40 MG TABLET (FP) PO SCH (11:21)
[2017-06-29] MEDS: ACETAMINOPHEN 325 MG TABLET (FP) PO PRN (17:56)
[2017-06-29] MEDS: oxyCODONE HCL 5 MG TABLET PO PRN (17:57)
[2017-06-29] MEDS: ATORVASTATIN CA 40 MG TABLET (FP) PO SCH (21:59)
[2017-06-29] MEDS: MONTELUKAST NA 10 MG TABLET PO SCH (22:00)
[2017-06-30] MEDS ORDERED: LEVOTHYROXINE NA 75 MCG TABLET (FP) ONE (05:59)
[2017-06-30] MEDS ORDERED: LEVOTHYROXINE NA 100 MCG TABLET (FP) ONE (05:59)
[2017-06-30] MEDS: LEVOTHYROXINE 100 MCG, LEVOTHYROXINE 75 MCG PO SCH (06:24)
[2017-06-30] MEDS: HEPARIN NA (PORCINE) 5,000 UNITS/ML 1ML VIAL SQ SCH (06:25)
[2017-06-30] MEDS: INSULIN SLIDING SCALE (NOVOLOG) 1 VIAL SQ SCH (06:28)
[2017-06-30 06:37] VITALS: TEMP 98.2
[2017-06-30] MEDS: ACETAMINOPHEN 325 MG TABLET (FP) PO PRN (07:56)
[2017-06-30] MEDS: oxyCODONE HCL 5 MG TABLET PO PRN (07:57)
[2017-06-30] MEDS: ERTAPENEM SODIUM 1 GM in SODIUM CHLORIDE 50 ML IVPB SCH (10:33)
[2017-06-30] MEDS: VALSARTAN 160 MG TABLET (UD) PO SCH (10:35)
[2017-06-30] MEDS: SOLIFENACIN SUCCINATE 5 MG TAB (FP) PO SCH (10:36)
[2017-06-30] MEDS: DULoxetine HCL 30 MG CAPSULE.DR (FP) PO SCH (10:36)
[2017-06-30] MEDS: hydrALAZINE HCL 25 MG TABLET (FP) PO SCH (10:37)
[2017-06-30] MEDS: amLODIPine BESYLATE 5 MG TABLET (FP) PO SCH (10:37)
[2017-06-30] MEDS: PANTOPRAZOLE 40 MG TABLET (FP) PO SCH (10:37)
[2017-06-30] MEDS: FUROSEMIDE 40 MG TABLET (FP) PO SCH (10:37)
[2017-06-30] MEDS: PREGABALIN 50 MG CAPSULE PO SCH (10:37)
[2017-06-30] MEDS: LEFLUNOMIDE 10 MG TABLET PO SCH (10:38)
[2017-06-30] MEDS: BUDESONIDE/FORMETEROL FUMARATE 160/4.5 mcg INHALER IH SCH (10:39)
--- NOTE | 2017-06-30 11:08 | DS ---
Physical Examination Vital Signs: Vital Signs Temperature 98.2 F 06/30/17 06:00 Pulse Rate 54 L 06/30/17 06:00 Respiratory Rate 18 06/30/17 06:00 Blood Pressure 140/76 06/30/17 06:00 O2 Sat by Pulse Oximetry (%) 97 06/26/17 21:00 Constitutional: Yes: Calm Cardiovascular: Yes: Regular Rate and Rhythm, S1, S2 Respiratory: Yes: CTA Bilaterally Gastrointestinal: Yes: Normal Bowel Sounds, Soft Neurological: Yes: Alert, Oriented Labs: CBC, BMP 06/28/17 07:00 06/28/17 07:00 Discharge Summary Reason For Visit: URINARY TRACT INFECTION Current Active Problems Infection with multi-drug resistant microorganisms (Acute) T2DM (type 2 diabetes mellitus) (Acute) UTI (urinary tract infection) (Acute) Hospital Course: CHIEF COMPLAINT: dysuria PCP: Dr. Henriquez HISTORY OF PRESENT ILLNESS: 72 year old female with a hx of DM, asthma, CVA, GERD, hypothyroid, HTN, HLD, rheumatoid arthritis, cystocele, obstructive sleep apnea and recurrent UTIs presented to the ED for dysuria. Patient was admitted several weeks ago for ESBL Klebsiella UTI and was treated with zosyn. She was sent home on doxycycline and macrobid PO. Patient states that her symptoms never fully dissipated and that she continued to have dysuria. She arrived at the ER today because she felt it was time for a re-evaluation. Currently, patient states she urinates several times a day and has pain when she urinates. Denies any overt blood in her stream. She states that it "dribbles" occasionally post-void. States that she had an episode of chills a couple of days ago that have since resolved. Patient is scheduled for a procedure with Dr. Boyce Denies fevers, flank pain, chest pain, shortness of breath, abdominal pain, nausea, vomiting, diarrhea. ER course was notable for: (1) (+) UA (2) normal vitals (3) Recent Travel: PAST MEDICAL HISTORY: DM, asthma, CVA, GERD, hypothyroid, HTN, HLD, rheumatoid arthritis, cystocele, obstructive sleep apnea and recurrent UTIs PAST SURGICAL HISTORY: appendectomy, cholecystectomy recurrent UTI with incontence plan to complete 10 days of iv abx then bladder sling procedure patient to get picc line and go home with [facility] and home infusion company ESBL UTI on ertrapenem Condition: Stable - Instructions Referrals: Madison Henriquez MD [Primary Care Provider] - Disposition: [facility]HOME HEALTH CARE - Home Medications Comprehensive Discharge Medication List: Ambulatory Orders Albuterol Sulfate Inhaler - [Ventolin HFA Inhaler -] 1 - 2 inh PO Q4H 06/13/16 Alprazolam [Xanax] 1 mg PO BID 06/13/16 Atorvastatin Ca [Lipitor] 40 mg PO HS 06/13/16 Furosemide [Lasix] 40 mg PO DAILY 06/13/16 Metoprolol Succinate [Toprol Xl] 200 mg PO DAILY 06/13/16 Montelukast Na [Singulair -] 10 mg PO HS 06/13/16 Omeprazole 40 mg PO DAILY 06/13/16 Pregabalin [Lyrica -] 150 mg PO BID 06/13/16 Levothyroxine [Synthroid -] 175 mcg PO DAILY@0700 11/08/16 hydrALAZINE HCL [Apresoline -] 25 mg PO BID 03/02/17 Amlodipine/Valsartan [Exforge 5-320 mg Tablet] 1 tab PO DAILY 03/07/17 Duloxetine HCl [Cymbalta] 60 mg PO DAILY 03/07/17 Salmeterol/Fluticasone [Advair 500Mcg/50Mcg -] 1 inh PO BID 03/07/17 Diphenhydramine HCl [Benadryl Capsule -] 25 mg PO Q6H 06/07/17 Leflunomide 20 mg PO DAILY 06/07/17 Leflunomide 20 mg PO DAILY 06/07/17 Mirabegron [Myrbetriq] 50 mg PO DAILY 06/07/17 Nitrofurantoin Monohyd/M-Cryst [Macrobid -] 100 mg PO DAILY 06/07/17 Oxybutynin Chloride [Oxybutynin Chloride ER] 15 mg PO DAILY 06/07/17 Oxycodone HCl/Acetaminophen [Endocet 7.5-325 mg Tablet] 1 tab PO Q6H PRN Tofacitinib Citrate [Xeljanz] 5 mg PO BID 06/07/17 Doxycycline Hyclate [Vibramycin -] 100 mg PO BID@1000,1800 #14 capsule 06/12/17
[2017-06-30 12:42] VITALS: BP 149/82; PULSE 72
== END 2017-06-30 17:15 | disposition home health service (06) | DRG 690 ==
LOC: JER 17:21 → JERBED 20:54 → J6S 06-24 00:38
PROVIDERS: ADMIT Internal Medicine; ATTEND Family Medicine
PROC: 02HV33Z Insertion of Infusion Device into Superior Vena Cava, Percutaneous Approach (ICD-10-PCS; principal; 2017-06-30)
DX: N39.0 Urinary tract infection, site not specified (principal); Z68.42 Body mass index [BMI] 45.0-49.9, adult; I10 Essential (primary) hypertension; E11.9 Type 2 diabetes mellitus without complications; E78.00 Pure hypercholesterolemia, unspecified; K21.9 Gastro-esophageal reflux disease without esophagitis; J45.909 Unspecified asthma, uncomplicated; M06.9 Rheumatoid arthritis, unspecified; G47.33 Obstructive sleep apnea (adult) (pediatric); E03.9 Hypothyroidism, unspecified; Z16.35 Resistance to multiple antimicrobial drugs; E66.01 Morbid (severe) obesity due to excess calories; N81.10 Cystocele, unspecified; N39.3 Stress incontinence (female) (male); B96.1 Klebsiella pneumoniae [K. pneumoniae] as the cause of diseases classified elsewhere; Z96.653 Presence of artificial knee joint, bilateral; Z86.73 Personal history of transient ischemic attack (TIA), and cerebral infarction without residual deficits
CPT/HCPCS: 36415; 36569; 71045-TC-FY; 74176-TC; 77001-TC-FY; 80048; 80053; 81003; 81015; 82962; 83036; 83735; 84100; 85025; 85610; 87040; 87086; 93005; 93010; 97116-GP; 97161-GP; 99282-25; C1751; J1644

== ENCOUNTER 2017-08-02 11:00 | Inpatient (IN) | payer OTHER ==
--- NOTE | 2017-08-02 11:59 | PDOC ---
History of Present Illness - General Chief Complaint: Urinary Problem Stated Complaint: PCP SENT Time Seen by Provider: 08/02/17 11:43 - History of Present Illness Initial Comments: 08/02/17 11:49 72yo F with history of DM, asthma, CVA, GERD, hypothyroidism, HTN, HLD, RA, cystocele, RULA, and recurrented UTI's (with ESBL) who presents to the ED today for about 2-3 days of subjective fever and chills alongside of dysuria. Pt has had previous UTI's with ESBL and last admission was one month ago where she received aztreonam. Pt reports calling Dr. Mccullough because of her symptoms who recommended she should come to the ED for further evaluation. Pt states she's concerned because she is supposed to undergo repair of her cystocele in [place] by Dr. Boyce and was concerned she may have another infection. Pt endorses one isolated episode of slight nausea and some indigestion since her symptoms developed. In addition she states her abdomen "has felt off," but attributes it to a viral gastroenteritis. Pt denies headaches, ear pain, sinus pain, sore throat, SOB, CP/discomfort, palpitations. Denies any sick contacts or eating any weird foods. Denies diarrhea/constipation. Past History - Past Medical History Allergies/Adverse Reactions: Allergies Allergy/AdvReac Type Severity Reaction Status Date / Time No Known Allergies Allergy Verified 08/02/17 11:15 Home Medications: Ambulatory Orders Alprazolam [Xanax] 1 mg PO HS PRN 06/13/16 Atorvastatin Ca [Lipitor] 40 mg PO HS 06/13/16 Furosemide [Lasix] 40 mg PO DAILY 06/13/16 Metoprolol Succinate [Toprol Xl] 200 mg PO DAILY 06/13/16 Montelukast Na [Singulair -] 10 mg PO HS 06/13/16 Omeprazole 40 mg PO DAILY 06/13/16 Pregabalin [Lyrica -] 150 mg PO BID 06/13/16 hydrALAZINE HCL [Apresoline -] 25 mg PO BID 03/02/17 Duloxetine HCl [Cymbalta] 60 mg PO DAILY 03/07/17 Leflunomide 20 mg PO DAILY 06/07/17 Mirabegron [Myrbetriq] 50 mg PO DAILY 06/07/17 Oxycodone HCl/Acetaminophen [Endocet 7.5-325 mg Tablet] 1 tab PO Q6H PRN Tofacitinib Citrate [Xeljanz] 5 mg PO BID 06/07/17 Albuterol Sulfate [Proair Respiclick] 90 mcg IH PRN PRN 08/02/17 Amlodipine/Valsartan [Exforge 5-320 mg Tablet] 1 tab PO DAILY 08/02/17 Ammonium Lactate Cream [Lac-Hydrin 12% *Cream*] 1 applic TP BID 08/02/17 Aspirin 81 mg PO DAILY 08/02/17 Beclomethasone Dipropionate [Qvar] 80 mcg IH BID 08/02/17 Cholecalciferol (Vitamin D3) [Vitamin D3] 2,000 unit PO DAILY 08/02/17 Clobetasol Propionate/Emoll [Clobetasol Emollient 0.05% Crm] 15 gm TP PRN Docusate Sodium [Colace] 200 mg PO HS 08/02/17 Febuxostat [Uloric -] 40 mg PO DAILY 08/02/17 Fluticasone/Vilanterol [Breo Ellipta 100-25 Mcg INH] 1 each IH DAILY 08/02/17 Levothyroxine [Synthroid -] 125 mcg PO DAILY@0700 08/02/17 Meloxicam [Mobic (Nf) -] 15 mg PO DAILY 08/02/17 Potassium Chloride [K-Dur -] 20 meq PO DAILY 08/02/17 Anemia: No Asthma: Yes Cancer: No Cardiac Disorders: No CVA: Yes (2012, TIA, NO RESIDUAL) COPD: No CHF: No DVT: No Dementia: No Diabetes: Yes GI Disorders: Yes (REFLUX) Disorders: No HTN: Yes Hypercholesterolemia: Yes Liver Disease: No Seizures: No Thyroid Disease: Yes - Surgical History Abdominal Surgery: No Appendectomy: Yes Cardiac Surgery: No Cholecystectomy: Yes Lung Surgery: No Neurologic Surgery: No Orthopedic Surgery: Yes (CARITO. KNEE REPLACEMENTS) - Immunization History Immunization Up to Date: Yes - Suicide/Smoking/Psychosocial Hx Smoking Status: Yes Smoking History: Never smoked Have you smoked in the past 12 months: No Number of Cigarettes Smoked Daily: 0 If you are a former smoker, when did you quit?: as a teenager Information on smoking cessation initiated: No Hx Alcohol Use: No Drug/Substance Use Hx: No Substance Use Type: None Hx Substance Use Treatment: No Review of Systems - Review of Systems Able to Perform ROS?: Yes Constitutional: Yes: Chills, Fever. No: Night Sweats, Weakness HEENTM: No: Blurred Vision, Nose Congestion, Throat Pain Respiratory: No: Cough, Shortness of Breath, Wheezing Cardiac (ROS): No: Chest Pain, Lightheadedness, Palpitations, Syncope, Chest Tightness ABD/GI: Yes: Nausea, Indigestion, Abdominal cramping. No: Constipated, Diarrhea : Yes: Burning, Dysuria, Frequency, Flank Pain. No: Hematuria Musculoskeletal: No: Neck Pain Integumentary: No: Pruritus, Rash Neurological: No: Headache, Numbness, Tingling, Weakness, Dizziness Hematologic/Lymphatic: No: Easy Bleeding, Easy Bruising *Physical Exam - Vital Signs Last Vital Signs Temp Pulse Resp BP Pulse Ox 98.3 F 77 18 122/57 96 08/02/17 11:15 08/02/17 11:15 08/02/17 11:15 08/02/17 11:15 08/02/17 11:15 - Physical Exam Comments: 08/02/17 11:49 GEN: NAD, awake, alert, sitting with her walker HEENT: EOMI, YESI, sclera anicteric, moist mucosa LUNGS: CTA b/l CARDIAC: RRR no murmurs appreciated ABD: Soft, nondistended, normoactive BS, suprapubic tenderness with palpation BACK: R CVA tenderness noted EXT: No edema, warm, 2+ DP pulses ED Treatment Course - LABORATORY CBC & Chemistry Diagram: 08/02/17 12:40 08/02/17 15:43 Medical Decision Making - Medical Decision Making 08/02/17 12:11 72yo F with dysuria, subjective fevers and chills, with suprapubic tenderness and R CVA tenderness --Highly suspicious for another UTI given history --CBC, CMP, LA, UA, Urine culture, Blood culture --Renal US to r/o pyelo/hydro --AVSS; does not meet sepsis criteria as of now so if UA + can administer IV ABX here with dispo home on oral ABX 08/02/17 13:27 CBC unremarkable UCx sent 08/02/17 14:00 LA 2.5; starting IVF NS @ 100cc/hr UCx pending; CMP hemolyzed Renal US pending to be performed 08/02/17 14:52 Pt still at US; will redraw CMP and collect UA once she returns 08/02/17 15:17 Renal US showing multiple R renal cysts with no evidence of hydronephrosis *DC/Admit/Observation/Transfer Diagnosis at time of Disposition: UTI (urinary tract infection) - Discharge Dispostion Condition at time of disposition: Stable Admit: Yes - Referrals Referrals: Madison Henriquez MD [Primary Care Provider] - - Patient Instructions - Post Discharge Activity
[2017-08-02] MEDS ORDERED: PIPERACILLIN/TAZOB 4.5 GM 4.5 GM in DEXTROSE 5%-WATER 100 ML IVPB ONE (12:43)
[2017-08-02 12:50] LABS: BASO % 0.9 % (0-2.0); EOS % 2.5 % (0-4.5); HEMATOCRIT 42.8 % (32.4-45.2); MCH 26.7 pg (25.7-33.7); MCHC 32.6 g/dl (32.0-36.0); MEAN CELL VOLUME 81.8 fl (80-96); MEAN PLT VOLUME 9.1 fl (7.5-11.1); MONO % 7.4 % (3.8-10.2); NEUT % 65.2 % (42.8-82.8); PLATELET COUNT 229 K/MM3 (134-434); RBC 5.23 M/mm3 (3.60-5.2); RDW 18.3 % (11.6-15.6); WHITE BLOOD COUNT 4.5 K/mm3 (4.0-10.0)
--- NOTE | 2017-08-02 13:08 | PDOC ---
Attending Attestation - Resident Resident Name: MatthewDavie - ED Attending Attestation I have performed the following: I have examined & evaluated the patient, The case was reviewed & discussed with the resident, I agree w/resident's findings & plan - HPI HPI: 08/02/17 13:03 72y/o F h/o prolapse and recurring UTI p/w UTI sxs for one week and sent from Dr. Mccullough's office. chills last night but no fever/flank pain. - Physicial Exam PE: 08/02/17 13:07 Afebrile, vital signs are normal Well-appearing seated in wheelchair No CVA tenderness, abdomen is benign - Medical Decision Making 08/02/17 13:07 Patient seen and evaluated with the resident. I agree with the overall evaluation, assessment, and management with the following summary of visit: 72-year-old female with history of frequent UTIs, most recently with ESBL presents with 1 week of UTI symptoms and episode of chills last night. She is well-appearing with normal vital signs. Labs, urinalysis, urine culture Antibiotics: May only be sensitive to IV antibiotics, will review her records and discuss disposition with Dr. Mccullough
[2017-08-02] MEDS ORDERED: PIPERACILLIN/TAZOB 4.5 GM 4.5 GM/100 ML BAG IVPB ONE (13:35)
[2017-08-02] MEDS: SODIUM CHLORIDE 1,000 ML IV SCH (15:21)
[2017-08-02 16:44] LABS: ALBUMIN 3.5 g/dl (3.4-5.0); ALK PHOS 111 U/L (45-117); ANION GAP 5 (8-16); BILIRUBIN,TOTAL 0.3 mg/dL (0.2-1.0); BLOOD UREA NITROGEN 11 mg/dL (7-18); CALCIUM 8.9 mg/dL (8.5-10.1); CHLORIDE 107 mmol/L (98-107); CO2 28 mmol/L (21-32); CREATININE 0.7 mg/dL (0.55-1.02); GLUCOSE,RANDOM 105 mg/dL (74-106); POTASSIUM 3.8 mmol/L (3.5-5.1); SGOT/AST 23 U/L (15-37); SGPT/ALT 28 U/L (12-78); SODIUM 140 mmol/L (136-145)
[2017-08-02 16:50] LABS: URINE APPEARANCE SLCLOUDY; URINE BILIRUBIN NEGATIVE (<2.0 mg/dL); URINE COLOR YELLOW; URINE GLUCOSE (UA) NEGATIVE (NEGATIVE); URINE KETONE NEGATIVE (NEGATIVE); URINE NITRITE NEGATIVE (NEGATIVE); URINE UROBILINOGEN NEGATIVE mg/dL (0.2-1.0)
[2017-08-02 16:58] LABS: URINE LEUK ESTERASE 3+ (NEGATIVE); URINE PROTEIN 1+ (NEGATIVE)
[2017-08-02 16:59] LABS: EPI CELLS RARE /HPF (FEW); URINE HYALINE CAST 1 /lpf
[2017-08-02] MEDS ORDERED: ACETAMINOPHEN 1000 MG/100 ML VIAL (NON FORMULARY) IVPB ONE (17:38)
[2017-08-02] MEDS ORDERED: ACETAMINOPHEN INJECTION 100 ML IVPB ONE (17:49)
--- NOTE | 2017-08-02 17:57 | HP ---
CHIEF COMPLAINT: PCP: HISTORY OF PRESENT ILLNESS: 72yo F with history of DM, asthma, CVA, GERD, hypothyroidism, HTN, HLD, RA (on immunosuppressants), cystocele, RULA, and recurrented UTI's (with ESBL) who presents to the ED today for about 2-3 days of subjective fever and chills alongside of dysuria. Pt has had previous UTI's with ESBL and last admission was one month ago where she received ertapenem. Pt reports calling Dr. Mccullough because of her symptoms who recommended she should come to the ED for further evaluation. Pt states she's concerned because she is supposed to undergo repair of her cystocele in August by Dr. Boyce and was concerned she may have another infection. Recent Travel: No PAST MEDICAL HISTORY Hypertension Hyperlipidemia CVA Rheumatoid arthritis GERD Hypothyroidism Recurrent UTIs Cystocele PAST SURGICAL HISTORY: Social History: Smoking: no Alcohol: no Drugs: no Family History: Allergies No Known Allergies Allergy (Verified 08/02/17 11:15) HOME MEDICATIONS: Home Medications Medication Instructions Recorded Alprazolam [Xanax] 1 mg PO HS PRN 06/13/16 Atorvastatin Ca [Lipitor] 40 mg PO HS 06/13/16 Furosemide [Lasix] 40 mg PO DAILY 06/13/16 Metoprolol Succinate [Toprol Xl] 200 mg PO DAILY 06/13/16 Montelukast Na [Singulair -] 10 mg PO HS 06/13/16 Omeprazole 40 mg PO DAILY 06/13/16 Pregabalin [Lyrica -] 150 mg PO BID 06/13/16 hydrALAZINE HCL [Apresoline -] 25 mg PO BID 03/02/17 Duloxetine HCl [Cymbalta] 60 mg PO DAILY 03/07/17 Leflunomide 20 mg PO DAILY 06/07/17 Mirabegron [Myrbetriq] 50 mg PO DAILY 06/07/17 Oxycodone HCl/Acetaminophen 1 tab PO Q6H PRN 06/07/17 [Endocet 7.5-325 mg Tablet] Tofacitinib Citrate [Xeljanz] 5 mg PO BID 06/07/17 Albuterol Sulfate [Proair 90 mcg IH PRN PRN 08/02/17 Respiclick] Amlodipine/Valsartan [Exforge 1 tab PO DAILY 08/02/17 5-320 mg Tablet] Ammonium Lactate Cream [Lac-Hydrin 1 applic TP BID 08/02/17 12% *Cream*] Aspirin 81 mg PO DAILY 08/02/17 Beclomethasone Dipropionate [Qvar] 80 mcg IH BID 08/02/17 Cholecalciferol (Vitamin D3) 2,000 unit PO DAILY 08/02/17 [Vitamin D3] Clobetasol Propionate/Emoll 15 gm TP PRN 08/02/17 [Clobetasol Emollient 0.05% Crm] Docusate Sodium [Colace] 200 mg PO HS 08/02/17 Febuxostat [Uloric -] 40 mg PO DAILY 08/02/17 Fluticasone/Vilanterol [Breo 1 each IH DAILY 08/02/17 Ellipta 100-25 Mcg INH] Levothyroxine [Synthroid -] 125 mcg PO DAILY@0700 08/02/17 Meloxicam [Mobic (Nf) -] 15 mg PO DAILY 08/02/17 Potassium Chloride [K-Dur -] 20 meq PO DAILY 08/02/17 REVIEW OF SYSTEMS CONSTITUTIONAL: +chills Absent: fever, diaphoresis, generalized weakness, malaise, loss of appetite, weight change HEENT: Absent: rhinorrhea, nasal congestion, throat pain, throat swelling, difficulty swallowing, mouth swelling, ear pain, eye pain, visual changes CARDIOVASCULAR: Absent: chest pain, syncope, palpitations, irregular heart rate, lightheadedness , peripheral edema RESPIRATORY: Absent: cough, shortness of breath, dyspnea with exertion, orthopnea, wheezing, stridor, hemoptysis GASTROINTESTINAL: Absent: abdominal pain, abdominal distension, nausea, vomiting, diarrhea, constipation, melena, hematochezia GENITOURINARY: +dysuria, frequency, hesitancy Absent: dysuria, frequency, urgency, hesitancy, hematuria, flank pain, genital pain MUSCULOSKELETAL: Absent: myalgia, arthralgia, joint swelling, back pain, neck pain SKIN: Absent: rash, itching, pallor HEMATOLOGIC/IMMUNOLOGIC: Absent: easy bleeding, easy bruising, lymphadenopathy, frequent infections ENDOCRINE: Absent: unexplained weight gain, unexplained weight loss, heat intolerance, cold intolerance NEUROLOGIC: Absent: headache, focal weakness or paresthesias, dizziness, unsteady gait, seizure, mental status changes, bladder or bowel incontinence PSYCHIATRIC: Absent: anxiety, depression, suicidal or homicidal ideation, hallucinations. PHYSICAL EXAMINATION Vital Signs - 24 hr 08/02/17 08/02/17 11:15 15:15 Temperature 98.3 F Pulse Rate 77 Pulse Rate [ 71 Apical] Respiratory 18 Rate Blood Pressure 122/57 Blood Pressure 100/65 [Left Arm] O2 Sat by Pulse 96 96 Oximetry (%) GENERAL: Awake, alert, and fully oriented, in no acute distress. HEAD: Normal with no signs of trauma. EYES: Pupils equal, round and reactive to light, extraocular movements intact, sclera anicteric, conjunctiva clear. No lid lag. EARS, NOSE, THROAT: Ears normal, nares patent, oropharynx clear without exudates. Moist mucous membranes. NECK: Normal range of motion, supple without lymphadenopathy, JVD, or masses. LUNGS: Breath sounds equal, clear to auscultation bilaterally. No wheezes, and no crackles. No accessory muscle use. HEART: Regular rate and rhythm, normal S1 and S2 without murmur, rub or gallop. ABDOMEN: Obese, soft, nontender, not distended, normoactive bowel sounds MUSCULOSKELETAL: Normal range of motion at all joints. No bony deformities or tenderness. No CVA tenderness. UPPER EXTREMITIES: 2+ pulses, warm, well-perfused. No cyanosis. No clubbing. No peripheral edema. LOWER EXTREMITIES: 2+ pulses, warm, well-perfused. No calf tenderness. No peripheral edema. NEUROLOGICAL: Cranial nerves II-XII intact. Normal speech. Laboratory Results - last 24 hr 08/02/17 08/02/17 08/02/17 12:40 12:40 12:40 WBC 4.5 RBC 5.23 H Hgb 14.0 Hct 42.8 MCV 81.8 MCH 26.7 MCHC 32.6 RDW 18.3 H Plt Count 229 MPV 9.1 Neutrophils % 65.2 D Lymphocytes % 24.0 D Monocytes % 7.4 Eosinophils % 2.5 Basophils % 0.9 Sodium Cancelled Potassium Cancelled Chloride Cancelled Carbon Dioxide Cancelled Anion Gap Cancelled BUN Cancelled Creatinine Cancelled Creat Clearance w eGFR Cancelled Random Glucose Cancelled Lactic Acid 2.5 H* Calcium Cancelled Total Bilirubin Cancelled AST Cancelled ALT Cancelled Alkaline Phosphatase Cancelled Total Protein Cancelled Albumin Cancelled Urine Color Urine Appearance Urine pH Ur Specific Dwight Urine Protein Urine Glucose (UA) Urine Ketones Urine Blood Urine Nitrite Urine Bilirubin Urine Urobilinogen Ur Leukocyte Esterase Urine WBC (Auto) Urine RBC (Auto) Ur Epithelial Cells Hyaline Casts 08/02/17 08/02/17 08/02/17 15:43 15:43 16:40 WBC RBC Hgb Hct MCV MCH MCHC RDW Plt Count MPV Neutrophils % Lymphocytes % Monocytes % Eosinophils % Basophils % Sodium 140 Potassium 3.8 Chloride 107 Carbon Dioxide 28 Anion Gap 5 L BUN 11 Creatinine 0.7 Creat Clearance w eGFR > 60 Random Glucose 105 Lactic Acid 2.3 H* Calcium 8.9 Total Bilirubin 0.3 D AST 23 ALT 28 Alkaline Phosphatase 111 Total Protein 7.0 Albumin 3.5 Urine Color Yellow Urine Appearance Slcloudy Urine pH 5.0 Ur Specific Dwight 1.023 Urine Protein 1+ H Urine Glucose (UA) Negative Urine Ketones Negative Urine Blood Negative Urine Nitrite Negative Urine Bilirubin Negative Urine Urobilinogen Negative Ur Leukocyte Esterase 3+ H D Urine WBC (Auto) 257 Urine RBC (Auto) 2 Ur Epithelial Cells Rare Hyaline Casts 1 ASSESSMENT/PLAN: 72 year-old female with a PMH significant for HTN, HLD, CVA, RA, GERD, hypothyroidism, recurrent UTIs and cystocele. Admitted for UTI. UTI --history of recurrent Klebsiella ESBL UTI, this is third hospitalization since May --recently finished extended course of ertapenem via PICC --resume ertapenem --ID consult Lactic acidosis -2.5-->2.3 -IV fluids -repeat Hypertension --continue Toprol, amlodipine, hydralazine Hyperlipidemia --continue Lipitor Rheumatoid arthritis --continue home meds Visit type - Emergency Visit Emergency Visit: Yes ED Registration Date: 08/02/17 Care time: The patient presented to the Emergency Department on the above date and was hospitalized for further evaluation of their emergent condition. - New Patient This patient is new to me today: Yes Date on this admission: 08/03/17 - Critical Care Critical Care patient: No Hospitalist Screening - Colonoscopy Questionnaire Colonoscopy Questionnaire: Colonoscopy Questionnaire - Patient: 50 - 75 years old and never had a screening colonoscopy: Unknown History of colon or rectal polyps, or CA: Unknown History of IBD, Crohn's disease or UC: Unknown History of abdominal radiation therapy as a child: Unknown - Relative: 1 with colon or rectal CA, or polyps at age 60 or younger: Unknown Colon or rectal CA diagnosed at age 45 or younger: Unknown Multiple relatives with colon or rectal CA: Unknown - Outcome: Screening Result: Negative Screen
[2017-08-02] MEDS ORDERED: ALPRAZolam 0.25 MG TABLET PO PRN (19:13)
[2017-08-02] MEDS ORDERED: ERTAPENEM SODIUM 1 GM/50 ML PRE-DOCKED IVPB SCH (19:15)
[2017-08-02] MEDS ORDERED: ERTAPENEM SODIUM 1 GM in SODIUM CHLORIDE 50 ML IVPB SCH (19:30)
[2017-08-02] MEDS ORDERED: ERTAPENEM SODIUM 1 GM VIAL ONE (19:50)
[2017-08-02] MEDS ORDERED: ALPRAZolam 2 MG TABLET ONE (20:17)
[2017-08-02] MEDS ORDERED: TOFACITINIB CITRATE 5 MG PO SCH (22:00)
[2017-08-02] MEDS ORDERED: hydrALAZINE HCL 25 MG TABLET (FP) ONE (22:54)
[2017-08-02] MEDS ORDERED: PREGABALIN 100 MG CAPSULE ONE (22:54)
[2017-08-02] MEDS ORDERED: PREGABALIN 50 MG CAPSULE ONE (22:54)
[2017-08-02] MEDS ORDERED: ATORVASTATIN CA 40 MG TABLET (FP) ONE (22:55)
[2017-08-02] MEDS ORDERED: DOCUSATE SODIUM 100 MG CAPSULE (FP) PO ONE (22:55)
[2017-08-02] MEDS: PREGABALIN 50 MG CAPSULE PO SCH (22:59)
[2017-08-02] MEDS: ATORVASTATIN CA 40 MG TABLET (FP) PO SCH (22:59)
[2017-08-02] MEDS: DOCUSATE SODIUM 100 MG CAPSULE (FP) PO SCH (22:59)
[2017-08-02] MEDS: hydrALAZINE HCL 25 MG TABLET (FP) PO SCH (22:59)
[2017-08-03 01:06] VITALS: BMI 48.4
[2017-08-03] MEDS: LEVOTHYROXINE NA 125 MCG TABLET (FP) PO SCH (06:07)
[2017-08-03] MEDS ORDERED: oxyCODONE HCL 5 MG TABLET PO ONE (06:23)
--- NOTE | 2017-08-03 07:24 | PN ---
Progress Note (short form) - Note Progress Note: ID Full note dictated Recurrent UTIs History of ESBL Klebsiella ( just finished IV via PICC line recently) Plan Contact isolation Ertepenem again Cultures Advise surgery while on Ertepenem this admission if possible Mitchel CARDONA Problem List - Problems (1) UTI (urinary tract infection) Code(s): N39.0 - URINARY TRACT INFECTION, SITE NOT SPECIFIED (2) Infection with multi-drug resistant microorganisms Code(s): Z16.35 - RESISTANCE TO MULTIPLE ANTIMICROBIAL DRUGS (3) Recurrent UTI (urinary tract infection) Code(s): N39.0 - URINARY TRACT INFECTION, SITE NOT SPECIFIED
[2017-08-03 07:48] LABS: BASO % 0.5 % (0-2.0); EOS % 3.1 % (0-4.5); HEMATOCRIT 39.9 % (32.4-45.2); HEMOGLOBIN 12.9 GM/dL (10.7-15.3); LYMPH % 22.8 % (8-40); MCH 26.7 pg (25.7-33.7); MCHC 32.3 g/dl (32.0-36.0); MEAN CELL VOLUME 82.7 fl (80-96); MEAN PLT VOLUME 9.1 fl (7.5-11.1); MONO % 13.7 % (3.8-10.2); NEUT % 59.9 % (42.8-82.8); PLATELET COUNT 194 K/MM3 (134-434); RBC 4.82 M/mm3 (3.60-5.2); RDW 18.1 % (11.6-15.6)
--- NOTE | 2017-08-03 07:55 | PN ---
Progress Note, Physician - Current Medication List Current Medications: Active Medications Albuterol/Ipratropium (Duoneb -) 1 amp NEB Q4H PRN PRN Reason: SHORTNESS OF BREATH Alprazolam (Xanax -) 1 mg PO HS PRN PRN Reason: ANXIETY Last Admin: 08/02/17 20:28 Dose: 1 mg Amlodipine Besylate (Norvasc -) 5 mg PO DAILY [facility] Aspirin (Asa -) 81 mg PO DAILY [facility] Atorvastatin Calcium (Lipitor -) 40 mg PO HS [facility] Last Admin: 08/02/17 22:59 Dose: 40 mg Docusate Sodium (Colace -) 200 mg PO HS [facility] Last Admin: 08/02/17 22:59 Dose: 200 mg Duloxetine HCl (Cymbalta -) 60 mg PO DAILY [facility] Ertapenem (Invanz (Pre-Docked)) 1 gm IVPB DAILY [facility] Febuxostat (Uloric -) 40 mg PO DAILY [facility] Furosemide (Lasix -) 40 mg PO DAILY [facility] Hydralazine HCl (Apresoline -) 25 mg PO BID [facility] Last Admin: 08/02/17 22:59 Dose: 25 mg Sodium Chloride (Normal Saline -) 1,000 mls @ 100 mls/hr IV ASDIR [facility] Last Admin: 08/02/17 15:21 Dose: 100 mls/hr Levothyroxine Sodium (Synthroid -) 125 mcg PO DAILY@0700 [facility] Last Admin: 08/03/17 06:07 Dose: 125 mcg Metoprolol Succinate (Toprol Xl -) 200 mg PO DAILY [facility] Non-Formulary Medication (Leflunomide [Leflunomide]) 20 mg PO DAILY [facility] Non-Formulary Medication (Mirabegron [Myrbetriq]) 50 mg PO DAILY [facility] Non-Formulary Medication (Tofacitinib Citrate [Xeljanz]) 5 mg PO BID [facility] Pantoprazole Sodium (Protonix -) 40 mg PO DAILY [facility] Pregabalin (Lyrica -) 150 mg PO BID [facility] Last Admin: 08/02/17 22:59 Dose: 150 mg Valsartan (Diovan -) 320 mg PO DAILY [facility] - Objective Vital Signs: Vital Signs Temperature 98.4 F 08/03/17 06:47 Pulse Rate 77 08/03/17 06:47 Respiratory Rate 20 08/03/17 06:47 Blood Pressure 154/86 04/25/18 06:47 O2 Sat by Pulse Oximetry (%) 96 08/02/17 15:15 Problem List - Problems (1) UTI (urinary tract infection) Assessment/Plan: IV ABX FOLLOW CULTURES ID ON CASE UROLOGY CONSULT --history of recurrent Klebsiella ESBL UTI, this is third hospitalization since May --recently finished extended course of ertapenem via PICC --resume ertapenem Code(s): N39.0 - URINARY TRACT INFECTION, SITE NOT SPECIFIED (2) CHF (congestive heart failure) Assessment/Plan: STABLE SAME MEDS Code(s): I50.9 - HEART FAILURE, UNSPECIFIED (3) Infection with multi-drug resistant microorganisms Assessment/Plan: ABOVE Code(s): Z16.35 - RESISTANCE TO MULTIPLE ANTIMICROBIAL DRUGS (4) T2DM (type 2 diabetes mellitus) Assessment/Plan: BG Code(s): E11.9 - TYPE 2 DIABETES MELLITUS WITHOUT COMPLICATIONS
--- NOTE | 2017-08-03 08:09 | CONS ---
DATE OF CONSULTATION: DATE OF DICTATION: 08/03/2017 HISTORY OF PRESENT ILLNESS: This is a readmission for this 72-year-old female who presents now with recurrent diagnosis and symptoms compatible with urinary tract infection. The patient had just been seen by our service in June, last month, when she cultured a multidrug-resistant ESBL organism from her urinary tract. On this basis, ertapenem was recommended. A PICC line was inserted and she was discharged on outpatient ertapenem which she completed a 14-day course of treatment. She is known to Urology as she has had a long history of urinary incontinence and at one point had had an immunomodulator inserted by Dr. Emanuel Lazo which apparently became infected and needed to be removed. Most recently she has been followed by Dr. Boyce who has scheduled her for a suburethral sling. However, in the interim the patient developed severe dysuria over the last several days associated with foul-smelling urine, urinary frequency and chills at home. She did not take her temperature and had no fever here. She is admitted for further evaluation and treatment. PAST MEDICAL HISTORY: Includes diabetes, asthma, CVA, GERD, hypothyroidism, rheumatoid arthritis, hypertension, hyperlipidemia and recurrent urinary tract infections. MEDICATIONS AT HOME: Xanax; Lipitor; Lasix; metoprolol; Singulair; omeprazole; Lyrica; hydralazine; leflunomide; amlodipine; aspirin; Synthroid. ALLERGIES: None known. SOCIAL HISTORY: Nonsmoker. No history of drug use or alcohol use. FAMILY HISTORY: Noncontributory. SURGERIIES: Bilateral knee replacements. REVIEW OF SYSTEMS: Respiratory: No cough, shortness of breath, wheezing. Cardiac: No chest pain, syncope, palpitations. Gastrointestinal: No abdominal pain, nausea, vomiting, diarrhea. Skin: No rash. PHYSICAL EXAMINATION:Vital Signs: Her admitting temperature was 98.3, pulse77, respirations 18, blood pressure 122/57. General: She was an obese pleasant woman in no acute distress. Neck: Supple. No adenopathy. Lungs: Clear to P & A. Heart: S1, S2. Regular rhythm without audible murmur. Abdomen: Obese, soft, not distended. Normoactive bowel sounds. Suprapubic tenderness noted. Extremities: Without clubbing, cyanosis or edema. LABORATORY DATA: The white count is 4.5, hemoglobin 14, platelets of 229. Creatinine 0.7, lactic acid 2.5. Urinalysis with 257 white cells, 2 red cells, 3+ leukocyte esterase. Blood and urine cultures pending. ASSESSMENT: Recurrent urinary tract infection in this 72-year-old morbidly obese female with multiple comorbidities. RECOMMENDATIONS: Patient is scheduled for a bladder sling. However, she has now had what appears to be her 2nd episode of urinary tract infection for which she is now rehospitalized. She clinically appears stable at this time and I would continue her on ertapenem, anticipating an ESBL in the urine culture once again. If possible, attempt to coordinate with Urology to see if she can have her sling surgery while she is hospitalized and getting intravenous antibiotics. This will be discussed with Dr. Mccullough. She will be placed on contact isolation for multidrug-resistant organism. RADHA MENENDEZ M.D. [id number]
[2017-08-03 08:16] LABS: CHLORIDE 109 mmol/L (98-107); POTASSIUM 3.7 mmol/L (3.5-5.1); SODIUM 143 mmol/L (136-145)
[2017-08-03] MEDS: ALBUTEROL SO4 2.5/IPRATROPIUM 0.5 INH SOL 3 ML VIAL.NEB. NEB PRN (08:18)
[2017-08-03 08:20] LABS: ALBUMIN 3.1 g/dl (3.4-5.0); ALK PHOS 94 U/L (45-117); ANION GAP 8 (8-16); BILIRUBIN,TOTAL 0.3 mg/dL (0.2-1.0); BLOOD UREA NITROGEN 10 mg/dL (7-18); CALCIUM 8.5 mg/dL (8.5-10.1); CO2 26 mmol/L (21-32); CREATININE 0.6 mg/dL (0.55-1.02); GLUCOSE,RANDOM 95 mg/dL (74-106); MAGNESIUM 1.8 mg/dL (1.8-2.4); SGOT/AST 19 U/L (15-37); SGPT/ALT 22 U/L (12-78); TOT PROT 6.2 g/dl (6.4-8.2)
[2017-08-03] MEDS ORDERED: INSULIN (NOVOLOG) ASPART 100 UNITS/ML 10ML VIAL ONE (08:47)
[2017-08-03] MEDS ORDERED: INSULIN (LEVEMIR) 100 UNITS/ML UNITS SQ ONE (08:47)
[2017-08-03] MEDS ORDERED: PATIENT'S OWN MEDICATION (NON-FORMULARY) (Mirabegron [Myrbetriq] 50 MG) PO SCH (10:00)
[2017-08-03] MEDS ORDERED: LEFLUNOMIDE 20 MG PO SCH (10:00)
[2017-08-03] MEDS ORDERED: ERTAPENEM SODIUM 1 GM/50 ML PRE-DOCKED IVPB SCH (10:00)
[2017-08-03] MEDS: ASPIRIN 81 MG CHEWABLE TABLETS PO SCH (10:47)
[2017-08-03] MEDS: DULoxetine HCL 30 MG CAPSULE.DR (FP) PO SCH (10:47)
[2017-08-03] MEDS: VALSARTAN 160 MG TABLET (UD) PO SCH (10:47)
[2017-08-03] MEDS: hydrALAZINE HCL 25 MG TABLET (FP) PO SCH ×2 (10:47→21:10)
[2017-08-03] MEDS: amLODIPine BESYLATE 5 MG TABLET (FP) PO SCH (10:48)
[2017-08-03] MEDS: FUROSEMIDE 40 MG TABLET (FP) PO SCH (10:48)
[2017-08-03] MEDS: PANTOPRAZOLE 40 MG TABLET (FP) PO SCH (10:48)
[2017-08-03] MEDS: PREGABALIN 50 MG CAPSULE PO SCH ×2 (10:48→21:09)
[2017-08-03] MEDS ORDERED: PT OWN MED DRAWER 7, Y5N ONE (11:26)
--- NOTE | 2017-08-03 11:34 | PN ---
Progress Note (short form) - Note Progress Note: patient seen and examined full note to follow
[2017-08-03] MEDS: ERTAPENEM SODIUM 1 GM in SODIUM CHLORIDE 100 ML IVPB SCH (11:52)
[2017-08-03] MEDS: FEBUXOSTAT 40 MG TAB PO SCH ×2 (12:02→16:40)
[2017-08-03] MEDS: DOCUSATE SODIUM 100 MG CAPSULE (FP) PO SCH (21:09)
[2017-08-03] MEDS: ATORVASTATIN CA 40 MG TABLET (FP) PO SCH (21:10)
[2017-08-03] MEDS: ACETAMINOPHEN 325 MG TABLET (FP) PO PRN (21:10)
[2017-08-03] MEDS: oxyCODONE HCL 5 MG TABLET PO PRN (21:10)
[2017-08-03] MEDS: SODIUM CHLORIDE 1,000 ML IV SCH (21:11)
[2017-08-04] MEDS: oxyCODONE HCL 5 MG TABLET PO PRN ×2 (05:56→18:41)
[2017-08-04] MEDS: ACETAMINOPHEN 325 MG TABLET (FP) PO PRN ×2 (05:57→18:41)
[2017-08-04] MEDS: LEVOTHYROXINE NA 125 MCG TABLET (FP) PO SCH (06:01)
--- NOTE | 2017-08-04 09:49 | PN ---
Progress Note (short form) - Note Progress Note: ID Ertyanet Says her urinary complaints better when antibiotic infused?? this leads me to think that her current symptoms may not be related to UTI Selected Entries 08/04/17 06:00 Temperature 98.0 F Pulse Rate 69 Respiratory 20 Rate Blood Pressure 130/66 Microbiology 08/02/17 13:11 Urine - Urine Clean Catch Urine Culture - Preliminary Lactose Fermenting Neg Bacilli Proteus Species 08/02/17 12:40 Blood - Peripheral Venous Blood Culture - Preliminary NO GROWTH OBTAINED AFTER 24 HOURS, INCUBATION TO CONTINUE FOR 4 DAYS. 08/02/17 12:40 Blood - Peripheral Venous Blood Culture - Preliminary NO GROWTH OBTAINED AFTER 24 HOURS, INCUBATION TO CONTINUE FOR 4 DAYS. Laboratory Tests 08/03/17 06:20 WBC 5.0 RBC 4.82 Plt Count 194 Assessment Colonization ESBL ? UTI Discharge planning once urology decides on plan for surgery Problem List - Problems (1) UTI (urinary tract infection) Code(s): N39.0 - URINARY TRACT INFECTION, SITE NOT SPECIFIED (2) Infection with multi-drug resistant microorganisms Code(s): Z16.35 - RESISTANCE TO MULTIPLE ANTIMICROBIAL DRUGS (3) Recurrent UTI (urinary tract infection) Code(s): N39.0 - URINARY TRACT INFECTION, SITE NOT SPECIFIED
[2017-08-04] MEDS: PREGABALIN 50 MG CAPSULE PO SCH ×2 (10:16→22:14)
[2017-08-04] MEDS: FUROSEMIDE 40 MG TABLET (FP) PO SCH (10:16)
[2017-08-04] MEDS: DULoxetine HCL 30 MG CAPSULE.DR (FP) PO SCH (10:17)
[2017-08-04] MEDS: amLODIPine BESYLATE 5 MG TABLET (FP) PO SCH (10:18)
[2017-08-04] MEDS: PANTOPRAZOLE 40 MG TABLET (FP) PO SCH (10:18)
[2017-08-04] MEDS: VALSARTAN 160 MG TABLET (UD) PO SCH (10:20)
[2017-08-04] MEDS: hydrALAZINE HCL 25 MG TABLET (FP) PO SCH ×2 (10:22→22:15)
[2017-08-04] MEDS: FEBUXOSTAT 40 MG TAB PO SCH (10:27)
[2017-08-04] MEDS ORDERED: PT OWN MED DRAWER 7, Y5N ONE (10:27)
--- NOTE | 2017-08-04 11:12 | PN ---
Progress Note, Physician - Current Medication List Current Medications: Active Medications Acetaminophen (Tylenol -) 650 mg PO Q6H PRN PRN Reason: PAIN LEVEL 4 - 6 Last Admin: 08/04/17 05:57 Dose: 650 mg Albuterol/Ipratropium (Duoneb -) 1 amp NEB Q4H PRN PRN Reason: SHORTNESS OF BREATH Last Admin: 08/03/17 08:18 Dose: 1 amp Alprazolam (Xanax -) 1 mg PO HS PRN PRN Reason: ANXIETY Last Admin: 08/02/17 20:28 Dose: 1 mg Amlodipine Besylate (Norvasc -) 5 mg PO DAILY [facility] Last Admin: 08/04/17 10:18 Dose: 5 mg Aspirin (Asa -) 81 mg PO DAILY [facility] Last Admin: 08/03/17 10:47 Dose: 81 mg Atorvastatin Calcium (Lipitor -) 40 mg PO HS [facility] Last Admin: 08/03/17 21:10 Dose: 40 mg Docusate Sodium (Colace -) 200 mg PO HS [facility] Last Admin: 08/03/17 21:09 Dose: 200 mg Duloxetine HCl (Cymbalta -) 60 mg PO DAILY [facility] Last Admin: 08/04/17 10:17 Dose: 60 mg Febuxostat (Uloric -) 40 mg PO DAILY [facility] Last Admin: 08/04/17 10:27 Dose: 40 mg Furosemide (Lasix -) 40 mg PO DAILY [facility] Last Admin: 08/04/17 10:16 Dose: 40 mg Hydralazine HCl (Apresoline -) 25 mg PO BID [facility] Last Admin: 08/04/17 10:22 Dose: 25 mg Sodium Chloride (Normal Saline -) 1,000 mls @ 100 mls/hr IV ASDIR [facility] Last Admin: 08/03/17 21:11 Dose: Not Given Ertapenem 1 gm/ Sodium (Chloride) 100 mls @ 200 mls/hr IVPB DAILY [facility] Last Admin: 08/03/17 11:52 Dose: 200 mls/hr Levothyroxine Sodium (Synthroid -) 125 mcg PO DAILY@0700 [facility] Last Admin: 08/04/17 06:01 Dose: 125 mcg Metoprolol Succinate (Toprol Xl -) 200 mg PO DAILY [facility] Last Admin: 08/04/17 10:19 Dose: 200 mg Non-Formulary Medication (Leflunomide [Leflunomide]) 20 mg PO DAILY [facility] Non-Formulary Medication (Mirabegron [Myrbetriq]) 50 mg PO DAILY [facility] Non-Formulary Medication (Tofacitinib Citrate [Xeljanz]) 5 mg PO BID [facility] Oxycodone HCl (Roxicodone -) 5 mg PO Q6H PRN PRN Reason: PAIN LEVEL 7 - 10 Last Admin: 08/04/17 05:56 Dose: 5 mg Pantoprazole Sodium (Protonix -) 40 mg PO DAILY [facility] Last Admin: 08/04/17 10:18 Dose: 40 mg Pregabalin (Lyrica -) 150 mg PO BID [facility] Last Admin: 08/04/17 10:16 Dose: 150 mg Valsartan (Diovan -) 320 mg PO DAILY [facility] Last Admin: 08/04/17 10:20 Dose: 320 mg - Objective Vital Signs: Vital Signs Temperature 98.0 F 08/04/17 06:00 Pulse Rate 69 08/04/17 06:00 Respiratory Rate 20 08/04/17 06:00 Blood Pressure 130/66 08/04/17 06:00 O2 Sat by Pulse Oximetry (%) 95 08/03/17 21:00 Labs: CBC, BMP 08/03/17 06:20 08/03/17 06:20
[2017-08-04] MEDS: ALBUTEROL SO4 2.5/IPRATROPIUM 0.5 INH SOL 3 ML VIAL.NEB. NEB PRN ×2 (11:25→16:30)
[2017-08-04] MEDS: ERTAPENEM SODIUM 1 GM in SODIUM CHLORIDE 100 ML IVPB SCH (11:54)
[2017-08-04] MEDS: SODIUM CHLORIDE 1,000 ML IV SCH ×2 (11:57→16:42)
--- NOTE | 2017-08-04 12:40 | PN ---
Progress Note, Physician Chief Complaint: patient seen by urology patient complains of pain with sensation of bladder pinching when she urinates not josé manuel much dysuria - Current Medication List Current Medications: Active Medications Acetaminophen (Tylenol -) 650 mg PO Q6H PRN PRN Reason: PAIN LEVEL 4 - 6 Last Admin: 08/04/17 05:57 Dose: 650 mg Albuterol/Ipratropium (Duoneb -) 1 amp NEB Q4H PRN PRN Reason: SHORTNESS OF BREATH Last Admin: 08/04/17 11:25 Dose: 1 amp Alprazolam (Xanax -) 1 mg PO HS PRN PRN Reason: ANXIETY Last Admin: 08/02/17 20:28 Dose: 1 mg Amlodipine Besylate (Norvasc -) 5 mg PO DAILY [facility] Last Admin: 08/04/17 10:18 Dose: 5 mg Aspirin (Asa -) 81 mg PO DAILY [facility] Last Admin: 08/03/17 10:47 Dose: 81 mg Atorvastatin Calcium (Lipitor -) 40 mg PO HS [facility] Last Admin: 08/03/17 21:10 Dose: 40 mg Docusate Sodium (Colace -) 200 mg PO HS [facility] Last Admin: 08/03/17 21:09 Dose: 200 mg Duloxetine HCl (Cymbalta -) 60 mg PO DAILY [facility] Last Admin: 08/04/17 10:17 Dose: 60 mg Febuxostat (Uloric -) 40 mg PO DAILY [facility] Last Admin: 08/04/17 10:27 Dose: 40 mg Furosemide (Lasix -) 40 mg PO DAILY [facility] Last Admin: 08/04/17 10:16 Dose: 40 mg Hydralazine HCl (Apresoline -) 25 mg PO BID [facility] Last Admin: 08/04/17 10:22 Dose: 25 mg Sodium Chloride (Normal Saline -) 1,000 mls @ 100 mls/hr IV ASDIR [facility] Last Admin: 08/04/17 11:57 Dose: 100 mls/hr Ertapenem 1 gm/ Sodium (Chloride) 100 mls @ 200 mls/hr IVPB DAILY [facility] Last Admin: 08/04/17 11:54 Dose: 200 mls/hr Levothyroxine Sodium (Synthroid -) 125 mcg PO DAILY@0700 [facility] Last Admin: 08/04/17 06:01 Dose: 125 mcg Metoprolol Succinate (Toprol Xl -) 200 mg PO DAILY [facility] Last Admin: 08/04/17 10:19 Dose: 200 mg Non-Formulary Medication (Leflunomide [Leflunomide]) 20 mg PO DAILY [facility] Non-Formulary Medication (Mirabegron [Myrbetriq]) 50 mg PO DAILY [facility] Non-Formulary Medication (Tofacitinib Citrate [Xeljanz]) 5 mg PO BID [facility] Oxycodone HCl (Roxicodone -) 5 mg PO Q6H PRN PRN Reason: PAIN LEVEL 7 - 10 Last Admin: 08/04/17 05:56 Dose: 5 mg Pantoprazole Sodium (Protonix -) 40 mg PO DAILY [facility] Last Admin: 08/04/17 10:18 Dose: 40 mg Pregabalin (Lyrica -) 150 mg PO BID [facility] Last Admin: 08/04/17 10:16 Dose: 150 mg Valsartan (Diovan -) 320 mg PO DAILY [facility] Last Admin: 08/04/17 10:20 Dose: 320 mg - Objective Vital Signs: Vital Signs Temperature 98.0 F 08/04/17 06:00 Pulse Rate 69 08/04/17 06:00 Respiratory Rate 20 08/04/17 06:00 Blood Pressure 130/66 08/04/17 06:00 O2 Sat by Pulse Oximetry (%) 95 08/03/17 21:00 Constitutional: Yes: Calm Cardiovascular: Yes: Regular Rate and Rhythm, S1, S2 Respiratory: Yes: CTA Bilaterally Gastrointestinal: Yes: Normal Bowel Sounds, Soft Neurological: Yes: Alert, Oriented Labs: CBC, BMP 08/03/17 06:20 08/03/17 06:20 Problem List - Problems (1) UTI (urinary tract infection) Assessment/Plan: on ertrapenem urology saw patient awaiting full consult will get bladder sonogram as well to see if bladder prolapse or urinary retention Code(s): N39.0 - URINARY TRACT INFECTION, SITE NOT SPECIFIED (2) Hypothyroid Assessment/Plan: synthroid- Code(s): E03.9 - HYPOTHYROIDISM, UNSPECIFIED (3) Hypertension Assessment/Plan: continue same meds Code(s): I10 - ESSENTIAL (PRIMARY) HYPERTENSION Qualifiers: Hypertension type: essential hypertension Qualified Code(s): I10 - Essential (primary) hypertension
[2017-08-04] MEDS: ASPIRIN 81 MG CHEWABLE TABLETS PO SCH (16:42)
[2017-08-04] MEDS: ATORVASTATIN CA 40 MG TABLET (FP) PO SCH (22:14)
[2017-08-04] MEDS: DOCUSATE SODIUM 100 MG CAPSULE (FP) PO SCH (22:15)
[2017-08-05] MEDS: oxyCODONE HCL 5 MG TABLET PO PRN ×2 (00:20→09:16)
[2017-08-05] MEDS: LEVOTHYROXINE NA 125 MCG TABLET (FP) PO SCH (06:30)
[2017-08-05] MEDS: SODIUM CHLORIDE 1,000 ML IV SCH (06:30)
[2017-08-05 07:51] LABS: BASO % 0.7 % (0-2.0); EOS % 3.5 % (0-4.5); HEMATOCRIT 39.3 % (32.4-45.2); LYMPH % 18.6 % (8-40); MCH 27.2 pg (25.7-33.7); MCHC 33.1 g/dl (32.0-36.0); MEAN CELL VOLUME 82.3 fl (80-96); MEAN PLT VOLUME 8.4 fl (7.5-11.1); MONO % 11.6 % (3.8-10.2); NEUT % 65.6 % (42.8-82.8); PLATELET COUNT 186 K/MM3 (134-434); RBC 4.77 M/mm3 (3.60-5.2); RDW 17.9 % (11.6-15.6)
[2017-08-05 08:18] LABS: ANION GAP 4 (8-16); BILIRUBIN,TOTAL 0.3 mg/dL (0.2-1.0); BLOOD UREA NITROGEN 6 mg/dL (7-18); CALCIUM 8.3 mg/dL (8.5-10.1); CHLORIDE 111 mmol/L (98-107); CO2 28 mmol/L (21-32); CREATININE 0.6 mg/dL (0.55-1.02); GLUCOSE,RANDOM 129 mg/dL (74-106); POTASSIUM 3.3 mmol/L (3.5-5.1); SGOT/AST 25 U/L (15-37); SGPT/ALT 30 U/L (12-78); SODIUM 143 mmol/L (136-145); TOT PROT 6.1 g/dl (6.4-8.2)
[2017-08-05 08:26] LABS: ALK PHOS 93 U/L (45-117)
[2017-08-05] MEDS ORDERED: POTASSIUM CHLORIDE TABS 20 MEQ TABLET.ER (FP) PO ONE (08:57)
--- NOTE | 2017-08-05 08:57 | DS ---
Physical Examination Vital Signs: Vital Signs Temperature 99.2 F 08/05/17 06:46 Pulse Rate 67 08/05/17 06:46 Respiratory Rate 20 08/05/17 06:46 Blood Pressure 171/81 08/05/17 06:46 O2 Sat by Pulse Oximetry (%) 96 08/04/17 21:00 Findings/Remarks: FEELS BETTER Cardiovascular: Yes: S1, S2 Respiratory: Yes: Regular, CTA Bilaterally Gastrointestinal: Yes: Normal Bowel Sounds, Soft Labs: CBC, BMP 08/05/17 06:50 08/05/17 06:50 Discharge Summary Reason For Visit: URINARY TRACT INFECTION; TYPE II DIABETES MELLITUS Current Active Problems UTI (urinary tract infection) (Acute) Hospital Course: - Problems (1) UTI (urinary tract infection) Assessment/Plan: IV ABX--D/W DR MERIDA--PO LEVAQUIN CULTURES Microbiology 08/02/17 13:11 Urine Culture - Final Urine - Urine Clean Catch Klebsiella Pneumoniae Proteus Vulgaris 08/02/17 12:40 Blood Culture - Preliminary Blood - Peripheral Venous NO GROWTH OBTAINED AFTER 48 HOURS, INCUBATION TO CONTINUE FOR 3 DAYS. 08/02/17 12:40 Blood Culture - Preliminary Blood - Peripheral Venous NO GROWTH OBTAINED AFTER 48 HOURS, INCUBATION TO CONTINUE FOR 3 DAYS. ID ON CASE UROLOGY CONSULT NOTED FOR SURGERY ON 08/10 --history of recurrent Klebsiella ESBL UTI, this is third hospitalization since May --recently finished extended course of ertapenem via PICC --resume ertapenem Code(s): N39.0 - URINARY TRACT INFECTION, SITE NOT SPECIFIED (2) CHF (congestive heart failure) Assessment/Plan: STABLE SAME MEDS Code(s): I50.9 - HEART FAILURE, UNSPECIFIED (3) Infection with multi-drug resistant microorganisms Assessment/Plan: ABOVE Code(s): Z16.35 - RESISTANCE TO MULTIPLE ANTIMICROBIAL DRUGS (4) T2DM (type 2 diabetes mellitus) Assessment/Plan: BGM Code(s): E11.9 - TYPE 2 DIABETES MELLITUS WITHOUT COMPLICATIONS Condition: Stable - Instructions Referrals: Madison Henriquez MD [Primary Care Provider] - - Home Medications Comprehensive Discharge Medication List: Ambulatory Orders Alprazolam [Xanax] 1 mg PO HS PRN 06/13/16 Atorvastatin Ca [Lipitor] 40 mg PO HS 06/13/16 Furosemide [Lasix] 40 mg PO DAILY 06/13/16 Metoprolol Succinate [Toprol Xl] 200 mg PO DAILY 06/13/16 Montelukast Na [Singulair -] 10 mg PO HS 06/13/16 Omeprazole 40 mg PO DAILY 06/13/16 Pregabalin [Lyrica -] 150 mg PO BID 06/13/16 hydrALAZINE HCL [Apresoline -] 25 mg PO BID 03/02/17 Duloxetine HCl [Cymbalta] 60 mg PO DAILY 03/07/17 Leflunomide 20 mg PO DAILY 06/07/17 Mirabegron [Myrbetriq] 50 mg PO DAILY 06/07/17 Oxycodone HCl/Acetaminophen [Endocet 7.5-325 mg Tablet] 1 tab PO Q6H PRN Tofacitinib Citrate [Xeljanz] 5 mg PO BID 06/07/17 Albuterol Sulfate [Proair Respiclick] 90 mcg IH PRN PRN 08/02/17 Amlodipine/Valsartan [Exforge 5-320 mg Tablet] 1 tab PO DAILY 08/02/17 Ammonium Lactate Cream [Lac-Hydrin 12% Cream -] 1 applic TP BID 08/02/17 Aspirin 81 mg PO DAILY 08/02/17 Beclomethasone Dipropionate [Qvar] 80 mcg IH BID 08/02/17 Cholecalciferol (Vitamin D3) [Vitamin D3] 2,000 unit PO DAILY 08/02/17 Clobetasol Propionate/Emoll [Clobetasol Emollient 0.05% Crm] 15 gm TP PRN Docusate Sodium [Colace] 200 mg PO HS 08/02/17 Febuxostat [Uloric -] 40 mg PO DAILY 08/02/17 Fluticasone/Vilanterol [Breo Ellipta 100-25 Mcg INH] 1 each IH DAILY 08/02/17 Levothyroxine [Synthroid -] 125 mcg PO DAILY@0700 08/02/17 Meloxicam [Mobic (Nf) -] 15 mg PO DAILY 08/02/17 Potassium Chloride [K-Dur -] 20 meq PO DAILY 08/02/17 levoFLOXacin [Levaquin -] 500 mg PO DAILY #5 tablet 08/05/17
[2017-08-05] MEDS ORDERED: PT OWN MED DRAWER 7, Y5N ONE (09:02)
[2017-08-05] MEDS: DULoxetine HCL 30 MG CAPSULE.DR (FP) PO SCH (09:15)
[2017-08-05] MEDS: PREGABALIN 50 MG CAPSULE PO SCH (09:15)
[2017-08-05] MEDS: FUROSEMIDE 40 MG TABLET (FP) PO SCH (09:15)
[2017-08-05] MEDS: PANTOPRAZOLE 40 MG TABLET (FP) PO SCH (09:16)
[2017-08-05] MEDS: hydrALAZINE HCL 25 MG TABLET (FP) PO SCH (09:16)
[2017-08-05] MEDS: VALSARTAN 160 MG TABLET (UD) PO SCH (09:16)
[2017-08-05] MEDS: ASPIRIN 81 MG CHEWABLE TABLETS PO SCH ×2 (09:16→09:38)
[2017-08-05] MEDS: FEBUXOSTAT 40 MG TAB PO SCH (09:16)
[2017-08-05] MEDS: amLODIPine BESYLATE 5 MG TABLET (FP) PO SCH (09:16)
[2017-08-05] MEDS: ERTAPENEM SODIUM 1 GM in SODIUM CHLORIDE 100 ML IVPB SCH (09:18)
[2017-08-05 10:24] VITALS: BP 143/77; PULSE 69; TEMP 97.7
== END 2017-08-05 15:08 | disposition home health service (06) | DRG 690 ==
LOC: JER 11:00 → JERBED 17:43 → J8W 23:34
PROVIDERS: ADMIT Family Medicine; ATTEND Family Medicine
DX: N39.0 Urinary tract infection, site not specified (principal); E87.2 Acidosis; Z68.41 Body mass index [BMI] 40.0-44.9, adult; I10 Essential (primary) hypertension; E66.01 Morbid (severe) obesity due to excess calories; N81.10 Cystocele, unspecified; J45.909 Unspecified asthma, uncomplicated; E11.9 Type 2 diabetes mellitus without complications; Z86.73 Personal history of transient ischemic attack (TIA), and cerebral infarction without residual deficits; K21.9 Gastro-esophageal reflux disease without esophagitis; E03.9 Hypothyroidism, unspecified; E78.5 Hyperlipidemia, unspecified; M06.9 Rheumatoid arthritis, unspecified; G47.33 Obstructive sleep apnea (adult) (pediatric); Z96.653 Presence of artificial knee joint, bilateral
CPT/HCPCS: 36415; 76775-TC; 76856-TC; 80053; 81003; 81015; 82962; 83036; 83605; 83735; 84100; 84443; 85025; 87040; 87086; 87186; 94640; 97116-GP; 97161-GP; 99284-25; J0131; J7030; J7620

== ENCOUNTER 2017-08-10 08:49 | Day surgery (SDC) | payer OTHER ==
[2017-08-08 13:16] VITALS: BMI 50.1
[2017-08-10] MEDS ORDERED: VASOPRESSIN 20 UNITS/ML VIAL IV ONE (10:15)
[2017-08-10] MEDS ORDERED: DEXTROSE 5%-0.45% SALINE 1,000 ML IV SCH (10:45)
[2017-08-10] MEDS ORDERED: IBUPROFEN 800 MG/8 ML IJ IVPB SCH (10:45)
--- NOTE | 2017-08-10 10:45 | HP ---
History & Physical Update - History History: No Change - Physical Physical: No Change - Assessment Assessment: No Change - Plan Plan: No Change
[2017-08-10] MEDS ORDERED: ACETAMINOPHEN 1000 MG/100 ML VIAL (NON FORMULARY) IVPB ONE (10:46)
[2017-08-10] MEDS ORDERED: PROPOFOL 20 ML ONE ×2 (11:33)
[2017-08-10] MEDS ORDERED: LIDOCAINE HCL/PF 2% SDV 5ML VIAL ONE (11:34)
[2017-08-10] MEDS ORDERED: ALBUTEROL SO4 18 GM HFA INHALER IH ONE (11:34)
[2017-08-10] MEDS ORDERED: cefOXitin SODIUM 2 GM VIAL (RESTRICTED TO ID) IVPB ONE (12:00)
[2017-08-10] MEDS ORDERED: ACETAMINOPHEN INJECTION 100 ML IVPB ONE (13:01)
--- NOTE | 2017-08-10 14:24 | OP ---
DATE OF OPERATION: 08/10/2017 PREOPERATIVE DIAGNOSIS: Stress urinary incontinence. POSTOPERATIVE DIAGNOSIS: Stress urinary incontinence, plus retained sling in the urethra and stone. PROCEDURE: Cystoscopy, removal of retained sling and suburethral sling placement. ANESTHESIA: General. ANESTHESIOLOGIST: SURGEON: Zach Boyce MD ESTIMATED BLOOD LOSS: Minimal. FINDINGS: New sling placed. There is a portion of an old sling seen in the urethra. This was removed. SPECIMENS: Include portion of previous sling. PREOPERATIVE INDICATIONS: The patient is a 72-year-old female who suffers from stress urinary incontinence. She has a history of having a sling in the past that was not working. She comes to the OR today for new sling placement. THE OPERATION: The patient was brought to the OR, placed on the table in the supine position, given general anesthesia and IV antibiotics, and placed in the modified lithotomy position. The groin was prepped and draped sterilely. Time-out was performed. The Lyn catheter was placed. The portion of the urethra was identified, and Pitressin was injected into the portion of the urethra. Incision was made over the portion of the urethra, and the periurethral tissues were dissected off of the vaginal mucosa in a lateral fashion. The bladder was emptied. Using a trocar as a mini-sling, the Altis was placed. Trocars, the right side was placed under fingertip control and towards the obturator canal assuring that the left one was done similarly. Cystoscopy was then performed. The bladder itself appeared to be uninjured. There were no perforations or evidence of the new sling. Both UOs were seen with clear efflux. However, in the mid portion of the urethra, a stone was seen with a previous sling material within the urethra. This was and distinct from the new sling. It appeared to be a different brand and was covered with stones suggesting chronicity. Using the grasping forceps, the portion of the sling that was in the mid-urethra was removed. This was sent for pathology. Again, no other evidence of any sling or perforation was seen in the bladder. A Lyn catheter was placed in the bladder, and the sling was appropriately tightened, and the excess suture was excised. The vaginal mucosa was closed with 2-0 Vicryl suture. Packing and Lyn were left in place. ZACH BOYCE M.D. [id number]
[2017-08-10] MEDS ORDERED: ONDANSETRON 4 MG/2 ML VIAL IVPUSH PRN (14:38)
[2017-08-10] MEDS ORDERED: oxyCODONE HCL 5 MG TABLET PO PRN ×2 (14:40)
[2017-08-10] MEDS ORDERED: LACTATED RINGERS SOLUTION 1,000 ML IV SCH (14:45)
[2017-08-10 16:24] VITALS: BP 144/78; PULSE 62; TEMP 97.8
--- NOTE | 2017-08-11 09:03 | PATH ---
Surgical Pathology Report Patient Name: RASHARD ENCINAS Med. Rec. #: [id number] /Age/Gender: 1945 (Age: 72) / F Account: [id number] Location: [facility] Taken: 08/10/2017 Received: 08/10/2017 Reported: 08/11/2017 Physicians: Zach Boyce M.D. Specimen(s) Received URETHRAL STONE + RETAINED SLING Clinical History Urinary incontinence Final Diagnosis URETHRAL STONE AND SLING, SUBURETHRAL SLING PLACEMENT: URETHRAL CALCULI AND SLING. MACROSCOPIC DIAGNOSIS. Electronically Signed Latrice Guerra M.D. Gross Description Received in formalin labeled "urethral stone, retained sling," are 3 maurice portions of maurice mesh material ranging from 0.3 x 0.2 x 0.1 cm to 0.6 x 0.3 x 0.1 cm. Also received within the same container are multiple portions of maurice, possibly fragmented calculi averaging less than 0.1 cm in greatest dimension. No soft tissue is present. No sections are submitted, gross only. /08/10/2017 saudi08/10/2017
== END 2017-08-10 15:50 | disposition home or self-care (01) ==
LOC: JASU-SURG 08:49
PROVIDERS: ATTEND Urology
PROC: 0TSD4ZZ Reposition Urethra, Percutaneous Endoscopic Approach (ICD-10-PCS; principal; 2017-08-10 10:00)
DX: N39.3 Stress incontinence (female) (male) (principal); Z18.2 Retained plastic fragments; E11.9 Type 2 diabetes mellitus without complications; E78.00 Pure hypercholesterolemia, unspecified; E03.9 Hypothyroidism, unspecified; I10 Essential (primary) hypertension; G47.33 Obstructive sleep apnea (adult) (pediatric); Z99.89 Dependence on other enabling machines and devices; Z87.891 Personal history of nicotine dependence; Z79.82 Long term (current) use of aspirin; Z79.84 Long term (current) use of oral hypoglycemic drugs
CPT/HCPCS: 88300-TC; 94760; J0131

== ENCOUNTER 2017-11-02 07:46 | Day surgery (SDC) | payer OTHER ==
[2017-11-01 11:12] VITALS: BMI 47.0
[2017-11-02] MEDS ORDERED: ACETAMINOPHEN 1000 MG/100 ML VIAL (NON FORMULARY) IVPB ONE (09:35)
--- NOTE | 2017-11-02 09:38 | HP ---
History & Physical Update - History History: No Change - Physical Physical: No Change - Assessment Assessment: No Change - Plan Plan: No Change
[2017-11-02] MEDS ORDERED: DEXTROSE 5%-0.45% SALINE 1,000 ML IV SCH (09:45)
[2017-11-02] MEDS ORDERED: IBUPROFEN 800 MG/8 ML IJ IVPB SCH (09:45)
[2017-11-02] MEDS ORDERED: PROPOFOL 20 ML ONE (09:46)
[2017-11-02] MEDS ORDERED: ROCURONIUM BROMIDE 50 MG/5 ML VIAL ONE (09:47)
[2017-11-02] MEDS ORDERED: SUCCINYLCHOLINE CHLORIDE 200 MG/10 ML VIAL ONE (09:47)
[2017-11-02] MEDS ORDERED: CEFTRIAXONE 2 GM in DEXTROSE 5%-WATER 100 ML IVPB ONE (10:00)
[2017-11-02] MEDS ORDERED: LIDOCAINE HCL 2% JELLY 10 ML CARTRIDGE TP ONE (10:38)
[2017-11-02] MEDS ORDERED: ACETAMINOPHEN INJECTION 100 ML IVPB ONE (11:21)
[2017-11-02] MEDS ORDERED: ONDANSETRON 4 MG/2 ML VIAL IVPUSH PRN (12:25)
[2017-11-02] MEDS ORDERED: PROMETHAZINE HCL 25 MG/1 ML VIAL IVPUSH PRN (12:25)
[2017-11-02] MEDS ORDERED: oxyCODONE HCL 5 MG TABLET PO PRN (12:25)
[2017-11-02] MEDS ORDERED: LACTATED RINGERS SOLUTION 1,000 ML IV SCH (12:30)
[2017-11-02 14:05] VITALS: BP 132/78; PULSE 66; TEMP 97.4
--- NOTE | 2017-11-03 09:33 | PATH ---
Surgical Pathology Report Patient Name: RASHARD ENCINAS [facility]. Rec. #: [id number] /Age/Gender: 1945 (Age: 72) / F Account: [id number] Location: [facility] Taken: 11/02/2017 Received: 11/02/2017 Reported: 11/03/2017 Physicians: Zach Boyce M.D. Specimen(s) Received MESH Clinical History Bladder stone Final Diagnosis MESH-FOREIGN BODY, REMOVAL: CONSISTENT WITH MESH. GROSS EXAMINATION ONLY. Electronically Signed Og Lehman M.D. Gross Description Received fresh labeled "mesh-foreign body," are 2 maurice fragments of mesh material measuring 0.4 and 0.7 cm in greatest dimension. No soft tissue is present. No sections are submitted, gross only. /11/02/2017 saudi/11/02/2017
--- NOTE | 2017-12-23 09:58 | OP ---
DATE OF OPERATION: 11/02/2017 PREOPERATIVE DIAGNOSIS: Bladder stone, foreign body in urethra. POSTOPERATIVE DIAGNOSIS: Bladder stone, foreign body in urethra. PROCEDURE: Cystoscopy, laser lithotripsy of bladder stone and a foreign body. SURGEON: Zahc Boyce MD ESTIMATED BLOOD LOSS: None. SPECIMEN: Portion of foreign body sling. FINDINGS: Urethral stone, bladder stone, and sling in urethra. PREOPERATIVE INDICATIONS: The patient is a 72-year-old female with history of stress urinary incontinence and recurrent UTIs. She had a sling placed about 10 years ago, which had eroded into the urethra and created urethral and bladder stones. Previously, she had a redo of her sling, which helped. However, she continued to have discomfort and UTIs. OPERATION: The patient was brought to the OR, placed on the table in the supine position, given general anesthesia and IV antibiotics, and placed in the modified lithotomy position. The groin was prepped and draped sterilely. Cystoscopy was performed. A portion of retained sling from the surgery done 10 years ago was seen within the urethra. The sling was treated with the laser to remove the intraurethral portion and salvageable part was pulled out and sent for pathology. There also were bladder stones and urethral stones associated with this. These were also broken up with the Holmium Laser. Patient tolerated the procedure well. A Lyn catheter was left in place. Patient was woken up. ZACH BOYCE M.D. [id number]
== END 2017-11-02 14:10 | disposition home or self-care (01) ==
LOC: JASU-SURG 07:46
PROVIDERS: ATTEND Urology
PROC: 0TCD8ZZ Extirpation of Matter from Urethra, Via Natural or Artificial Opening Endoscopic (ICD-10-PCS; 2017-11-02)
PROC: 0TCB8ZZ Extirpation of Matter from Bladder, Via Natural or Artificial Opening Endoscopic (ICD-10-PCS; principal; 2017-11-02 09:00)
DX: N21.0 Calculus in bladder (principal); M79.5 Residual foreign body in soft tissue
CPT/HCPCS: 88300-TC; 94760; J0131

== ENCOUNTER 2017-12-23 18:04 | Inpatient (IN) | payer OTHER ==
--- NOTE | 2017-12-23 19:00 | PDOC ---
History of Present Illness - General Chief Complaint: Urinary Problem Stated Complaint: POSSIBLE UTI Time Seen by Provider: 12/23/17 19:00 - History of Present Illness Initial Comments: 12/23/17 19:37 72 yo F with PMH of DM, asthma, CVA, GERD, hypothyroidism, HTN, HLD, RA (on immunosuppressants), cystocele, RULA, and recurrented UTI's (with ESBL) who was sent to the ED today by her PCP - Dr. Boggs - to get admitted bc she has a complex UTI. She came into the ED with blood and lab work done at [facility]. The Lab shows her Urine is resistant to most antibiotic agents. It is sensitive to ertapenem, imipenem and gentamycin. She endorses dysuria, frequency, urgency, hesitancy, flank pain and probable hematuria. Pt has had previous UTI's with ESBL and last admission was one month ago where she received ertapenem. She denies any chest pain, SOB, difficulty breathing. She denies any abdominal pain 12/23/17 19:39 Past History - Past Medical History Allergies/Adverse Reactions: Allergies Allergy/AdvReac Type Severity Reaction Status Date / Time No Known Allergies Allergy Verified 11/18/17 19:00 Home Medications: Ambulatory Orders Alprazolam [Xanax] 1 mg PO HS PRN 06/13/16 Atorvastatin Ca [Lipitor] 40 mg PO DAILY 06/13/16 Furosemide [Lasix] 40 mg PO DAILY 06/13/16 Metoprolol Succinate [Toprol Xl] 200 mg PO DAILY 06/13/16 Montelukast Na [Singulair -] 10 mg PO HS 06/13/16 Pregabalin [Lyrica -] 150 mg PO BID 06/13/16 hydrALAZINE HCL [Apresoline -] 25 mg PO BID 03/02/17 Duloxetine HCl [Cymbalta] 60 mg PO DAILY 03/07/17 Mirabegron [Myrbetriq] 50 mg PO DAILY 06/07/17 Albuterol Sulfate [Proair Respiclick] 90 mcg IH PRN PRN 08/02/17 Aspirin 81 mg PO DAILY 08/02/17 Cholecalciferol (Vitamin D3) [Vitamin D3] 2,000 unit PO DAILY 08/02/17 Docusate Sodium [Colace] 200 mg PO HS 08/02/17 Levothyroxine [Synthroid -] 175 mcg PO DAILY@0700 08/02/17 Potassium Chloride [K-Dur -] 20 meq PO DAILY 08/02/17 Dexlansoprazole [Dexilant] 60 mg PO ACBK 11/18/17 Fluticasone Prop 0.05% Nasal [Flonase -] 1 spray NS DAILY 11/18/17 Oxycodone HCl/Acetaminophen [Percocet 5-325 mg Tablet] 1 tab PO Q6H PRN MDD 6 Solifenacin Succinate [Vesicare -] 5 mg PO DAILY 11/18/17 Ertapenem Sodium [Invanz -] 1 gm IVPB DAILY vial 11/29/17 Lactobacillus Acidophilus [Bacid -] 1 tab PO BID tab 11/29/17 Mag Hydrox/Al Hydrox/Simeth [Mylanta Oral Suspension -] 30 ml PO Q6H PRN cup Vancomycin Oral Solution 125 mg PO Q6HPO #100 ml 11/29/17 Anemia: No Asthma: Yes Cancer: No Cardiac Disorders: No CVA: No COPD: No CHF: No DVT: No Dementia: No Diabetes: Yes (NO MEDS) GI Disorders: Yes (REFLUX) Disorders: Yes (KIDNEY STONES) HTN: Yes Hypercholesterolemia: Yes Liver Disease: No Seizures: No Thyroid Disease: Yes (HYPO) - Surgical History Abdominal Surgery: No Appendectomy: Yes Cardiac Surgery: No Cholecystectomy: Yes Lung Surgery: No Neurologic Surgery: No Orthopedic Surgery: Yes (CARITO. KNEE REPLACEMENTS) - Immunization History Immunization Up to Date: Yes - Suicide/Smoking/Psychosocial Hx Smoking Status: Yes Smoking History: Never smoked Have you smoked in the past 12 months: No Number of Cigarettes Smoked Daily: 0 If you are a former smoker, when did you quit?: as a teenager Information on smoking cessation initiated: No Hx Alcohol Use: No Drug/Substance Use Hx: No Substance Use Type: None Hx Substance Use Treatment: No Review of Systems - Review of Systems Comments:: 12/23/17 19:50 GENITOURINARY: Positive: dysuria, frequency, urgency, hesitancy, hematuria, flank pain Absent: genital pain CONSTITUTIONAL: Positive: Chills Absent: fever, diaphoresis, generalized weakness, malaise, loss of appetite HEENT: Absent: rhinorrhea, nasal congestion, throat pain, throat swelling, difficulty swallowing, mouth swelling, ear pain, eye pain, visual Changes CARDIOVASCULAR: Absent: chest pain, syncope, palpitations, irregular heart rate, lightheadedness , peripheral edema RESPIRATORY: Absent: cough, shortness of breath, dyspnea with exertion, orthopnea, wheezing, stridor, hemoptysis GASTROINTESTINAL: Absent: abdominal pain, abdominal distension, nausea, vomiting, diarrhea, constipation, melena, hematochezia MUSCULOSKELETAL: Absent: myalgia, arthralgia, joint swelling SKIN: Absent: rash, itching, pallor HEMATOLOGIC/IMMUNOLOGIC: Positive: frequent urinary tract infections. Absent: easy bleeding, easy bruising, lymphadenopathy ENDOCRINE: Absent: unexplained weight gain, unexplained weight loss, heat intolerance, cold intolerance NEUROLOGIC: Absent: headache, focal weakness or paresthesias, dizziness, unsteady gait, seizure, mental status changes, bladder or bowel incontinence PSYCHIATRIC: Absent: anxiety, depression, suicidal or homicidal ideation, hallucinations. *Physical Exam - Vital Signs Last Vital Signs Temp Pulse Resp BP Pulse Ox 98.6 F 68 20 188/86 95 12/23/17 18:22 12/23/17 18:22 12/23/17 18:22 12/23/17 18:22 12/23/17 18:22 - Physical Exam Comments: 12/23/17 19:53 + R sided CVA + Suprapubic tenderness GENERAL: Well developed, well nourished. Awake and alert. No acute distress. HEENT: Dry mucous membranes. Normocephalic, atraumatic. PERRLA, EOMI. No conjunctival pallor. Sclera are non- icteric. Oropharynx is clear. NECK: Supple. Full ROM. No JVD. No thyromegaly. No lymphadenopathy. CARDIOVASCULAR: Regular rate and rhythm. No murmurs, rubs, or gallops. Distal pulses are 2+ and symmetric. PULMONARY: No evidence of respiratory distress. Lungs clear to auscultation bilaterally. No wheezing, rales or rhonchi. ABDOMINAL: Soft. Non-tender. Non-distended. No rebound or guarding. No organomegaly. Normoactive bowel sounds. MUSCULOSKELETAL +R sided CVA Normal range of motion at all joints. No bony deformities or tenderness. EXTREMITIES: No cyanosis. No clubbing. No edema. No calf tenderness. SKIN: Warm and dry. Normal capillary refill. No rashes. No jaundice. NEUROLOGICAL: Alert, awake, appropriate. Cranial nerves 2-12 intact. Normal speech. PSYCHIATRIC: Cooperative. Good eye contact. Appropriate mood and affect. ED Treatment Course - LABORATORY CBC & Chemistry Diagram: 12/23/17 20:25 12/23/17 20:25 Medical Decision Making - Medical Decision Making 12/23/17 19:55 72 yo F with PMH of DM, asthma, CVA, GERD, hypothyroidism, HTN, HLD, RA (on immunosuppressants), cystocele, RULA, and recurrented UTI's (with ESBL) sent here by PCP to be admitted based on lab and urine work done at [facility]. Patient feels fine but understands her PCP's request. Her urine shows she has a UTI, combined with R sided CVA she likely has pyelo. Given her prior urine culture resistances to most Abx she will likely need to be admitted for treatment with ertapenem. Plan: Labs, Urine, ABx, Admit. *DC/Admit/Observation/Transfer Diagnosis at time of Disposition: UTI (urinary tract infection), ESBL (extended spectrum beta-lactamase) producing bacteria infection, Recurrent UTI (urinary tract infection), Pyelonephritis - Discharge Dispostion Condition at time of disposition: Stable Decision to Admit order: Yes - Referrals Referrals: Madison Henriquez MD [Primary Care Provider] - - Patient Instructions - Post Discharge Activity
[2017-12-23 20:05] LABS: URINE APPEARANCE TURBID; URINE BILIRUBIN NEGATIVE (<2.0 mg/dL); URINE COLOR YELLOW; URINE GLUCOSE (UA) NEGATIVE (NEGATIVE); URINE KETONE NEGATIVE (NEGATIVE); URINE LEUK ESTERASE 3+ (NEGATIVE); URINE NITRITE NEGATIVE (NEGATIVE); URINE PROTEIN 2+ (NEGATIVE); URINE UROBILINOGEN NEGATIVE mg/dL (0.2-1.0)
[2017-12-23 20:14] LABS: EPI CELLS FEW /HPF (FEW); URINE BACTERIA MANY /hpf (NONE SEEN); URINE MUCUS RARE
--- NOTE | 2017-12-23 20:18 | PDOC ---
Attending Attestation - Resident Resident Name: Caleb Celaya - ED Attending Attestation I have performed the following: I have examined & evaluated the patient, The case was reviewed & discussed with the resident, I agree w/resident's findings & plan, Exceptions are as noted - HPI HPI: 12/23/17 20:18 72y f hx of htn, hl, ESBL UTIs sent by Dr. Vidal for evlauation for UTI. pt denie sany fevers, but notes some mild R sided back pain. denies n/v, cp, sob. pt notes that she had blood work and ua done by dr. vidal last week and was told thta her urine was +, and was only senstiive to IV abx. on exam pt in n odistress, nontoxic appearing abd soft nontender, mild R cided cva tenderness card: rrr pulm: cta b/l anticipate admission for iv abx for ESBL UTI no systemic complaints - Physicial Exam PE: 12/25/17 20:01 see above - Medical Decision Making 12/25/17 20:01 see above Heart Score/ECG Review - ECG Impressions Comment:: 12/24/17 02:21 Twelve-lead EKG was performed and reviewed by me. There is normal sinus rhythm with a normal rate. left axis devaition. The intervals are normal.
[2017-12-23 20:39] LABS: BASO % 1.3 % (0-2.0); EOS % 2.3 % (0-4.5); HEMATOCRIT 40.1 % (32.4-45.2); LYMPH % 17.6 % (8-40); MCHC 32.5 g/dl (32.0-36.0); MEAN CELL VOLUME 83.2 fl (80-96); MEAN PLT VOLUME 8.2 fl (7.5-11.1); MONO % 7.3 % (3.8-10.2); NEUT % 71.5 % (42.8-82.8); PLATELET COUNT 270 K/MM3 (134-434); RBC 4.82 M/mm3 (3.60-5.2); RDW 17.6 % (11.6-15.6); WHITE BLOOD COUNT 7.5 K/mm3 (4.0-10.0)
[2017-12-23 21:10] LABS: ALBUMIN 3.4 g/dl (3.4-5.0); ANION GAP 9 MMOL/L (8-16); BLOOD UREA NITROGEN 11 mg/dL (7-18); CALCIUM 9.4 mg/dL (8.5-10.1); CHLORIDE 108 mmol/L (98-107); CO2 26 mmol/L (21-32); CREATININE 0.6 mg/dL (0.55-1.3); GLUCOSE,RANDOM 104 mg/dL (74-106); SGPT/ALT 53 U/L (13-61); SODIUM 143 mmol/L (136-145)
[2017-12-23 21:11] LABS: ALK PHOS 123 U/L (45-117); BILIRUBIN,TOTAL 0.4 mg/dL (0.2-1.0); TOT PROT 6.7 g/dl (6.4-8.2)
[2017-12-23 21:14] LABS: POTASSIUM 4.9 mmol/L (3.5-5.1); SGOT/AST 62 U/L (15-37)
[2017-12-23] MEDS ORDERED: ERTAPENEM SODIUM 1 GM in SODIUM CHLORIDE 50 ML IVPB ONE (22:21)
--- NOTE | 2017-12-23 22:45 | PN ---
Teaching Attending Note Name of Resident: Joy Calderon ATTENDING PHYSICIAN STATEMENT I saw and evaluated the patient. I reviewed the resident's note and discussed the case with the resident. I agree with the resident's findings and plan as documented. SUBJECTIVE: Patient is a 72 year old woman with PMH of NIDDM, asthma, CVA, GERD, hypothyroidism, bilateral knee replacement, kidney stones, HTN, HLD, RA (on immunosuppressants), cystocele, RULA, and recurrent UTI's (with ESBL) who was sent to the ED today by her PCP - Dr. Mccullough - to get admitted for a complex UTI. She came into the ER with blood and lab work done at [facility]. She has dysuria, frequency, urgency, hesitancy, flank pain and probable hematuria. Denies any chest pain, SOB, difficulty breathing or abdominal pain. Patient has had previous UTI's with ESBL producing Klebsiella pneumoniae sensitive to ertapenem. OBJECTIVE: Alert Vital Signs Period Temp Pulse Resp BP Sys/Santiago Pulse Ox Last 24 Hr 98.6 F 68 20 188/86 95 HEENT: No Jaundice, eye redness or discharge, PERRLA, EOMI. Normocephalic, atraumatic. External ears are normal and hearing is grossly intact. No nasal discharge. Neck: Supple, nontender. No palpable adenopathy or thyromegaly. No JVD Chest: Good effort. Clear to auscultation and percussion. Heart: Regular. No S3, rub or murmur Abdomen: Not distended, soft, nontender and no HSM. No rebound or guarding. Normoactive bowel sounds. Ext: Peripheral pulses intact. No leg edema. Skin: Warm and dry. No petechiae, rash or ecchymosis. Neuro: Alert. Oriented x3. CN 2-12 grossly intact. Sensation grossly intact in all four extremities and DTR are symmetric. Current Medications Generic Name Dose Route Start Last Admin Trade Name Freq PRN Reason Stop Dose Admin Ertapenem 1 gm/ Sodium 50 mls @ 50 mls/hr 12/23/17 22:21 Chloride IVPB 12/23/17 23:20 ONCE ONE Protocol Home Medications Medication Instructions Recorded Alprazolam [Xanax] 1 mg PO HS PRN 06/13/16 Atorvastatin Ca [Lipitor] 40 mg PO DAILY 06/13/16 Furosemide [Lasix] 40 mg PO DAILY 06/13/16 Metoprolol Succinate [Toprol Xl] 200 mg PO DAILY 06/13/16 Montelukast Na [Singulair -] 10 mg PO HS 06/13/16 Pregabalin [Lyrica -] 150 mg PO BID 06/13/16 hydrALAZINE HCL [Apresoline -] 25 mg PO BID 03/02/17 Duloxetine HCl [Cymbalta] 60 mg PO DAILY 03/07/17 Mirabegron [Myrbetriq] 50 mg PO DAILY 06/07/17 Albuterol Sulfate [Proair 90 mcg IH PRN PRN 08/02/17 Respiclick] Aspirin 81 mg PO DAILY 08/02/17 Cholecalciferol (Vitamin D3) 2,000 unit PO DAILY 08/02/17 [Vitamin D3] Docusate Sodium [Colace] 200 mg PO HS 08/02/17 Levothyroxine [Synthroid -] 175 mcg PO DAILY@0700 08/02/17 Potassium Chloride [K-Dur -] 20 meq PO DAILY 08/02/17 Dexlansoprazole [Dexilant] 60 mg PO ACBK 11/18/17 Fluticasone Prop 0.05% Nasal 1 spray NS DAILY 11/18/17 [Flonase -] Oxycodone HCl/Acetaminophen 1 tab PO Q6H PRN MDD 6 11/18/17 [Percocet 5-325 mg Tablet] Solifenacin Succinate [Vesicare -] 5 mg PO DAILY 11/18/17 Ertapenem Sodium [Invanz -] 1 gm IVPB DAILY vial 11/29/17 Lactobacillus Acidophilus [Bacid -] 1 tab PO BID tab 11/29/17 Mag Hydrox/Al Hydrox/Simeth 30 ml PO Q6H PRN cup 11/29/17 [Mylanta Oral Suspension -] Vancomycin Oral Solution 125 mg PO Q6HPO #100 ml 11/29/17 Abnormal Lab Results 12/23/17 12/23/17 12/23/17 19:55 20:25 20:25 RDW 17.6 H Chloride 108 H AST 62 H Alkaline Phosphatase 123 H Urine Protein 2+ H Urine Blood 2+ H Ur Leukocyte Esterase 3+ H ASSESSMENT AND PLAN: 1. Pyelonephritis/UTI - Will treat with IV Ertapenem 1 gm qd based on historical culture of ESBL Klebsiella pneumoniae - pending results of current culture. Will get an abdominal sonogram to rule out an obstructing kidney stone. 2. Diet controlled-DM - Implement sliding scale insulin regimen. Provide comprehensive diabetes care with patient teaching and counseling about the importance of euglycemia, eye care and foot care. Check HbA1c. 3. Obesity - Will provide patient all the necessary assistance, counseling and positive reinforcement to facilitate weight loss. Consult application architect. 4. Polypharmacy - Will liaise with her PCP to attempt to reduce the total number of her medications. 5. DVT prophylaxis - Lovenox 40 mg SQ q 12 hours. 6. Advance directives - Full code
[2017-12-23] MEDS ORDERED: ERTAPENEM SODIUM 1 GM VIAL ONE (22:49)
--- NOTE | 2017-12-23 23:20 | PN ---
Physical Exam: SUBJECTIVE: Patient seen and examined OBJECTIVE: Vital Signs Period Temp Pulse Resp BP Sys/Santiago Pulse Ox Last 24 Hr 98.6 F 68 20 188/86 95 GENERAL: The patient is awake, alert, and fully oriented, in no acute distress. HEAD: Normal with no signs of trauma. EYES: PERRL, extraocular movements intact, sclera anicteric, conjunctiva clear. No ptosis. ENT: Ears normal, nares patent, oropharynx clear without exudates, moist mucous membranes. NECK: Trachea midline, full range of motion, supple. LUNGS: Breath sounds equal, clear to auscultation bilaterally, no wheezes, no crackles, no accessory muscle use. HEART: Regular rate and rhythm, S1, S2 without murmur, rub or gallop. ABDOMEN: Soft, nontender, nondistended, normoactive bowel sounds, no guarding, no rebound, no hepatosplenomegaly, no masses. EXTREMITIES: 2+ pulses, warm, well-perfused, no edema. NEUROLOGICAL: Cranial nerves II through XII grossly intact. Normal speech, gait not observed. PSYCH: Normal mood, normal affect. SKIN: Warm, dry, normal turgor, no rashes or lesions noted Laboratory Results - last 24 hr 12/23/17 12/23/17 12/23/17 19:55 20:25 20:25 WBC 7.5 RBC 4.82 Hgb 13.0 Hct 40.1 MCV 83.2 MCH 27.0 MCHC 32.5 RDW 17.6 H Plt Count 270 MPV 8.2 Absolute Neuts (auto) 5.4 Neutrophils % 71.5 Lymphocytes % 17.6 D Monocytes % 7.3 Eosinophils % 2.3 Basophils % 1.3 Nucleated RBC % 0 Sodium 143 Potassium 4.9 Chloride 108 H Carbon Dioxide 26 Anion Gap 9 BUN 11 Creatinine 0.6 Creat Clearance w eGFR > 60 Random Glucose 104 Calcium 9.4 Total Bilirubin 0.4 AST 62 H ALT 53 Alkaline Phosphatase 123 H Total Protein 6.7 Albumin 3.4 Urine Color Yellow Urine Appearance Turbid Urine pH 6.0 Ur Specific [place] 1.015 Urine Protein 2+ H Urine Glucose (UA) Negative Urine Ketones Negative Urine Blood 2+ H Urine Nitrite Negative Urine Bilirubin Negative Urine Urobilinogen Negative Ur Leukocyte Esterase 3+ H Urine WBC (Auto) 1983 Urine RBC (Auto) 58 Ur Epithelial Cells Few Urine Bacteria Many Urine Mucus Rare ASSESSMENT/PLAN:
--- NOTE | 2017-12-23 23:36 | HP ---
CHIEF COMPLAINT: Dysuria, and bilateral flank pain x 1 week PCP: Dr Henriquez HISTORY OF PRESENT ILLNESS: 72 yo F with PMH of obesity, DM, asthma, CVA, GERD, hypothyroidism, HTN, HLD, RA , cystocele, RULA, and recurrent UTI's (with ESBL) presenting with burning with urination,frequency, urgency, hesitancy, flank pain and probable hematuria. Pt reports nausea, but no vomiting. Has B/l back pain+. Chills but no documented fevers. She has a hx of nephrolithiasis and cystocele. Pt saw PCP one week ago following onset of symptoms, had labs drawn then and was referred to ED today following positive Ucx results for ESBL UTI by her PCP - Dr. Henriquez for Iv Antibiotics. Lab work done at [facility] 12/16/17, showed ESBL UTI sensitive to ertapenem, imipenem and gentamycin. Pt has had previous UTI's with ESBL and last admission was one month ago where she received ertapenem. ER course was notable for: (1)1 gram Ertrapenem (2) UA-3+ LE, WBC-1983, RBCs 58, 2+ Pr, @+ blood, rare mucus, few epith cells (3) Recent Travel: PAST MEDICAL HISTORY: DM, asthma, CVA, GERD, hypothyroidism, HTN, HLD, RA, cystocele, RULA, and recurrent UTI's PAST SURGICAL HISTORY: Social History: Smoking: Denies Alcohol:Denies Drugs: Family History: Allergies No Known Allergies Allergy (Verified 11/18/17 19:00) HOME MEDICATIONS: Home Medications Medication Instructions Recorded Alprazolam [Xanax] 1 mg PO HS PRN 06/13/16 Atorvastatin Ca [Lipitor] 40 mg PO DAILY 06/13/16 Furosemide [Lasix] 40 mg PO DAILY 06/13/16 Metoprolol Succinate [Toprol Xl] 200 mg PO DAILY 06/13/16 Montelukast Na [Singulair -] 10 mg PO HS 06/13/16 Pregabalin [Lyrica -] 150 mg PO BID 06/13/16 hydrALAZINE HCL [Apresoline -] 25 mg PO BID 03/02/17 Duloxetine HCl [Cymbalta] 60 mg PO DAILY 03/07/17 Mirabegron [Myrbetriq] 50 mg PO DAILY 06/07/17 Albuterol Sulfate [Proair 90 mcg IH PRN PRN 08/02/17 Respiclick] Aspirin 81 mg PO DAILY 08/02/17 Cholecalciferol (Vitamin D3) 2,000 unit PO DAILY 08/02/17 [Vitamin D3] Docusate Sodium [Colace] 200 mg PO HS 08/02/17 Levothyroxine [Synthroid -] 175 mcg PO DAILY@0700 08/02/17 Potassium Chloride [K-Dur -] 20 meq PO DAILY 08/02/17 Dexlansoprazole [Dexilant] 60 mg PO ACBK 11/18/17 Fluticasone Prop 0.05% Nasal 1 spray NS DAILY 11/18/17 [Flonase -] Oxycodone HCl/Acetaminophen 1 tab PO Q6H PRN MDD 6 11/18/17 [Percocet 5-325 mg Tablet] Solifenacin Succinate [Vesicare -] 5 mg PO DAILY 11/18/17 Ertapenem Sodium [Invanz -] 1 gm IVPB DAILY vial 11/29/17 Lactobacillus Acidophilus [Bacid -] 1 tab PO BID tab 11/29/17 Mag Hydrox/Al Hydrox/Simeth 30 ml PO Q6H PRN cup 11/29/17 [Mylanta Oral Suspension -] Vancomycin Oral Solution 125 mg PO Q6HPO #100 ml 11/29/17 REVIEW OF SYSTEMS CONSTITUTIONAL: Absent: fever, chills, diaphoresis, generalized weakness, malaise, loss of appetite, weight change HEENT: Absent: rhinorrhea, nasal congestion, throat pain, throat swelling, difficulty swallowing, mouth swelling, ear pain, eye pain, visual changes CARDIOVASCULAR: Absent: chest pain, syncope, palpitations, irregular heart rate, lightheadedness , peripheral edema RESPIRATORY: Absent: cough, shortness of breath, dyspnea with exertion, orthopnea, wheezing, stridor, hemoptysis GASTROINTESTINAL: Absent: abdominal pain, abdominal distension, nausea, vomiting, diarrhea, constipation, melena, hematochezia GENITOURINARY: Absent: dysuria, frequency, urgency, hesitancy, hematuria, flank pain, genital pain MUSCULOSKELETAL: Absent: myalgia, arthralgia, joint swelling, back pain, neck pain SKIN: Absent: rash, itching, pallor HEMATOLOGIC/IMMUNOLOGIC: Absent: easy bleeding, easy bruising, lymphadenopathy, frequent infections ENDOCRINE: Absent: unexplained weight gain, unexplained weight loss, heat intolerance, cold intolerance NEUROLOGIC: Absent: headache, focal weakness or paresthesias, dizziness, unsteady gait, seizure, mental status changes, bladder or bowel incontinence PSYCHIATRIC: Absent: anxiety, depression, suicidal or homicidal ideation, hallucinations. PHYSICAL EXAMINATION Vital Signs - 24 hr 12/23/17 18:22 Temperature 98.6 F Pulse Rate 68 Respiratory 20 Rate Blood Pressure 188/86 O2 Sat by Pulse 95 Oximetry (%) GENERAL: Morbidly obese lady in wheel chair, smelling of urine, Awake, alert, and fully oriented, in no acute distress. EYES: Pupils equal, round and reactive to light, EARS, NOSE, THROAT: Moist mucous membranes. NECK: Normal range of motion, supple LUNGS: Breath sounds equal, clear to auscultation bilaterally. No wheezes, and no crackles. HEART: Regular rate and rhythm, normal S1 and S2 ABDOMEN: Obese, Soft, nontender, not distended, normoactive bowel sounds MUSCULOSKELETAL: Normal range of motion at all joints. No bony deformities or tenderness. Bilateral CVA tenderness, R>L. LOWER EXTREMITIES: No peripheral edema. NEUROLOGICAL: Cranial nerves II-XII intact. Normal speech. No facial droop PSYCHIATRIC: Cooperative. Good eye contact. SKIN: Warm, dry CBC, BMP 12/23/17 20:25 12/23/17 20:25 Laboratory Results - last 24 hr 12/23/17 12/23/17 12/23/17 19:55 20:25 20:25 WBC 7.5 RBC 4.82 Hgb 13.0 Hct 40.1 MCV 83.2 MCH 27.0 MCHC 32.5 RDW 17.6 H Plt Count 270 MPV 8.2 Absolute Neuts (auto) 5.4 Neutrophils % 71.5 Lymphocytes % 17.6 D Monocytes % 7.3 Eosinophils % 2.3 Basophils % 1.3 Nucleated RBC % 0 Sodium 143 Potassium 4.9 Chloride 108 H Carbon Dioxide 26 Anion Gap 9 BUN 11 Creatinine 0.6 Creat Clearance w eGFR > 60 Random Glucose 104 Calcium 9.4 Total Bilirubin 0.4 AST 62 H ALT 53 Alkaline Phosphatase 123 H Total Protein 6.7 Albumin 3.4 Urine Color Yellow Urine Appearance Turbid Urine pH 6.0 Ur Specific [place] 1.015 Urine Protein 2+ H Urine Glucose (UA) Negative Urine Ketones Negative Urine Blood 2+ H Urine Nitrite Negative Urine Bilirubin Negative Urine Urobilinogen Negative Ur Leukocyte Esterase 3+ H Urine WBC (Auto) 1983 Urine RBC (Auto) 58 Ur Epithelial Cells Few Urine Bacteria Many Urine Mucus Rare ASSESSMENT/PLAN: 72 yo F with PMH of obesity, DM, asthma, CVA, GERD, hypothyroidism, HTN, HLD, RA , cystocele, RULA, and recurrent UTI's (with ESBL) presenting with burning with urination. Complicated UTI- pyelonephritis R/o nephrolithiasis Hx of recurrent UTI with ESBL ( documented cx results from PCP) hX of stones hX OF cystocoele Cont ertapenem 1gm NS @42 Abd/pelvic US R/o nephrolithiasis Med surg ID- Dr Martin DM Pt says she is diet controlled T2DM ISS BGM ACHS DM diet HgbA1c asthma Not in exacerbation Cont nebs CVA Cont ASA, lipitor, GERD Hold PPI hypothyroidism Cont synthroid HTN Cont home meds HLD Cont lipitor RA, Not currently on an immunosuppressant-leflunomidewas used in past, not in acute flare up cystocele Cont vesicare, RULA, Monitor obesity Diet control PPx: Hep sq FEN NS @42/hr Monitor Lytes replete as needed Diabetic diet Dispo: In Pt med Surg D/W Dr Lujan Visit type - Emergency Visit Emergency Visit: Yes ED Registration Date: 12/23/17 Care time: The patient presented to the Emergency Department on the above date and was hospitalized for further evaluation of their emergent condition. - New Patient This patient is new to me today: Yes Date on this admission: 12/25/17 - Critical Care Critical Care patient: No Hospitalist Screening - Colonoscopy Questionnaire Colonoscopy Questionnaire: Colonoscopy Questionnaire - Patient: 50 - 75 years old and never had a screening colonoscopy: Yes History of colon or rectal polyps, or CA: Unknown History of IBD, Crohn's disease or UC: Unknown History of abdominal radiation therapy as a child: Unknown - Relative: 1 with colon or rectal CA, or polyps at age 60 or younger: Unknown Colon or rectal CA diagnosed at age 45 or younger: Unknown Multiple relatives with colon or rectal CA: Unknown - Outcome: Screening Result: Positive Screen
[2017-12-24] MEDS ORDERED: ALBUTEROL SO4 8 GM HFA INHALER IH PRN (03:02)
[2017-12-24] MEDS: SODIUM CHLORIDE 1,000 ML IV SCH ×2 (04:28→06:15)
[2017-12-24] MEDS ORDERED: LEVOTHYROXINE NA 75 MCG TABLET (FP) ONE (05:03)
[2017-12-24] MEDS ORDERED: LEVOTHYROXINE NA 100 MCG TABLET (FP) ONE (05:03)
[2017-12-24] MEDS: HEPARIN NA (PORCINE) 5,000 UNITS/ML 1ML VIAL SQ SCH ×3 (05:12→21:55)
[2017-12-24 05:39] VITALS: BMI 48.9
[2017-12-24] MEDS: INSULIN SLIDING SCALE (NOVOLOG) 1 VIAL SQ SCH ×4 (06:12→21:54)
[2017-12-24] MEDS: LEVOTHYROXINE 100 MCG, LEVOTHYROXINE 75 MCG PO SCH (06:13)
[2017-12-24] MEDS ORDERED: LEVOTHYROXINE NA 100 MCG TABLET (FP) PO SCH (07:00)
--- NOTE | 2017-12-24 07:42 | PN ---
Progress Note, Physician Chief Complaint: EVENTS AND NOTES REVIEWED AWAKE ALERT FEELING BETTER - Current Medication List Current Medications: Active Medications Albuterol Sulfate (Ventolin Hfa Inhaler -) 2 puff IH Q6H PRN PRN Reason: SHORTNESS OF BREATH Amlodipine Besylate (Norvasc -) 5 mg PO DAILY [facility] Aspirin (Asa -) 81 mg PO DAILY [facility] Atorvastatin Calcium (Lipitor -) 40 mg PO DAILY [facility] Budesonide/Formoterol Fumarate (Symbicort 80/4.5mcg -) 2 puff IH BID [facility] Cholecalciferol (Vitamin D3 -) 2,000 unit PO DAILY [facility] Docusate Sodium (Colace -) 200 mg PO HS [facility] Duloxetine HCl (Cymbalta -) 60 mg PO DAILY [facility] Fluticasone Propionate (Flonase -) 1 spray NS DAILY [facility] Heparin Sodium (Porcine) (Heparin -) 5,000 unit SQ TID [facility] Last Admin: 12/24/17 05:12 Dose: 5,000 unit Hydralazine HCl (Apresoline -) 25 mg PO BID [facility] Sodium Chloride (Normal Saline -) 1,000 mls @ 42 mls/hr IV ASDIR [facility] Last Admin: 12/24/17 06:15 Dose: 42 mls/hr Insulin Aspart (Novolog Vial Sliding Scale -) 1 vial SQ ACHS [facility]; Protocol Last Admin: 12/24/17 06:12 Dose: Not Given Levothyroxine Sodium 100 mcg/ (Levothyroxine Sodium 75 mcg) 175 mcg PO DAILY@ 0700 [facility] Last Admin: 12/24/17 06:13 Dose: 175 mcg Metoprolol Succinate (Toprol Xl -) 200 mg PO DAILY [facility] Montelukast Sodium (Singulair -) 10 mg PO HS [facility] Non-Formulary Medication (Mirabegron [Myrbetriq]) 50 mg PO DAILY [facility] Solifenacin (Vesicare -) 5 mg PO DAILY [facility] Valsartan (Diovan -) 320 mg PO DAILY [facility] - Objective Vital Signs: Vital Signs Temperature 98.0 F 12/24/17 06:00 Pulse Rate 63 12/24/17 06:00 Respiratory Rate 18 12/24/17 06:00 Blood Pressure 100/55 12/24/17 06:00 O2 Sat by Pulse Oximetry (%) 96 12/24/17 03:07 Constitutional: Yes: Mild Distress Eyes: Yes: WNL HENT: Yes: WNL Neck: Yes: WNL Cardiovascular: Yes: WNL Respiratory: Yes: WNL Gastrointestinal: Yes: WNL Genitourinary: Yes: Other Musculoskeletal: Yes: Muscle Weakness Extremities: Yes: WNL Edema: No Peripheral Pulses WNL: Yes Integumentary: Yes: WNL Wound/Incision: Yes: Clean/Dry Neurological: Yes: WNL ...Motor Strength: WNL Psychiatric: Yes: WNL Labs: CBC, BMP 12/23/17 20:25 12/23/17 20:25 Problem List - Problems (1) ESBL (extended spectrum beta-lactamase) producing bacteria infection Code(s): A49.9 - BACTERIAL INFECTION, UNSPECIFIED; Z16.12 - EXTENDED SPECTRUM BETA LACTAMASE (ESBL) RESISTANCE (2) Pyelonephritis Code(s): N12 - TUBULO-INTERSTITIAL NEPHRITIS, NOT SPCF ACUTE OR CHRONIC (3) Recurrent UTI (urinary tract infection) Code(s): N39.0 - URINARY TRACT INFECTION, SITE NOT SPECIFIED Assessment/Plan IV ABX CHECK CX PAIN CONTROL DVT PROPHYLAXIS OOB TO CHAIR WITH ASSIST
[2017-12-24 08:19] LABS: ANION GAP 11 MMOL/L (8-16); BLOOD UREA NITROGEN 9 mg/dL (7-18); CALCIUM 8.8 mg/dL (8.5-10.1); CHLORIDE 109 mmol/L (98-107); CO2 26 mmol/L (21-32); GLUCOSE,RANDOM 103 mg/dL (74-106); MAGNESIUM 1.9 mg/dL (1.8-2.4); POTASSIUM 3.8 mmol/L (3.5-5.1); SODIUM 146 mmol/L (136-145)
[2017-12-24 08:23] LABS: ALK PHOS 106 U/L (45-117); BILIRUBIN,TOTAL 0.3 mg/dL (0.2-1.0); CREATININE 0.6 mg/dL (0.55-1.3); PHOSPHOROUS 3.3 mg/dL (2.5-4.9); SGOT/AST 40 U/L (15-37); SGPT/ALT 43 U/L (13-61); TOT PROT 5.9 g/dl (6.4-8.2)
[2017-12-24 08:39] LABS: INR 1.12 (0.83-1.09); PROTHROMBIN TIME (PATIENT) 12.7 SEC (9.7-13.0)
[2017-12-24 08:42] LABS: ACTIVATED PTT 31.4 SECONDS (25.2-36.5)
[2017-12-24] MEDS ORDERED: PT OWN MED DRAWER 7, Y5N ONE ×2 (09:21→21:46)
[2017-12-24 09:27] LABS: HEMATOCRIT 37.5 % (32.4-45.2); HEMOGLOBIN 12.1 GM/dL (10.7-15.3); MCHC 32.3 g/dl (32.0-36.0); MEAN CELL VOLUME 83.6 fl (80-96); MEAN PLT VOLUME 8.7 fl (7.5-11.1); PLATELET COUNT 246 K/MM3 (134-434); RBC 4.48 M/mm3 (3.60-5.2); WHITE BLOOD COUNT 5.1 K/mm3 (4.0-10.0)
[2017-12-24] MEDS: ATORVASTATIN CA 40 MG TABLET (FP) PO SCH (09:27)
[2017-12-24] MEDS: DULoxetine HCL 30 MG CAPSULE.DR (FP) PO SCH (09:28)
[2017-12-24] MEDS: VALSARTAN 160 MG TABLET (UD) PO SCH (09:28)
[2017-12-24] MEDS: ASPIRIN 81 MG CHEWABLE TABLETS PO SCH (09:28)
[2017-12-24] MEDS: CHOLECALCIFEROL (VITAMIN D3) 1,000 UNIT TABLET (FP) PO SCH (09:28)
[2017-12-24] MEDS: hydrALAZINE HCL 25 MG TABLET (FP) PO SCH ×2 (09:28→21:54)
[2017-12-24] MEDS: amLODIPine BESYLATE 5 MG TABLET (FP) PO SCH (09:28)
[2017-12-24] MEDS: FLUTICASONE PROP 0.05% 16 GM NASAL SPRAY NS SCH (09:29)
[2017-12-24] MEDS: SOLIFENACIN SUCCINATE 5 MG TAB (FP) PO SCH (09:29)
[2017-12-24] MEDS: BUDESONIDE/FORMETEROL FUMARATE 80/4.5 mcg INHALER IH SCH ×2 (09:29→21:56)
[2017-12-24] MEDS ORDERED: PATIENT'S OWN MEDICATION (NON-FORMULARY) (Mirabegron [Myrbetriq] 50 MG) PO SCH (10:00)
[2017-12-24] MEDS ORDERED: PATIENT'S OWN MEDICATION (NON-FORMULARY) (Amlodipine/Valsartan [Exforge 5-320 Mg Tablet] 1 PO SCH (10:00)
--- NOTE | 2017-12-24 12:15 | PN ---
Progress Note (short form) - Note Progress Note: ID consult dictated UTI Probable recurrent ESBL R/O R pyelonephritis Morbid obesity Await c/s Empiric ertapenem Contact precautions
--- NOTE | 2017-12-24 12:52 | CONS ---
DATE OF CONSULTATION: DATE OF DICTATION: 12/24/2017 The patient is a 72-year-old female with a history of recurrent urinary tract infections, now evaluated for UTI. The patient was sent from her primary care physician's office after she was noted to have a recurrent urinary tract infection with klebsiella ESBL. The patient had been hospitalized in November, from November 18 through November 30, with ESBL urinary tract infection complicated by bacteremia. She completed a 14-day course of carbapenem. She now returns with complaints of dysuria, urinary frequency, urgency, and right back pain. A urinalysis done as an outpatient showed pyuria and urine culture positive for ESBL. She denies any associated fever or chills. PAST MEDICAL HISTORY: Positive for morbid obesity, obstructive sleep apnea, diabetes mellitus, stroke, asthma, gastroesophageal reflux, hypothyroidism, hypertension, hyperlipidemia, rheumatoid arthritis. ALLERGIES: No known allergies. OUTPATIENT MEDICATIONS: Xanax, Lipitor, Lasix, Toprol, Singulair, Lyrica, Apresoline, Cymbalta, Synthroid, Vesicare, Invanz. SOCIAL HISTORY: Resides in the community. Nonsmoker, nondrinker. PAST SURGICAL HISTORY: Status post total knee replacements. REVIEW OF SYSTEMS: Neurologic: No loss of consciousness, seizure activity, focal weakness. Cardiac: Negative chest pain or palpitations. Respiratory: Negative cough or sputum production. Gastrointestinal: Negative vomiting or diarrhea. Genitourinary: As per HPI. LABORATORY DATA: White count 5.1, platelets 246, creatinine 0.6. Urinalysis: White cells 1983. Urine culture as an outpatient positive for klebsiella ESBL. Sonogram of the kidneys negative for hydronephrosis. PHYSICAL EXAMINATION: General: She is morbidly obese, in no acute distress. Vital Signs: Temperature 98.9, blood pressure 122/96, pulse 68, regular. Respirations 20 per minute. HEENT: Sclerae are anicteric. Cardiovascular: Heart sounds S1, S2. Lungs: Clear. Abdomen: Obese, soft, nontender. There is right CVA tenderness to palpation. Extremities: Positive for edema. IMPRESSION: 1. Urinary tract infection, probable recurrent extended-spectrum beta-lactamase. 2. Rule out right pyelonephritis. 3. Morbid obesity. 4. History of recent extended-spectrum beta-lactamase bacteremia. Await culture results. Empiric antibiotic coverage with ertapenem 1 g IV piggyback daily. Contact precautions. Thank you for the kind referral. WAYNE DUMONT M.D. GOGO/[id number]
[2017-12-24] MEDS: ERTAPENEM SODIUM 1 GM in SODIUM CHLORIDE 50 ML IVPB SCH (15:30)
[2017-12-24] MEDS ORDERED: INSULIN (NOVOLOG) ASPART 100 UNITS/ML 10ML VIAL ONE (18:37)
[2017-12-24] MEDS: MONTELUKAST NA 10 MG TABLET PO SCH (21:54)
[2017-12-24] MEDS: DOCUSATE SODIUM 100 MG CAPSULE (FP) PO SCH (21:54)
[2017-12-24] MEDS: ACETAMINOPHEN 325 MG TABLET (FP) PO PRN (21:55)
[2017-12-25] MEDS: SODIUM CHLORIDE 1,000 ML IV SCH ×3 (02:35→22:02)
[2017-12-25] MEDS ORDERED: LEVOTHYROXINE NA 75 MCG TABLET (FP) ONE (05:04)
[2017-12-25] MEDS ORDERED: LEVOTHYROXINE NA 100 MCG TABLET (FP) ONE (05:04)
[2017-12-25] MEDS: ACETAMINOPHEN 325 MG TABLET (FP) PO PRN (05:52)
[2017-12-25] MEDS: HEPARIN NA (PORCINE) 5,000 UNITS/ML 1ML VIAL SQ SCH ×3 (05:54→22:10)
[2017-12-25] MEDS: LEVOTHYROXINE 100 MCG, LEVOTHYROXINE 75 MCG PO SCH (06:01)
[2017-12-25] MEDS: INSULIN SLIDING SCALE (NOVOLOG) 1 VIAL SQ SCH ×4 (06:02→22:10)
[2017-12-25] MEDS ORDERED: INSULIN (NOVOLOG) ASPART 100 UNITS/ML 10ML VIAL ONE ×2 (06:48→13:33)
[2017-12-25] MEDS: hydrALAZINE HCL 25 MG TABLET (FP) PO SCH ×2 (09:15→22:10)
[2017-12-25] MEDS: ATORVASTATIN CA 40 MG TABLET (FP) PO SCH (09:15)
[2017-12-25] MEDS: ASPIRIN 81 MG CHEWABLE TABLETS PO SCH (09:15)
[2017-12-25] MEDS: CHOLECALCIFEROL (VITAMIN D3) 1,000 UNIT TABLET (FP) PO SCH (09:16)
[2017-12-25] MEDS: amLODIPine BESYLATE 5 MG TABLET (FP) PO SCH (09:16)
[2017-12-25] MEDS: VALSARTAN 160 MG TABLET (UD) PO SCH (09:16)
[2017-12-25] MEDS: SOLIFENACIN SUCCINATE 5 MG TAB (FP) PO SCH (09:17)
[2017-12-25] MEDS: DULoxetine HCL 30 MG CAPSULE.DR (FP) PO SCH (09:17)
[2017-12-25] MEDS: BUDESONIDE/FORMETEROL FUMARATE 80/4.5 mcg INHALER IH SCH ×2 (09:18→22:12)
[2017-12-25] MEDS: FLUTICASONE PROP 0.05% 16 GM NASAL SPRAY NS SCH (09:18)
[2017-12-25] MEDS: ERTAPENEM SODIUM 1 GM in SODIUM CHLORIDE 50 ML IVPB SCH (09:28)
--- NOTE | 2017-12-25 09:48 | PN ---
Progress Note, Physician Chief Complaint: AWAKE ALERT C/O BL ARTHRITIC LEG PAIN - Current Medication List Current Medications: Active Medications Acetaminophen (Tylenol -) 650 mg PO Q6H PRN PRN Reason: PAIN LEVEL 1-5 OR FEVER Last Admin: 12/25/17 05:52 Dose: 650 mg Albuterol Sulfate (Ventolin Hfa Inhaler -) 2 puff IH Q6H PRN PRN Reason: SHORTNESS OF BREATH Amlodipine Besylate (Norvasc -) 5 mg PO DAILY [facility] Last Admin: 12/25/17 09:16 Dose: 5 mg Aspirin (Asa -) 81 mg PO DAILY [facility] Last Admin: 12/25/17 09:15 Dose: 81 mg Atorvastatin Calcium (Lipitor -) 40 mg PO DAILY [facility] Last Admin: 12/25/17 09:15 Dose: 40 mg Budesonide/Formoterol Fumarate (Symbicort 80/4.5mcg -) 2 puff IH BID [facility] Last Admin: 12/25/17 09:18 Dose: 2 puff Cholecalciferol (Vitamin D3 -) 2,000 unit PO DAILY [facility] Last Admin: 12/25/17 09:16 Dose: 2,000 unit Docusate Sodium (Colace -) 200 mg PO HS [facility] Last Admin: 12/24/17 21:54 Dose: 200 mg Duloxetine HCl (Cymbalta -) 60 mg PO DAILY [facility] Last Admin: 12/25/17 09:17 Dose: 60 mg Fluticasone Propionate (Flonase -) 1 spray NS DAILY [facility] Last Admin: 12/25/17 09:18 Dose: 1 spray Heparin Sodium (Porcine) (Heparin -) 5,000 unit SQ TID [facility] Last Admin: 12/25/17 05:54 Dose: 5,000 unit Hydralazine HCl (Apresoline -) 25 mg PO BID [facility] Last Admin: 12/25/17 09:15 Dose: 25 mg Sodium Chloride (Normal Saline -) 1,000 mls @ 42 mls/hr IV ASDIR [facility] Last Admin: 12/25/17 05:59 Dose: 42 mls/hr Ertapenem 1 gm/ Sodium (Chloride) 50 mls @ 50 mls/hr IVPB DAILY [facility]; Protocol Last Admin: 12/25/17 09:28 Dose: 50 mls/hr Insulin Aspart (Novolog Vial Sliding Scale -) 1 vial SQ ACHS [facility]; Protocol Last Admin: 12/25/17 06:02 Dose: Not Given Levothyroxine Sodium 100 mcg/ (Levothyroxine Sodium 75 mcg) 175 mcg PO DAILY@ 0700 [facility] Last Admin: 12/25/17 06:01 Dose: 175 mcg Metoprolol Succinate (Toprol Xl -) 200 mg PO DAILY [facility] Last Admin: 12/25/17 09:16 Dose: 200 mg Montelukast Sodium (Singulair -) 10 mg PO HS [facility] Last Admin: 12/24/17 21:54 Dose: 10 mg Solifenacin (Vesicare -) 5 mg PO DAILY [facility] Last Admin: 12/25/17 09:17 Dose: 5 mg Valsartan (Diovan -) 320 mg PO DAILY [facility] Last Admin: 12/25/17 09:16 Dose: 320 mg - Objective Vital Signs: Vital Signs Temperature 98.6 F 12/25/17 06:00 Pulse Rate 72 12/25/17 06:00 Respiratory Rate 18 12/25/17 06:00 Blood Pressure 145/74 12/25/17 06:00 O2 Sat by Pulse Oximetry (%) 95 12/24/17 23:33 Constitutional: Yes: Mild Distress Eyes: Yes: WNL HENT: Yes: WNL, Other Cardiovascular: Yes: WNL Respiratory: Yes: WNL Gastrointestinal: Yes: WNL Genitourinary: Yes: WNL Musculoskeletal: Yes: Muscle Pain Extremities: Yes: Other Edema: Yes Peripheral Pulses WNL: Yes Integumentary: Yes: WNL Wound/Incision: Yes: Clean/Dry Neurological: Yes: WNL ...Motor Strength: WNL Psychiatric: Yes: WNL Labs: CBC, BMP 12/24/17 06:30 12/24/17 06:30 INR, PTT INR 1.12 (0.83-1.09) H 12/24/17 06:30 Problem List - Problems (1) ESBL (extended spectrum beta-lactamase) producing bacteria infection Code(s): A49.9 - BACTERIAL INFECTION, UNSPECIFIED; Z16.12 - EXTENDED SPECTRUM BETA LACTAMASE (ESBL) RESISTANCE (2) Pyelonephritis Code(s): N12 - TUBULO-INTERSTITIAL NEPHRITIS, NOT SPCF ACUTE OR CHRONIC (3) Recurrent UTI (urinary tract infection) Code(s): N39.0 - URINARY TRACT INFECTION, SITE NOT SPECIFIED Assessment/Plan IV ABX CHECK CX PAIN CONTROL DVT PROPHYLAXIS OOB TO CHAIR WITH ASSIST OXYCODONE PAIN 7-10
[2017-12-25] MEDS ORDERED: METOCLOPRAMIDE HCL INJECTION 10 MG/2 ML VIAL IVPUSH ONE (18:45)
--- NOTE | 2017-12-25 21:47 | EKG ---
Test Reason : Blood Pressure : / mmHG Vent. Rate : 066 BPM Atrial Rate : 066 BPM P-R Int : 190 ms QRS Dur : 074 ms QT Int : 418 ms P-R-T Axes : 068 -32 023 degrees QTc Int : 438 ms POOR DATA QUALITY, INTERPRETATION MAY BE ADVERSELY AFFECTED NORMAL SINUS RHYTHM LEFT AXIS DEVIATION ABNORMAL ECG WHEN COMPARED WITH ECG OF 18-NOV-2017 18:59, VENT. RATE HAS DECREASED BY 53 BPM Confirmed by ANGELA SIMMS MD ([id number]) on 12/25/2017 9:46:36 PM Referred By: Confirmed By:ANGELA SIMMS MD
[2017-12-25] MEDS: MONTELUKAST NA 10 MG TABLET PO SCH (22:10)
[2017-12-25] MEDS: DOCUSATE SODIUM 100 MG CAPSULE (FP) PO SCH (22:10)
--- NOTE | 2017-12-25 22:12 | PN ---
Progress Note, Physician History of Present Illness: No complaints offered Denies dysuria/ hematuria No c/o flank pain Afebrile WBC WNL BC (-) Urine c/s GNR - Current Medication List Current Medications: Active Medications Acetaminophen (Tylenol -) 650 mg PO Q6H PRN PRN Reason: PAIN LEVEL 1-5 OR FEVER Last Admin: 12/25/17 05:52 Dose: 650 mg Albuterol Sulfate (Ventolin Hfa Inhaler -) 2 puff IH Q6H PRN PRN Reason: SHORTNESS OF BREATH Amlodipine Besylate (Norvasc -) 5 mg PO DAILY [facility] Last Admin: 12/25/17 09:16 Dose: 5 mg Aspirin (Asa -) 81 mg PO DAILY [facility] Last Admin: 12/25/17 09:15 Dose: 81 mg Atorvastatin Calcium (Lipitor -) 40 mg PO DAILY [facility] Last Admin: 12/25/17 09:15 Dose: 40 mg Budesonide/Formoterol Fumarate (Symbicort 80/4.5mcg -) 2 puff IH BID [facility] Last Admin: 12/25/17 09:18 Dose: 2 puff Cholecalciferol (Vitamin D3 -) 2,000 unit PO DAILY [facility] Last Admin: 12/25/17 09:16 Dose: 2,000 unit Docusate Sodium (Colace -) 200 mg PO HS [facility] Last Admin: 12/24/17 21:54 Dose: 200 mg Duloxetine HCl (Cymbalta -) 60 mg PO DAILY [facility] Last Admin: 12/25/17 09:17 Dose: 60 mg Fluticasone Propionate (Flonase -) 1 spray NS DAILY [facility] Last Admin: 12/25/17 09:18 Dose: 1 spray Heparin Sodium (Porcine) (Heparin -) 5,000 unit SQ TID [facility] Last Admin: 12/25/17 13:38 Dose: 5,000 unit Hydralazine HCl (Apresoline -) 25 mg PO BID [facility] Last Admin: 12/25/17 09:15 Dose: 25 mg Sodium Chloride (Normal Saline -) 1,000 mls @ 42 mls/hr IV ASDIR [facility] Last Admin: 12/25/17 05:59 Dose: 42 mls/hr Ertapenem 1 gm/ Sodium (Chloride) 50 mls @ 50 mls/hr IVPB DAILY [facility]; Protocol Last Admin: 12/25/17 09:28 Dose: 50 mls/hr Insulin Aspart (Novolog Vial Sliding Scale -) 1 vial SQ ACHS [facility]; Protocol Last Admin: 12/25/17 17:32 Dose: Not Given Levothyroxine Sodium 100 mcg/ (Levothyroxine Sodium 75 mcg) 175 mcg PO DAILY@ 0700 [facility] Last Admin: 12/25/17 06:01 Dose: 175 mcg Metoprolol Succinate (Toprol Xl -) 200 mg PO DAILY [facility] Last Admin: 12/25/17 09:16 Dose: 200 mg Montelukast Sodium (Singulair -) 10 mg PO HS [facility] Last Admin: 12/24/17 21:54 Dose: 10 mg Oxycodone HCl (Roxicodone -) 5 mg PO Q6H PRN PRN Reason: PAIN LEVEL 7 - 10 Solifenacin (Vesicare -) 5 mg PO DAILY [facility] Last Admin: 12/25/17 09:17 Dose: 5 mg Valsartan (Diovan -) 320 mg PO DAILY [facility] Last Admin: 12/25/17 09:16 Dose: 320 mg - Objective Vital Signs: Vital Signs Temperature 98.1 F 12/25/17 18:00 Pulse Rate 82 12/25/17 18:00 Respiratory Rate 18 12/25/17 18:00 Blood Pressure 126/72 12/25/17 18:00 O2 Sat by Pulse Oximetry (%) 94 L 12/25/17 09:00 Constitutional: Yes: No Distress, Obese Cardiovascular: Yes: Regular Rate and Rhythm, S1, S2 Respiratory: Yes: CTA Bilaterally Gastrointestinal: Yes: Normal Bowel Sounds, Soft Labs: CBC, BMP 12/24/17 06:30 12/24/17 06:30 INR, PTT INR 1.12 (0.83-1.09) H 12/24/17 06:30 Assessment/Plan Recurrent UTI Pyelonephritis Hx ESBL Await c/s Continue ertapenem
[2017-12-26] MEDS: oxyCODONE HCL 5 MG TABLET PO PRN (04:57)
[2017-12-26] MEDS: SODIUM CHLORIDE 1,000 ML IV SCH ×2 (04:58→23:30)
[2017-12-26] MEDS ORDERED: LEVOTHYROXINE NA 100 MCG TABLET (FP) ONE (06:23)
[2017-12-26] MEDS ORDERED: LEVOTHYROXINE NA 75 MCG TABLET (FP) ONE (06:23)
[2017-12-26] MEDS: LEVOTHYROXINE 100 MCG, LEVOTHYROXINE 75 MCG PO SCH (06:43)
[2017-12-26] MEDS: INSULIN SLIDING SCALE (NOVOLOG) 1 VIAL SQ SCH ×4 (06:43→22:08)
[2017-12-26] MEDS: HEPARIN NA (PORCINE) 5,000 UNITS/ML 1ML VIAL SQ SCH ×3 (06:43→22:07)
[2017-12-26 07:27] LABS: HEMATOCRIT 37.4 % (32.4-45.2); HEMOGLOBIN 11.7 GM/dL (10.7-15.3); MCH 26.1 pg (25.7-33.7); MCHC 31.2 g/dl (32.0-36.0); MEAN CELL VOLUME 83.7 fl (80-96); MEAN PLT VOLUME 8.4 fl (7.5-11.1); PLATELET COUNT 209 K/MM3 (134-434); RBC 4.47 M/mm3 (3.60-5.2); RDW 18.1 % (11.6-15.6); WHITE BLOOD COUNT 4.1 K/mm3 (4.0-10.0)
[2017-12-26 07:54] LABS: ANION GAP 12 MMOL/L (8-16); BLOOD UREA NITROGEN 4 mg/dL (7-18); CALCIUM 8.5 mg/dL (8.5-10.1); CHLORIDE 109 mmol/L (98-107); CO2 25 mmol/L (21-32); CREATININE 0.5 mg/dL (0.55-1.3); GLUCOSE,RANDOM 105 mg/dL (74-106); POTASSIUM 3.6 mmol/L (3.5-5.1); SODIUM 146 mmol/L (136-145)
--- NOTE | 2017-12-26 08:08 | PN ---
Progress Note, Physician Chief Complaint: AWAKE ALERT FEELING BETTER - Current Medication List Current Medications: Active Medications Acetaminophen (Tylenol -) 650 mg PO Q6H PRN PRN Reason: PAIN LEVEL 1-5 OR FEVER Last Admin: 12/25/17 05:52 Dose: 650 mg Albuterol Sulfate (Ventolin Hfa Inhaler -) 2 puff IH Q6H PRN PRN Reason: SHORTNESS OF BREATH Amlodipine Besylate (Norvasc -) 5 mg PO DAILY [facility] Last Admin: 12/25/17 09:16 Dose: 5 mg Aspirin (Asa -) 81 mg PO DAILY [facility] Last Admin: 12/25/17 09:15 Dose: 81 mg Atorvastatin Calcium (Lipitor -) 40 mg PO DAILY [facility] Last Admin: 12/25/17 09:15 Dose: 40 mg Budesonide/Formoterol Fumarate (Symbicort 80/4.5mcg -) 2 puff IH BID [facility] Last Admin: 12/25/17 22:12 Dose: 2 puff Cholecalciferol (Vitamin D3 -) 2,000 unit PO DAILY [facility] Last Admin: 12/25/17 09:16 Dose: 2,000 unit Docusate Sodium (Colace -) 200 mg PO HS [facility] Last Admin: 12/25/17 22:10 Dose: 200 mg Duloxetine HCl (Cymbalta -) 60 mg PO DAILY [facility] Last Admin: 12/25/17 09:17 Dose: 60 mg Fluticasone Propionate (Flonase -) 1 spray NS DAILY [facility] Last Admin: 12/25/17 09:18 Dose: 1 spray Heparin Sodium (Porcine) (Heparin -) 5,000 unit SQ TID [facility] Last Admin: 12/26/17 06:43 Dose: 5,000 unit Hydralazine HCl (Apresoline -) 25 mg PO BID [facility] Last Admin: 12/25/17 22:10 Dose: 25 mg Sodium Chloride (Normal Saline -) 1,000 mls @ 42 mls/hr IV ASDIR [facility] Last Admin: 12/26/17 04:58 Dose: Not Given Ertapenem 1 gm/ Sodium (Chloride) 50 mls @ 50 mls/hr IVPB DAILY [facility]; Protocol Last Admin: 12/25/17 09:28 Dose: 50 mls/hr Insulin Aspart (Novolog Vial Sliding Scale -) 1 vial SQ ACHS [facility]; Protocol Last Admin: 12/26/17 06:43 Dose: Not Given Levothyroxine Sodium 100 mcg/ (Levothyroxine Sodium 75 mcg) 175 mcg PO DAILY@ 0700 [facility] Last Admin: 12/26/17 06:43 Dose: 175 mcg Metoprolol Succinate (Toprol Xl -) 200 mg PO DAILY [facility] Last Admin: 12/25/17 09:16 Dose: 200 mg Montelukast Sodium (Singulair -) 10 mg PO HS [facility] Last Admin: 12/25/17 22:10 Dose: 10 mg Oxycodone HCl (Roxicodone -) 5 mg PO Q6H PRN PRN Reason: PAIN LEVEL 7 - 10 Last Admin: 12/26/17 04:57 Dose: 5 mg Solifenacin (Vesicare -) 5 mg PO DAILY [facility] Last Admin: 12/25/17 09:17 Dose: 5 mg Valsartan (Diovan -) 320 mg PO DAILY [facility] Last Admin: 12/25/17 09:16 Dose: 320 mg - Objective Vital Signs: Vital Signs Temperature 98.5 F 12/26/17 06:00 Pulse Rate 71 12/26/17 06:00 Respiratory Rate 18 12/26/17 06:00 Blood Pressure 148/113 12/26/17 06:00 O2 Sat by Pulse Oximetry (%) 99 12/25/17 22:30 Constitutional: Yes: Moderate Distress Eyes: Yes: WNL HENT: Yes: WNL Neck: Yes: WNL Cardiovascular: Yes: WNL Respiratory: Yes: WNL Gastrointestinal: Yes: WNL Genitourinary: Yes: WNL Musculoskeletal: Yes: Back Pain Extremities: Yes: WNL Edema: Yes Peripheral Pulses WNL: Yes Integumentary: Yes: WNL Wound/Incision: Yes: Clean/Dry Neurological: Yes: Other ...Motor Strength: LLE, RLE Psychiatric: Yes: WNL Labs: CBC, BMP 12/26/17 06:30 INR, PTT INR 1.12 (0.83-1.09) H 12/24/17 06:30 Problem List - Problems (1) ESBL (extended spectrum beta-lactamase) producing bacteria infection Code(s): A49.9 - BACTERIAL INFECTION, UNSPECIFIED; Z16.12 - EXTENDED SPECTRUM BETA LACTAMASE (ESBL) RESISTANCE (2) Pyelonephritis Code(s): N12 - TUBULO-INTERSTITIAL NEPHRITIS, NOT SPCF ACUTE OR CHRONIC (3) Recurrent UTI (urinary tract infection) Code(s): N39.0 - URINARY TRACT INFECTION, SITE NOT SPECIFIED Assessment/Plan ID FOLLOW UP APPRECIATED IV ABX CHECK CX PAIN CONTROL DVT PROPHYLAXIS OOB TO CHAIR WITH ASSIST OXYCODONE PAIN 7-10
[2017-12-26] MEDS ORDERED: INSULIN (NOVOLOG) ASPART 100 UNITS/ML 10ML VIAL ONE (10:10)
[2017-12-26] MEDS ORDERED: PT OWN MED DRAWER 7, Y5N ONE (10:12)
[2017-12-26] MEDS: BUDESONIDE/FORMETEROL FUMARATE 80/4.5 mcg INHALER IH SCH ×2 (10:40→22:10)
[2017-12-26] MEDS: hydrALAZINE HCL 25 MG TABLET (FP) PO SCH ×2 (10:40→22:08)
[2017-12-26] MEDS: FLUTICASONE PROP 0.05% 16 GM NASAL SPRAY NS SCH (10:40)
[2017-12-26] MEDS: ATORVASTATIN CA 40 MG TABLET (FP) PO SCH (10:41)
[2017-12-26] MEDS: DULoxetine HCL 30 MG CAPSULE.DR (FP) PO SCH (10:41)
[2017-12-26] MEDS: ASPIRIN 81 MG CHEWABLE TABLETS PO SCH (10:41)
[2017-12-26] MEDS: ERTAPENEM SODIUM 1 GM in SODIUM CHLORIDE 50 ML IVPB SCH (10:41)
[2017-12-26] MEDS: VALSARTAN 160 MG TABLET (UD) PO SCH (10:41)
[2017-12-26] MEDS: SOLIFENACIN SUCCINATE 5 MG TAB (FP) PO SCH (10:41)
[2017-12-26] MEDS: amLODIPine BESYLATE 5 MG TABLET (FP) PO SCH (10:41)
[2017-12-26] MEDS: CHOLECALCIFEROL (VITAMIN D3) 1,000 UNIT TABLET (FP) PO SCH (10:41)
--- NOTE | 2017-12-26 12:25 | PN ---
Progress Note, Physician History of Present Illness: No complaints offered Denies dysuria/ hematuria No c/o flank pain Afebrile WBC WNL 4.1 BC (-) Urine c/s ESBL - Current Medication List Current Medications: Active Medications Acetaminophen (Tylenol -) 650 mg PO Q6H PRN PRN Reason: PAIN LEVEL 1-5 OR FEVER Last Admin: 12/25/17 05:52 Dose: 650 mg Albuterol Sulfate (Ventolin Hfa Inhaler -) 2 puff IH Q6H PRN PRN Reason: SHORTNESS OF BREATH Amlodipine Besylate (Norvasc -) 5 mg PO DAILY [facility] Last Admin: 12/26/17 10:41 Dose: 5 mg Aspirin (Asa -) 81 mg PO DAILY [facility] Last Admin: 12/26/17 10:41 Dose: 81 mg Atorvastatin Calcium (Lipitor -) 40 mg PO DAILY [facility] Last Admin: 12/26/17 10:41 Dose: 40 mg Budesonide/Formoterol Fumarate (Symbicort 80/4.5mcg -) 2 puff IH BID [facility] Last Admin: 12/26/17 10:40 Dose: 2 puff Cholecalciferol (Vitamin D3 -) 2,000 unit PO DAILY [facility] Last Admin: 12/26/17 10:41 Dose: 2,000 unit Docusate Sodium (Colace -) 200 mg PO HS [facility] Last Admin: 12/25/17 22:10 Dose: 200 mg Duloxetine HCl (Cymbalta -) 60 mg PO DAILY [facility] Last Admin: 12/26/17 10:41 Dose: 60 mg Fluticasone Propionate (Flonase -) 1 spray NS DAILY [facility] Last Admin: 12/26/17 10:40 Dose: 1 spray Heparin Sodium (Porcine) (Heparin -) 5,000 unit SQ TID [facility] Last Admin: 12/26/17 06:43 Dose: 5,000 unit Hydralazine HCl (Apresoline -) 25 mg PO BID [facility] Last Admin: 12/26/17 10:40 Dose: 25 mg Sodium Chloride (Normal Saline -) 1,000 mls @ 42 mls/hr IV ASDIR [facility] Last Admin: 12/26/17 04:58 Dose: Not Given Ertapenem 1 gm/ Sodium (Chloride) 50 mls @ 50 mls/hr IVPB DAILY [facility]; Protocol Last Admin: 12/26/17 10:41 Dose: 50 mls/hr Insulin Aspart (Novolog Vial Sliding Scale -) 1 vial SQ ACHS [facility]; Protocol Last Admin: 12/26/17 11:52 Dose: 2 units Levothyroxine Sodium 100 mcg/ (Levothyroxine Sodium 75 mcg) 175 mcg PO DAILY@ 0700 [facility] Last Admin: 12/26/17 06:43 Dose: 175 mcg Metoprolol Succinate (Toprol Xl -) 200 mg PO DAILY [facility] Last Admin: 12/26/17 10:40 Dose: 200 mg Montelukast Sodium (Singulair -) 10 mg PO HS [facility] Last Admin: 12/25/17 22:10 Dose: 10 mg Oxycodone HCl (Roxicodone -) 5 mg PO Q6H PRN PRN Reason: PAIN LEVEL 7 - 10 Last Admin: 12/26/17 04:57 Dose: 5 mg Solifenacin (Vesicare -) 5 mg PO DAILY [facility] Last Admin: 12/26/17 10:41 Dose: 5 mg Valsartan (Diovan -) 320 mg PO DAILY [facility] Last Admin: 12/26/17 10:41 Dose: 320 mg - Objective Vital Signs: Vital Signs Temperature 98.4 F 12/26/17 09:38 Pulse Rate 73 12/26/17 09:38 Respiratory Rate 18 12/26/17 09:38 Blood Pressure 158/76 12/26/17 09:38 O2 Sat by Pulse Oximetry (%) 99 12/25/17 22:30 Constitutional: Yes: No Distress Eyes: Yes: Conjunctiva Clear Cardiovascular: Yes: Regular Rate and Rhythm, S1, S2 Respiratory: Yes: CTA Bilaterally Gastrointestinal: Yes: Normal Bowel Sounds, Soft. No: Tenderness Genitourinary: No: CVA Tenderness - Left, CVA Tenderness - Right Labs: CBC, BMP 12/26/17 06:30 12/26/17 06:30 INR, PTT INR 1.12 (0.83-1.09) H 12/24/17 06:30 Assessment/Plan Recurrent UTI ESBL Pyelonephritis Continue ertapenem Contact precautions
[2017-12-26] MEDS: DOCUSATE SODIUM 100 MG CAPSULE (FP) PO SCH (22:08)
[2017-12-26] MEDS: MONTELUKAST NA 10 MG TABLET PO SCH (22:08)
[2017-12-27] MEDS: oxyCODONE HCL 5 MG TABLET PO PRN ×3 (04:28→22:23)
[2017-12-27] MEDS: SODIUM CHLORIDE 1,000 ML IV SCH (04:48)
[2017-12-27] MEDS ORDERED: LEVOTHYROXINE NA 100 MCG TABLET (FP) ONE (06:05)
[2017-12-27] MEDS ORDERED: LEVOTHYROXINE NA 75 MCG TABLET (FP) ONE (06:06)
[2017-12-27] MEDS: LEVOTHYROXINE 100 MCG, LEVOTHYROXINE 75 MCG PO SCH (06:08)
[2017-12-27] MEDS: HEPARIN NA (PORCINE) 5,000 UNITS/ML 1ML VIAL SQ SCH ×3 (06:09→22:24)
[2017-12-27] MEDS: INSULIN SLIDING SCALE (NOVOLOG) 1 VIAL SQ SCH ×4 (06:09→22:13)
[2017-12-27] MEDS ORDERED: PT OWN MED DRAWER 7, Y5N ONE ×3 (06:31→22:18)
--- NOTE | 2017-12-27 08:38 | PN ---
Progress Note, Physician Chief Complaint: FEELING BETTER NO FEVER OR CHILLS - Current Medication List Current Medications: Active Medications Acetaminophen (Tylenol -) 650 mg PO Q6H PRN PRN Reason: PAIN LEVEL 1-5 OR FEVER Last Admin: 12/25/17 05:52 Dose: 650 mg Albuterol Sulfate (Ventolin Hfa Inhaler -) 2 puff IH Q6H PRN PRN Reason: SHORTNESS OF BREATH Amlodipine Besylate (Norvasc -) 5 mg PO DAILY [facility] Last Admin: 12/26/17 10:41 Dose: 5 mg Aspirin (Asa -) 81 mg PO DAILY [facility] Last Admin: 12/26/17 10:41 Dose: 81 mg Atorvastatin Calcium (Lipitor -) 40 mg PO DAILY [facility] Last Admin: 12/26/17 10:41 Dose: 40 mg Budesonide/Formoterol Fumarate (Symbicort 80/4.5mcg -) 2 puff IH BID [facility] Last Admin: 12/26/17 22:10 Dose: Not Given Cholecalciferol (Vitamin D3 -) 2,000 unit PO DAILY [facility] Last Admin: 12/26/17 10:41 Dose: 2,000 unit Docusate Sodium (Colace -) 200 mg PO HS [facility] Last Admin: 12/26/17 22:08 Dose: 200 mg Duloxetine HCl (Cymbalta -) 60 mg PO DAILY [facility] Last Admin: 12/26/17 10:41 Dose: 60 mg Fluticasone Propionate (Flonase -) 1 spray NS DAILY [facility] Last Admin: 12/26/17 10:40 Dose: 1 spray Heparin Sodium (Porcine) (Heparin -) 5,000 unit SQ TID [facility] Last Admin: 12/27/17 06:09 Dose: 5,000 unit Hydralazine HCl (Apresoline -) 25 mg PO BID [facility] Last Admin: 12/26/17 22:08 Dose: 25 mg Sodium Chloride (Normal Saline -) 1,000 mls @ 42 mls/hr IV ASDIR [facility] Last Admin: 12/27/17 04:48 Dose: 42 mls/hr Ertapenem 1 gm/ Sodium (Chloride) 50 mls @ 50 mls/hr IVPB DAILY [facility]; Protocol Last Admin: 12/26/17 10:41 Dose: 50 mls/hr Insulin Aspart (Novolog Vial Sliding Scale -) 1 vial SQ ACHS [facility]; Protocol Last Admin: 12/27/17 06:09 Dose: Not Given Levothyroxine Sodium 100 mcg/ (Levothyroxine Sodium 75 mcg) 175 mcg PO DAILY@ 0700 [facility] Last Admin: 12/27/17 06:08 Dose: 175 mcg Metoprolol Succinate (Toprol Xl -) 200 mg PO DAILY [facility] Last Admin: 12/26/17 10:40 Dose: 200 mg Montelukast Sodium (Singulair -) 10 mg PO HS [facility] Last Admin: 12/26/17 22:08 Dose: 10 mg Oxycodone HCl (Roxicodone -) 5 mg PO Q6H PRN PRN Reason: PAIN LEVEL 7 - 10 Last Admin: 12/27/17 04:28 Dose: 5 mg Solifenacin (Vesicare -) 5 mg PO DAILY [facility] Last Admin: 12/26/17 10:41 Dose: 5 mg Valsartan (Diovan -) 320 mg PO DAILY [facility] Last Admin: 12/26/17 10:41 Dose: 320 mg - Objective Vital Signs: Vital Signs Temperature 98.2 F 12/27/17 05:47 Pulse Rate 74 12/27/17 05:47 Respiratory Rate 20 12/27/17 05:47 Blood Pressure 124/55 12/27/17 05:47 O2 Sat by Pulse Oximetry (%) 97 12/26/17 21:00 Constitutional: Yes: Mild Distress Eyes: Yes: WNL HENT: Yes: WNL Neck: Yes: WNL Cardiovascular: Yes: WNL Respiratory: Yes: WNL Gastrointestinal: Yes: WNL Genitourinary: Yes: WNL Musculoskeletal: Yes: Muscle Weakness Extremities: Yes: Other Edema: Yes Wound/Incision: Yes: Clean/Dry Neurological: Yes: Pre-Existing Deficit ...Motor Strength: LLE, RLE Psychiatric: Yes: WNL Labs: CBC, BMP 12/26/17 06:30 12/26/17 06:30 INR, PTT INR 1.12 (0.83-1.09) H 12/24/17 06:30 Problem List - Problems (1) ESBL (extended spectrum beta-lactamase) producing bacteria infection Code(s): A49.9 - BACTERIAL INFECTION, UNSPECIFIED; Z16.12 - EXTENDED SPECTRUM BETA LACTAMASE (ESBL) RESISTANCE (2) Pyelonephritis Code(s): N12 - TUBULO-INTERSTITIAL NEPHRITIS, NOT SPCF ACUTE OR CHRONIC (3) Recurrent UTI (urinary tract infection) Code(s): N39.0 - URINARY TRACT INFECTION, SITE NOT SPECIFIED Assessment/Plan ID FOLLOW UP APPRECIATED IV ABX CHECK CX PAIN CONTROL DVT PROPHYLAXIS OOB TO CHAIR WITH ASSIST OXYCODONE PAIN 7-10
[2017-12-27] MEDS: BUDESONIDE/FORMETEROL FUMARATE 80/4.5 mcg INHALER IH SCH ×2 (10:15→22:25)
[2017-12-27] MEDS: hydrALAZINE HCL 25 MG TABLET (FP) PO SCH ×2 (10:16→22:24)
[2017-12-27] MEDS: FLUTICASONE PROP 0.05% 16 GM NASAL SPRAY NS SCH (10:16)
[2017-12-27] MEDS: VALSARTAN 160 MG TABLET (UD) PO SCH (10:16)
[2017-12-27] MEDS: ASPIRIN 81 MG CHEWABLE TABLETS PO SCH (10:17)
[2017-12-27] MEDS: ATORVASTATIN CA 40 MG TABLET (FP) PO SCH (10:17)
[2017-12-27] MEDS: DULoxetine HCL 30 MG CAPSULE.DR (FP) PO SCH (10:17)
[2017-12-27] MEDS: CHOLECALCIFEROL (VITAMIN D3) 1,000 UNIT TABLET (FP) PO SCH (10:18)
[2017-12-27] MEDS: SOLIFENACIN SUCCINATE 5 MG TAB (FP) PO SCH (10:18)
[2017-12-27] MEDS: amLODIPine BESYLATE 5 MG TABLET (FP) PO SCH (10:18)
[2017-12-27] MEDS: ERTAPENEM SODIUM 1 GM in SODIUM CHLORIDE 50 ML IVPB SCH (10:18)
[2017-12-27] MEDS ORDERED: INSULIN (NOVOLOG) ASPART 100 UNITS/ML 10ML VIAL ONE (12:02)
[2017-12-27] MEDS: MONTELUKAST NA 10 MG TABLET PO SCH (22:23)
[2017-12-27] MEDS: DOCUSATE SODIUM 100 MG CAPSULE (FP) PO SCH (22:23)
[2017-12-28] MEDS ORDERED: LEVOTHYROXINE NA 75 MCG TABLET (FP) ONE (06:00)
[2017-12-28] MEDS ORDERED: LEVOTHYROXINE NA 100 MCG TABLET (FP) ONE (06:00)
[2017-12-28] MEDS: LEVOTHYROXINE 100 MCG, LEVOTHYROXINE 75 MCG PO SCH (06:06)
[2017-12-28] MEDS: HEPARIN NA (PORCINE) 5,000 UNITS/ML 1ML VIAL SQ SCH ×3 (06:06→22:37)
[2017-12-28] MEDS: INSULIN SLIDING SCALE (NOVOLOG) 1 VIAL SQ SCH ×4 (06:11→21:01)
[2017-12-28] MEDS: SODIUM CHLORIDE 1,000 ML IV SCH (06:14)
--- NOTE | 2017-12-28 08:39 | PN ---
Progress Note, Physician Chief Complaint: AWAKE ALERT NAD - Current Medication List Current Medications: Active Medications Acetaminophen (Tylenol -) 650 mg PO Q6H PRN PRN Reason: PAIN LEVEL 1-5 OR FEVER Last Admin: 12/25/17 05:52 Dose: 650 mg Albuterol Sulfate (Ventolin Hfa Inhaler -) 2 puff IH Q6H PRN PRN Reason: SHORTNESS OF BREATH Amlodipine Besylate (Norvasc -) 5 mg PO DAILY [facility] Last Admin: 12/27/17 10:18 Dose: 5 mg Aspirin (Asa -) 81 mg PO DAILY [facility] Last Admin: 12/27/17 10:17 Dose: 81 mg Atorvastatin Calcium (Lipitor -) 40 mg PO DAILY [facility] Last Admin: 12/27/17 10:17 Dose: 40 mg Budesonide/Formoterol Fumarate (Symbicort 80/4.5mcg -) 2 puff IH BID [facility] Last Admin: 12/27/17 22:25 Dose: 2 puff Cholecalciferol (Vitamin D3 -) 2,000 unit PO DAILY [facility] Last Admin: 12/27/17 10:18 Dose: 2,000 unit Docusate Sodium (Colace -) 200 mg PO HS [facility] Last Admin: 12/27/17 22:23 Dose: 200 mg Duloxetine HCl (Cymbalta -) 60 mg PO DAILY [facility] Last Admin: 12/27/17 10:17 Dose: 60 mg Fluticasone Propionate (Flonase -) 1 spray NS DAILY [facility] Last Admin: 12/27/17 10:16 Dose: 1 spray Heparin Sodium (Porcine) (Heparin -) 5,000 unit SQ TID [facility] Last Admin: 12/28/17 06:06 Dose: 5,000 unit Hydralazine HCl (Apresoline -) 25 mg PO BID [facility] Last Admin: 12/27/17 22:24 Dose: 25 mg Sodium Chloride (Normal Saline -) 1,000 mls @ 42 mls/hr IV ASDIR [facility] Last Admin: 12/28/17 06:14 Dose: 42 mls/hr Ertapenem 1 gm/ Sodium (Chloride) 50 mls @ 50 mls/hr IVPB DAILY [facility]; Protocol Last Admin: 12/27/17 10:18 Dose: 50 mls/hr Insulin Aspart (Novolog Vial Sliding Scale -) 1 vial SQ ACHS [facility]; Protocol Last Admin: 12/28/17 06:11 Dose: Not Given Levothyroxine Sodium 100 mcg/ (Levothyroxine Sodium 75 mcg) 175 mcg PO DAILY@ 0700 [facility] Last Admin: 12/28/17 06:06 Dose: 175 mcg Metoprolol Succinate (Toprol Xl -) 200 mg PO DAILY [facility] Last Admin: 12/27/17 10:17 Dose: 200 mg Montelukast Sodium (Singulair -) 10 mg PO HS [facility] Last Admin: 12/27/17 22:23 Dose: 10 mg Oxycodone HCl (Roxicodone -) 5 mg PO Q6H PRN PRN Reason: PAIN LEVEL 7 - 10 Last Admin: 12/27/17 22:23 Dose: 5 mg Solifenacin (Vesicare -) 5 mg PO DAILY [facility] Last Admin: 12/27/17 10:18 Dose: 5 mg Valsartan (Diovan -) 320 mg PO DAILY [facility] Last Admin: 12/27/17 10:16 Dose: 320 mg - Objective Vital Signs: Vital Signs Temperature 97.6 F 12/28/17 06:25 Pulse Rate 59 L 12/28/17 06:25 Respiratory Rate 20 12/28/17 06:25 Blood Pressure 165/69 12/28/17 06:25 O2 Sat by Pulse Oximetry (%) 95 12/27/17 21:00 Constitutional: Yes: No Distress Eyes: Yes: WNL HENT: Yes: WNL Neck: Yes: WNL Cardiovascular: Yes: WNL Respiratory: Yes: WNL Gastrointestinal: Yes: WNL Genitourinary: Yes: WNL Musculoskeletal: Yes: Muscle Weakness Extremities: Yes: WNL Edema: Yes Peripheral Pulses WNL: Yes Integumentary: Yes: WNL Wound/Incision: Yes: Clean/Dry Neurological: Yes: WNL ...Motor Strength: WNL Psychiatric: Yes: WNL Labs: CBC, BMP 12/26/17 06:30 12/26/17 06:30 INR, PTT INR 1.12 (0.83-1.09) H 12/24/17 06:30 Problem List - Problems (1) ESBL (extended spectrum beta-lactamase) producing bacteria infection Code(s): A49.9 - BACTERIAL INFECTION, UNSPECIFIED; Z16.12 - EXTENDED SPECTRUM BETA LACTAMASE (ESBL) RESISTANCE (2) Pyelonephritis Code(s): N12 - TUBULO-INTERSTITIAL NEPHRITIS, NOT SPCF ACUTE OR CHRONIC (3) Recurrent UTI (urinary tract infection) Code(s): N39.0 - URINARY TRACT INFECTION, SITE NOT SPECIFIED Assessment/Plan WILL NEED 7-10 DAYS TOTAL IV ABX WILL D/W DR DUMONT TODAY OOB TO CHAIR 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 ORDERING DIETARY CONSULT.
[2017-12-28] MEDS ORDERED: PT OWN MED DRAWER 7, Y5N ONE (10:12)
[2017-12-28] MEDS: ACETAMINOPHEN 325 MG TABLET (FP) PO PRN (10:23)
[2017-12-28] MEDS: ASPIRIN 81 MG CHEWABLE TABLETS PO SCH (10:23)
[2017-12-28] MEDS: CHOLECALCIFEROL (VITAMIN D3) 1,000 UNIT TABLET (FP) PO SCH (10:25)
[2017-12-28] MEDS: amLODIPine BESYLATE 5 MG TABLET (FP) PO SCH (10:25)
[2017-12-28] MEDS: hydrALAZINE HCL 25 MG TABLET (FP) PO SCH ×2 (10:25→21:01)
[2017-12-28] MEDS: DULoxetine HCL 30 MG CAPSULE.DR (FP) PO SCH (10:26)
[2017-12-28] MEDS: VALSARTAN 160 MG TABLET (UD) PO SCH (10:28)
[2017-12-28] MEDS: FLUTICASONE PROP 0.05% 16 GM NASAL SPRAY NS SCH (10:29)
[2017-12-28] MEDS: BUDESONIDE/FORMETEROL FUMARATE 80/4.5 mcg INHALER IH SCH ×2 (10:31→21:03)
[2017-12-28] MEDS: ERTAPENEM SODIUM 1 GM in SODIUM CHLORIDE 50 ML IVPB SCH (10:32)
[2017-12-28] MEDS: ATORVASTATIN CA 40 MG TABLET (FP) PO SCH (10:33)
[2017-12-28] MEDS: oxyCODONE HCL 5 MG TABLET PO PRN ×2 (12:25→20:45)
[2017-12-28] MEDS: SOLIFENACIN SUCCINATE 5 MG TAB (FP) PO SCH (13:45)
[2017-12-28] MEDS: MONTELUKAST NA 10 MG TABLET PO SCH (21:01)
[2017-12-28] MEDS: DOCUSATE SODIUM 100 MG CAPSULE (FP) PO SCH (21:01)
[2017-12-29] MEDS: oxyCODONE HCL 5 MG TABLET PO PRN ×3 (02:41→22:48)
[2017-12-29] MEDS ORDERED: LEVOTHYROXINE NA 100 MCG TABLET (FP) ONE (06:14)
[2017-12-29] MEDS ORDERED: LEVOTHYROXINE NA 75 MCG TABLET (FP) ONE (06:14)
[2017-12-29] MEDS: LEVOTHYROXINE 100 MCG, LEVOTHYROXINE 75 MCG PO SCH (06:25)
[2017-12-29] MEDS: HEPARIN NA (PORCINE) 5,000 UNITS/ML 1ML VIAL SQ SCH ×3 (06:25→22:45)
[2017-12-29] MEDS: INSULIN SLIDING SCALE (NOVOLOG) 1 VIAL SQ SCH ×4 (06:26→22:40)
[2017-12-29] MEDS: ACETAMINOPHEN 325 MG TABLET (FP) PO PRN ×2 (08:34→18:28)
--- NOTE | 2017-12-29 09:01 | PN ---
Progress Note, Physician - Current Medication List Current Medications: Active Medications Acetaminophen (Tylenol -) 650 mg PO Q6H PRN PRN Reason: PAIN LEVEL 1-5 OR FEVER Last Admin: 12/29/17 08:34 Dose: 650 mg Albuterol Sulfate (Ventolin Hfa Inhaler -) 2 puff IH Q6H PRN PRN Reason: SHORTNESS OF BREATH Amlodipine Besylate (Norvasc -) 5 mg PO DAILY [facility] Last Admin: 12/28/17 10:25 Dose: 5 mg Aspirin (Asa -) 81 mg PO DAILY [facility] Last Admin: 12/28/17 10:23 Dose: 81 mg Atorvastatin Calcium (Lipitor -) 40 mg PO DAILY [facility] Last Admin: 12/28/17 10:33 Dose: 40 mg Budesonide/Formoterol Fumarate (Symbicort 80/4.5mcg -) 2 puff IH BID [facility] Last Admin: 12/28/17 21:03 Dose: 2 puff Cholecalciferol (Vitamin D3 -) 2,000 unit PO DAILY [facility] Last Admin: 12/28/17 10:25 Dose: 2,000 unit Docusate Sodium (Colace -) 200 mg PO HS [facility] Last Admin: 12/28/17 21:01 Dose: 200 mg Duloxetine HCl (Cymbalta -) 60 mg PO DAILY [facility] Last Admin: 12/28/17 10:26 Dose: 60 mg Fluticasone Propionate (Flonase -) 1 spray NS DAILY [facility] Last Admin: 12/28/17 10:29 Dose: 1 spray Heparin Sodium (Porcine) (Heparin -) 5,000 unit SQ TID [facility] Last Admin: 12/29/17 06:25 Dose: 5,000 unit Hydralazine HCl (Apresoline -) 25 mg PO BID [facility] Last Admin: 12/28/17 21:01 Dose: 25 mg Sodium Chloride (Normal Saline -) 1,000 mls @ 42 mls/hr IV ASDIR [facility] Last Admin: 12/28/17 06:14 Dose: 42 mls/hr Ertapenem 1 gm/ Sodium (Chloride) 50 mls @ 50 mls/hr IVPB DAILY [facility]; Protocol Last Admin: 12/28/17 10:32 Dose: 50 mls/hr Insulin Aspart (Novolog Vial Sliding Scale -) 1 vial SQ ACHS [facility]; Protocol Last Admin: 12/29/17 06:26 Dose: Not Given Levothyroxine Sodium 100 mcg/ (Levothyroxine Sodium 75 mcg) 175 mcg PO DAILY@ 0700 [facility] Last Admin: 12/29/17 06:25 Dose: 175 mcg Metoprolol Succinate (Toprol Xl -) 200 mg PO DAILY [facility] Last Admin: 12/28/17 10:27 Dose: 200 mg Montelukast Sodium (Singulair -) 10 mg PO HS [facility] Last Admin: 12/28/17 21:01 Dose: 10 mg Oxycodone HCl (Roxicodone -) 5 mg PO Q6H PRN PRN Reason: PAIN LEVEL 6-10 Last Admin: 12/29/17 08:35 Dose: 5 mg Solifenacin (Vesicare -) 5 mg PO DAILY [facility] Last Admin: 12/28/17 13:45 Dose: 5 mg Valsartan (Diovan -) 320 mg PO DAILY [facility] Last Admin: 12/28/17 10:28 Dose: 320 mg - Objective Vital Signs: Vital Signs Temperature 98.1 F 12/29/17 06:41 Pulse Rate 63 12/29/17 06:41 Respiratory Rate 20 12/29/17 06:41 Blood Pressure 157/86 12/29/17 06:41 O2 Sat by Pulse Oximetry (%) 95 12/28/17 21:00 Labs: CBC, BMP 12/26/17 06:30 12/26/17 06:30 INR, PTT INR 1.12 (0.83-1.09) H 12/24/17 06:30 Problem List - Problems (1) ESBL (extended spectrum beta-lactamase) producing bacteria infection Code(s): A49.9 - BACTERIAL INFECTION, UNSPECIFIED; Z16.12 - EXTENDED SPECTRUM BETA LACTAMASE (ESBL) RESISTANCE (2) Pyelonephritis Code(s): N12 - TUBULO-INTERSTITIAL NEPHRITIS, NOT SPCF ACUTE OR CHRONIC (3) Recurrent UTI (urinary tract infection) Code(s): N39.0 - URINARY TRACT INFECTION, SITE NOT SPECIFIED
--- NOTE | 2017-12-29 09:38 | DS ---
Physical Examination Vital Signs: Vital Signs Temperature 98.1 F 12/29/17 06:41 Pulse Rate 63 12/29/17 06:41 Respiratory Rate 20 12/29/17 06:41 Blood Pressure 157/86 12/29/17 06:41 O2 Sat by Pulse Oximetry (%) 95 12/28/17 21:00 Constitutional: Yes: No Distress Eyes: Yes: WNL HENT: Yes: WNL Neck: Yes: WNL Cardiovascular: Yes: WNL Respiratory: Yes: WNL Gastrointestinal: Yes: WNL Musculoskeletal: Yes: Muscle Weakness Extremities: Yes: WNL Edema: Yes Peripheral Pulses WNL: Yes Integumentary: Yes: WNL Wound/Incision: Yes: Clean/Dry Neurological: Yes: Pre-Existing Deficit, Unsteady Gait ...Motor Strength: LLE, RLE Psychiatric: Yes: Other Labs: CBC, BMP 12/26/17 06:30 12/26/17 06:30 Discharge Summary Reason For Visit: UTI;INFECTION W/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 TREATED AND CAN F/U OUTPATIENT WITH PMD Condition: Stable - Instructions Diet, Activity, Other Instructions: SEE DR MENDOZA OUTPATIENT Referrals: Madison Mednoza MD [Primary Care Provider] - Disposition: VNS/HOME HEALTH CARE - Home Medications Comprehensive Discharge Medication List: Ambulatory Orders Alprazolam [Xanax] 1 mg PO HS PRN 06/13/16 Atorvastatin Ca [Lipitor] 40 mg PO DAILY 06/13/16 Furosemide [Lasix] 40 mg PO DAILY 06/13/16 Metoprolol Succinate [Toprol Xl] 200 mg PO DAILY 06/13/16 Montelukast Na [Singulair -] 10 mg PO HS 06/13/16 hydrALAZINE HCL [Apresoline -] 25 mg PO BID 03/02/17 Duloxetine HCl [Cymbalta] 60 mg PO DAILY 03/07/17 Mirabegron [Myrbetriq] 50 mg PO DAILY 06/07/17 Albuterol Sulfate [Proair Respiclick] 90 mcg IH PRN PRN 08/02/17 Aspirin 81 mg PO DAILY 08/02/17 Cholecalciferol (Vitamin D3) [Vitamin D3] 2,000 unit PO DAILY 08/02/17 Docusate Sodium [Colace] 200 mg PO HS 08/02/17 Levothyroxine [Synthroid -] 175 mcg PO DAILY@0700 08/02/17 Potassium Chloride [K-Dur -] 20 meq PO DAILY 08/02/17 Dexlansoprazole [Dexilant] 60 mg PO ACBK 11/18/17 Fluticasone Prop 0.05% Nasal [Flonase -] 1 spray NS DAILY 11/18/17 Oxycodone HCl/Acetaminophen [Percocet 5-325 mg Tablet] 1 tab PO Q6H PRN MDD 6 Solifenacin Succinate [Vesicare -] 5 mg PO DAILY 11/18/17 Lactobacillus Acidophilus [Bacid -] 1 tab PO BID tab 11/29/17 Amlodipine/Valsartan [Exforge 5-320 mg Tablet] 1 tab PO DAILY 12/24/17 Fluticasone/Salmeterol [Advair 250-50 Diskus] 1 puff IH BID 12/24/17
[2017-12-29] MEDS: ERTAPENEM SODIUM 1 GM in SODIUM CHLORIDE 50 ML IVPB SCH (09:59)
[2017-12-29] MEDS: ATORVASTATIN CA 40 MG TABLET (FP) PO SCH (10:00)
[2017-12-29] MEDS: VALSARTAN 160 MG TABLET (UD) PO SCH (10:00)
[2017-12-29] MEDS: ASPIRIN 81 MG CHEWABLE TABLETS PO SCH (10:00)
[2017-12-29] MEDS: hydrALAZINE HCL 25 MG TABLET (FP) PO SCH ×2 (10:00→22:43)
[2017-12-29] MEDS: DULoxetine HCL 30 MG CAPSULE.DR (FP) PO SCH (10:00)
[2017-12-29] MEDS: amLODIPine BESYLATE 5 MG TABLET (FP) PO SCH (10:00)
[2017-12-29] MEDS: CHOLECALCIFEROL (VITAMIN D3) 1,000 UNIT TABLET (FP) PO SCH (10:00)
[2017-12-29] MEDS: SOLIFENACIN SUCCINATE 5 MG TAB (FP) PO SCH (10:01)
[2017-12-29] MEDS: SODIUM CHLORIDE 1,000 ML IV SCH (10:01)
[2017-12-29] MEDS: BUDESONIDE/FORMETEROL FUMARATE 80/4.5 mcg INHALER IH SCH ×2 (10:02→22:45)
[2017-12-29] MEDS: FLUTICASONE PROP 0.05% 16 GM NASAL SPRAY NS SCH (10:02)
--- NOTE | 2017-12-29 12:17 | PN ---
Progress Note, Physician History of Present Illness: Awake and alert Eating ice cream in bed No complaints offered Denies dysuria/ hematuria Afebrile WBC WNL BC (-) Urine c/s ESBL - Current Medication List Current Medications: Active Medications Acetaminophen (Tylenol -) 650 mg PO Q6H PRN PRN Reason: PAIN LEVEL 1-5 OR FEVER Last Admin: 12/29/17 08:34 Dose: 650 mg Albuterol Sulfate (Ventolin Hfa Inhaler -) 2 puff IH Q6H PRN PRN Reason: SHORTNESS OF BREATH Amlodipine Besylate (Norvasc -) 5 mg PO DAILY [facility] Last Admin: 12/29/17 10:00 Dose: 5 mg Aspirin (Asa -) 81 mg PO DAILY [facility] Last Admin: 12/29/17 10:00 Dose: 81 mg Atorvastatin Calcium (Lipitor -) 40 mg PO DAILY [facility] Last Admin: 12/29/17 10:00 Dose: 40 mg Budesonide/Formoterol Fumarate (Symbicort 80/4.5mcg -) 2 puff IH BID [facility] Last Admin: 12/29/17 10:02 Dose: 2 puff Cholecalciferol (Vitamin D3 -) 2,000 unit PO DAILY [facility] Last Admin: 12/29/17 10:00 Dose: 2,000 unit Docusate Sodium (Colace -) 200 mg PO HS [facility] Last Admin: 12/28/17 21:01 Dose: 200 mg Duloxetine HCl (Cymbalta -) 60 mg PO DAILY [facility] Last Admin: 12/29/17 10:00 Dose: 60 mg Fluticasone Propionate (Flonase -) 1 spray NS DAILY [facility] Last Admin: 12/29/17 10:02 Dose: 1 spray Heparin Sodium (Porcine) (Heparin -) 5,000 unit SQ TID [facility] Last Admin: 12/29/17 06:25 Dose: 5,000 unit Hydralazine HCl (Apresoline -) 25 mg PO BID [facility] Last Admin: 12/29/17 10:00 Dose: 25 mg Sodium Chloride (Normal Saline -) 1,000 mls @ 42 mls/hr IV ASDIR [facility] Last Admin: 12/29/17 10:01 Dose: Not Given Ertapenem 1 gm/ Sodium (Chloride) 50 mls @ 50 mls/hr IVPB DAILY [facility]; Protocol Last Admin: 12/29/17 09:59 Dose: 50 mls/hr Insulin Aspart (Novolog Vial Sliding Scale -) 1 vial SQ ACHS [facility]; Protocol Last Admin: 12/29/17 06:26 Dose: Not Given Levothyroxine Sodium 100 mcg/ (Levothyroxine Sodium 75 mcg) 175 mcg PO DAILY@ 0700 [facility] Last Admin: 12/29/17 06:25 Dose: 175 mcg Metoprolol Succinate (Toprol Xl -) 200 mg PO DAILY [facility] Last Admin: 12/29/17 09:59 Dose: 200 mg Montelukast Sodium (Singulair -) 10 mg PO HS [facility] Last Admin: 12/28/17 21:01 Dose: 10 mg Oxycodone HCl (Roxicodone -) 5 mg PO Q6H PRN PRN Reason: PAIN LEVEL 6-10 Last Admin: 12/29/17 08:35 Dose: 5 mg Solifenacin (Vesicare -) 5 mg PO DAILY [facility] Last Admin: 12/29/17 10:01 Dose: 5 mg Valsartan (Diovan -) 320 mg PO DAILY [facility] Last Admin: 12/29/17 10:00 Dose: 320 mg - Objective Vital Signs: Vital Signs Temperature 98.1 F 12/29/17 06:41 Pulse Rate 63 12/29/17 06:41 Respiratory Rate 20 12/29/17 06:41 Blood Pressure 157/86 12/29/17 06:41 O2 Sat by Pulse Oximetry (%) 95 12/28/17 21:00 Constitutional: Yes: No Distress, Obese Eyes: Yes: Conjunctiva Clear Cardiovascular: Yes: Regular Rate and Rhythm, S1, S2 Respiratory: Yes: CTA Bilaterally Gastrointestinal: Yes: Normal Bowel Sounds, Soft, Abdomen, Obese. No: Tenderness Edema: Yes Labs: CBC, BMP 12/26/17 06:30 INR, PTT INR 1.12 (0.83-1.09) H 12/24/17 06:30 Assessment/Plan Recurrent UTI ESBL Day #7 ertapenem D/C antibiotics after today's dose Contact precautions
[2017-12-29 12:31] LABS: ANION GAP 9 MMOL/L (8-16); BLOOD UREA NITROGEN 3 mg/dL (7-18); CALCIUM 9.4 mg/dL (8.5-10.1); CHLORIDE 104 mmol/L (98-107); CO2 26 mmol/L (21-32); CREATININE 0.5 mg/dL (0.55-1.3); GLUCOSE,RANDOM 121 mg/dL (74-106); POTASSIUM 3.6 mmol/L (3.5-5.1); SODIUM 138 mmol/L (136-145)
[2017-12-29] MEDS ORDERED: INSULIN (NOVOLOG) ASPART 100 UNITS/ML 10ML VIAL ONE (21:12)
[2017-12-29] MEDS: MONTELUKAST NA 10 MG TABLET PO SCH (22:43)
[2017-12-29] MEDS: DOCUSATE SODIUM 100 MG CAPSULE (FP) PO SCH (22:43)
[2017-12-30] MEDS: oxyCODONE HCL 5 MG TABLET PO PRN (05:15)
[2017-12-30] MEDS ORDERED: LEVOTHYROXINE NA 75 MCG TABLET (FP) ONE (06:37)
[2017-12-30] MEDS ORDERED: LEVOTHYROXINE NA 100 MCG TABLET (FP) ONE (06:37)
[2017-12-30] MEDS: HEPARIN NA (PORCINE) 5,000 UNITS/ML 1ML VIAL SQ SCH (06:52)
[2017-12-30] MEDS: LEVOTHYROXINE 100 MCG, LEVOTHYROXINE 75 MCG PO SCH (06:52)
[2017-12-30] MEDS ORDERED: INSULIN (LEVEMIR) 100 UNITS/ML UNITS SQ ONE (07:49)
[2017-12-30] MEDS ORDERED: INSULIN (NOVOLOG) ASPART 100 UNITS/ML 10ML VIAL ONE ×2 (07:49→14:59)
[2017-12-30] MEDS ORDERED: PT OWN MED DRAWER 7, Y5N ONE ×2 (08:52→09:47)
[2017-12-30] MEDS: VALSARTAN 160 MG TABLET (UD) PO SCH (09:50)
[2017-12-30] MEDS: DULoxetine HCL 30 MG CAPSULE.DR (FP) PO SCH (09:50)
[2017-12-30] MEDS: ASPIRIN 81 MG CHEWABLE TABLETS PO SCH (09:51)
[2017-12-30] MEDS: hydrALAZINE HCL 25 MG TABLET (FP) PO SCH (09:51)
[2017-12-30] MEDS: amLODIPine BESYLATE 5 MG TABLET (FP) PO SCH (09:51)
[2017-12-30] MEDS: ERTAPENEM SODIUM 1 GM in SODIUM CHLORIDE 50 ML IVPB SCH (09:51)
[2017-12-30] MEDS: CHOLECALCIFEROL (VITAMIN D3) 1,000 UNIT TABLET (FP) PO SCH (09:51)
[2017-12-30] MEDS: ATORVASTATIN CA 40 MG TABLET (FP) PO SCH (09:51)
[2017-12-30] MEDS: BUDESONIDE/FORMETEROL FUMARATE 80/4.5 mcg INHALER IH SCH (09:52)
[2017-12-30] MEDS: SOLIFENACIN SUCCINATE 5 MG TAB (FP) PO SCH (09:53)
[2017-12-30] MEDS: FLUTICASONE PROP 0.05% 16 GM NASAL SPRAY NS SCH (09:53)
[2017-12-30 10:42] VITALS: BP 156/89; PULSE 60; TEMP 98.2
== END 2017-12-30 13:05 | disposition home health service (06) | DRG 690 ==
LOC: JER 18:04 → JERBED 22:31 → J8W 12-24 04:11
PROVIDERS: ADMIT Internal Medicine; ATTEND Family Medicine
DX: N10 Acute pyelonephritis (principal); Z68.42 Body mass index [BMI] 45.0-49.9, adult; Z16.12 Extended spectrum beta lactamase (ESBL) resistance; E66.01 Morbid (severe) obesity due to excess calories; E11.9 Type 2 diabetes mellitus without complications; J45.909 Unspecified asthma, uncomplicated; Z86.73 Personal history of transient ischemic attack (TIA), and cerebral infarction without residual deficits; K21.9 Gastro-esophageal reflux disease without esophagitis; E03.9 Hypothyroidism, unspecified; E78.5 Hyperlipidemia, unspecified; M06.9 Rheumatoid arthritis, unspecified; G47.33 Obstructive sleep apnea (adult) (pediatric); N81.10 Cystocele, unspecified; Z96.653 Presence of artificial knee joint, bilateral; B96.1 Klebsiella pneumoniae [K. pneumoniae] as the cause of diseases classified elsewhere
CPT/HCPCS: 36415; 71045-TC-FY; 76775-TC; 76856-TC; 80048; 80053; 81003; 81015; 82962; 83036; 83735; 84100; 85025; 85027; 85610; 85730; 87040; 87086; 87186; 93005; 93010; 97116-GP; 97161-GP; 99283-25; J1644; J7030

== ENCOUNTER 2018-05-03 12:13 | Inpatient (IN) | payer OTHER ==
--- NOTE | 2018-05-03 12:35 | PDOC ---
Rapid Medical Evaluation Time Seen by Provider: 05/03/18 12:34 Medical Evaluation: Allergies Allergy/AdvReac Type Severity Reaction Status Date / Time No Known Allergies Allergy Verified 11/18/17 19:00 05/03/18 12:34 I performed a brief in-person evaluation of this patient. Chief complaint is: Sent by Dr. Mccullough for admission for UTI requiring IV abx Pertinent physical exam findings include: Alert, no distress. Afebrile. I have ordered the following: Basic labs, UA/culture. Patient will proceed to the ED for further evaluation. Discharge Disposition - Diagnosis Urinary tract infection Qualifiers: Urinary tract infection type: acute cystitis Hematuria presence: without hematuria Qualified Code(s): N30.00 - Acute cystitis without hematuria - Referrals - Patient Instructions - Post Discharge Activity
[2018-05-03 13:07] LABS: BASO % 1.4 % (0-2.0); EOS % 1.6 % (0-4.5); HEMATOCRIT 39.9 % (32.4-45.2); HEMOGLOBIN 13.1 GM/dL (10.7-15.3); LYMPH % 16.8 % (8-40); MCH 26.9 pg (25.7-33.7); MCHC 32.8 g/dl (32.0-36.0); MEAN CELL VOLUME 82.1 fl (80-96); MEAN PLT VOLUME 7.9 fl (7.5-11.1); MONO % 7.1 % (3.8-10.2); NEUT % 73.1 % (42.8-82.8); PLATELET COUNT 286 K/MM3 (134-434); RBC 4.86 M/mm3 (3.60-5.2); RDW 17.6 % (11.6-15.6); WHITE BLOOD COUNT 8.1 K/mm3 (4.0-10.0)
[2018-05-03 13:08] LABS: URINE APPEARANCE CLOUDY; URINE BILIRUBIN NEGATIVE (<2.0 mg/dL); URINE COLOR YELLOW; URINE GLUCOSE (UA) NEGATIVE (NEGATIVE); URINE KETONE NEGATIVE (NEGATIVE); URINE LEUK ESTERASE 3+ (NEGATIVE); URINE NITRITE NEGATIVE (NEGATIVE); URINE PROTEIN 2+ (NEGATIVE); URINE UROBILINOGEN NEGATIVE mg/dL (0.2-1.0)
[2018-05-03 13:17] LABS: EPI CELLS FEW /HPF (FEW); URINE BACTERIA RARE /hpf (NONE SEEN); URINE MUCUS RARE
[2018-05-03 13:56] LABS: ALBUMIN 3.5 g/dl (3.4-5.0); ALK PHOS 110 U/L (45-117); ANION GAP 10 MMOL/L (8-16); BILIRUBIN,TOTAL 0.4 mg/dL (0.2-1); BLOOD UREA NITROGEN 11 mg/dL (7-18); CALCIUM 9.4 mg/dL (8.5-10.1); CHLORIDE 108 mmol/L (98-107); CO2 25 mmol/L (21-32); CREATININE 0.8 mg/dL (0.55-1.3); GLUCOSE,RANDOM 106 mg/dL (74-106); POTASSIUM 3.8 mmol/L (3.5-5.1); SGOT/AST 15 U/L (15-37); SGPT/ALT 20 U/L (13-61); SODIUM 144 mmol/L (136-145); TOT PROT 6.8 g/dl (6.4-8.2)
--- NOTE | 2018-05-03 14:02 | PDOC ---
History of Present Illness - General Chief Complaint: Urinary Problem Stated Complaint: PCP ADMIT Time Seen by Provider: 05/03/18 12:34 History Source: Patient Exam Limitations: No Limitations - History of Present Illness Initial Comments: 05/03/18 13:57 Pt is a 73yo F with PMH of NIDDM, HTN, HLD, Hypothyroidism, Asthma, CVA, RA, Recurrent UTI sent from Dr. Henriquez's office for UTI. Pt has history of UTIs requiring IV ertapenem (most Recent December 2017). She has been having symptoms of dysuria, frequency, urgency for the past 2 weeks. Pt also endorses R sided flank pain and chills. Denies fevers, hematuria, abdominal pain, n/v/d, syncope, chest pain, lightheadedness. PMD: [place] PMH: see hpi PSH: bilateral knee surgery Meds: see med rec Allergies: nkda Social: denies Past History - Past Medical History Allergies/Adverse Reactions: Allergies Allergy/AdvReac Type Severity Reaction Status Date / Time No Known Allergies Allergy Verified 11/18/17 19:00 Home Medications: Ambulatory Orders Alprazolam [Xanax] 1 mg PO HS PRN 06/13/16 Atorvastatin Ca [Lipitor] 40 mg PO DAILY 06/13/16 Furosemide [Lasix] 40 mg PO DAILY 06/13/16 Montelukast Na [Singulair -] 10 mg PO HS 06/13/16 hydrALAZINE HCL [Apresoline -] 25 mg PO BID 03/02/17 Duloxetine HCl [Cymbalta] 60 mg PO DAILY 03/07/17 Mirabegron [Myrbetriq] 50 mg PO DAILY 06/07/17 Albuterol Sulfate [Proair Respiclick] 90 mcg IH PRN PRN 08/02/17 Aspirin 81 mg PO DAILY 08/02/17 Cholecalciferol (Vitamin D3) [Vitamin D3] 2,000 unit PO DAILY 08/02/17 Docusate Sodium [Colace] 200 mg PO HS 08/02/17 Levothyroxine [Synthroid -] 175 mcg PO DAILY@0700 08/02/17 Potassium Chloride [K-Dur -] 20 meq PO DAILY 08/02/17 Dexlansoprazole [Dexilant] 60 mg PO ACBK 11/18/17 Fluticasone Prop 0.05% Nasal [Flonase -] 1 spray NS DAILY 11/18/17 Oxycodone HCl/Acetaminophen [Percocet 5-325 mg Tablet] 1 tab PO Q6H PRN MDD 6 Lactobacillus Acidophilus [Bacid -] 1 tab PO BID tab 11/29/17 Fluticasone/Salmeterol [Advair 250-50 Diskus] 1 puff IH BID 12/24/17 Amlodipine Bes/Olmesartan Med [Namrata 10-40 mg Tablet] 1 each PO DAILY 05/03/18 Atorvastatin Ca [Lipitor] 40 mg PO HS 05/03/18 Diphenhydramine HCl [Benadryl -] 25 mg PO Q6H PRN 05/03/18 Fluticasone/Salmeterol [Advair 250-50 Diskus] 1 each IH BID 05/03/18 Metoprolol Succinate [Toprol Xl] 200 mg PO DAILY 05/03/18 Montelukast Sodium [Singulair] 10 mg PO HS 05/03/18 Nitrofurantoin Monohyd/M-Cryst [Macrobid -] 100 mg PO BID 05/03/18 Oxycodone HCl/Acetaminophen [Endocet 7.5-325 mg Tablet] 1 each PO Q6H PRN Pregabalin [Lyrica] 100 mg PO DAILY 05/03/18 Pregabalin [Lyrica] 100 mg PO TID 05/03/18 Solifenacin Succinate [Vesicare -] 5 mg PO DAILY 05/03/18 Anemia: No Asthma: Yes COPD: No DVT: No Diabetes: Yes (NO MEDS) GI Disorders: Yes (REFLUX) Disorders: Yes (KIDNEY STONES) HTN: Yes Hypercholesterolemia: Yes Thyroid Disease: Yes (HYPO) - Surgical History Appendectomy: Yes Cholecystectomy: Yes Orthopedic Surgery: Yes (CARITO. KNEE REPLACEMENTS) - Immunization History Immunization Up to Date: Yes - Suicide/Smoking/Psychosocial Hx Smoking Status: Yes Smoking History: Never smoked Have you smoked in the past 12 months: No Number of Cigarettes Smoked Daily: 0 If you are a former smoker, when did you quit?: as a teenager Information on smoking cessation initiated: No Hx Alcohol Use: No Drug/Substance Use Hx: No Substance Use Type: None Hx Substance Use Treatment: No Review of Systems - Review of Systems Constitutional: Yes: Chills. No: Fever, Night Sweats HEENTM: No: Symptoms Reported Respiratory: No: Cough, Shortness of Breath Cardiac (ROS): No: Chest Pain, Lightheadedness, Palpitations, Syncope ABD/GI: No: Constipated, Diarrhea, Nausea, Rectal Bleeding, Vomiting, Abdominal cramping : Yes: Burning, Dysuria, Frequency, Flank Pain, Urgency. No: Incontinence Musculoskeletal: No: Back Pain, Joint Pain, Neck Pain Integumentary: No: Symptoms Reported Neurological: No: Symptoms reported *Physical Exam - Vital Signs Last Vital Signs Temp Pulse Resp BP Pulse Ox 98.0 F 92 H 16 123/78 96 05/03/18 12:36 05/03/18 12:36 05/03/18 12:36 05/03/18 12:36 05/03/18 12:36 - Physical Exam General Appearance: Yes: Appropriately Dressed, Obese. No: Apparent Distress HEENT: positive: EOMI, SUSSY, Normal Voice, Pharynx Normal Neck: positive: Trachea midline, Supple. negative: Carotid bruit, Lymphadenopathy (R), Lymphadenopathy (L) Respiratory/Chest: positive: Lungs Clear, Normal Breath Sounds. negative: Crackles, Rales, Rhonchi, Stridor Cardiovascular: positive: Regular Rhythm, Regular Rate, S1, S2. negative: Edema , JVD, Murmur Vascular Pulses: Carotid (R): 2+, Carotid (L): 2+, Dorsalis-Pedis (R): 2+, Doralis-Pedis (L): 2+ Gastrointestinal/Abdominal: positive: Normal Bowel Sounds, Soft. negative: Distended, Guarding, Rebound Musculoskeletal: positive: CVA Tenderness (R). negative: CVA Tenderness (L) Extremity: positive: Normal Capillary Refill, Normal Range of Motion. negative : Coldness, Pedal Edema, Swelling Integumentary: positive: Normal Color, Dry, Warm Neurologic: positive: supervisor canvas products II-XII NML intact, Fully Oriented, Alert, Normal Mood/ Affect, Normal Response, Motor Strength 5/5 Moderate Sedation - Procedure Monitoring Vital Signs: Procedure Monitoring Vital Signs Temperature 98.0 F 05/03/18 12:36 Pulse Rate 92 H 05/03/18 12:36 Respiratory Rate 16 05/03/18 12:36 Blood Pressure 123/78 05/03/18 12:36 O2 Sat by Pulse Oximetry (%) 96 05/03/18 12:36 ED Treatment Course - LABORATORY CBC & Chemistry Diagram: 05/03/18 12:54 05/03/18 12:54 - ADDITIONAL ORDERS Additional order review: Laboratory Results 05/03/18 05/03/18 05/03/18 12:54 12:54 12:54 WBC 8.1 RBC 4.86 Hgb 13.1 Hct 39.9 MCV 82.1 MCH 26.9 MCHC 32.8 RDW 17.6 H Plt Count 286 MPV 7.9 D Absolute Neuts (auto) 5.9 Neutrophils % 73.1 Lymphocytes % 16.8 Monocytes % 7.1 Eosinophils % 1.6 Basophils % 1.4 Nucleated RBC % 0 Sodium 144 Potassium 3.8 Chloride 108 H Carbon Dioxide 25 Anion Gap 10 BUN 11 Creatinine 0.8 Creat Clearance w eGFR > 60 Random Glucose 106 Calcium 9.4 Total Bilirubin 0.4 AST 15 ALT 20 Alkaline Phosphatase 110 Total Protein 6.8 Albumin 3.5 Urine Color Yellow Urine Appearance Cloudy Urine pH 5.0 Ur Specific [place] 1.020 Urine Protein 2+ H Urine Glucose (UA) Negative Urine Ketones Negative Urine Blood Negative Urine Nitrite Negative Urine Bilirubin Negative Urine Urobilinogen Negative Ur Leukocyte Esterase 3+ H Urine WBC (Auto) 375 Urine RBC (Auto) 12 Ur Epithelial Cells Few Urine Bacteria Rare Urine Mucus Rare 05/03/18 12:54 RBC 4.86 MCV 82.1 MCHC 32.8 RDW 17.6 H MPV 7.9 D Neutrophils % 73.1 Lymphocytes % 16.8 Monocytes % 7.1 Eosinophils % 1.6 Basophils % 1.4 Medical Decision Making - Medical Decision Making 05/03/18 14:02 Pt is a 73yo F with PMH of NIDDM, HTN, HLD, Hypothyroidism, Asthma, CVA, RA, Recurrent UTI sent from Dr. Henriquez's office for UTI. Pt has history of UTIs requiring IV ertapenem (most Recent December 2017) Vitals: wnl, afebrile, normocardic PE: R CVA tenderness High suspicion for UTI possible pyelonephritis. Labs ordered by [facility]. Per previous culture (December 2017) pt had been given 1g ertapenem. Previous sensitivities show sensitivity to ertapenem however report states that lab sensitivities may not represent in vivo sensitivities. Pt given 1L IV fluids. EKG NSR, normal RI and QTc. left anterior fascicular block. No signs of acute ischemia. 1g ertapenem. Labs significant for UA with 3+ LE and 300 WBC, few bacteria. Pt admitted for UTI requiring IV abx. *DC/Admit/Observation/Transfer Diagnosis at time of Disposition: Urinary tract infection Qualifiers: Urinary tract infection type: acute cystitis Hematuria presence: without hematuria Qualified Code(s): N30.00 - Acute cystitis without hematuria - Discharge Dispostion Condition at time of disposition: Good Decision to Admit order: Yes - Referrals - Patient Instructions - Post Discharge Activity
[2018-05-03] MEDS ORDERED: diphenhydrAMINE HCL 25 MG CAPSULE (FP) PO PRN (14:03)
[2018-05-03] MEDS ORDERED: ALBUTEROL SO4 0.083% IH SOL 2.5 MG/3 ML VIAL.NEB. NEB PRN (14:06)
[2018-05-03] MEDS ORDERED: ALPRAZolam 0.25 MG TABLET PO PRN (14:06)
[2018-05-03] MEDS ORDERED: ERTAPENEM SODIUM 1 GM/50 ML PRE-DOCKED IVPB ONE (14:11)
--- NOTE | 2018-05-03 14:11 | HP ---
Admitting History and Physical - Primary Care Physician PCP: Madison Henriquez I (Covering physician Jennifer Mccullough) - Admission Chief Complaint: ESBL UTI History of Present Illness: Pt is a 73yo F with PMH of NIDDM, HTN, HLD, Hypothyroidism, Asthma, CVA, RA, Recurrent UTI sent from Dr. Henriquez's office for UTI. Pt has history of UTIs requiring IV ertapenem (most Recent December 2017). She has been having symptoms of dysuria, frequency, urgency for the past 2 weeks. Pt also endorses R sided flank pain and chills. Denies fevers, hematuria, abdominal pain, n/v/d, syncope, chest pain, lightheadedness. 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: CVA (?) Cardiovascular: Yes: CHF, HTN, Hyperlipdemia Pulmonary: Yes: Asthma, Sleep Apnea Gastrointestinal: Yes: GERD Renal/: Yes: Renal Calculi Infectious Disease: Yes: C-Diff, Other (ESBL) Psych: Yes: Anxiety, Other (Insomnia) Rheumatology: Yes: Rheumatoid Arthritis Endocrine: Yes: Diabetes Mellitus, Hypothyroidism - Smoking History Smoking history: Never smoked Have you smoked in the past 12 months: No Aproximately how many cigarettes per day: 0 If you are a former smoker, when did you quit?: as a teenager - Alcohol/Substance Use Hx Alcohol Use: No - Social History 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, 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) Home Medications - Allergies Allergies/Adverse Reactions: Allergies Allergy/AdvReac Type Severity Reaction Status Date / Time No Known Allergies Allergy Verified 11/18/17 19:00 - Home Medications Home Medications: Ambulatory Orders Alprazolam [Xanax] 1 mg PO HS PRN 06/13/16 Atorvastatin Ca [Lipitor] 40 mg PO DAILY 06/13/16 Furosemide [Lasix] 40 mg PO DAILY 06/13/16 Montelukast Na [Singulair -] 10 mg PO HS 06/13/16 hydrALAZINE HCL [Apresoline -] 25 mg PO BID 03/02/17 Duloxetine HCl [Cymbalta] 60 mg PO DAILY 03/07/17 Mirabegron [Myrbetriq] 50 mg PO DAILY 06/07/17 Albuterol Sulfate [Proair Respiclick] 90 mcg IH PRN PRN 08/02/17 Aspirin 81 mg PO DAILY 08/02/17 Cholecalciferol (Vitamin D3) [Vitamin D3] 2,000 unit PO DAILY 08/02/17 Docusate Sodium [Colace] 200 mg PO HS 08/02/17 Levothyroxine [Synthroid -] 175 mcg PO DAILY@0700 08/02/17 Potassium Chloride [K-Dur -] 20 meq PO DAILY 08/02/17 Dexlansoprazole [Dexilant] 60 mg PO ACBK 11/18/17 Fluticasone Prop 0.05% Nasal [Flonase -] 1 spray NS DAILY 11/18/17 Oxycodone HCl/Acetaminophen [Percocet 5-325 mg Tablet] 1 tab PO Q6H PRN MDD 6 Lactobacillus Acidophilus [Bacid -] 1 tab PO BID tab 11/29/17 Fluticasone/Salmeterol [Advair 250-50 Diskus] 1 puff IH BID 12/24/17 Amlodipine Bes/Olmesartan Med [Namrata 10-40 mg Tablet] 1 each PO DAILY 05/03/18 Atorvastatin Ca [Lipitor] 40 mg PO HS 05/03/18 Diphenhydramine HCl [Benadryl -] 25 mg PO Q6H PRN 05/03/18 Fluticasone/Salmeterol [Advair 250-50 Diskus] 1 each IH BID 05/03/18 Metoprolol Succinate [Toprol Xl] 200 mg PO DAILY 05/03/18 Montelukast Sodium [Singulair] 10 mg PO HS 05/03/18 Nitrofurantoin Monohyd/M-Cryst [Macrobid -] 100 mg PO BID 05/03/18 Oxycodone HCl/Acetaminophen [Endocet 7.5-325 mg Tablet] 1 each PO Q6H PRN Pregabalin [Lyrica] 100 mg PO DAILY 05/03/18 Pregabalin [Lyrica] 100 mg PO TID 05/03/18 Solifenacin Succinate [Vesicare -] 5 mg PO DAILY 05/03/18 Review of Systems - Review of Systems Constitutional: reports: No Symptoms Eyes: reports: No Symptoms HENT: reports: No Symptoms Neck: reports: No Symptoms Cardiovascular: reports: No Symptoms Respiratory: reports: No Symptoms Gastrointestinal: reports: No Symptoms Genitourinary: reports: No Symptoms Breasts: reports: No Symptoms Reported Musculoskeletal: reports: No Symptoms Integumentary: reports: No Symptoms Neurological: reports: No Symptoms Endocrine: reports: No Symptoms Hematology/Lymphatic: reports: No Symptoms Psychiatric: reports: No Symptoms Physical Examination Vital Signs: Vital Signs Temperature 98.0 F 05/03/18 12:36 Pulse Rate 92 H 05/03/18 12:36 Respiratory Rate 16 05/03/18 12:36 Blood Pressure 123/78 05/03/18 12:36 O2 Sat by Pulse Oximetry (%) 96 05/03/18 12:36 Constitutional: Yes: Well Nourished, No Distress, Calm, Obese Labs: CBC, BMP 05/03/18 12:54 05/03/18 12:54
[2018-05-03] MEDS ORDERED: ERTAPENEM SODIUM 1 GM VIAL ONE (14:44)
[2018-05-03] MEDS ORDERED: SODIUM CHLORIDE 1,000 ML IV STA (14:54)
--- NOTE | 2018-05-03 17:30 | PDOC ---
Attending Attestation - Resident Resident Name: Mayelin Mar - ED Attending Attestation I have performed the following: I have examined & evaluated the patient, The case was reviewed & discussed with the resident, I agree w/resident's findings & plan, Exceptions are as noted - HPI HPI: 05/03/18 17:29 The patient is a 73 year old female, with a significant past medical history of NIDDM, HTN, HLD, Hypothyroidism, Asthma, CVA, RA, and Recurrent UTIs (last 2017) who presents to the emergency department by Dr. Ang request complaining of dysuria, frequency and urgency for the last 2 weeks. Patient reports having associated right flank pain. Patient reports having chills. Patient states her urine was collected about one week ago but is unsure of the results. The patient denies abdominal pain, chest pain, and lightheadedness. The patient denies chest pain, shortness of breath, headache and dizziness. The patient denies fever, nausea, vomit, diarrhea and constipation. The patient denies hematuria. Allergies: NKA Past surgical history: bilateral knee replacement, Appendectomy, and Cholecystectomy Social history: No reported PCP: Dr. Henriquez - Physicial Exam PE: 05/03/18 17:29 agree with resident exam - Medical Decision Making 05/03/18 17:30 73yo F hx ESBL uti presents to the ED for admission for IV abx. Pt covered with ertapenem based on what has worked for her in the past. Pt admitted to Dr. Mccullough for further mgmt.
[2018-05-03] MEDS ORDERED: oxyCODONE HCL 5 MG TABLET ONE (21:27)
[2018-05-03] MEDS ORDERED: hydrALAZINE HCL 25 MG TABLET (FP) ONE (21:27)
[2018-05-03] MEDS ORDERED: ATORVASTATIN CA 40 MG TABLET (FP) ONE (21:27)
[2018-05-03] MEDS ORDERED: MONTELUKAST NA 10 MG TABLET ONE (21:28)
[2018-05-03] MEDS ORDERED: DOCUSATE SODIUM 100 MG CAPSULE (FP) PO ONE (21:28)
[2018-05-03] MEDS: hydrALAZINE HCL 25 MG TABLET (FP) PO SCH (21:36)
[2018-05-03] MEDS: LACTOBACILLUS ACIDOPHILUS 1 TABLET PO SCH (21:36)
[2018-05-03] MEDS: MONTELUKAST NA 10 MG TABLET PO SCH (21:36)
[2018-05-03] MEDS: ATORVASTATIN CA 40 MG TABLET (FP) PO SCH (21:36)
[2018-05-03] MEDS: DOCUSATE SODIUM 100 MG CAPSULE (FP) PO SCH (21:36)
[2018-05-04] MEDS ORDERED: oxyCODONE HCL 5 MG TABLET ONE ×2 (03:40→11:06)
[2018-05-04] MEDS: oxyCODONE HCL 5 MG TABLET PO PRN ×3 (03:44→22:03)
[2018-05-04] MEDS ORDERED: LEVOTHYROXINE NA 100 MCG TABLET (FP) PO SCH (07:00)
[2018-05-04] MEDS ORDERED: LEVOTHYROXINE NA 25 MCG TABLET (FP) ONE (07:04)
[2018-05-04] MEDS: LEVOTHYROXINE 100 MCG, LEVOTHYROXINE 75 MCG PO SCH (07:11)
[2018-05-04] MEDS: hydrALAZINE HCL 25 MG TABLET (FP) PO SCH ×2 (10:41→22:02)
[2018-05-04] MEDS: LACTOBACILLUS ACIDOPHILUS 1 TABLET PO SCH ×2 (10:42→22:03)
[2018-05-04] MEDS: ASPIRIN 81 MG CHEWABLE TABLETS PO SCH (10:42)
[2018-05-04] MEDS: FLUTICASONE PROP 0.05% 16 GM NASAL SPRAY NS SCH (10:43)
[2018-05-04] MEDS: DULoxetine HCL 30 MG CAPSULE.DR (FP) PO SCH (10:43)
[2018-05-04] MEDS: HEPARIN NA (PORCINE) 5,000 UNITS/ML 1ML VIAL SQ SCH ×3 (10:43→22:03)
[2018-05-04] MEDS: LOSARTAN POTASSIUM 50 MG TABLET (FP) PO SCH (10:43)
[2018-05-04] MEDS: POTASSIUM CHLORIDE TABS 20 MEQ TABLET.ER (FP) PO SCH (10:43)
[2018-05-04] MEDS: FUROSEMIDE 40 MG TABLET (FP) PO SCH (10:44)
[2018-05-04] MEDS: PREGABALIN 100 MG CAPSULE PO SCH (10:44)
[2018-05-04] MEDS: amLODIPine BESYLATE 10 MG TABLET (FP) PO SCH (10:44)
[2018-05-04] MEDS: PANTOPRAZOLE 40 MG TABLET (FP) PO SCH (10:44)
[2018-05-04] MEDS ORDERED: PREGABALIN 100 MG CAPSULE ONE (11:27)
--- NOTE | 2018-05-04 12:24 | EKG ---
Test Reason : Blood Pressure : / mmHG Vent. Rate : 095 BPM Atrial Rate : 095 BPM P-R Int : 168 ms QRS Dur : 074 ms QT Int : 350 ms P-R-T Axes : 058 -46 042 degrees QTc Int : 439 ms NORMAL SINUS RHYTHM LEFT ANTERIOR FASCICULAR BLOCK ABNORMAL ECG WHEN COMPARED WITH ECG OF 24-DEC-2017 00:24, NO SIGNIFICANT CHANGE WAS FOUND Confirmed by AC FARRELL MD ([id number]) on 05/04/2018 12:24:03 PM Referred By: Confirmed By:CA FARRELL MD
--- NOTE | 2018-05-04 12:48 | PN ---
Progress Note, Physician Chief Complaint: patient seen and examined c/p dysuria had temp 101 at home no hematuria - Current Medication List Current Medications: Active Medications Acetaminophen (Tylenol -) 325 mg PO Q6H PRN PRN Reason: PAIN LEVEL 4 - 6 Albuterol Sulfate (Ventolin 0.083% Nebulizer Soln -) 1 amp NEB RQID PRN PRN Reason: SHORT OF BREATH/WHEEZING Alprazolam (Xanax -) 1 mg PO HS PRN PRN Reason: ANXIETY Amlodipine Besylate (Norvasc -) 10 mg PO DAILY [facility] Last Admin: 05/04/18 10:44 Dose: 10 mg Aspirin (Asa -) 81 mg PO DAILY [facility] Last Admin: 05/04/18 10:42 Dose: 81 mg Atorvastatin Calcium (Lipitor -) 40 mg PO HS [facility] Last Admin: 05/03/18 21:36 Dose: 40 mg Diphenhydramine HCl (Benadryl -) 25 mg PO Q6H PRN PRN Reason: itching Docusate Sodium (Colace -) 200 mg PO HS [facility] Last Admin: 05/03/18 21:36 Dose: 200 mg Duloxetine HCl (Cymbalta -) 60 mg PO DAILY [facility] Last Admin: 05/04/18 10:43 Dose: 60 mg Fluticasone Propionate (Flonase -) 1 spray NS DAILY [facility] Last Admin: 05/04/18 10:43 Dose: Not Given Furosemide (Lasix -) 40 mg PO DAILY [facility] Last Admin: 05/04/18 10:44 Dose: 40 mg Heparin Sodium (Porcine) (Heparin -) 5,000 unit SQ BID [facility] Last Admin: 05/04/18 10:43 Dose: 5,000 unit Hydralazine HCl (Apresoline -) 25 mg PO BID [facility] Last Admin: 05/04/18 10:41 Dose: 25 mg Lactobacillus Acidophilus (Bacid -) 1 tab PO BID [facility] Last Admin: 05/04/18 10:42 Dose: 1 tab Levothyroxine Sodium 100 mcg/ (Levothyroxine Sodium 75 mcg) 175 mcg PO DAILY@ 0700 [facility] Last Admin: 05/04/18 07:11 Dose: 175 mcg Losartan Potassium (Cozaar -) 100 mg PO DAILY [facility] Last Admin: 05/04/18 10:43 Dose: 100 mg Metoprolol Succinate (Toprol Xl -) 200 mg PO DAILY [facility] Last Admin: 05/04/18 10:44 Dose: 200 mg Montelukast Sodium (Singulair -) 10 mg PO HS [facility] Last Admin: 05/03/18 21:36 Dose: 10 mg Oxycodone HCl (Roxicodone -) 5 mg PO Q6H PRN PRN Reason: PAIN LEVEL 4 - 6 Last Admin: 05/04/18 11:10 Dose: 5 mg Pantoprazole Sodium (Protonix -) 40 mg PO DAILY [facility] Last Admin: 05/04/18 10:44 Dose: 40 mg Potassium Chloride (K-Dur -) 20 meq PO DAILY [facility] Last Admin: 05/04/18 10:43 Dose: 20 meq Pregabalin (Lyrica -) 100 mg PO DAILY [facility] Last Admin: 05/04/18 10:44 Dose: 100 mg - Objective Vital Signs: Vital Signs Temperature 98.2 F 05/04/18 10:27 Pulse Rate 81 05/04/18 10:27 Respiratory Rate 20 05/04/18 10:27 Blood Pressure 131/96 05/04/18 10:27 O2 Sat by Pulse Oximetry (%) 94 L 05/04/18 10:27 Constitutional: Yes: Calm Cardiovascular: Yes: Regular Rate and Rhythm, S1, S2 Respiratory: Yes: CTA Bilaterally Gastrointestinal: Yes: Normal Bowel Sounds, Soft Edema: Yes Neurological: Yes: Alert, Oriented Labs: CBC, BMP 05/03/18 12:54 05/03/18 12:54 Problem List - Problems (1) UTI (urinary tract infection) Assessment/Plan: h/o ESBL- ertrapenem ID eval repeat culture ordered Code(s): N39.0 - URINARY TRACT INFECTION, SITE NOT SPECIFIED Qualifiers: Urinary tract infection type: acute cystitis Hematuria presence: without hematuria Qualified Code(s): N30.00 - Acute cystitis without hematuria (2) Hypothyroid Assessment/Plan: tsh synthroid Code(s): E03.9 - HYPOTHYROIDISM, UNSPECIFIED (3) Hypertension Assessment/Plan: norvasc hydralazine metoprolol losartan Code(s): I10 - ESSENTIAL (PRIMARY) HYPERTENSION Qualifiers: Hypertension type: essential hypertension Qualified Code(s): I10 - Essential (primary) hypertension
--- NOTE | 2018-05-04 15:40 | CONSULT ---
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 (?) Cardio/Vascular: Yes: CHF, HTN, Hyperlipdemia Pulmonary: Yes: Asthma, Sleep Apnea Gastrointestinal: Yes: GERD Renal/: Yes: Renal Calculi Infectious Disease: Yes: C-Diff, Other (ESBL) Psych: Yes: Anxiety, Other (Insomnia) Rheumatology: Yes: Rheumatoid Arthritis Endocrine: Yes: Diabetes Mellitus, Hypothyroidism - Alcohol/Substance Use Hx Alcohol Use: No - Smoking History Smoking history: Never smoked Have you smoked in the past 12 months: No Aproximately how many cigarettes per day: 0 If you are a former smoker, when did you quit?: as a teenager - Social History 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 [employer]CH[employer] 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, 4 hrs x 2d) Home Medications - Allergies Allergies/Adverse Reactions: Allergies Allergy/AdvReac Type Severity Reaction Status Date / Time No Known Allergies Allergy Verified 11/18/17 19:00 - Home Medications Home Medications: Ambulatory Orders Alprazolam [Xanax] 1 mg PO HS PRN 06/13/16 Atorvastatin Ca [Lipitor] 40 mg PO DAILY 06/13/16 Furosemide [Lasix] 40 mg PO DAILY 06/13/16 Montelukast Na [Singulair -] 10 mg PO HS 06/13/16 hydrALAZINE HCL [Apresoline -] 25 mg PO BID 03/02/17 Duloxetine HCl [Cymbalta] 60 mg PO DAILY 03/07/17 Mirabegron [Myrbetriq] 50 mg PO DAILY 06/07/17 Albuterol Sulfate [Proair Respiclick] 90 mcg IH PRN PRN 08/02/17 Aspirin 81 mg PO DAILY 08/02/17 Cholecalciferol (Vitamin D3) [Vitamin D3] 2,000 unit PO DAILY 08/02/17 Docusate Sodium [Colace] 200 mg PO HS 08/02/17 Levothyroxine [Synthroid -] 175 mcg PO DAILY@0700 08/02/17 Potassium Chloride [K-Dur -] 20 meq PO DAILY 08/02/17 Dexlansoprazole [Dexilant] 60 mg PO ACBK 11/18/17 Fluticasone Prop 0.05% Nasal [Flonase -] 1 spray NS DAILY 11/18/17 Oxycodone HCl/Acetaminophen [Percocet 5-325 mg Tablet] 1 tab PO Q6H PRN MDD 6 Lactobacillus Acidophilus [Bacid -] 1 tab PO BID tab 11/29/17 Fluticasone/Salmeterol [Advair 250-50 Diskus] 1 puff IH BID 12/24/17 Amlodipine Bes/Olmesartan Med [Namrata 10-40 mg Tablet] 1 each PO DAILY 05/03/18 Atorvastatin Ca [Lipitor] 40 mg PO HS 05/03/18 Diphenhydramine HCl [Benadryl -] 25 mg PO Q6H PRN 05/03/18 Fluticasone/Salmeterol [Advair 250-50 Diskus] 1 each IH BID 05/03/18 Metoprolol Succinate [Toprol Xl] 200 mg PO DAILY 05/03/18 Montelukast Sodium [Singulair] 10 mg PO HS 05/03/18 Nitrofurantoin Monohyd/M-Cryst [Macrobid -] 100 mg PO BID 05/03/18 Oxycodone HCl/Acetaminophen [Endocet 7.5-325 mg Tablet] 1 each PO Q6H PRN Pregabalin [Lyrica] 100 mg PO DAILY 05/03/18 Pregabalin [Lyrica] 100 mg PO TID 05/03/18 Solifenacin Succinate [Vesicare -] 5 mg PO DAILY 05/03/18 Physical Exam Vital Signs: Vital Signs Temperature 98.2 F 05/04/18 14:49 Pulse Rate 73 05/04/18 14:49 Respiratory Rate 20 05/04/18 14:49 Blood Pressure 120/99 05/04/18 14:49 O2 Sat by Pulse Oximetry (%) 89 L 05/04/18 14:49 Musculoskeletal: Yes: Other (deformed toes b/l, palpable pulses no wounds) Labs: CBC, BMP 05/03/18 12:54 05/03/18 12:54 Assessment/Plan deformed toes b/l feet dm with neuropathy Discussed shoe gear. Should be wearing custom molded shoes and needs foot care [id number]. 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 Xray b/l feet.
[2018-05-04] MEDS: ERTAPENEM SODIUM 1 GM in SODIUM CHLORIDE 50 ML IVPB SCH (16:15)
[2018-05-04 19:53] VITALS: BMI 48.4
[2018-05-04] MEDS: ATORVASTATIN CA 40 MG TABLET (FP) PO SCH (22:02)
[2018-05-04] MEDS: DOCUSATE SODIUM 100 MG CAPSULE (FP) PO SCH (22:02)
[2018-05-04] MEDS: MONTELUKAST NA 10 MG TABLET PO SCH (22:03)
[2018-05-05] MEDS ORDERED: LEVOTHYROXINE NA 75 MCG TABLET (FP) ONE (05:14)
[2018-05-05] MEDS ORDERED: LEVOTHYROXINE NA 100 MCG TABLET (FP) ONE (05:14)
[2018-05-05] MEDS: oxyCODONE HCL 5 MG TABLET PO PRN (05:47)
[2018-05-05] MEDS: LEVOTHYROXINE 100 MCG, LEVOTHYROXINE 75 MCG PO SCH (06:26)
[2018-05-05 08:11] LABS: ALBUMIN 2.8 g/dl (3.4-5.0); ALK PHOS 98 U/L (45-117); ANION GAP 9 MMOL/L (8-16); BILIRUBIN,TOTAL 0.4 mg/dL (0.2-1); BLOOD UREA NITROGEN 12 mg/dL (7-18); CALCIUM 8.4 mg/dL (8.5-10.1); CHLORIDE 110 mmol/L (98-107); CO2 25 mmol/L (21-32); CREATININE 0.6 mg/dL (0.55-1.3); GLUCOSE,RANDOM 98 mg/dL (74-106); POTASSIUM 3.7 mmol/L (3.5-5.1); SGOT/AST 23 U/L (15-37); SGPT/ALT 22 U/L (13-61); SODIUM 145 mmol/L (136-145); TOT PROT 5.9 g/dl (6.4-8.2)
[2018-05-05] MEDS ORDERED: PT OWN MED DRAWER 7, Y5N ONE (09:10)
[2018-05-05] MEDS: DULoxetine HCL 30 MG CAPSULE.DR (FP) PO SCH (09:20)
[2018-05-05] MEDS: POTASSIUM CHLORIDE TABS 20 MEQ TABLET.ER (FP) PO SCH (09:20)
[2018-05-05] MEDS: HEPARIN NA (PORCINE) 5,000 UNITS/ML 1ML VIAL SQ SCH ×2 (09:20→22:09)
[2018-05-05] MEDS: amLODIPine BESYLATE 10 MG TABLET (FP) PO SCH (09:20)
[2018-05-05] MEDS: LOSARTAN POTASSIUM 50 MG TABLET (FP) PO SCH (09:20)
[2018-05-05] MEDS: PREGABALIN 100 MG CAPSULE PO SCH (09:21)
[2018-05-05] MEDS: FUROSEMIDE 40 MG TABLET (FP) PO SCH (09:21)
[2018-05-05] MEDS: ASPIRIN 81 MG CHEWABLE TABLETS PO SCH (09:21)
[2018-05-05] MEDS: LACTOBACILLUS ACIDOPHILUS 1 TABLET PO SCH ×2 (09:21→22:08)
[2018-05-05] MEDS: PANTOPRAZOLE 40 MG TABLET (FP) PO SCH (09:21)
[2018-05-05] MEDS: ERTAPENEM SODIUM 1 GM in SODIUM CHLORIDE 50 ML IVPB SCH (09:21)
[2018-05-05] MEDS: hydrALAZINE HCL 25 MG TABLET (FP) PO SCH ×2 (09:21→22:08)
[2018-05-05] MEDS: FLUTICASONE PROP 0.05% 16 GM NASAL SPRAY NS SCH (09:22)
--- NOTE | 2018-05-05 11:34 | PN ---
Progress Note, Physician Chief Complaint: UTI History of Present Illness: NAD No dysuria first UC contaminated repeat UC pending afebrile no leukocytosis On IV ertapenem for hx of ESBL in urine Seen by ID - Current Medication List Current Medications: Active Medications Acetaminophen (Tylenol -) 325 mg PO Q6H PRN PRN Reason: PAIN LEVEL 4 - 6 Albuterol Sulfate (Ventolin 0.083% Nebulizer Soln -) 1 amp NEB RQID PRN PRN Reason: SHORT OF BREATH/WHEEZING Alprazolam (Xanax -) 1 mg PO HS PRN PRN Reason: ANXIETY Amlodipine Besylate (Norvasc -) 10 mg PO DAILY [facility] Last Admin: 05/05/18 09:20 Dose: 10 mg Aspirin (Asa -) 81 mg PO DAILY [facility] Last Admin: 05/05/18 09:21 Dose: 81 mg Atorvastatin Calcium (Lipitor -) 40 mg PO HS [facility] Last Admin: 05/04/18 22:02 Dose: 40 mg Diphenhydramine HCl (Benadryl -) 25 mg PO Q6H PRN PRN Reason: itching Docusate Sodium (Colace -) 200 mg PO HS [facility] Last Admin: 05/04/18 22:02 Dose: 200 mg Duloxetine HCl (Cymbalta -) 60 mg PO DAILY [facility] Last Admin: 05/05/18 09:20 Dose: 60 mg Fluticasone Propionate (Flonase -) 1 spray NS DAILY [facility] Last Admin: 05/05/18 09:22 Dose: Not Given Furosemide (Lasix -) 40 mg PO DAILY [facility] Last Admin: 05/05/18 09:21 Dose: 40 mg Heparin Sodium (Porcine) (Heparin -) 5,000 unit SQ BID [facility] Last Admin: 05/05/18 09:20 Dose: 5,000 unit Hydralazine HCl (Apresoline -) 25 mg PO BID [facility] Last Admin: 05/05/18 09:21 Dose: 25 mg Ertapenem 1 gm/ Sodium (Chloride) 50 mls @ 50 mls/hr IVPB DAILY [facility]; Protocol Last Admin: 05/05/18 09:21 Dose: 50 mls/hr Lactobacillus Acidophilus (Bacid -) 1 tab PO BID [facility] Last Admin: 05/05/18 09:21 Dose: 1 tab Levothyroxine Sodium 100 mcg/ (Levothyroxine Sodium 75 mcg) 175 mcg PO DAILY@ 0700 [facility] Last Admin: 05/05/18 06:26 Dose: 175 mcg Losartan Potassium (Cozaar -) 100 mg PO DAILY [facility] Last Admin: 05/05/18 09:20 Dose: 100 mg Metoprolol Succinate (Toprol Xl -) 200 mg PO DAILY [facility] Last Admin: 05/05/18 09:20 Dose: 200 mg Montelukast Sodium (Singulair -) 10 mg PO HS [facility] Last Admin: 05/04/18 22:03 Dose: 10 mg Oxycodone HCl (Roxicodone -) 5 mg PO Q6H PRN PRN Reason: PAIN LEVEL 4 - 6 Last Admin: 05/05/18 05:47 Dose: 5 mg Pantoprazole Sodium (Protonix -) 40 mg PO DAILY [facility] Last Admin: 05/05/18 09:21 Dose: 40 mg Potassium Chloride (K-Dur -) 20 meq PO DAILY [facility] Last Admin: 05/05/18 09:20 Dose: 20 meq Pregabalin (Lyrica -) 100 mg PO DAILY [facility] Last Admin: 05/05/18 09:21 Dose: 100 mg - Objective Vital Signs: Vital Signs Temperature 96.9 F L 05/05/18 06:00 Pulse Rate 72 05/05/18 06:00 Respiratory Rate 18 05/05/18 09:00 Blood Pressure 152/97 05/05/18 06:00 O2 Sat by Pulse Oximetry (%) 95 05/05/18 09:00 Constitutional: Yes: Well Nourished, No Distress, Calm, Obese Cardiovascular: Yes: Regular Rate and Rhythm Respiratory: Yes: Regular Gastrointestinal: Yes: Normal Bowel Sounds, Soft, Abdomen, Obese Musculoskeletal: Yes: WNL Extremities: Yes: WNL Edema: No Peripheral Pulses WNL: Yes Neurological: Yes: Alert, Oriented Psychiatric: Yes: Alert, Oriented Labs: CBC, BMP 05/05/18 06:00 05/05/18 06:00 Problem List - Problems (1) UTI (urinary tract infection) Assessment/Plan: -UC pending -empiric ertapenem -ID on board -afebrile -no leukocytosis Code(s): N39.0 - URINARY TRACT INFECTION, SITE NOT SPECIFIED Qualifiers: Urinary tract infection type: acute cystitis Hematuria presence: without hematuria Qualified Code(s): N30.00 - Acute cystitis without hematuria (2) ESBL (extended spectrum beta-lactamase) producing bacteria infection Code(s): A49.9 - BACTERIAL INFECTION, UNSPECIFIED; Z16.12 - EXTENDED SPECTRUM BETA LACTAMASE (ESBL) RESISTANCE (3) Diabetes Assessment/Plan: -diabetic low sodium diet -A1c at 6.6 -lifestyle and dietary control -add januvia 50 mg po daily as metformin causes gastric upset for the pt. Code(s): E11.9 - TYPE 2 DIABETES MELLITUS WITHOUT COMPLICATIONS Qualifiers: Diabetes mellitus type: type 2 Assessment/Plan see problem list physical therapy
--- NOTE | 2018-05-05 18:57 | PN ---
Progress Note (short form) - Note Progress Note: FU b/l feet xrays reviewed. +subluxations at mpj right greater than left consistent with rheumatoid arthritis, RA Deformed feet Discussed shoe gear and or possible surgical intervention. PT to follow up out patient with her Revenue Specialist Dr. Wells.
[2018-05-05] MEDS: DOCUSATE SODIUM 100 MG CAPSULE (FP) PO SCH (22:08)
[2018-05-05] MEDS: MONTELUKAST NA 10 MG TABLET PO SCH (22:09)
[2018-05-05] MEDS: ATORVASTATIN CA 40 MG TABLET (FP) PO SCH (22:09)
[2018-05-06] MEDS ORDERED: LEVOTHYROXINE NA 100 MCG TABLET (FP) ONE (06:12)
[2018-05-06] MEDS ORDERED: LEVOTHYROXINE NA 75 MCG TABLET (FP) ONE (06:12)
[2018-05-06] MEDS: LEVOTHYROXINE 100 MCG, LEVOTHYROXINE 75 MCG PO SCH (06:52)
[2018-05-06 07:29] LABS: BASO % 0.8 % (0-2.0); EOS % 4.4 % (0-4.5); HEMATOCRIT 36.6 % (32.4-45.2); HEMOGLOBIN 12.1 GM/dL (10.7-15.3); MCH 27.2 pg (25.7-33.7); MCHC 33.1 g/dl (32.0-36.0); MEAN CELL VOLUME 82.2 fl (80-96); MEAN PLT VOLUME 7.9 fl (7.5-11.1); MONO % 8.3 % (3.8-10.2); NEUT % 58.5 % (42.8-82.8); PLATELET COUNT 270 K/MM3 (134-434); RBC 4.46 M/mm3 (3.60-5.2); RDW 17.3 % (11.6-15.6); WHITE BLOOD COUNT 4.8 K/mm3 (4.0-10.0)
[2018-05-06 08:34] LABS: ALK PHOS 101 U/L (45-117); ANION GAP 9 MMOL/L (8-16); BILIRUBIN,TOTAL 0.4 mg/dL (0.2-1); BLOOD UREA NITROGEN 9 mg/dL (7-18); CALCIUM 8.6 mg/dL (8.5-10.1); CHLORIDE 107 mmol/L (98-107); CO2 28 mmol/L (21-32); CREATININE 0.6 mg/dL (0.55-1.3); GLUCOSE,RANDOM 103 mg/dL (74-106); POTASSIUM 3.6 mmol/L (3.5-5.1); SGOT/AST 35 U/L (15-37); SGPT/ALT 26 U/L (13-61); SODIUM 144 mmol/L (136-145)
--- NOTE | 2018-05-06 08:45 | PN ---
Progress Note, Physician Chief Complaint: UTI History of Present Illness: previous notes and events reviewed awake and alert NAD denies complaints of dysuria, urinary frequency - Current Medication List Current Medications: Active Medications Acetaminophen (Tylenol -) 325 mg PO Q6H PRN PRN Reason: PAIN LEVEL 4 - 6 Albuterol Sulfate (Ventolin 0.083% Nebulizer Soln -) 1 amp NEB RQID PRN PRN Reason: SHORT OF BREATH/WHEEZING Alprazolam (Xanax -) 1 mg PO HS PRN PRN Reason: ANXIETY Amlodipine Besylate (Norvasc -) 10 mg PO DAILY [facility] Last Admin: 05/05/18 09:20 Dose: 10 mg Aspirin (Asa -) 81 mg PO DAILY [facility] Last Admin: 05/05/18 09:21 Dose: 81 mg Atorvastatin Calcium (Lipitor -) 40 mg PO HS [facility] Last Admin: 05/05/18 22:09 Dose: 40 mg Diphenhydramine HCl (Benadryl -) 25 mg PO Q6H PRN PRN Reason: itching Docusate Sodium (Colace -) 200 mg PO HS [facility] Last Admin: 05/05/18 22:08 Dose: 200 mg Duloxetine HCl (Cymbalta -) 60 mg PO DAILY [facility] Last Admin: 05/05/18 09:20 Dose: 60 mg Fluticasone Propionate (Flonase -) 1 spray NS DAILY [facility] Last Admin: 05/05/18 09:22 Dose: Not Given Furosemide (Lasix -) 40 mg PO DAILY [facility] Last Admin: 05/05/18 09:21 Dose: 40 mg Heparin Sodium (Porcine) (Heparin -) 5,000 unit SQ BID [facility] Last Admin: 05/05/18 22:09 Dose: 5,000 unit Hydralazine HCl (Apresoline -) 25 mg PO BID [facility] Last Admin: 05/05/18 22:08 Dose: 25 mg Ertapenem 1 gm/ Sodium (Chloride) 50 mls @ 50 mls/hr IVPB DAILY [facility]; Protocol Last Admin: 05/05/18 09:21 Dose: 50 mls/hr Lactobacillus Acidophilus (Bacid -) 1 tab PO BID [facility] Last Admin: 05/05/18 22:08 Dose: 1 tab Levothyroxine Sodium 100 mcg/ (Levothyroxine Sodium 75 mcg) 175 mcg PO DAILY@ 0700 [facility] Last Admin: 05/06/18 06:52 Dose: 175 mcg Losartan Potassium (Cozaar -) 100 mg PO DAILY [facility] Last Admin: 05/05/18 09:20 Dose: 100 mg Metoprolol Succinate (Toprol Xl -) 200 mg PO DAILY [facility] Last Admin: 05/05/18 09:20 Dose: 200 mg Montelukast Sodium (Singulair -) 10 mg PO HS [facility] Last Admin: 05/05/18 22:09 Dose: 10 mg Oxycodone HCl (Roxicodone -) 5 mg PO Q6H PRN PRN Reason: PAIN LEVEL 4 - 6 Last Admin: 05/05/18 05:47 Dose: 5 mg Pantoprazole Sodium (Protonix -) 40 mg PO DAILY [facility] Last Admin: 05/05/18 09:21 Dose: 40 mg Potassium Chloride (K-Dur -) 20 meq PO DAILY [facility] Last Admin: 05/05/18 09:20 Dose: 20 meq Pregabalin (Lyrica -) 100 mg PO DAILY [facility] Last Admin: 05/05/18 09:21 Dose: 100 mg - Objective Vital Signs: Vital Signs Temperature 98.2 F 05/06/18 06:00 Pulse Rate 57 L 05/06/18 06:00 Respiratory Rate 20 05/06/18 06:00 Blood Pressure 121/65 05/06/18 06:00 O2 Sat by Pulse Oximetry (%) 95 05/05/18 09:00 Labs: CBC, BMP 05/06/18 07:00 05/06/18 07:00 <Mel Navarrete - Last Filed: 05/07/18 08:26> - Current Medication List Current Medications: Active Medications Acetaminophen (Tylenol -) 325 mg PO Q6H PRN PRN Reason: PAIN LEVEL 4 - 6 Last Admin: 05/07/18 03:22 Dose: 325 mg Albuterol Sulfate (Ventolin 0.083% Nebulizer Soln -) 1 amp NEB RQID PRN PRN Reason: SHORT OF BREATH/WHEEZING Last Admin: 05/06/18 14:52 Dose: 1 amp Alprazolam (Xanax -) 1 mg PO HS PRN PRN Reason: ANXIETY Amlodipine Besylate (Norvasc -) 10 mg PO DAILY [facility] Last Admin: 05/06/18 10:50 Dose: 10 mg Aspirin (Asa -) 81 mg PO DAILY [facility] Last Admin: 05/06/18 10:50 Dose: 81 mg Atorvastatin Calcium (Lipitor -) 40 mg PO HS [facility] Last Admin: 05/06/18 22:06 Dose: 40 mg Diphenhydramine HCl (Benadryl -) 25 mg PO Q6H PRN PRN Reason: itching Docusate Sodium (Colace -) 200 mg PO HS [facility] Last Admin: 05/06/18 22:06 Dose: 200 mg Duloxetine HCl (Cymbalta -) 60 mg PO DAILY [facility] Last Admin: 05/06/18 10:51 Dose: 60 mg Fluticasone Propionate (Flonase -) 1 spray NS DAILY [facility] Last Admin: 05/06/18 17:19 Dose: 1 spray Furosemide (Lasix -) 40 mg PO DAILY [facility] Last Admin: 05/06/18 10:51 Dose: 40 mg Heparin Sodium (Porcine) (Heparin -) 5,000 unit SQ BID [facility] Last Admin: 05/06/18 22:05 Dose: 5,000 unit Hydralazine HCl (Apresoline -) 25 mg PO BID [facility] Last Admin: 05/06/18 22:06 Dose: 25 mg Ertapenem 1 gm/ Sodium (Chloride) 50 mls @ 50 mls/hr IVPB DAILY [facility]; Protocol Last Admin: 05/06/18 10:51 Dose: 50 mls/hr Lactobacillus Acidophilus (Bacid -) 1 tab PO BID [facility] Last Admin: 05/06/18 22:06 Dose: 1 tab Levothyroxine Sodium 100 mcg/ (Levothyroxine Sodium 75 mcg) 175 mcg PO DAILY@ 0700 [facility] Last Admin: 05/07/18 08:11 Dose: 175 mcg Losartan Potassium (Cozaar -) 100 mg PO DAILY [facility] Last Admin: 05/06/18 10:50 Dose: 100 mg Metoprolol Succinate (Toprol Xl -) 200 mg PO DAILY [facility] Last Admin: 05/06/18 10:50 Dose: 200 mg Montelukast Sodium (Singulair -) 10 mg PO HS [facility] Last Admin: 05/06/18 22:06 Dose: 10 mg Oxycodone HCl (Roxicodone -) 5 mg PO Q6H PRN PRN Reason: PAIN LEVEL 4 - 6 Last Admin: 05/07/18 03:22 Dose: 5 mg Pantoprazole Sodium (Protonix -) 40 mg PO DAILY [facility] Last Admin: 05/06/18 10:50 Dose: 40 mg Potassium Chloride (K-Dur -) 20 meq PO DAILY [facility] Last Admin: 05/06/18 10:51 Dose: 20 meq Pregabalin (Lyrica -) 100 mg PO DAILY [facility] Last Admin: 05/06/18 10:51 Dose: 100 mg - Objective Vital Signs: Vital Signs Temperature 98.1 F 05/07/18 06:00 Pulse Rate 60 05/07/18 06:00 Respiratory Rate 20 05/07/18 06:00 Blood Pressure 103/61 05/07/18 06:00 O2 Sat by Pulse Oximetry (%) 95 05/06/18 21:00 Labs: CBC, BMP 05/07/18 06:30 05/07/18 06:30 <Nav Gupta - Last Filed: 05/07/18 09:32> Problem List - Problems (1) UTI (urinary tract infection) Assessment/Plan: -cont IV ertapenem -ID on board -contact precaution - neg Code(s): N39.0 - URINARY TRACT INFECTION, SITE NOT SPECIFIED Qualifiers: Urinary tract infection type: acute cystitis Hematuria presence: without hematuria Qualified Code(s): N30.00 - Acute cystitis without hematuria (2) Acute on chronic diastolic CHF (congestive heart failure) Assessment/Plan: -continue with lasix 40mg PO daily -1L fluid restriction -daily weights Code(s): I50.33 - ACUTE ON CHRONIC DIASTOLIC (CONGESTIVE) HEART FAILURE (4) Hypertension Assessment/Plan: -cont amlodipine, hydralazine, losartaan, metoprolol -low Na diet Code(s): I10 - ESSENTIAL (PRIMARY) HYPERTENSION Qualifiers: Hypertension type: essential hypertension Qualified Code(s): I10 - Essential (primary) hypertension (5) ESBL (extended spectrum beta-lactamase) producing bacteria infection Assessment/Plan: -contact precaution Code(s): A49.9 - BACTERIAL INFECTION, UNSPECIFIED; Z16.12 - EXTENDED SPECTRUM BETA LACTAMASE (ESBL) RESISTANCE <Mel Navarrete - Last Filed: 05/07/18 08:26> Assessment/Plan PATIENT SEEN AND EXAMINED AND I AGREE WITH THE ABOVE NOTE <Nav Gupta - Last Filed: 05/07/18 09:32>
[2018-05-06] MEDS ORDERED: PT OWN MED DRAWER 7, Y5N ONE ×2 (10:21→17:14)
[2018-05-06] MEDS: ASPIRIN 81 MG CHEWABLE TABLETS PO SCH (10:50)
[2018-05-06] MEDS: LACTOBACILLUS ACIDOPHILUS 1 TABLET PO SCH ×2 (10:50→22:06)
[2018-05-06] MEDS: PANTOPRAZOLE 40 MG TABLET (FP) PO SCH (10:50)
[2018-05-06] MEDS: LOSARTAN POTASSIUM 50 MG TABLET (FP) PO SCH (10:50)
[2018-05-06] MEDS: amLODIPine BESYLATE 10 MG TABLET (FP) PO SCH (10:50)
[2018-05-06] MEDS: FUROSEMIDE 40 MG TABLET (FP) PO SCH (10:51)
[2018-05-06] MEDS: PREGABALIN 100 MG CAPSULE PO SCH (10:51)
[2018-05-06] MEDS: POTASSIUM CHLORIDE TABS 20 MEQ TABLET.ER (FP) PO SCH (10:51)
[2018-05-06] MEDS: hydrALAZINE HCL 25 MG TABLET (FP) PO SCH ×2 (10:51→22:06)
[2018-05-06] MEDS: HEPARIN NA (PORCINE) 5,000 UNITS/ML 1ML VIAL SQ SCH ×2 (10:51→22:05)
[2018-05-06] MEDS: ERTAPENEM SODIUM 1 GM in SODIUM CHLORIDE 50 ML IVPB SCH (10:51)
[2018-05-06] MEDS: DULoxetine HCL 30 MG CAPSULE.DR (FP) PO SCH (10:51)
--- NOTE | 2018-05-06 11:51 | PN ---
Progress Note (short form) - Note Progress Note: ID CONSULT DICTATED RECURRENT UTI, POSSIBLE PYELONEPHRITIS HX ESBL UTI MORBID OBESITY AWAIT C/S EMPIRIC ERTAPENEM
--- NOTE | 2018-05-06 12:35 | CONS ---
DATE OF CONSULTATION: DATE OF DICTATION: 05/06/2018 HISTORY OF PRESENT ILLNESS: The patient is a 73-year-old diabetic female with a history of recurrent urinary tract infections and a history of ESBL in the urine, now readmitted with recurrent urinary tract infection. She was referred from her primary care physician's office after she was noted to have a recurrent ESBL urinary tract infection. She complained of a two-week history of dysuria, frequency, urgency and right flank pain. She also had chills and subjective fever. The patient was evaluated in the hospital, where she was noted to have pyuria. Her urine culture on admission was contaminated; a repeat is pending. PAST MEDICAL HISTORY: Positive for recurrent urinary tract infection with ESBL, [id number] diabetes mellitus, morbid obesity, hypertension, hyperlipidemia, hypothyroidism, asthma, stroke, rheumatoid arthritis, PAST SURGICAL HISTORY: Status post bilateral knee surgery. ALLERGIES: No known drug allergies. MEDICATIONS: Ertepenem, Tylenol, Xanax, Norvasc, aspirin, Lipitor, Colace, Cymbalta, Lasix, hydralazine, Synthroid, Losartan, Toprol, Singulair, Protonix, Lyrica. SOCIAL HISTORY: She resides in the community. She is a nonsmoker, nondrinker. REVIEW OF SYSTEMS: Neurologic: No loss of consciousness, seizure activity or focal weakness. Cardiac: Negative for chest pain or palpitations. Respiratory: Negative for cough or sputum production. Gastrointestinal: Negative for vomiting or diarrhea. Genitourinary: As per HPI. LABORATORY DATA: White blood cell count 4.8, hematocrit 36.6, platelet count 270, creatinine 0.6. Urinalysis shows 375 white cells. Blood cultures are pending; they are preliminarily negative. A urine culture from December 2017 was positive for ESBL. Blood and urine cultures from November 2017 were positive for ESBL. PHYSICAL EXAMINATION: General: The patient is out of bed to chair. She does not appear to be acutely toxic. Vital Signs: Temperature 98.2, pulse 52 and regular, blood pressure 121/65, respiratory rate 20 per minute. HEENT: Sclerae anicteric. Heart: Heart sounds S1, S2. Lungs: Clear. Abdomen: Obese, soft and nontender. There is some slight right CVA tenderness to palpation. No suprapubic tenderness. Extremities: Positive for edema. IMPRESSION: 1. Recurrent urinary tract infection; possible pyelonephritis. 2. History of extended spectrum beta-lactamase urinary tract infection. 3. Morbid obesity. 4. Diabetes mellitus. PLAN: 1. Await culture results. 2. Continue ertepenem 1 gram IV piggyback daily. 3. Contact precautions. Thank you for the kind referral. WAYNE DUMONT M.D. [id number]
[2018-05-06] MEDS: FLUTICASONE PROP 0.05% 16 GM NASAL SPRAY NS SCH (17:19)
[2018-05-06] MEDS: oxyCODONE HCL 5 MG TABLET PO PRN (17:22)
[2018-05-06] MEDS: ACETAMINOPHEN 325 MG TABLET (FP) PO PRN (17:22)
[2018-05-06] MEDS: DOCUSATE SODIUM 100 MG CAPSULE (FP) PO SCH (22:06)
[2018-05-06] MEDS: ATORVASTATIN CA 40 MG TABLET (FP) PO SCH (22:06)
[2018-05-06] MEDS: MONTELUKAST NA 10 MG TABLET PO SCH (22:06)
[2018-05-07] MEDS: oxyCODONE HCL 5 MG TABLET PO PRN ×3 (03:22→17:15)
[2018-05-07] MEDS: ACETAMINOPHEN 325 MG TABLET (FP) PO PRN ×3 (03:22→17:15)
[2018-05-07] MEDS ORDERED: LEVOTHYROXINE NA 75 MCG TABLET (FP) ONE (06:19)
[2018-05-07] MEDS ORDERED: LEVOTHYROXINE NA 100 MCG TABLET (FP) ONE (06:19)
[2018-05-07 07:08] LABS: HEMATOCRIT 36.9 % (32.4-45.2); HEMOGLOBIN 12.3 GM/dL (10.7-15.3); MCH 27.5 pg (25.7-33.7); MCHC 33.3 g/dl (32.0-36.0); MEAN CELL VOLUME 82.3 fl (80-96); MEAN PLT VOLUME 8.2 fl (7.5-11.1); PLATELET COUNT 259 K/MM3 (134-434); RBC 4.48 M/mm3 (3.60-5.2); RDW 17.5 % (11.6-15.6); WHITE BLOOD COUNT 4.2 K/mm3 (4.0-10.0)
[2018-05-07 07:34] LABS: ALBUMIN 2.9 g/dl (3.4-5.0); ALK PHOS 95 U/L (45-117); ANION GAP 6 MMOL/L (8-16); BILIRUBIN,TOTAL 0.3 mg/dL (0.2-1); BLOOD UREA NITROGEN 12 mg/dL (7-18); CALCIUM 8.9 mg/dL (8.5-10.1); CHLORIDE 106 mmol/L (98-107); CO2 31 mmol/L (21-32); CREATININE 0.6 mg/dL (0.55-1.3); GLUCOSE,RANDOM 97 mg/dL (74-106); POTASSIUM 3.5 mmol/L (3.5-5.1); SGOT/AST 20 U/L (15-37); SGPT/ALT 27 U/L (13-61); SODIUM 144 mmol/L (136-145)
[2018-05-07] MEDS: LEVOTHYROXINE 100 MCG, LEVOTHYROXINE 75 MCG PO SCH (08:11)
--- NOTE | 2018-05-07 08:22 | PN ---
Progress Note, Physician Chief Complaint: UTI History of Present Illness: previous notes and events reviewed awake and alert NAD denies complaints of dysuria, urinary frequency afebrile, wbc nl - Current Medication List Current Medications: Active Medications Acetaminophen (Tylenol -) 325 mg PO Q6H PRN PRN Reason: PAIN LEVEL 4 - 6 Last Admin: 05/07/18 03:22 Dose: 325 mg Albuterol Sulfate (Ventolin 0.083% Nebulizer Soln -) 1 amp NEB RQID PRN PRN Reason: SHORT OF BREATH/WHEEZING Last Admin: 05/06/18 14:52 Dose: 1 amp Alprazolam (Xanax -) 1 mg PO HS PRN PRN Reason: ANXIETY Amlodipine Besylate (Norvasc -) 10 mg PO DAILY [facility] Last Admin: 05/06/18 10:50 Dose: 10 mg Aspirin (Asa -) 81 mg PO DAILY [facility] Last Admin: 05/06/18 10:50 Dose: 81 mg Atorvastatin Calcium (Lipitor -) 40 mg PO HS [facility] Last Admin: 05/06/18 22:06 Dose: 40 mg Diphenhydramine HCl (Benadryl -) 25 mg PO Q6H PRN PRN Reason: itching Docusate Sodium (Colace -) 200 mg PO HS [facility] Last Admin: 05/06/18 22:06 Dose: 200 mg Duloxetine HCl (Cymbalta -) 60 mg PO DAILY [facility] Last Admin: 05/06/18 10:51 Dose: 60 mg Fluticasone Propionate (Flonase -) 1 spray NS DAILY [facility] Last Admin: 05/06/18 17:19 Dose: 1 spray Furosemide (Lasix -) 40 mg PO DAILY [facility] Last Admin: 05/06/18 10:51 Dose: 40 mg Heparin Sodium (Porcine) (Heparin -) 5,000 unit SQ BID [facility] Last Admin: 05/06/18 22:05 Dose: 5,000 unit Hydralazine HCl (Apresoline -) 25 mg PO BID [facility] Last Admin: 05/06/18 22:06 Dose: 25 mg Ertapenem 1 gm/ Sodium (Chloride) 50 mls @ 50 mls/hr IVPB DAILY [facility]; Protocol Last Admin: 05/06/18 10:51 Dose: 50 mls/hr Lactobacillus Acidophilus (Bacid -) 1 tab PO BID [facility] Last Admin: 05/06/18 22:06 Dose: 1 tab Levothyroxine Sodium 100 mcg/ (Levothyroxine Sodium 75 mcg) 175 mcg PO DAILY@ 0700 [facility] Last Admin: 05/07/18 08:11 Dose: 175 mcg Losartan Potassium (Cozaar -) 100 mg PO DAILY [facility] Last Admin: 05/06/18 10:50 Dose: 100 mg Metoprolol Succinate (Toprol Xl -) 200 mg PO DAILY [facility] Last Admin: 05/06/18 10:50 Dose: 200 mg Montelukast Sodium (Singulair -) 10 mg PO HS [facility] Last Admin: 05/06/18 22:06 Dose: 10 mg Oxycodone HCl (Roxicodone -) 5 mg PO Q6H PRN PRN Reason: PAIN LEVEL 4 - 6 Last Admin: 05/07/18 03:22 Dose: 5 mg Pantoprazole Sodium (Protonix -) 40 mg PO DAILY [facility] Last Admin: 05/06/18 10:50 Dose: 40 mg Potassium Chloride (K-Dur -) 20 meq PO DAILY [facility] Last Admin: 05/06/18 10:51 Dose: 20 meq Pregabalin (Lyrica -) 100 mg PO DAILY [facility] Last Admin: 05/06/18 10:51 Dose: 100 mg - Objective Vital Signs: Vital Signs Temperature 98.1 F 05/07/18 06:00 Pulse Rate 60 05/07/18 06:00 Respiratory Rate 20 05/07/18 06:00 Blood Pressure 103/61 05/07/18 06:00 O2 Sat by Pulse Oximetry (%) 95 05/06/18 21:00 Constitutional: Yes: No Distress, Calm Eyes: Yes: Conjunctiva Clear Neck: Yes: Supple Cardiovascular: Yes: Regular Rate and Rhythm Respiratory: Yes: Regular, CTA Bilaterally Gastrointestinal: Yes: Normal Bowel Sounds, Soft, Abdomen, Obese Musculoskeletal: Yes: Muscle Weakness Extremities: Yes: WNL Edema: Yes Neurological: Yes: Alert, Oriented Psychiatric: Yes: Alert, Oriented Labs: CBC, BMP 05/07/18 06:30 05/07/18 06:30 Microbiology 05/04/18 17:14 Blood - Peripheral Venous Blood Culture - Preliminary NO GROWTH OBTAINED AFTER 48 HOURS, INCUBATION TO CONTINUE FOR 3 DAYS. 05/04/18 17:14 Blood - Peripheral Venous Blood Culture - Preliminary NO GROWTH OBTAINED AFTER 48 HOURS, INCUBATION TO CONTINUE FOR 3 DAYS. 05/05/18 12:20 Urine - Urine Clean Catch Urine Culture - Final NO GROWTH OBTAINED <Mel Navarrete - Last Filed: 05/07/18 08:31> - Current Medication List Current Medications: Active Medications Acetaminophen (Tylenol -) 325 mg PO Q6H PRN PRN Reason: PAIN LEVEL 4 - 6 Last Admin: 05/07/18 03:22 Dose: 325 mg Albuterol Sulfate (Ventolin 0.083% Nebulizer Soln -) 1 amp NEB RQID PRN PRN Reason: SHORT OF BREATH/WHEEZING Last Admin: 05/06/18 14:52 Dose: 1 amp Alprazolam (Xanax -) 1 mg PO HS PRN PRN Reason: ANXIETY Amlodipine Besylate (Norvasc -) 10 mg PO DAILY [facility] Last Admin: 05/06/18 10:50 Dose: 10 mg Aspirin (Asa -) 81 mg PO DAILY [facility] Last Admin: 05/06/18 10:50 Dose: 81 mg Atorvastatin Calcium (Lipitor -) 40 mg PO HS [facility] Last Admin: 05/06/18 22:06 Dose: 40 mg Diphenhydramine HCl (Benadryl -) 25 mg PO Q6H PRN PRN Reason: itching Docusate Sodium (Colace -) 200 mg PO HS [facility] Last Admin: 05/06/18 22:06 Dose: 200 mg Duloxetine HCl (Cymbalta -) 60 mg PO DAILY [facility] Last Admin: 05/06/18 10:51 Dose: 60 mg Fluticasone Propionate (Flonase -) 1 spray NS DAILY [facility] Last Admin: 05/06/18 17:19 Dose: 1 spray Furosemide (Lasix -) 40 mg PO DAILY [facility] Last Admin: 05/06/18 10:51 Dose: 40 mg Heparin Sodium (Porcine) (Heparin -) 5,000 unit SQ BID [facility] Last Admin: 05/06/18 22:05 Dose: 5,000 unit Hydralazine HCl (Apresoline -) 25 mg PO BID [facility] Last Admin: 05/06/18 22:06 Dose: 25 mg Ertapenem 1 gm/ Sodium (Chloride) 50 mls @ 50 mls/hr IVPB DAILY [facility]; Protocol Last Admin: 05/06/18 10:51 Dose: 50 mls/hr Lactobacillus Acidophilus (Bacid -) 1 tab PO BID [facility] Last Admin: 05/06/18 22:06 Dose: 1 tab Levothyroxine Sodium 100 mcg/ (Levothyroxine Sodium 75 mcg) 175 mcg PO DAILY@ 0700 [facility] Last Admin: 05/07/18 08:11 Dose: 175 mcg Losartan Potassium (Cozaar -) 100 mg PO DAILY [facility] Last Admin: 05/06/18 10:50 Dose: 100 mg Metoprolol Succinate (Toprol Xl -) 200 mg PO DAILY [facility] Last Admin: 05/06/18 10:50 Dose: 200 mg Montelukast Sodium (Singulair -) 10 mg PO HS [facility] Last Admin: 05/06/18 22:06 Dose: 10 mg Oxycodone HCl (Roxicodone -) 5 mg PO Q6H PRN PRN Reason: PAIN LEVEL 4 - 6 Last Admin: 05/07/18 03:22 Dose: 5 mg Pantoprazole Sodium (Protonix -) 40 mg PO DAILY [facility] Last Admin: 05/06/18 10:50 Dose: 40 mg Potassium Chloride (K-Dur -) 20 meq PO DAILY [facility] Last Admin: 05/06/18 10:51 Dose: 20 meq Pregabalin (Lyrica -) 100 mg PO DAILY [facility] Last Admin: 05/06/18 10:51 Dose: 100 mg - Objective Vital Signs: Vital Signs Temperature 98.1 F 05/07/18 06:00 Pulse Rate 60 05/07/18 06:00 Respiratory Rate 20 05/07/18 06:00 Blood Pressure 103/61 05/07/18 06:00 O2 Sat by Pulse Oximetry (%) 95 05/06/18 21:00 Labs: CBC, BMP 05/07/18 06:30 05/07/18 06:30 <Thelma Guptamiemma - Last Filed: 05/07/18 09:32> Problem List - Problems (1) UTI (urinary tract infection) Assessment/Plan: -cont IV ertapenem -ID on board -contact precaution -UC neg Code(s): N39.0 - URINARY TRACT INFECTION, SITE NOT SPECIFIED Qualifiers: Urinary tract infection type: acute cystitis Hematuria presence: without hematuria Qualified Code(s): N30.00 - Acute cystitis without hematuria (2) Acute on chronic diastolic CHF (congestive heart failure) Assessment/Plan: -continue with lasix 40mg PO daily -1L fluid restriction -daily weights Code(s): I50.33 - ACUTE ON CHRONIC DIASTOLIC (CONGESTIVE) HEART FAILURE (3) Arthritis, rheumatoid Assessment/Plan: -pain management Code(s): M06.9 - RHEUMATOID ARTHRITIS, UNSPECIFIED (4) Hypertension Assessment/Plan: -cont amlodipine, hydralazine, losartaan, metoprolol -low Na diet Code(s): I10 - ESSENTIAL (PRIMARY) HYPERTENSION Qualifiers: Hypertension type: essential hypertension Qualified Code(s): I10 - Essential (primary) hypertension <Mel Navarrete - Last Filed: 05/07/18 08:31> Assessment/Plan PATIENT SEEN AND EXAMINED AND I AGREE WITH THE ABOVE NOTE <Nav Gupta - Last Filed: 05/07/18 09:32>
[2018-05-07] MEDS ORDERED: PT OWN MED DRAWER 7, Y5N ONE (09:20)
[2018-05-07] MEDS: POTASSIUM CHLORIDE TABS 20 MEQ TABLET.ER (FP) PO SCH (09:34)
[2018-05-07] MEDS: ERTAPENEM SODIUM 1 GM in SODIUM CHLORIDE 50 ML IVPB SCH (09:34)
[2018-05-07] MEDS: LACTOBACILLUS ACIDOPHILUS 1 TABLET PO SCH ×2 (09:34→21:53)
[2018-05-07] MEDS: HEPARIN NA (PORCINE) 5,000 UNITS/ML 1ML VIAL SQ SCH ×2 (09:34→22:03)
[2018-05-07] MEDS: LOSARTAN POTASSIUM 50 MG TABLET (FP) PO SCH (09:34)
[2018-05-07] MEDS: hydrALAZINE HCL 25 MG TABLET (FP) PO SCH ×2 (09:35→21:53)
[2018-05-07] MEDS: DULoxetine HCL 30 MG CAPSULE.DR (FP) PO SCH (09:35)
[2018-05-07] MEDS: amLODIPine BESYLATE 10 MG TABLET (FP) PO SCH (09:35)
[2018-05-07] MEDS: PANTOPRAZOLE 40 MG TABLET (FP) PO SCH (09:35)
[2018-05-07] MEDS: FUROSEMIDE 40 MG TABLET (FP) PO SCH (09:35)
[2018-05-07] MEDS: PREGABALIN 100 MG CAPSULE PO SCH (09:35)
[2018-05-07] MEDS: ASPIRIN 81 MG CHEWABLE TABLETS PO SCH (09:35)
[2018-05-07] MEDS: FLUTICASONE PROP 0.05% 16 GM NASAL SPRAY NS SCH (09:44)
[2018-05-07] MEDS: ATORVASTATIN CA 40 MG TABLET (FP) PO SCH (21:53)
[2018-05-07] MEDS: MONTELUKAST NA 10 MG TABLET PO SCH (21:53)
[2018-05-07] MEDS: DOCUSATE SODIUM 100 MG CAPSULE (FP) PO SCH (21:53)
[2018-05-08] MEDS: oxyCODONE HCL 5 MG TABLET PO PRN ×2 (04:11→22:20)
[2018-05-08] MEDS: ACETAMINOPHEN 325 MG TABLET (FP) PO PRN ×2 (04:13→22:20)
[2018-05-08] MEDS ORDERED: LEVOTHYROXINE NA 75 MCG TABLET (FP) ONE (05:36)
[2018-05-08] MEDS ORDERED: LEVOTHYROXINE NA 100 MCG TABLET (FP) ONE (05:36)
[2018-05-08] MEDS: LEVOTHYROXINE 100 MCG, LEVOTHYROXINE 75 MCG PO SCH (06:23)
[2018-05-08 07:55] LABS: HEMATOCRIT 37.1 % (32.4-45.2); HEMOGLOBIN 12.4 GM/dL (10.7-15.3); MCH 27.6 pg (25.7-33.7); MCHC 33.5 g/dl (32.0-36.0); MEAN CELL VOLUME 82.5 fl (80-96); MEAN PLT VOLUME 8.3 fl (7.5-11.1); PLATELET COUNT 242 K/MM3 (134-434); RBC 4.49 M/mm3 (3.60-5.2); RDW 17.6 % (11.6-15.6); WHITE BLOOD COUNT 4.2 K/mm3 (4.0-10.0)
[2018-05-08 08:30] LABS: ALBUMIN 2.9 g/dl (3.4-5.0); ALK PHOS 97 U/L (45-117); ANION GAP 6 MMOL/L (8-16); BILIRUBIN,TOTAL 0.2 mg/dL (0.2-1); BLOOD UREA NITROGEN 11 mg/dL (7-18); CALCIUM 8.9 mg/dL (8.5-10.1); CHLORIDE 106 mmol/L (98-107); CO2 31 mmol/L (21-32); CREATININE 0.6 mg/dL (0.55-1.3); GLUCOSE,RANDOM 98 mg/dL (74-106); POTASSIUM 3.6 mmol/L (3.5-5.1); SGOT/AST 31 U/L (15-37); SGPT/ALT 35 U/L (13-61); SODIUM 143 mmol/L (136-145)
[2018-05-08] MEDS ORDERED: PT OWN MED DRAWER 7, Y5N ONE ×2 (09:11→11:40)
[2018-05-08] MEDS: ERTAPENEM SODIUM 1 GM in SODIUM CHLORIDE 50 ML IVPB SCH ×3 (09:49→11:51)
[2018-05-08] MEDS: LOSARTAN POTASSIUM 50 MG TABLET (FP) PO SCH (09:50)
[2018-05-08] MEDS: HEPARIN NA (PORCINE) 5,000 UNITS/ML 1ML VIAL SQ SCH ×2 (09:50→22:24)
[2018-05-08] MEDS: PREGABALIN 100 MG CAPSULE PO SCH (09:50)
[2018-05-08] MEDS: hydrALAZINE HCL 25 MG TABLET (FP) PO SCH ×2 (09:50→22:19)
[2018-05-08] MEDS: DULoxetine HCL 30 MG CAPSULE.DR (FP) PO SCH (09:50)
[2018-05-08] MEDS: ASPIRIN 81 MG CHEWABLE TABLETS PO SCH (09:50)
[2018-05-08] MEDS: POTASSIUM CHLORIDE TABS 20 MEQ TABLET.ER (FP) PO SCH (09:50)
[2018-05-08] MEDS: amLODIPine BESYLATE 10 MG TABLET (FP) PO SCH (09:50)
[2018-05-08] MEDS: PANTOPRAZOLE 40 MG TABLET (FP) PO SCH (09:50)
[2018-05-08] MEDS: FUROSEMIDE 40 MG TABLET (FP) PO SCH (09:50)
[2018-05-08] MEDS: FLUTICASONE PROP 0.05% 16 GM NASAL SPRAY NS SCH (09:51)
--- NOTE | 2018-05-08 11:03 | PN ---
Progress Note, Physician Chief Complaint: UTI History of Present Illness: NAD No dysuria first UC contaminated repeat UC negative afebrile no leukocytosis On IV ertapenem for hx of ESBL in urine Seen by ID wants to go home - Current Medication List Current Medications: Active Medications Acetaminophen (Tylenol -) 325 mg PO Q6H PRN PRN Reason: PAIN LEVEL 4 - 6 Last Admin: 05/08/18 04:13 Dose: 325 mg Albuterol Sulfate (Ventolin 0.083% Nebulizer Soln -) 1 amp NEB RQID PRN PRN Reason: SHORT OF BREATH/WHEEZING Last Admin: 05/06/18 14:52 Dose: 1 amp Alprazolam (Xanax -) 1 mg PO HS PRN PRN Reason: ANXIETY Amlodipine Besylate (Norvasc -) 10 mg PO DAILY [facility] Last Admin: 05/08/18 09:50 Dose: 10 mg Aspirin (Asa -) 81 mg PO DAILY [facility] Last Admin: 05/08/18 09:50 Dose: 81 mg Atorvastatin Calcium (Lipitor -) 40 mg PO HS [facility] Last Admin: 05/07/18 21:53 Dose: 40 mg Diphenhydramine HCl (Benadryl -) 25 mg PO Q6H PRN PRN Reason: itching Docusate Sodium (Colace -) 200 mg PO HS [facility] Last Admin: 05/07/18 21:53 Dose: Not Given Duloxetine HCl (Cymbalta -) 60 mg PO DAILY [facility] Last Admin: 05/08/18 09:50 Dose: 60 mg Fluticasone Propionate (Flonase -) 1 spray NS DAILY [facility] Last Admin: 05/08/18 09:51 Dose: 1 spray Furosemide (Lasix -) 40 mg PO DAILY [facility] Last Admin: 05/08/18 09:50 Dose: 40 mg Heparin Sodium (Porcine) (Heparin -) 5,000 unit SQ BID [facility] Last Admin: 05/08/18 09:50 Dose: 5,000 unit Hydralazine HCl (Apresoline -) 25 mg PO BID [facility] Last Admin: 05/08/18 09:50 Dose: 25 mg Ertapenem 1 gm/ Sodium (Chloride) 50 mls @ 50 mls/hr IVPB DAILY [facility]; Protocol Last Admin: 05/08/18 09:49 Dose: 50 mls/hr Lactobacillus Acidophilus (Bacid -) 1 tab PO BID [facility] Last Admin: 05/07/18 21:53 Dose: 1 tab Levothyroxine Sodium 100 mcg/ (Levothyroxine Sodium 75 mcg) 175 mcg PO DAILY@ 0700 [facility] Last Admin: 05/08/18 06:23 Dose: 175 mcg Losartan Potassium (Cozaar -) 100 mg PO DAILY [facility] Last Admin: 05/08/18 09:50 Dose: 100 mg Metoprolol Succinate (Toprol Xl -) 200 mg PO DAILY [facility] Last Admin: 05/08/18 09:49 Dose: 200 mg Montelukast Sodium (Singulair -) 10 mg PO HS [facility] Last Admin: 05/07/18 21:53 Dose: 10 mg Oxycodone HCl (Roxicodone -) 5 mg PO Q6H PRN PRN Reason: PAIN LEVEL 4 - 6 Last Admin: 05/08/18 04:11 Dose: 5 mg Pantoprazole Sodium (Protonix -) 40 mg PO DAILY [facility] Last Admin: 05/08/18 09:50 Dose: 40 mg Potassium Chloride (K-Dur -) 20 meq PO DAILY [facility] Last Admin: 05/08/18 09:50 Dose: 20 meq Pregabalin (Lyrica -) 100 mg PO DAILY [facility] Last Admin: 05/08/18 09:50 Dose: 100 mg Sitagliptin Phosphate (Januvia -) 50 mg PO DAILY@0700 [facility] - Objective Vital Signs: Vital Signs Temperature 98.3 F 05/08/18 05:56 Pulse Rate 55 L 05/08/18 05:56 Respiratory Rate 20 05/08/18 09:00 Blood Pressure 137/74 05/08/18 05:56 O2 Sat by Pulse Oximetry (%) 95 05/08/18 09:00 Constitutional: Yes: Well Nourished, No Distress, Calm, Obese Cardiovascular: Yes: Regular Rate and Rhythm Respiratory: Yes: Regular Genitourinary: Yes: WNL Musculoskeletal: Yes: WNL Extremities: Yes: WNL Edema: No Peripheral Pulses WNL: Yes Neurological: Yes: Alert, Oriented Psychiatric: Yes: Alert, Oriented Labs: CBC, BMP 05/08/18 06:30 05/08/18 06:30 Problem List - Problems (1) UTI (urinary tract infection) Assessment/Plan: -UC pending -empiric ertapenem -ID on board -afebrile -no leukocytosis Code(s): N39.0 - URINARY TRACT INFECTION, SITE NOT SPECIFIED Qualifiers: Urinary tract infection type: acute cystitis Hematuria presence: without hematuria Qualified Code(s): N30.00 - Acute cystitis without hematuria (2) ESBL (extended spectrum beta-lactamase) producing bacteria infection Code(s): A49.9 - BACTERIAL INFECTION, UNSPECIFIED; Z16.12 - EXTENDED SPECTRUM BETA LACTAMASE (ESBL) RESISTANCE (3) Diabetes Assessment/Plan: -diabetic low sodium diet -A1c at 6.6 -lifestyle and dietary control -add januvia 50 mg po daily as metformin causes gastric upset for the pt. Code(s): E11.9 - TYPE 2 DIABETES MELLITUS WITHOUT COMPLICATIONS Qualifiers: Diabetes mellitus type: type 2 Assessment/Plan see problem list physical therapy D/C home if ID agrees
[2018-05-08] MEDS: LACTOBACILLUS ACIDOPHILUS 1 TABLET PO SCH ×2 (11:49→22:19)
[2018-05-08] MEDS: sitaGLIPtin PHOSPHATE 50 MG TABLET PO SCH (11:49)
--- NOTE | 2018-05-08 12:59 | PN ---
Progress Note, Physician History of Present Illness: AWAKE. ALERT REPORTS MILD DYSURIA AT END OF MICURATION-IMPROVED NO SUPRAPUBIC PAIN NO F/C AFEBRILE WBC WNL C/S NO GROWTH - Current Medication List Current Medications: Active Medications Acetaminophen (Tylenol -) 325 mg PO Q6H PRN PRN Reason: PAIN LEVEL 4 - 6 Last Admin: 05/08/18 04:13 Dose: 325 mg Albuterol Sulfate (Ventolin 0.083% Nebulizer Soln -) 1 amp NEB RQID PRN PRN Reason: SHORT OF BREATH/WHEEZING Last Admin: 05/06/18 14:52 Dose: 1 amp Alprazolam (Xanax -) 1 mg PO HS PRN PRN Reason: ANXIETY Amlodipine Besylate (Norvasc -) 10 mg PO DAILY [facility] Last Admin: 05/08/18 09:50 Dose: 10 mg Aspirin (Asa -) 81 mg PO DAILY [facility] Last Admin: 05/08/18 09:50 Dose: 81 mg Atorvastatin Calcium (Lipitor -) 40 mg PO HS [facility] Last Admin: 05/07/18 21:53 Dose: 40 mg Diphenhydramine HCl (Benadryl -) 25 mg PO Q6H PRN PRN Reason: itching Docusate Sodium (Colace -) 200 mg PO HS [facility] Last Admin: 05/07/18 21:53 Dose: Not Given Duloxetine HCl (Cymbalta -) 60 mg PO DAILY [facility] Last Admin: 05/08/18 09:50 Dose: 60 mg Fluticasone Propionate (Flonase -) 1 spray NS DAILY [facility] Last Admin: 05/08/18 09:51 Dose: 1 spray Furosemide (Lasix -) 40 mg PO DAILY [facility] Last Admin: 05/08/18 09:50 Dose: 40 mg Heparin Sodium (Porcine) (Heparin -) 5,000 unit SQ BID [facility] Last Admin: 05/08/18 09:50 Dose: 5,000 unit Hydralazine HCl (Apresoline -) 25 mg PO BID [facility] Last Admin: 05/08/18 09:50 Dose: 25 mg Lactobacillus Acidophilus (Bacid -) 1 tab PO BID [facility] Last Admin: 05/08/18 11:49 Dose: 1 tab Levothyroxine Sodium 100 mcg/ (Levothyroxine Sodium 75 mcg) 175 mcg PO DAILY@ 0700 [facility] Last Admin: 05/08/18 06:23 Dose: 175 mcg Losartan Potassium (Cozaar -) 100 mg PO DAILY [facility] Last Admin: 05/08/18 09:50 Dose: 100 mg Metoprolol Succinate (Toprol Xl -) 200 mg PO DAILY [facility] Last Admin: 05/08/18 09:49 Dose: 200 mg Montelukast Sodium (Singulair -) 10 mg PO HS [facility] Last Admin: 05/07/18 21:53 Dose: 10 mg Oxycodone HCl (Roxicodone -) 5 mg PO Q6H PRN PRN Reason: PAIN LEVEL 4 - 6 Last Admin: 05/08/18 04:11 Dose: 5 mg Pantoprazole Sodium (Protonix -) 40 mg PO DAILY [facility] Last Admin: 05/08/18 09:50 Dose: 40 mg Potassium Chloride (K-Dur -) 20 meq PO DAILY [facility] Last Admin: 05/08/18 09:50 Dose: 20 meq Pregabalin (Lyrica -) 100 mg PO DAILY [facility] Last Admin: 05/08/18 09:50 Dose: 100 mg Sitagliptin Phosphate (Januvia -) 50 mg PO DAILY@0700 [facility] Last Admin: 05/08/18 11:49 Dose: 50 mg - Objective Vital Signs: Vital Signs Temperature 98.3 F 05/08/18 05:56 Pulse Rate 55 L 05/08/18 05:56 Respiratory Rate 20 05/08/18 09:00 Blood Pressure 137/74 05/08/18 05:56 O2 Sat by Pulse Oximetry (%) 95 05/08/18 09:00 Constitutional: Yes: No Distress, Obese Cardiovascular: Yes: Regular Rate and Rhythm, S1, S2 Respiratory: Yes: CTA Bilaterally Gastrointestinal: Yes: Normal Bowel Sounds, Soft. No: Tenderness Edema: Yes Edema: LLE: 1+, RLE: 1+ Labs: CBC, BMP 05/08/18 06:30 05/08/18 06:30 Assessment/Plan RECURRENT UTI HX ESBL MORBID OBESITY D/C ANTIBIOTICS HIPREX 1GM PO BID X 14D
[2018-05-08] MEDS: MONTELUKAST NA 10 MG TABLET PO SCH (22:19)
[2018-05-08] MEDS: ATORVASTATIN CA 40 MG TABLET (FP) PO SCH (22:20)
[2018-05-08] MEDS: DOCUSATE SODIUM 100 MG CAPSULE (FP) PO SCH (22:24)
[2018-05-09] MEDS ORDERED: LEVOTHYROXINE NA 100 MCG TABLET (FP) ONE (05:28)
[2018-05-09] MEDS ORDERED: LEVOTHYROXINE NA 75 MCG TABLET (FP) ONE (05:28)
[2018-05-09] MEDS: LEVOTHYROXINE 100 MCG, LEVOTHYROXINE 75 MCG PO SCH (06:36)
[2018-05-09] MEDS: sitaGLIPtin PHOSPHATE 50 MG TABLET PO SCH (06:37)
[2018-05-09] MEDS: oxyCODONE HCL 5 MG TABLET PO PRN (06:41)
[2018-05-09] MEDS: ACETAMINOPHEN 325 MG TABLET (FP) PO PRN (06:41)
[2018-05-09] MEDS ORDERED: PT OWN MED DRAWER 7, Y5N ONE (09:00)
[2018-05-09] MEDS: PANTOPRAZOLE 40 MG TABLET (FP) PO SCH (09:24)
[2018-05-09] MEDS: POTASSIUM CHLORIDE TABS 20 MEQ TABLET.ER (FP) PO SCH (09:24)
[2018-05-09] MEDS: amLODIPine BESYLATE 10 MG TABLET (FP) PO SCH (09:24)
[2018-05-09] MEDS: FUROSEMIDE 40 MG TABLET (FP) PO SCH (09:24)
[2018-05-09] MEDS: LOSARTAN POTASSIUM 50 MG TABLET (FP) PO SCH (09:24)
[2018-05-09] MEDS: PREGABALIN 100 MG CAPSULE PO SCH (09:24)
[2018-05-09] MEDS: hydrALAZINE HCL 25 MG TABLET (FP) PO SCH (09:24)
[2018-05-09] MEDS: ASPIRIN 81 MG CHEWABLE TABLETS PO SCH (09:24)
[2018-05-09] MEDS: DULoxetine HCL 30 MG CAPSULE.DR (FP) PO SCH (09:25)
[2018-05-09] MEDS: LACTOBACILLUS ACIDOPHILUS 1 TABLET PO SCH (09:25)
[2018-05-09] MEDS: HEPARIN NA (PORCINE) 5,000 UNITS/ML 1ML VIAL SQ SCH (09:25)
[2018-05-09] MEDS: FLUTICASONE PROP 0.05% 16 GM NASAL SPRAY NS SCH (09:26)
[2018-05-09] MEDS: ERTAPENEM SODIUM 1 GM in SODIUM CHLORIDE 50 ML IVPB SCH (09:28)
--- NOTE | 2018-05-09 10:50 | DS ---
Physical Examination Vital Signs: Vital Signs Temperature 97.9 F 05/09/18 06:00 Pulse Rate 56 L 05/09/18 06:00 Respiratory Rate 16 05/09/18 09:00 Blood Pressure 134/69 05/09/18 06:00 O2 Sat by Pulse Oximetry (%) 95 05/09/18 09:00 Findings/Remarks: Pt is a 73yo F with PMH of NIDDM, HTN, HLD, Hypothyroidism, Asthma, CVA, RA, Recurrent UTI sent from Dr. Henriquez's office for UTI. Pt has history of UTIs requiring IV ertapenem (most Recent December 2017). She has been having symptoms of dysuria, frequency, urgency for the past 2 weeks. Pt also endorses R sided flank pain and chills. Denies fevers, hematuria, abdominal pain, n/v/d, syncope, chest pain, lightheadedness. Constitutional: Yes: Well Nourished, No Distress, Calm, Obese Cardiovascular: Yes: Regular Rate and Rhythm Respiratory: Yes: Regular Gastrointestinal: Yes: Normal Bowel Sounds, Soft, Abdomen, Obese Renal/: Yes: WNL Musculoskeletal: Yes: Muscle Weakness Extremities: Yes: WNL Edema: No Peripheral Pulses WNL: Yes Neurological: Yes: Alert, Oriented Psychiatric: Yes: Alert, Oriented Labs: CBC, BMP 05/08/18 06:30 05/08/18 06:30 Discharge Summary Reason For Visit: UTI Current Active Problems UTI (urinary tract infection) (Acute) Hospital Course: Laboratory Last Values WBC 4.2 K/mm3 (4.0-10.0) 05/08/18 06:30 Corrected WBC (auto) Cancelled 05/05/18 06:00 RBC 4.49 M/mm3 (3.60-5.2) 05/08/18 06:30 Hgb 12.4 GM/dL (10.7-15.3) 05/08/18 06:30 Hct 37.1 % (32.4-45.2) 05/08/18 06:30 MCV 82.5 fl (80-96) 05/08/18 06:30 MCH 27.6 pg (25.7-33.7) 05/08/18 06:30 MCHC 33.5 g/dl (32.0-36.0) 05/08/18 06:30 RDW 17.6 % (11.6-15.6) H 05/08/18 06:30 Plt Count 242 K/MM3 (134-434) 05/08/18 06:30 MPV 8.3 fl (7.5-11.1) 05/08/18 06:30 Absolute Neuts (auto) 2.8 K/mm3 (1.5-8.0) 05/06/18 07:00 Neutrophils % 58.5 % (42.8-82.8) 05/06/18 07:00 Lymphocytes % 28.0 % (8-40) D 05/06/18 07:00 Monocytes % 8.3 % (3.8-10.2) 05/06/18 07:00 Eosinophils % 4.4 % (0-4.5) D 05/06/18 07:00 Basophils % 0.8 % (0-2.0) 05/06/18 07:00 Nucleated RBC % 0 % (0-0) 05/06/18 07:00 Platelet Estimate Cancelled 05/05/18 06:00 Platelet Comment Cancelled 05/05/18 06:00 Sodium 143 mmol/L (136-145) 05/08/18 06:30 Potassium 3.6 mmol/L (3.5-5.1) 05/08/18 06:30 Chloride 106 mmol/L (98-107) 05/08/18 06:30 Carbon Dioxide 31 mmol/L (21-32) 05/08/18 06:30 Anion Gap 6 MMOL/L (8-16) L 05/08/18 06:30 BUN 11 mg/dL (7-18) 05/08/18 06:30 Creatinine 0.6 mg/dL (0.55-1.3) 05/08/18 06:30 Creat Clearance w eGFR > 60 (>60) 05/08/18 06:30 POC Glucometer 93 UNITS (80-120) 05/09/18 06:02 Random Glucose 98 mg/dL (74-106) 05/08/18 06:30 Hemoglobin A1c % 6.6 % (4.2-6.3) H 05/05/18 06:00 Calcium 8.9 mg/dL (8.5-10.1) 05/08/18 06:30 Total Bilirubin 0.2 mg/dL (0.2-1) 05/08/18 06:30 AST 31 U/L (15-37) 05/08/18 06:30 ALT 35 U/L (13-61) 05/08/18 06:30 Alkaline Phosphatase 97 U/L (45-117) 05/08/18 06:30 Total Protein 6.0 g/dl (6.4-8.2) L 05/08/18 06:30 Albumin 2.9 g/dl (3.4-5.0) L 05/08/18 06:30 Urine Color Yellow 05/03/18 12:54 Urine Appearance Cloudy 05/03/18 12:54 Urine pH 5.0 (5.0-8.0) 05/03/18 12:54 Ur Specific Jackson 1.020 (1.010-1.035) 05/03/18 12:54 Urine Protein 2+ (NEGATIVE) H 05/03/18 12:54 Urine Glucose (UA) Negative (NEGATIVE) 05/03/18 12:54 Urine Ketones Negative (NEGATIVE) 05/03/18 12:54 Urine Blood Negative (NEGATIVE) 05/03/18 12:54 Urine Nitrite Negative (NEGATIVE) 05/03/18 12:54 Urine Bilirubin Negative (<2.0 mg/dL) 05/03/18 12:54 Urine Urobilinogen Negative mg/dL (0.2-1.0) 05/03/18 12:54 Ur Leukocyte Esterase 3+ (NEGATIVE) H 05/03/18 12:54 Urine WBC (Auto) 375 /hpf (3-5) 05/03/18 12:54 Urine RBC (Auto) 12 /hpf (0-3) 05/03/18 12:54 Ur Epithelial Cells Few /HPF (FEW) 05/03/18 12:54 Urine Bacteria Rare /hpf (NONE SEEN) 05/03/18 12:54 Urine Mucus Rare 05/03/18 12:54 Microbiology 05/04/18 17:14 Blood - Peripheral Venous Blood Culture - Preliminary NO GROWTH OBTAINED AFTER 96 HOURS, INCUBATION TO CONTINUE FOR 1 DAYS. 05/04/18 17:14 Blood - Peripheral Venous Blood Culture - Preliminary NO GROWTH OBTAINED AFTER 96 HOURS, INCUBATION TO CONTINUE FOR 1 DAYS. 05/05/18 12:20 Urine - Urine Clean Catch Urine Culture - Final NO GROWTH OBTAINED 05/03/18 12:54 Urine - Urine Clean Catch Urine Culture - Final Contaminated: Please Repeat Condition: Stable - Instructions Diet, Activity, Other Instructions: ACTIVITY TOLERATED LOW SODIUM DIABETIC DIET [employer] MAY TAKE SHOWER HIPREX 1 GM BID X 14 DAYS Referrals: Madison Henriquez MD [Primary Care Provider] - Disposition: VNS/HOME HEALTH CARE - Home Medications Comprehensive Discharge Medication List: Ambulatory Orders Alprazolam [Xanax] 1 mg PO HS PRN 06/13/16 Atorvastatin Ca [Lipitor] 40 mg PO DAILY 06/13/16 Furosemide [Lasix] 40 mg PO DAILY 06/13/16 Montelukast Na [Singulair -] 10 mg PO HS 06/13/16 hydrALAZINE HCL [Apresoline -] 25 mg PO BID 03/02/17 Duloxetine HCl [Cymbalta] 60 mg PO DAILY 03/07/17 Mirabegron [Myrbetriq] 50 mg PO DAILY 06/07/17 Albuterol Sulfate [Proair Respiclick] 90 mcg IH PRN PRN 08/02/17 Aspirin 81 mg PO DAILY 08/02/17 Cholecalciferol (Vitamin D3) [Vitamin D3] 2,000 unit PO DAILY 08/02/17 Docusate Sodium [Colace] 200 mg PO HS 08/02/17 Levothyroxine [Synthroid -] 175 mcg PO DAILY@0700 08/02/17 Potassium Chloride [K-Dur -] 20 meq PO DAILY 08/02/17 Dexlansoprazole [Dexilant] 60 mg PO ACBK 11/18/17 Fluticasone Prop 0.05% Nasal [Flonase -] 1 spray NS DAILY 11/18/17 Oxycodone HCl/Acetaminophen [Percocet 5-325 mg Tablet] 1 tab PO Q6H PRN MDD 6 Lactobacillus Acidophilus [Bacid -] 1 tab PO BID tab 11/29/17 Fluticasone/Salmeterol [Advair 250-50 Diskus] 1 puff IH BID 12/24/17 Amlodipine Bes/Olmesartan Med [[place]rata 10-40 mg Tablet] 1 each PO DAILY 05/03/18 Atorvastatin Ca [Lipitor] 40 mg PO HS 05/03/18 Diphenhydramine HCl [Benadryl Capsule -] 25 mg PO Q6H PRN 05/03/18 Fluticasone/Salmeterol [Advair 250-50 Diskus] 1 each IH BID 05/03/18 Metoprolol Succinate [Toprol Xl] 200 mg PO DAILY 05/03/18 Montelukast Sodium [Singulair] 10 mg PO HS 05/03/18 Nitrofurantoin Monohyd/M-Cryst [Macrobid -] 100 mg PO BID 05/03/18 Oxycodone HCl/Acetaminophen [Endocet 7.5-325 mg Tablet] 1 each PO Q6H PRN Pregabalin [Lyrica] 100 mg PO DAILY 05/03/18 Pregabalin [Lyrica] 100 mg PO TID 05/03/18 Solifenacin Succinate [Vesicare -] 5 mg PO DAILY 05/03/18 Methenamine Hippurate [Hiprex [Nf] -] 1 gm PO BID #14 tablet 05/08/18
[2018-05-09 13:11] VITALS: BP 128/65; PULSE 62; TEMP 98.2
== END 2018-05-09 12:03 | disposition home health service (06) | DRG 689 ==
LOC: JER 12:13 → JERBED 14:03 → J8W 05-04 19:14
PROVIDERS: ADMIT Family Medicine; ATTEND Family Medicine
DX: N39.0 Urinary tract infection, site not specified (principal); I50.33 Acute on chronic diastolic (congestive) heart failure; Z68.42 Body mass index [BMI] 45.0-49.9, adult; E11.40 Type 2 diabetes mellitus with diabetic neuropathy, unspecified; I44.4 Left anterior fascicular block; E03.9 Hypothyroidism, unspecified; E78.5 Hyperlipidemia, unspecified; E66.01 Morbid (severe) obesity due to excess calories; I11.0 Hypertensive heart disease with heart failure
CPT/HCPCS: 36415; 71045-TC-FY; 73630-TC-LT; 73630-TC-RT-FY; 80053; 81003; 81015; 82962; 83036; 85025; 85027; 87040; 87086; 93005; 93010; 94640; 97116-GP; 97161-GP; 99285-25; J1644; J7030

== ENCOUNTER 2019-01-21 03:16 | Emergency (ER) | payer OTHER ==
[2019-01-21 03:37] VITALS: BP 135/74; PULSE 60; TEMP 97.8; BMI 47.0
[2019-01-21] MEDS ORDERED: morphine CARPU-JECT 2 MG/1 ML DISP.SYRIN IM ONE (04:00)
[2019-01-21] MEDS ORDERED: morphine SULFATE 4 MG/ML VIAL ONE ×2 (04:08→05:09)
--- NOTE | 2019-01-21 04:11 | PDOC ---
History of Present Illness - General Chief Complaint: Injury Stated Complaint: FELL Time Seen by Provider: 01/21/19 03:47 History Source: Patient Exam Limitations: No Limitations - History of Present Illness Initial Comments: 01/21/19 04:06 73 yo female pmh NIDDM, HTN, HLD, Hypothyroidism, Asthma, CVA, RA, Recurrent UTI presents to the ED after a fall with R hip pain. Pt states she had a bad dream, accidentally rolled off the bed and landed on her right hip. Denies hitting head, LOC, RAMOS, changes in vision, N/V/F/C, neck pain, confusion, weakness or sensory changes on 1 side of her body. Pt states she lives alone at home, has home health aides however ambulates with a rolling walker without assistance at baseline. Denies recent illness, recent travel, CP/Palpitations/ SOB prior to or after the fall. Denies new back pain, abdominal pain. Past History - Past Medical History Allergies/Adverse Reactions: Allergies Allergy/AdvReac Type Severity Reaction Status Date / Time No Known Allergies Allergy Verified 01/21/19 03:36 Home Medications: Ambulatory Orders Alprazolam [Xanax] 1 mg PO HS PRN 06/13/16 Montelukast Na [Singulair -] 10 mg PO HS 06/13/16 hydrALAZINE HCL [Apresoline -] 25 mg PO BID 03/02/17 Duloxetine HCl [Cymbalta] 60 mg PO DAILY 03/07/17 Mirabegron [Myrbetriq] 50 mg PO DAILY 06/07/17 Albuterol Sulfate [Proair Respiclick] 90 mcg IH BID 08/02/17 Aspirin 81 mg PO DAILY 08/02/17 Cholecalciferol (Vitamin D3) [Vitamin D3] 2,000 unit PO DAILY 08/02/17 Docusate Sodium [Colace] 100 mg PO BID 08/02/17 Levothyroxine [Synthroid -] 175 mcg PO DAILY@0700 08/02/17 Potassium Chloride [K-Dur -] 20 meq PO DAILY 08/02/17 Dexlansoprazole [Dexilant] 60 mg PO DAILY 11/18/17 Fluticasone Prop 0.05% Nasal [Flonase -] 1 spray NS DAILY 11/18/17 Oxycodone HCl/Acetaminophen [Percocet 5-325 mg Tablet] 1 tab PO Q6H PRN MDD 6 Lactobacillus Acidophilus [Bacid -] 1 tab PO BID tab 11/29/17 Atorvastatin Ca [Lipitor] 40 mg PO HS 05/03/18 Fluticasone/Salmeterol [Advair 250-50 Diskus] 2 each IH DAILY 05/03/18 Metoprolol Succinate [Toprol Xl] 200 mg PO DAILY 05/03/18 Pregabalin [Lyrica] 100 mg PO TID 05/03/18 Solifenacin Succinate [Vesicare -] 5 mg PO DAILY 05/03/18 Methenamine Hippurate [Hiprex [Nf] -] 1 gm PO BID #14 tablet 05/08/18 Amlodipine Besylate/Valsartan [Amlodipine-Valsartan 5-320 mg] 1 each PO DAILY Ascorbic Acid [Vitamin C] 500 mg PO DAILY 01/21/19 Budesonide/Formeterol Fumarate [SYMBICORT 160/4.5mcg -] 1 inh PO DAILY 01/21/19 Furosemide [Lasix] 40 mg PO DAILY 01/21/19 Omeprazole 40 mg PO DAILY 01/21/19 Anemia: No Asthma: Yes COPD: Yes DVT: No Diabetes: Yes GI Disorders: Yes (REFLUX) Disorders: Yes (KIDNEY STONES) HTN: Yes Hypercholesterolemia: Yes Thyroid Disease: Yes (HYPO) Other medical history: rheumatoid arthritis, gout, hypothyroidism - Surgical History Appendectomy: Yes Cholecystectomy: Yes Orthopedic Surgery: Yes (CARITO. KNEE REPLACEMENTS) - Immunization History Immunization Up to Date: Yes - Psycho Social/Smoking Cessation Hx Smoking Status: Yes Smoking History: Unknown if ever smoked Have you smoked in the past 12 months: No Number of Cigarettes Smoked Daily: 0 If you are a former smoker, when did you quit?: 6 years ago Hx Alcohol Use: No Drug/Substance Use Hx: No Substance Use Type: None Hx Substance Use Treatment: No Review of Systems - Review of Systems Constitutional: Yes: See HPI HEENTM: Yes: See HPI Respiratory: Yes: See HPI ABD/GI: Yes: See HPI : Yes: See HPI Musculoskeletal: Yes: See HPI Integumentary: Yes: See HPI Neurological: Yes: See HPI *Physical Exam - Vital Signs Last Vital Signs Temp Pulse Resp BP Pulse Ox 97.8 F 60 18 135/74 97 01/21/19 03:20 01/21/19 03:20 01/21/19 03:20 01/21/19 03:20 01/21/19 03:20 - Physical Exam General Appearance: Yes: Nourished, Appropriately Dressed. No: Apparent Distress HEENT: positive: EOMI, SUSSY, Normal Voice Neck: positive: Supple. negative: Carotid bruit Respiratory/Chest: positive: Lungs Clear, Normal Breath Sounds. negative: Accessory Muscle Use, Rapid RR, Crackles, Rales, Rhonchi, Stridor, Wheezing Cardiovascular: positive: Regular Rhythm, Regular Rate, S1, S2. negative: Edema , JVD, Murmur Vascular Pulses: Dorsalis-Pedis (R): 4+, Doralis-Pedis (L): 4+ Gastrointestinal/Abdominal: positive: Flat, Soft. 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 negative: Facial Droop, Numbness, Sensory Deficit, Finger to Nose, Confused, Disoriented ED Treatment Course - LABORATORY CBC & Chemistry Diagram: 01/21/19 08:11 01/21/19 08:11 - RADIOLOGY Radiology Studies Ordered: Category Date Time Status CERVICAL SPINE CT W/O CONTR [CT] Stat CT Scan 01/21/19 04:[address] WITHOUT CONTRAST [CT] Stat CT Scan 01/21/19 04:[address] WITHOUT CONTRAST [CT] Stat CT Scan 01/21/19 04:03 Ordered Medical Decision Making - Medical Decision Making 01/21/19 04:10 73 yo female pmh NIDDM, HTN, HLD, Hypothyroidism, Asthma, CVA, RA, Recurrent UTI presents to the ED after a fall with R hip pain. Pt states she had a bad dream, accidentally rolled off the bed and landed on her right hip. Denies hitting head, LOC, RAMOS, changes in vision, N/V/F/C, neck pain, confusion, weakness or sensory changes on 1 side of her body. Pt states she lives alone at home, has home health aides however ambulates with a rolling walker without assistance at baseline. Denies recent illness, recent travel, CP/Palpitations/ SOB prior to or after the fall. Denies new back pain, abdominal pain. vitals wnl labs WNL head, C spine and L spine CT neg for bleed/fracture/subluxation Hip and pelvis x ray shows no acute fracture Pt is safe for DC home with strict return precautions Discharge - Discharge Information Problems reviewed: Yes Clinical Impression/Diagnosis: Right hip pain Fall Qualifiers: Encounter type: initial encounter Qualified Code(s): W19.XXXA - Unspecified fall, initial encounter Condition: Stable Disposition: HOME - Follow up/Referral Referrals: Jennifer Mccullough MD [Primary Care Provider] - Avery Garcia DO [Staff Physician] - - Patient Discharge Instructions Patient Printed Discharge Instructions: How to Prevent Falls Additional Instructions: Today you were evaluated for a fall. We got CT scans of your head, neck, back, and hips, but there is no evidence of any fractured bones. In the future, please be mindful of your step, and be careful not to fall in the future. At home, please take Tylenol every 8 hours for hip pain. You can get this from any store and, and please follow the dosing instructions on bottle. I have given you a referral to Dr. Garcia, an orthopedic surgeon, who can further evaluate your hips and arthritis. Please see Dr. Mccullough tomorrow as scheduled for follow-up for your pain and planning for a 24 hour health aide. If you experience worsening hip pain, nausea , vomiting, inability to urinate, inability to walk, headache, or any other new or concerning symptoms, please return to the emergency room immediately. - Post Discharge Activity
--- NOTE | 2019-01-21 04:16 | PDOC ---
Attending Attestation - Resident Resident Name: Jose J Mena - ED Attending Attestation I have performed the following: I have examined & evaluated the patient, The case was reviewed & discussed with the resident, I agree w/resident's findings & plan, Exceptions are as noted - HPI HPI: 01/21/19 04:14 73 F with h/o DM, HTN, HLD, hypothyroid, asthma, CVA, RA, UTIs presenting to ED with R hip pain. Pt states she rolled out of bed and landed on her R side. Denies headstrike/LOC. was unable to get up afterwards due to severe pain in her R hip. Denies any CP/SOB/palpitations/lightheadedness. - Physicial Exam PE: 01/21/19 04:15 "GENERAL: Awake, alert, and fully oriented, in no acute distress. HEAD: No signs of trauma EYES: PERRLA, EOMI, sclera anicteric, conjunctiva clear ENT: Auricles normal inspection, hearing grossly normal, nares patent, oropharynx clear without exudates. Moist mucosa NECK: Nontender, no stepoffs, Normal ROM, supple, no lymphadenopathy, JVD, or masses LUNGS: Breath sounds equal, clear to auscultation bilaterally. No wheezes, and no crackles HEART: Regular rate and rhythm, normal S1 and S2, no murmurs, rubs or gallops ABDOMEN: Soft, nontender, normoactive bowel sounds. No guarding, no rebound. No masses EXTREMITIES: + R hip TTP, no deformity, distal pulses intact, No clubbing or cyanosis. No cords, erythema, or tenderness NEUROLOGICAL: Cranial nerves II through XII intact. 5/5 strength and sensation in all extremities, Normal speech, normal gait, normal cerebellar function SKIN: Warm, Dry, normal turgor, no rashes or lesions noted. - Medical Decision Making 01/21/19 04:15 73 F with R hip pain after mechanical fall. - CT head/c-spine/pelvis Pt signed out to day team at 7AM, pending imaging and re-eval
[2019-01-21] MEDS ORDERED: morphine SULFATE 4 MG/ML VIAL IVPUSH ONE (05:04)
--- NOTE | 2019-01-21 07:33 | PDOC ---
*Physical Exam - Vital Signs Last Vital Signs Temp Pulse Resp BP Pulse Ox 97.8 F 60 18 135/74 97 01/21/19 03:20 01/21/19 03:20 01/21/19 03:20 01/21/19 03:20 01/21/19 03:20 - Physical Exam General Appearance: Yes: Nourished, Appropriately Dressed, Obese. No: Apparent Distress HEENT: positive: EOMI, SUSSY, Normal Voice, Hearing Grossly Normal. negative: Scleral Icterus (R), Scleral Icterus (L), Muffled/Hoarse voice, Pharyngeal Erythema, Tonsillar Exudate, Tonsillar Erythema Neck: positive: Trachea midline, Supple. negative: Tender, Rigid, Lymphadenopathy (R), Lymphadenopathy (L) Respiratory/Chest: positive: Lungs Clear, Normal Breath Sounds. negative: Respiratory Distress Cardiovascular: positive: Regular Rhythm, Regular Rate. negative: Murmur Gastrointestinal/Abdominal: positive: Normal Bowel Sounds, Flat, Soft. negative : Tender Musculoskeletal: positive: Normal Inspection. negative: CVA Tenderness, Vertebral Tenderness Extremity: positive: Normal Capillary Refill, Normal Inspection, Normal Range of Motion. negative: Tender Integumentary: positive: Normal Color, Dry, Warm Neurologic: positive: Fully Oriented, Alert, Normal Mood/Affect, Normal Response , Other (able to stand on her own, able to walk with wheelchair substituted as walker, gait normal) ED Treatment Course - LABORATORY CBC & Chemistry Diagram: 01/21/19 08:11 01/21/19 08:11 - Medications Given in the ED: ED Medications Discontinued Medications Generic Name Dose Route Start Last Admin Trade Name Tato PRN Reason Stop Dose Admin Morphine Sulfate 4 mg 01/21/19 04:00 01/21/19 04:10 Morphine Injection - IM 01/21/19 04:01 4 mg ONCE ONE Administration Morphine Sulfate 4 mg 01/21/19 05:04 01/21/19 05:25 Morphine Sulfate IVPUSH 01/21/19 05:05 4 mg ONCE ONE Administration Medical Decision Making - Medical Decision Making 01/21/19 07:26 Signed out to me by Dr. Mena. 73F presenting with fall out of bed at 3AM, R hip pain Got CT head/c-spine/pelvis Currently pending read for pelvis CT Has R AC IV but unable to get drawback Plan is to test if able to ambulate if pelvis CT shows no fracture If able to ambulate can send home with pain control If unable to ambulate needs an IV line and admission 01/21/19 07:33 CT cervical spine: FINDINGS: There is no fracture, subluxation, prevertebral soft tissue swelling. There is a mild levoscoliosis and mottled degenerative changes. The lung apices are clear. IMPRESSION: No fracture CT head: FINDINGS: The ventricular system is midline and nondilated. There is mild to moderate cortical atrophy and chronic small vessel ischemic disease. There is no bleed, mass, extra-axial fluid collection or mass effect. No skull fracture or skull lesion is identified. The visualized paranasal sinuses and mastoid air cells are clear. IMPRESSION: No acute pathology. CT Lumbar spine: FINDINGS: There is no fracture. No suspicious bone lesions. Multilevel severe degenerative changes are noted. No paraspinal hematoma. IMPRESSION: No fracture. Severe degenerative changes. 01/21/19 08:19 CT pelvis: FINDINGS: The pelvic small and large bowel are normal. There is no evidence of appendicitis. Status post hysterectomy. Urinary bladder is unremarkable. There is no pelvic free fluid. No discrete pelvic lymphadenopathy is identified. No fracture. No soft tissue hematoma. 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 IMPRESSION: No pelvic fracture. Labs obtained by butterfly stick. 01/21/19 08:39 Evaluated at bedside, able to stand but needs walker to walk. Will find a wheelchair and evaluate her gait. Per Dr. Mccullough/[place], can be discharged home if able to walk, can be followed- up in clinic on Tuesday. 01/21/19 09:46 Patient aide and son coming to pick her up, has good follow-up with PMD Tuesday, stable to be discharged home. Discussed R hip pain she was having as result of OA rather than fracture. Patient requests different ortho MD for arthritis and pain medication before leaving, giving referral to Garcia and 600mg ibuprofen, renal status good, Cr. 0.7. 01/21/19 10:15 Patient's son and aide at bedside to take her home. Has f/u with Alonso tomorrow. Discharge - Discharge Information Problems reviewed: Yes Clinical Impression/Diagnosis: Right hip pain Fall Qualifiers: Encounter type: initial encounter Qualified Code(s): W19.XXXA - Unspecified fall, initial encounter Condition: Stable Disposition: HOME - Admission No - Follow up/Referral Referrals: Jennifer Mccullough MD [Primary Care Provider] - Avery Garcia DO [Staff Physician] - - Patient Discharge Instructions Patient Printed Discharge Instructions: How to Prevent Falls Additional Instructions: Today you were evaluated for a fall. We got CT scans of your head, neck, back, and hips, but there is no evidence of any fractured bones. In the future, please be mindful of your step, and be careful not to fall in the future. At home, please take Tylenol every 8 hours for hip pain. You can get this from any store and, and please follow the dosing instructions on bottle. I have given you a referral to Dr. Garcia, an orthopedic surgeon, who can further evaluate your hips and arthritis. Please see Dr. Mccullough tomorrow as scheduled for follow-up for your pain and planning for a 24 hour health aide. If you experience worsening hip pain, nausea , vomiting, inability to urinate, inability to walk, headache, or any other new or concerning symptoms, please return to the emergency room immediately. - Post Discharge Activity
[2019-01-21 08:26] LABS: BASO % 0.5 % (0-2.0); EOS % 1.3 % (0-4.5); HEMATOCRIT 41.9 % (32.4-45.2); HEMOGLOBIN 13.5 GM/dL (10.7-15.3); LYMPH % 23.6 % (8-40); MCH 27.1 pg (25.7-33.7); MCHC 32.3 g/dl (32.0-36.0); MEAN CELL VOLUME 84.1 fl (80-96); MEAN PLT VOLUME 8.3 fl (7.5-11.1); MONO % 9.4 % (3.8-10.2); NEUT % 65.2 % (42.8-82.8); PLATELET COUNT 239 K/MM3 (134-434); RBC 4.98 M/mm3 (3.60-5.2); RDW 17.1 % (11.6-15.6); WHITE BLOOD COUNT 8.1 K/mm3 (4.0-10.0)
[2019-01-21 08:48] LABS: ALBUMIN 3.7 g/dl (3.4-5.0); BILIRUBIN,TOTAL 0.7 mg/dL (0.2-1); BLOOD UREA NITROGEN 10.6 mg/dL (7-18); CREATININE 0.7 mg/dL (0.55-1.3); POTASSIUM 3.6 mmol/L (3.5-5.1); TOT PROT 6.2 g/dl (6.4-8.2)
--- NOTE | 2019-01-21 08:49 | PDOC ---
*Physical Exam - Vital Signs Last Vital Signs Temp Pulse Resp BP Pulse Ox 97.8 F 60 18 135/74 97 01/21/19 03:20 01/21/19 03:20 01/21/19 03:20 01/21/19 03:20 01/21/19 03:20 - Physical Exam Comments: 01/21/19 08:46 Awake alert no acute distress head is atraumatic lungs are clear bilaterally heart is regular no murmurs rubs or gallops abdomen is soft nontender there is right lateral hip tenderness to palpation patient does have range of motion however left hip is full range of motion knees and ankles are full range of motion no obvious ecchymosis or abrasions. Neurologically she is awake alert oriented x3 moves all 4 extremities speech is clear ED Treatment Course - LABORATORY CBC & Chemistry Diagram: 01/21/19 08:11 01/21/19 08:11 - ADDITIONAL ORDERS Additional order review: 01/21/19 08:11 RBC 4.98 MCV 84.1 MCHC 32.3 RDW 17.1 H MPV 8.3 Neutrophils % 65.2 Lymphocytes % 23.6 Monocytes % 9.4 Eosinophils % 1.3 Basophils % 0.5 - Medications Given in the ED: ED Medications Discontinued Medications Generic Name Dose Route Start Last Admin Trade Name Tato PRN Reason Stop Dose Admin Morphine Sulfate 4 mg 01/21/19 04:00 01/21/19 04:10 Morphine Injection - IM 01/21/19 04:01 4 mg ONCE ONE Administration Morphine Sulfate 4 mg 01/21/19 05:04 01/21/19 05:25 Morphine Sulfate IVPUSH 01/21/19 05:05 4 mg ONCE ONE Administration Medical Decision Making - Medical Decision Making 01/21/19 08:47 73-year-old female history of hypertension diabetes hyperlipidemia obesity rheumatoid arthritis chronic degenerative arthritis. Here today status post fall she rolled out of her bed landed on her right side was complaining of right hip pain. Patient was signed out to me by the overnight team assumed care at [address] pelvis and lumbar spine was pending in addition to CT head. On my exam patient has minimal tenderness CT had was negative CT spine and pelvis was negative for any acute fractures. Patient would like to go home she has a 12-hour aide she ambulate in the department with assistance using a wheelchair she does use a four-point walker at home. Discussed dR Crockett WITH dR MENDOZA who is in the department patient will be seen tomorrow in the office as needed offered admission which she declined would like to go home. Discharge - Discharge Information Problems reviewed: Yes Clinical Impression/Diagnosis: Right hip pain Fall Qualifiers: Encounter type: initial encounter Qualified Code(s): W19.XXXA - Unspecified fall, initial encounter Condition: Stable Disposition: HOME - Follow up/Referral Referrals: Jennifer Mccullough MD [Primary Care Provider] - Avery Garcia DO [Staff Physician] - - Patient Discharge Instructions Patient Printed Discharge Instructions: How to Prevent Falls Additional Instructions: Today you were evaluated for a fall. We got CT scans of your head, neck, back, and hips, but there is no evidence of any fractured bones. In the future, please be mindful of your step, and be careful not to fall in the future. At home, please take Tylenol every 8 hours for hip pain. You can get this from any store and, and please follow the dosing instructions on bottle. I have given you a referral to Dr. Garcia, an orthopedic surgeon, who can further evaluate your hips and arthritis. Please see Dr. Mccullough tomorrow as scheduled for follow-up for your pain and planning for a 24 hour health aide. If you experience worsening hip pain, nausea , vomiting, inability to urinate, inability to walk, headache, or any other new or concerning symptoms, please return to the emergency room immediately. - Post Discharge Activity
[2019-01-21 09:05] LABS: INR 1.02 (0.83-1.09)
[2019-01-21] MEDS ORDERED: IBUPROFEN 600 MG TABLET (FP) PO ONE ×2 (09:44→10:10)
== END 2019-01-21 10:00 | disposition home or self-care (01) ==
LOC: JER 03:16
DX: S79.811A Other specified injuries of right hip, initial encounter (principal); M25.551 Pain in right hip; W06.XXXA Fall from bed, initial encounter; Y93.89 Activity, other specified; Y92.032 Bedroom in apartment as the place of occurrence of the external cause; Y99.8 Other external cause status; I10 Essential (primary) hypertension; E78.5 Hyperlipidemia, unspecified; E03.9 Hypothyroidism, unspecified; E11.9 Type 2 diabetes mellitus without complications; Z79.84 Long term (current) use of oral hypoglycemic drugs; K21.9 Gastro-esophageal reflux disease without esophagitis; M06.9 Rheumatoid arthritis, unspecified; J45.909 Unspecified asthma, uncomplicated; Z87.440 Personal history of urinary (tract) infections; Z86.73 Personal history of transient ischemic attack (TIA), and cerebral infarction without residual deficits; E66.01 Morbid (severe) obesity due to excess calories; Z68.42 Body mass index [BMI] 45.0-49.9, adult
CPT/HCPCS: 36415; 70450-TC; 72125-TC; 72131-TC; 72192-TC; 80053; 85025; 85610; 86850; 86870; 86900; 86901; 86902; 99283-25

== ENCOUNTER 2021-04-13 06:36 | Inpatient (IN) | payer OTHER ==
[2021-04-13 06:42] VITALS: BMI 32.3
[2021-04-13] MEDS ORDERED: ONDANSETRON 4 MG/2 ML VIAL ONE ×2 (06:45→08:37)
[2021-04-13] MEDS ORDERED: SODIUM CHLORIDE 0.9% 500 ML INFUS.BAG IV ONE (07:24)
[2021-04-13] MEDS ORDERED: ACETAMINOPHEN 1000 MG/100 ML BAG IVPB ONE (07:36)
[2021-04-13] MEDS ORDERED: ACETAMINOPHEN INJECTION 100 ML IVPB ONE (07:45)
[2021-04-13 09:01] LABS: VENOUS BASE EXCESS -0.3 mmol/L (-2-2); VENOUS O2 SATURATION 47.2 % (70-80); VENOUS PCO2 41.2 mmHg (38-52); VENOUS PH 7.394 (7.310-7.410)
[2021-04-13 09:14] LABS: INR 1.3 (0.83-1.09); PROTHROMBIN TIME (PATIENT) 15.2 SEC (9.7-13.0)
[2021-04-13 09:20] LABS: CHLORIDE 104 mmol/L (98-107); SODIUM 139 mmol/L (136-145)
[2021-04-13 09:22] LABS: ALBUMIN 2.9 g/dl (3.4-5.0); ANION GAP 8 MMOL/L (8-16); BLOOD UREA NITROGEN 10.2 mg/dL (7-18); CALCIUM 8.5 mg/dL (8.5-10.1); CO2 26 mmol/L (21-32); GLUCOSE,RANDOM 121 mg/dL (74-106)
[2021-04-13 09:25] LABS: CREATININE 1.1 mg/dL (0.55-1.3); SGPT/ALT 44 U/L (13-61)
[2021-04-13 09:26] LABS: SGOT/AST 83 U/L (15-37)
[2021-04-13 09:27] LABS: BILIRUBIN,TOTAL 0.8 mg/dL (0.2-1)
[2021-04-13 09:28] LABS: ALK PHOS 83 U/L (45-117)
[2021-04-13 09:32] LABS: LACTIC ACID 2.9 mmol/L (0.4-2.0)
[2021-04-13 09:38] LABS: BASO % 0.7 % (0-2.0); EOS % 0.2 % (0-4.5); LYMPH % 14.4 % (8-40); MONO % 8.2 % (3.8-10.2); NEUT % 76.5 % (42.8-82.8)
[2021-04-13 09:39] LABS: HEMATOCRIT 42.4 % (32.4-45.2); HEMOGLOBIN 13.5 GM/dL (10.7-15.3); MCH 27.2 pg (25.7-33.7); MCHC 31.9 g/dl (32.0-36.0); MEAN CELL VOLUME 85.2 fl (80-96); MEAN PLT VOLUME 9.4 fl (7.5-11.1); PLATELET COUNT 175 10^3/uL (134-434); RBC 4.98 M/mm3 (3.60-5.2); RDW 15.2 % (11.6-15.6); WHITE BLOOD COUNT 4.7 K/mm3 (4.0-10.0)
[2021-04-13 12:51] LABS: LACTIC ACID 2.2 mmol/L (0.4-2.0)
[2021-04-13] MEDS ORDERED: DEXAMETHASONE SOD PHOSPHATE 10 MG/1 ML VIAL IVPUSH ONE (18:39)
[2021-04-13] MEDS ORDERED: DEXAMETHASONE SOD PHOSPHATE 10 MG/1 ML VIAL ONE (19:15)
[2021-04-13] MEDS ORDERED: ACETAMINOPHEN 1000 MG/100 ML BAG IVPB PRN (19:38)
[2021-04-13] MEDS ORDERED: diazePAM CARPU-JECT 10 MG/2 ML DISP.SYRIN IVPUSH ONE (20:06)
[2021-04-13] MEDS ORDERED: diazePAM 5 MG TABLET PO ONE (20:11)
[2021-04-13 20:12] LABS: MAGNESIUM 1.4 mg/dL (1.8-2.4)
[2021-04-13] MEDS ORDERED: diazePAM 5 MG TABLET ONE (20:27)
[2021-04-13 20:48] LABS: LDH 859 U/L (84-246)
[2021-04-13] MEDS ORDERED: ONDANSETRON 4 MG TABLET PO ONE (22:09)
[2021-04-13] MEDS ORDERED: MAGNESIUM SULF 50% (8.12 MEQ/2 ML-1 GM VIAL) IVPB ONE (22:13)
[2021-04-13] MEDS ORDERED: ONDANSETRON *ODT* 4 MG TABLET ONE (23:32)
[2021-04-13] MEDS ORDERED: MAGNESIUM SULFATE IN WATER 2 GM/50 ML IVPB IVPB ONE (23:33)
[2021-04-14 08:19] LABS: BASO % 0.4 % (0-2.0); LYMPH % 13.3 % (8-40); MCH 26.8 pg (25.7-33.7); MCHC 31.6 g/dl (32.0-36.0); MEAN CELL VOLUME 84.9 fl (80-96); MEAN PLT VOLUME 9.8 fl (7.5-11.1); MONO % 8.5 % (3.8-10.2); NEUT % 77.8 % (42.8-82.8); PLATELET COUNT 169 10^3/uL (134-434); RBC 4.47 M/mm3 (3.60-5.2); RDW 15.2 % (11.6-15.6); WHITE BLOOD COUNT 3.7 K/mm3 (4.0-10.0)
[2021-04-14 08:46] LABS: BLOOD UREA NITROGEN 15.3 mg/dL (7-18); CALCIUM 7.6 mg/dL (8.5-10.1)
[2021-04-14 08:48] LABS: CREATININE 1.1 mg/dL (0.55-1.3)
[2021-04-14 08:52] LABS: ALBUMIN 2.3 g/dl (3.4-5.0); BILIRUBIN,TOTAL 0.4 mg/dL (0.2-1); TOT PROT 5.7 g/dl (6.4-8.2)
[2021-04-14] MEDS ORDERED: ONDANSETRON 4 MG/2 ML VIAL IVPB PRN (09:17)
[2021-04-14] MEDS: DEXAMETHASONE SOD PHOSPHATE 10 MG/1 ML VIAL IVPUSH SCH (09:57)
[2021-04-14] MEDS ORDERED: DEXAMETHASONE SOD PHOSPHATE 4 MG/1 ML VIAL IVPUSH SCH (10:00)
[2021-04-14] MEDS: HEPARIN NA (PORCINE) 5,000 UNITS/ML 1ML VIAL SQ SCH ×2 (14:02→22:29)
[2021-04-14] MEDS ORDERED: REMDESIVIR 200 MG in SODIUM CHLORIDE 250 ML IVPB ONE (15:00)
[2021-04-14] MEDS: BUDESONIDE/FORMETEROL FUMARATE 160/4.5 mcg INHALER IH SCH (22:27)
[2021-04-15] MEDS: ACETAMINOPHEN 325 MG TABLET (FP) PO PRN ×3 (01:40→21:24)
[2021-04-15] MEDS: HEPARIN NA (PORCINE) 5,000 UNITS/ML 1ML VIAL SQ SCH ×3 (05:25→21:24)
[2021-04-15] MEDS ORDERED: PT OWN MED DRAWER 7, Y5N ONE (09:39)
[2021-04-15] MEDS: ALPRAZolam 0.25 MG TABLET PO PRN ×2 (10:36→21:24)
[2021-04-15] MEDS: DEXAMETHASONE SOD PHOSPHATE 10 MG/1 ML VIAL IVPUSH SCH (10:36)
[2021-04-15] MEDS: BUDESONIDE/FORMETEROL FUMARATE 160/4.5 mcg INHALER IH SCH ×2 (10:40→21:24)
[2021-04-15] MEDS: REMDESIVIR 100 MG in SODIUM CHLORIDE 250 ML IVPB SCH (14:26)
[2021-04-15] MEDS: POTASSIUM CHLORIDE ORAL LIQUID 20 MEQ/15 ML PO SCH (21:23)
[2021-04-16] MEDS: HEPARIN NA (PORCINE) 5,000 UNITS/ML 1ML VIAL SQ SCH ×3 (05:19→21:13)
[2021-04-16] MEDS: DEXAMETHASONE SOD PHOSPHATE 10 MG/1 ML VIAL IVPUSH SCH (09:40)
[2021-04-16] MEDS: BUDESONIDE/FORMETEROL FUMARATE 160/4.5 mcg INHALER IH SCH ×2 (09:41→21:13)
[2021-04-16] MEDS: POTASSIUM CHLORIDE ORAL LIQUID 20 MEQ/15 ML PO SCH ×2 (09:41→21:13)
[2021-04-16] MEDS: ACETAMINOPHEN 325 MG TABLET (FP) PO PRN ×2 (14:01→21:23)
[2021-04-16 14:37] LABS: HEMATOCRIT 36.6 % (32.4-45.2); HEMOGLOBIN 11.6 GM/dL (10.7-15.3); MCH 26.4 pg (25.7-33.7); MCHC 31.6 g/dl (32.0-36.0); MEAN CELL VOLUME 83.4 fl (80-96); MEAN PLT VOLUME 9.1 fl (7.5-11.1); PLATELET COUNT 227 10^3/uL (134-434); RBC 4.38 M/mm3 (3.60-5.2); RDW 15.4 % (11.6-15.6); WHITE BLOOD COUNT 3.5 K/mm3 (4.0-10.0)
[2021-04-16] MEDS: REMDESIVIR 100 MG in SODIUM CHLORIDE 250 ML IVPB SCH (14:48)
[2021-04-16 14:57] LABS: BLOOD UREA NITROGEN 20.5 mg/dL (7-18); CALCIUM 7.8 mg/dL (8.5-10.1)
[2021-04-16 15:00] LABS: CREATININE 0.8 mg/dL (0.55-1.3)
[2021-04-16] MEDS: ALPRAZolam 0.25 MG TABLET PO PRN (21:14)
[2021-04-17] MEDS: ACETAMINOPHEN 325 MG TABLET (FP) PO PRN ×3 (04:26→23:14)
[2021-04-17] MEDS: HEPARIN NA (PORCINE) 5,000 UNITS/ML 1ML VIAL SQ SCH ×3 (05:18→22:34)
[2021-04-17] MEDS: ALPRAZolam 0.25 MG TABLET PO PRN ×3 (05:18→23:14)
[2021-04-17] MEDS: LEVOTHYROXINE NA 150 MCG TABLET PO SCH (06:52)
[2021-04-17 08:14] LABS: HEMATOCRIT 36.3 % (32.4-45.2); HEMOGLOBIN 12.1 GM/dL (10.7-15.3); MCH 27.6 pg (25.7-33.7); MCHC 33.3 g/dl (32.0-36.0); MEAN PLT VOLUME 8.9 fl (7.5-11.1); PLATELET COUNT 228 10^3/uL (134-434); RBC 4.38 M/mm3 (3.60-5.2); RDW 15.2 % (11.6-15.6); WHITE BLOOD COUNT 3.8 K/mm3 (4.0-10.0)
[2021-04-17 08:54] LABS: LACTIC ACID 2.8 mmol/L (0.4-2.0)
[2021-04-17 09:05] LABS: ALBUMIN 2.4 g/dl (3.4-5.0); BLOOD UREA NITROGEN 22.3 mg/dL (7-18)
[2021-04-17 09:07] LABS: CREATININE 0.8 mg/dL (0.55-1.3)
[2021-04-17 09:10] LABS: BILIRUBIN,TOTAL 0.6 mg/dL (0.2-1); TOT PROT 5.6 g/dl (6.4-8.2)
[2021-04-17 10:03] LABS: ANISOCYTOSIS 2+; MACROCYTOSIS 0; PLATELET ESTIMATE NORMAL
[2021-04-17] MEDS: DEXAMETHASONE SOD PHOSPHATE 10 MG/1 ML VIAL IVPUSH SCH (11:29)
[2021-04-17] MEDS: BUDESONIDE/FORMETEROL FUMARATE 160/4.5 mcg INHALER IH SCH ×2 (11:29→22:34)
[2021-04-17] MEDS: PANTOPRAZOLE 20 MG TABLET PO SCH (11:29)
[2021-04-17] MEDS: POTASSIUM CHLORIDE ORAL LIQUID 20 MEQ/15 ML PO SCH (11:29)
[2021-04-17] MEDS: REMDESIVIR 100 MG in SODIUM CHLORIDE 250 ML IVPB SCH (15:32)
[2021-04-18] MEDS ORDERED: PT OWN MED DRAWER 7, Y5N ONE (04:57)
[2021-04-18] MEDS: ACETAMINOPHEN 325 MG TABLET (FP) PO PRN ×2 (05:00→10:44)
[2021-04-18] MEDS: HEPARIN NA (PORCINE) 5,000 UNITS/ML 1ML VIAL SQ SCH ×3 (05:10→22:02)
[2021-04-18] MEDS ORDERED: ALPRAZolam 0.25 MG TABLET PO PRN (05:30)
[2021-04-18] MEDS: guaiFENesin/D-METHORPHAN HB 10 ML UNIT-DOSE CUPS PO PRN ×2 (05:38→10:44)
[2021-04-18] MEDS: LEVOTHYROXINE NA 150 MCG TABLET PO SCH (06:17)
[2021-04-18] MEDS ORDERED: POTASSIUM CHLORIDE TABS 20 MEQ TABLET.ER (FP) PO ONE (06:21)
[2021-04-18 07:52] LABS: BASO % 0.3 % (0-2.0); HEMATOCRIT 41.2 % (32.4-45.2); HEMOGLOBIN 13.6 GM/dL (10.7-15.3); LYMPH % 8.6 % (8-40); MCH 27.6 pg (25.7-33.7); MCHC 32.9 g/dl (32.0-36.0); MEAN CELL VOLUME 83.8 fl (80-96); MEAN PLT VOLUME 8.4 fl (7.5-11.1); MONO % 7.4 % (3.8-10.2); NEUT % 83.7 % (42.8-82.8); PLATELET COUNT 228 10^3/uL (134-434); RBC 4.92 M/mm3 (3.60-5.2); RDW 15.5 % (11.6-15.6); WHITE BLOOD COUNT 5.4 K/mm3 (4.0-10.0)
[2021-04-18 08:10] LABS: ALBUMIN 2.7 g/dl (3.4-5.0); CALCIUM 8.3 mg/dL (8.5-10.1)
[2021-04-18 08:11] LABS: BLOOD UREA NITROGEN 18.7 mg/dL (7-18); MAGNESIUM 1.7 mg/dL (1.8-2.4)
[2021-04-18 08:13] LABS: CREATININE 0.7 mg/dL (0.55-1.3)
[2021-04-18 08:14] LABS: PHOSPHOROUS 1.8 mg/dL (2.5-4.9)
[2021-04-18 08:15] LABS: BILIRUBIN,TOTAL 0.5 mg/dL (0.2-1); TOT PROT 6.1 g/dl (6.4-8.2)
[2021-04-18 10:19] LABS: ERYTHROCYTE SEDIMENTATION RATE 74 mm/hr (0-30)
[2021-04-18] MEDS: PANTOPRAZOLE 20 MG TABLET PO SCH (10:45)
[2021-04-18] MEDS: BUDESONIDE/FORMETEROL FUMARATE 160/4.5 mcg INHALER IH SCH ×2 (10:45→22:02)
[2021-04-18] MEDS: DEXAMETHASONE SOD PHOSPHATE 4 MG/1 ML VIAL IVPUSH SCH (11:19)
[2021-04-18] MEDS: DEXAMETHASONE SOD PHOSPHATE 10 MG/1 ML VIAL IVPUSH SCH (11:23)
[2021-04-18] MEDS ORDERED: ALPRAZolam 0.25 MG TABLET PO ONE (11:26)
[2021-04-18] MEDS ORDERED: morphine CARPU-JECT 2 MG/1 ML DISP.SYRIN IVPUSH PRN (12:05)
[2021-04-18] MEDS ORDERED: TOCILIZUMAB (ACTEMRA) 200 MG/10 ML VIAL IVPB ONE (14:30)
[2021-04-18] MEDS: REMDESIVIR 100 MG in SODIUM CHLORIDE 250 ML IVPB SCH ×2 (14:56→17:07)
[2021-04-18] MEDS ORDERED: TOCILIZUMAB 800 MG in SODIUM CHLORIDE 60 ML IVPB ONE (16:00)
[2021-04-18] MEDS: ALPRAZolam 0.25 MG TABLET PO PRN (19:51)
[2021-04-19] MEDS ORDERED: PT OWN MED DRAWER 7, Y5N ONE (06:23)
[2021-04-19] MEDS: HEPARIN NA (PORCINE) 5,000 UNITS/ML 1ML VIAL SQ SCH ×3 (06:26→21:06)
[2021-04-19] MEDS: LEVOTHYROXINE NA 150 MCG TABLET PO SCH (06:26)
[2021-04-19 09:04] LABS: ALBUMIN 2.5 g/dl (3.4-5.0); BLOOD UREA NITROGEN 17.5 mg/dL (7-18); CALCIUM 8.2 mg/dL (8.5-10.1); MAGNESIUM 1.8 mg/dL (1.8-2.4)
[2021-04-19 09:07] LABS: CREATININE 0.6 mg/dL (0.55-1.3); PHOSPHOROUS 2.3 mg/dL (2.5-4.9)
[2021-04-19 09:09] LABS: BILIRUBIN,TOTAL 0.5 mg/dL (0.2-1); TOT PROT 5.9 g/dl (6.4-8.2)
[2021-04-19] MEDS: PANTOPRAZOLE 20 MG TABLET PO SCH (10:58)
[2021-04-19] MEDS: BUDESONIDE/FORMETEROL FUMARATE 160/4.5 mcg INHALER IH SCH ×2 (10:58→21:06)
[2021-04-19] MEDS: DEXAMETHASONE SOD PHOSPHATE 4 MG/1 ML VIAL IVPUSH SCH (10:58)
[2021-04-19] MEDS ORDERED: POTASSIUM PHOSPHATE 30 MM in SODIUM CHLORIDE 500 ML IVPB ONE (17:19)
[2021-04-19] MEDS ORDERED: MAGNESIUM OXIDE 400 MG TABLET (FP) PO ONE (17:20)
[2021-04-19 18:04] LABS: HEMATOCRIT 41.5 % (32.4-45.2); HEMOGLOBIN 13.5 GM/dL (10.7-15.3); MCH 27.2 pg (25.7-33.7); MCHC 32.5 g/dl (32.0-36.0); MEAN CELL VOLUME 83.5 fl (80-96); MEAN PLT VOLUME 8.7 fl (7.5-11.1); PLATELET COUNT 250 10^3/uL (134-434); RBC 4.97 M/mm3 (3.60-5.2); RDW 15.7 % (11.6-15.6)
[2021-04-19] MEDS: ALPRAZolam 0.25 MG TABLET PO PRN (21:06)
[2021-04-20] MEDS: ACETAMINOPHEN 325 MG TABLET (FP) PO PRN (00:10)
[2021-04-20] MEDS ORDERED: PT OWN MED DRAWER 7, Y5N ONE ×3 (02:53→10:23)
[2021-04-20] MEDS: ALPRAZolam 0.25 MG TABLET PO PRN ×2 (03:15→20:56)
[2021-04-20] MEDS: HEPARIN NA (PORCINE) 5,000 UNITS/ML 1ML VIAL SQ SCH ×3 (05:43→21:01)
[2021-04-20] MEDS: LEVOTHYROXINE NA 150 MCG TABLET PO SCH (06:11)
[2021-04-20 10:21] LABS: CALCIUM 8.3 mg/dL (8.5-10.1)
[2021-04-20 10:22] LABS: ALBUMIN 2.4 g/dl (3.4-5.0); BLOOD UREA NITROGEN 19.8 mg/dL (7-18); MAGNESIUM 1.9 mg/dL (1.8-2.4)
[2021-04-20 10:25] LABS: CREATININE 0.7 mg/dL (0.55-1.3); PHOSPHOROUS 3.4 mg/dL (2.5-4.9)
[2021-04-20 10:26] LABS: BILIRUBIN,TOTAL 0.6 mg/dL (0.2-1); TOT PROT 5.6 g/dl (6.4-8.2)
[2021-04-20] MEDS: PANTOPRAZOLE 20 MG TABLET PO SCH (10:26)
[2021-04-20] MEDS: DEXAMETHASONE SOD PHOSPHATE 4 MG/1 ML VIAL IVPUSH SCH (10:26)
[2021-04-20] MEDS: BUDESONIDE/FORMETEROL FUMARATE 160/4.5 mcg INHALER IH SCH ×2 (10:26→21:01)
[2021-04-20] MEDS: guaiFENesin/D-METHORPHAN HB 10 ML UNIT-DOSE CUPS PO PRN (10:26)
[2021-04-20 12:40] LABS: BASO % 0.3 % (0-2.0); EOS % 0.2 % (0-4.5); HEMATOCRIT 38.4 % (32.4-45.2); HEMOGLOBIN 12.6 GM/dL (10.7-15.3); LYMPH % 9.1 % (8-40); MCH 27.4 pg (25.7-33.7); MCHC 32.9 g/dl (32.0-36.0); MEAN CELL VOLUME 83.2 fl (80-96); MEAN PLT VOLUME 8.4 fl (7.5-11.1); MONO % 10.5 % (3.8-10.2); NEUT % 79.9 % (42.8-82.8); PLATELET COUNT 285 10^3/uL (134-434); RBC 4.62 M/mm3 (3.60-5.2); RDW 15.5 % (11.6-15.6); WHITE BLOOD COUNT 4.5 K/mm3 (4.0-10.0)
[2021-04-21] MEDS: ALPRAZolam 0.25 MG TABLET PO PRN ×2 (04:33→21:33)
[2021-04-21] MEDS ORDERED: PT OWN MED DRAWER 7, Y5N ONE (05:46)
[2021-04-21] MEDS: HEPARIN NA (PORCINE) 5,000 UNITS/ML 1ML VIAL SQ SCH ×3 (06:03→21:31)
[2021-04-21] MEDS: LEVOTHYROXINE NA 150 MCG TABLET PO SCH (06:03)
[2021-04-21] MEDS: DEXAMETHASONE SOD PHOSPHATE 4 MG/1 ML VIAL IVPUSH SCH (09:07)
[2021-04-21] MEDS: PANTOPRAZOLE 20 MG TABLET PO SCH (09:08)
[2021-04-21] MEDS: BUDESONIDE/FORMETEROL FUMARATE 160/4.5 mcg INHALER IH SCH ×2 (09:16→21:34)
[2021-04-21] MEDS: oxyCODONE HCL 5 MG TABLET PO PRN ×2 (13:10→21:33)
[2021-04-21 13:17] LABS: BASO % 0.3 % (0-2.0); EOS % 0.2 % (0-4.5); HEMATOCRIT 42.7 % (32.4-45.2); HEMOGLOBIN 13.7 GM/dL (10.7-15.3); LYMPH % 9.7 % (8-40); MCH 27.1 pg (25.7-33.7); MEAN CELL VOLUME 84.6 fl (80-96); MEAN PLT VOLUME 8.9 fl (7.5-11.1); MONO % 6.5 % (3.8-10.2); NEUT % 83.3 % (42.8-82.8); PLATELET COUNT 295 10^3/uL (134-434); RBC 5.05 M/mm3 (3.60-5.2); RDW 15.6 % (11.6-15.6); WHITE BLOOD COUNT 6.9 K/mm3 (4.0-10.0)
[2021-04-21 13:56] LABS: BLOOD UREA NITROGEN 17.6 mg/dL (7-18); CALCIUM 8.5 mg/dL (8.5-10.1)
[2021-04-21 13:59] LABS: CREATININE 0.8 mg/dL (0.55-1.3); PHOSPHOROUS 3.1 mg/dL (2.5-4.9)
[2021-04-21] MEDS: DULoxetine HCL 30 MG CAPSULE.DR PO SCH (15:35)
[2021-04-21] MEDS: PREGABALIN 100 MG CAPSULE PO SCH (21:33)
[2021-04-21] MEDS: ATORVASTATIN CA 40 MG TABLET (FP) PO SCH (21:33)
[2021-04-22] MEDS: HEPARIN NA (PORCINE) 5,000 UNITS/ML 1ML VIAL SQ SCH ×3 (05:28→22:05)
[2021-04-22] MEDS: PREGABALIN 100 MG CAPSULE PO SCH ×3 (05:28→22:06)
[2021-04-22] MEDS: ALPRAZolam 0.25 MG TABLET PO PRN (05:29)
[2021-04-22] MEDS: LEVOTHYROXINE NA 150 MCG TABLET PO SCH (07:49)
[2021-04-22] MEDS ORDERED: RAPID SEQUENCE INTUBATION KIT NR ONE (09:16)
[2021-04-22] MEDS: DEXAMETHASONE SOD PHOSPHATE 4 MG/1 ML VIAL IVPUSH SCH (09:48)
[2021-04-22] MEDS: DULoxetine HCL 30 MG CAPSULE.DR PO SCH (10:00)
[2021-04-22] MEDS: ASPIRIN 81 MG CHEWABLE TABLETS PO SCH (10:00)
[2021-04-22] MEDS: PANTOPRAZOLE 20 MG TABLET PO SCH (10:01)
[2021-04-22] MEDS: BUDESONIDE/FORMETEROL FUMARATE 160/4.5 mcg INHALER IH SCH ×2 (10:02→22:06)
[2021-04-22] MEDS ORDERED: FUROSEMIDE 40 MG/4 ML INJECTABLE VIAL IVPUSH ONE (14:45)
[2021-04-22] MEDS ORDERED: DEXTROSE 5%-WATER 100 ML IVPB ONE ×2 (14:51→17:26)
[2021-04-22] MEDS ORDERED: CEFEPIME HCL 1 GM VIAL (RESTRICTED TO ID) ONE ×2 (14:51→17:25)
[2021-04-22] MEDS: CEFEPIME 1 GM in DEXTROSE 5%-WATER 100 ML IVPB SCH ×2 (14:57→17:28)
[2021-04-22] MEDS: ATORVASTATIN CA 40 MG TABLET (FP) PO SCH (22:06)
[2021-04-23] MEDS ORDERED: CEFEPIME HCL 1 GM VIAL (RESTRICTED TO ID) ONE ×3 (01:06→18:38)
[2021-04-23] MEDS ORDERED: DEXTROSE 5%-WATER 100 ML IVPB ONE ×3 (01:06→18:38)
[2021-04-23] MEDS: CEFEPIME 1 GM in DEXTROSE 5%-WATER 100 ML IVPB SCH ×4 (01:14→18:54)
[2021-04-23] MEDS: LEVOTHYROXINE NA 150 MCG TABLET PO SCH (06:36)
[2021-04-23] MEDS: HEPARIN NA (PORCINE) 5,000 UNITS/ML 1ML VIAL SQ SCH (06:36)
[2021-04-23] MEDS: PREGABALIN 100 MG CAPSULE PO SCH ×3 (06:36→21:30)
[2021-04-23 08:55] LABS: BASO % 0.5 % (0-2.0); EOS % 0.9 % (0-4.5); HEMOGLOBIN 15.1 GM/dL (10.7-15.3); LYMPH % 6.8 % (8-40); MCH 26.8 pg (25.7-33.7); MCHC 31.4 g/dl (32.0-36.0); MEAN CELL VOLUME 85.4 fl (80-96); MONO % 3.5 % (3.8-10.2); NEUT % 88.3 % (42.8-82.8); PLATELET COUNT 274 10^3/uL (134-434); RBC 5.63 M/mm3 (3.60-5.2); RDW 15.9 % (11.6-15.6); WHITE BLOOD COUNT 9.6 K/mm3 (4.0-10.0)
[2021-04-23 09:07] LABS: INR 1.17 (0.83-1.09); PROTHROMBIN TIME (PATIENT) 13.5 SEC (9.7-13.0)
[2021-04-23 09:22] LABS: CALCIUM 9.1 mg/dL (8.5-10.1)
[2021-04-23 09:23] LABS: BLOOD UREA NITROGEN 19.7 mg/dL (7-18); MAGNESIUM 2.3 mg/dL (1.8-2.4)
[2021-04-23 09:26] LABS: CREATININE 0.8 mg/dL (0.55-1.3); LDH 708 U/L (84-246)
[2021-04-23 09:27] LABS: TOT PROT 6.5 g/dl (6.4-8.2)
[2021-04-23 09:28] LABS: BILIRUBIN,TOTAL 0.8 mg/dL (0.2-1)
[2021-04-23] MEDS: ASPIRIN 81 MG CHEWABLE TABLETS PO SCH (10:24)
[2021-04-23] MEDS: ENOXAPARIN NA (PORCINE) 40 MG/0.4 ML DISP.SYRIN SQ SCH (10:24)
[2021-04-23] MEDS: DULoxetine HCL 30 MG CAPSULE.DR PO SCH (10:24)
[2021-04-23] MEDS: PANTOPRAZOLE 20 MG TABLET PO SCH (10:27)
[2021-04-23] MEDS: DEXAMETHASONE SOD PHOSPHATE 4 MG/1 ML VIAL IVPUSH SCH (12:16)
[2021-04-23] MEDS: BUDESONIDE/FORMETEROL FUMARATE 160/4.5 mcg INHALER IH SCH ×2 (14:01→21:30)
[2021-04-23] MEDS: AMINO ACIDS 4.25%/D5W 1,000 ML IV SCH (14:18)
[2021-04-23] MEDS: ATORVASTATIN CA 40 MG TABLET (FP) PO SCH (21:30)
[2021-04-24] MEDS: CEFEPIME 1 GM in DEXTROSE 5%-WATER 100 ML IVPB SCH ×3 (03:10→17:33)
[2021-04-24] MEDS: PREGABALIN 100 MG CAPSULE PO SCH ×3 (05:59→21:52)
[2021-04-24] MEDS: LEVOTHYROXINE NA 150 MCG TABLET PO SCH (06:00)
[2021-04-24] MEDS ORDERED: LORazepam 2 MG/ML SDV VIAL IM ONE ×2 (08:03→14:15)
[2021-04-24] MEDS: BUDESONIDE/FORMETEROL FUMARATE 160/4.5 mcg INHALER IH SCH ×2 (10:58→21:55)
[2021-04-24] MEDS: PANTOPRAZOLE 20 MG TABLET PO SCH (10:58)
[2021-04-24] MEDS: DULoxetine HCL 30 MG CAPSULE.DR PO SCH (10:58)
[2021-04-24] MEDS: ASPIRIN 81 MG CHEWABLE TABLETS PO SCH (10:58)
[2021-04-24] MEDS: oxyCODONE HCL 5 MG TABLET PO PRN (11:27)
[2021-04-24] MEDS: ENOXAPARIN NA (PORCINE) 40 MG/0.4 ML DISP.SYRIN SQ SCH (11:28)
[2021-04-24] MEDS ORDERED: CEFEPIME HCL 1 GM VIAL (RESTRICTED TO ID) ONE ×2 (15:39→17:27)
[2021-04-24] MEDS ORDERED: DEXTROSE 5%-WATER 100 ML IVPB ONE (15:39)
[2021-04-24] MEDS: DEXAMETHASONE SOD PHOSPHATE 4 MG/1 ML VIAL IVPUSH SCH (16:03)
[2021-04-24] MEDS: AMINO ACIDS 4.25%/D5W 1,000 ML IV SCH (16:04)
[2021-04-24] MEDS: METOPROLOL TARTRATE 5 MG/5 ML VIAL IVPUSH PRN (17:03)
[2021-04-24] MEDS: ATORVASTATIN CA 40 MG TABLET (FP) PO SCH (21:52)
[2021-04-25] MEDS ORDERED: DEXTROSE 5%-WATER 100 ML IVPB ONE ×3 (01:32→16:21)
[2021-04-25] MEDS ORDERED: CEFEPIME HCL 1 GM VIAL (RESTRICTED TO ID) ONE ×3 (01:32→16:21)
[2021-04-25] MEDS: CEFEPIME 1 GM in DEXTROSE 5%-WATER 100 ML IVPB SCH ×3 (01:34→17:08)
[2021-04-25] MEDS: METOPROLOL TARTRATE 5 MG/5 ML VIAL IVPUSH PRN ×2 (02:55→22:04)
[2021-04-25] MEDS: LEVOTHYROXINE NA 150 MCG TABLET PO SCH (06:08)
[2021-04-25] MEDS: PREGABALIN 100 MG CAPSULE PO SCH ×4 (06:08→23:42)
[2021-04-25 08:31] LABS: HEMATOCRIT 46.8 % (32.4-45.2); MCH 27.4 pg (25.7-33.7); MCHC 32.1 g/dl (32.0-36.0); MEAN CELL VOLUME 85.2 fl (80-96); MEAN PLT VOLUME 8.7 fl (7.5-11.1); PLATELET COUNT 193 10^3/uL (134-434); RBC 5.49 M/mm3 (3.60-5.2); RDW 16.2 % (11.6-15.6); WHITE BLOOD COUNT 20.9 K/mm3 (4.0-10.0)
[2021-04-25 08:47] LABS: CHLORIDE 108 mmol/L (98-107); SODIUM 143 mmol/L (136-145)
[2021-04-25 08:53] LABS: ANION GAP 13 MMOL/L (8-16); CALCIUM 8.9 mg/dL (8.5-10.1); CO2 22 mmol/L (21-32); GLUCOSE,RANDOM 168 mg/dL (74-106)
[2021-04-25 08:54] LABS: BLOOD UREA NITROGEN 39.5 mg/dL (7-18)
[2021-04-25 08:56] LABS: CREATININE 1.2 mg/dL (0.55-1.3); SGOT/AST 60 U/L (15-37)
[2021-04-25 08:57] LABS: SGPT/ALT 51 U/L (13-61)
[2021-04-25 08:58] LABS: BILIRUBIN,TOTAL 1.1 mg/dL (0.2-1); LDH 908 U/L (84-246)
[2021-04-25] MEDS: ASPIRIN 81 MG CHEWABLE TABLETS PO SCH (09:00)
[2021-04-25] MEDS: PANTOPRAZOLE 20 MG TABLET PO SCH (09:00)
[2021-04-25] MEDS: DULoxetine HCL 30 MG CAPSULE.DR PO SCH (09:00)
[2021-04-25] MEDS: DEXAMETHASONE SOD PHOSPHATE 4 MG/1 ML VIAL IVPUSH SCH (09:00)
[2021-04-25] MEDS: ENOXAPARIN NA (PORCINE) 40 MG/0.4 ML DISP.SYRIN SQ SCH (09:01)
[2021-04-25] MEDS: BUDESONIDE/FORMETEROL FUMARATE 160/4.5 mcg INHALER IH SCH ×2 (09:02→23:43)
[2021-04-25 09:04] LABS: ALK PHOS 245 U/L (45-117)
[2021-04-25 09:45] LABS: ERYTHROCYTE SEDIMENTATION RATE 12 mm/hr (0-30)
[2021-04-25] MEDS: AMINO ACIDS 4.25%/D5W 1,000 ML IV SCH (13:02)
[2021-04-25] MEDS: BARICITINIB 2 MG TABLET PO SCH (13:02)
[2021-04-25] MEDS: ATORVASTATIN CA 40 MG TABLET (FP) PO SCH (23:42)
[2021-04-26] MEDS ORDERED: CEFEPIME HCL 1 GM VIAL (RESTRICTED TO ID) ONE ×3 (00:58→16:44)
[2021-04-26] MEDS ORDERED: DEXTROSE 5%-WATER 100 ML IVPB ONE ×3 (00:59→16:44)
[2021-04-26] MEDS: CEFEPIME 1 GM in DEXTROSE 5%-WATER 100 ML IVPB SCH ×3 (01:00→18:17)
[2021-04-26] MEDS: PREGABALIN 100 MG CAPSULE PO SCH ×3 (05:09→22:10)
[2021-04-26 10:02] LABS: HEMOGLOBIN 14.1 GM/dL (10.7-15.3); MCH 26.6 pg (25.7-33.7); MCHC 30.7 g/dl (32.0-36.0); MEAN CELL VOLUME 86.8 fl (80-96); MEAN PLT VOLUME 9.2 fl (7.5-11.1); PLATELET COUNT 156 10^3/uL (134-434); RDW 16.3 % (11.6-15.6); WHITE BLOOD COUNT 19.9 K/mm3 (4.0-10.0)
[2021-04-26 10:21] LABS: CHLORIDE 109 mmol/L (98-107); SODIUM 143 mmol/L (136-145)
[2021-04-26 10:27] LABS: ANION GAP 12 MMOL/L (8-16); CALCIUM 9.1 mg/dL (8.5-10.1); CO2 22 mmol/L (21-32); GLUCOSE,RANDOM 145 mg/dL (74-106); MAGNESIUM 1.9 mg/dL (1.8-2.4)
[2021-04-26 10:30] LABS: ALBUMIN 2.9 g/dl (3.4-5.0); CREATININE 1.1 mg/dL (0.55-1.3); LDH 867 U/L (84-246); PHOSPHOROUS 3.4 mg/dL (2.5-4.9); SGOT/AST 45 U/L (15-37); SGPT/ALT 44 U/L (13-61)
[2021-04-26 10:31] LABS: BILIRUBIN,TOTAL 0.7 mg/dL (0.2-1); TOT PROT 5.9 g/dl (6.4-8.2)
[2021-04-26 10:32] LABS: ALK PHOS 246 U/L (45-117)
[2021-04-26 10:59] LABS: ERYTHROCYTE SEDIMENTATION RATE 12 mm/hr (0-30)
[2021-04-26] MEDS: ENOXAPARIN NA (PORCINE) 40 MG/0.4 ML DISP.SYRIN SQ SCH (11:18)
[2021-04-26] MEDS: DULoxetine HCL 30 MG CAPSULE.DR PO SCH ×2 (11:19→11:41)
[2021-04-26] MEDS: PANTOPRAZOLE 20 MG TABLET PO SCH ×2 (11:19→11:41)
[2021-04-26] MEDS: BARICITINIB 2 MG TABLET PO SCH (11:20)
[2021-04-26] MEDS: ASPIRIN 81 MG CHEWABLE TABLETS PO SCH ×2 (11:20→11:41)
[2021-04-26] MEDS: DEXAMETHASONE SOD PHOSPHATE 4 MG/1 ML VIAL IVPUSH SCH (11:20)
[2021-04-26] MEDS: BUDESONIDE/FORMETEROL FUMARATE 160/4.5 mcg INHALER IH SCH ×3 (11:21→22:10)
[2021-04-26] MEDS: LEVOTHYROXINE NA 150 MCG TABLET PO SCH (11:40)
[2021-04-26] MEDS: METOPROLOL TARTRATE 5 MG/5 ML VIAL IVPUSH PRN (12:17)
[2021-04-26] MEDS: AMINO ACIDS 4.25%/D5W 1,000 ML IV SCH (13:07)
[2021-04-26] MEDS: LORazepam 2 MG/ML SDV VIAL IVPUSH SCH (14:55)
[2021-04-26] MEDS: ATORVASTATIN CA 40 MG TABLET (FP) PO SCH (22:10)
[2021-04-27] MEDS ORDERED: CEFEPIME HCL 1 GM VIAL (RESTRICTED TO ID) ONE ×3 (01:26→16:30)
[2021-04-27] MEDS ORDERED: DEXTROSE 5%-WATER 100 ML IVPB ONE ×3 (01:26→16:31)
[2021-04-27] MEDS: LORazepam 2 MG/ML SDV VIAL IVPUSH SCH ×2 (01:31→13:38)
[2021-04-27] MEDS: CEFEPIME 1 GM in DEXTROSE 5%-WATER 100 ML IVPB SCH ×3 (01:31→17:03)
[2021-04-27] MEDS: LEVOTHYROXINE NA 150 MCG TABLET PO SCH (06:24)
[2021-04-27] MEDS: PREGABALIN 100 MG CAPSULE PO SCH ×3 (06:24→21:11)
[2021-04-27] MEDS: METOPROLOL TARTRATE 5 MG/5 ML VIAL IVPUSH PRN (09:02)
[2021-04-27] MEDS ORDERED: dilTIAZem HCL 25 MG/5 ML - 5 ML VIAL IVPUSH ONE (10:29)
[2021-04-27] MEDS: DEXAMETHASONE SOD PHOSPHATE 4 MG/1 ML VIAL IVPUSH SCH (10:59)
[2021-04-27] MEDS: ENOXAPARIN NA (PORCINE) 40 MG/0.4 ML DISP.SYRIN SQ SCH (10:59)
[2021-04-27] MEDS: BARICITINIB 2 MG TABLET PO SCH (11:01)
[2021-04-27] MEDS: ASPIRIN 81 MG CHEWABLE TABLETS PO SCH (11:01)
[2021-04-27] MEDS: DULoxetine HCL 30 MG CAPSULE.DR PO SCH (11:01)
[2021-04-27] MEDS: BUDESONIDE/FORMETEROL FUMARATE 160/4.5 mcg INHALER IH SCH ×2 (11:02→21:11)
[2021-04-27] MEDS: PANTOPRAZOLE 20 MG TABLET PO SCH (11:02)
[2021-04-27] MEDS: AMINO ACIDS 4.25%/D5W 1,000 ML IV SCH (13:01)
[2021-04-27] MEDS: ATORVASTATIN CA 40 MG TABLET (FP) PO SCH (21:10)
[2021-04-28] MEDS ORDERED: CEFEPIME HCL 1 GM VIAL (RESTRICTED TO ID) ONE ×3 (00:53→16:54)
[2021-04-28] MEDS ORDERED: DEXTROSE 5%-WATER 100 ML IVPB ONE ×3 (00:53→16:55)
[2021-04-28] MEDS: METOPROLOL TARTRATE 5 MG/5 ML VIAL IVPUSH PRN ×2 (01:25→11:32)
[2021-04-28] MEDS: CEFEPIME 1 GM in DEXTROSE 5%-WATER 100 ML IVPB SCH ×3 (01:26→17:09)
[2021-04-28] MEDS ORDERED: ACETAMINOPHEN 1000 MG/100 ML BAG IVPB ONE (01:43)
[2021-04-28] MEDS: LORazepam 2 MG/ML SDV VIAL IVPUSH SCH ×2 (04:30→15:25)
[2021-04-28] MEDS: PREGABALIN 100 MG CAPSULE PO SCH ×2 (05:00→15:15)
[2021-04-28] MEDS: LEVOTHYROXINE NA 150 MCG TABLET PO SCH (05:59)
[2021-04-28 07:41] LABS: HEMOGLOBIN 13.5 GM/dL (10.7-15.3); MCH 26.8 pg (25.7-33.7); MCHC 30.7 g/dl (32.0-36.0); MEAN CELL VOLUME 87.2 fl (80-96); MEAN PLT VOLUME 10.4 fl (7.5-11.1); PLATELET COUNT 114 10^3/uL (134-434); RBC 5.04 M/mm3 (3.60-5.2); RDW 17.2 % (11.6-15.6); WHITE BLOOD COUNT 20.4 K/mm3 (4.0-10.0)
[2021-04-28 08:05] LABS: CHLORIDE 110 mmol/L (98-107); SODIUM 144 mmol/L (136-145)
[2021-04-28 08:09] LABS: ALBUMIN 3.1 g/dl (3.4-5.0); BLOOD UREA NITROGEN 66.7 mg/dL (7-18); CALCIUM 9.2 mg/dL (8.5-10.1); GLUCOSE,RANDOM 188 mg/dL (74-106)
[2021-04-28 08:11] LABS: ANION GAP 14 MMOL/L (8-16); CO2 20 mmol/L (21-32)
[2021-04-28 08:13] LABS: CREATININE 1.2 mg/dL (0.55-1.3); SGOT/AST 48 U/L (15-37); SGPT/ALT 40 U/L (13-61)
[2021-04-28 08:24] LABS: ALK PHOS 281 U/L (45-117); LDH > 1000 U/L (84-246)
[2021-04-28 08:54] LABS: ERYTHROCYTE SEDIMENTATION RATE 7 mm/hr (0-30)
[2021-04-28] MEDS ORDERED: FUROSEMIDE 40 MG/4 ML INJECTABLE VIAL IVPUSH ONE (09:45)
[2021-04-28] MEDS: ENOXAPARIN NA (PORCINE) 40 MG/0.4 ML DISP.SYRIN SQ SCH (10:14)
[2021-04-28] MEDS: DEXAMETHASONE SOD PHOSPHATE 4 MG/1 ML VIAL IVPUSH SCH (10:15)
[2021-04-28] MEDS: BARICITINIB 2 MG TABLET PO SCH (10:18)
[2021-04-28] MEDS: PANTOPRAZOLE 20 MG TABLET PO SCH (10:18)
[2021-04-28] MEDS: DULoxetine HCL 30 MG CAPSULE.DR PO SCH (10:18)
[2021-04-28] MEDS: BUDESONIDE/FORMETEROL FUMARATE 160/4.5 mcg INHALER IH SCH ×2 (10:19→22:28)
[2021-04-28] MEDS: AMINO ACIDS 4.25%/D5W 1,000 ML IV SCH ×2 (10:35→12:17)
[2021-04-28] MEDS: ASPIRIN 81 MG CHEWABLE TABLETS PO SCH (10:56)
[2021-04-28] MEDS ORDERED: METOPROLOL TARTRATE 5 MG/5 ML VIAL IVPUSH ONE (12:00)
[2021-04-28] MEDS ORDERED: ENOXAPARIN NA (PORCINE) 60 MG/0.6 ML DISP.SYRIN SQ ONE (12:22)
[2021-04-28] MEDS: ATORVASTATIN CA 40 MG TABLET (FP) PO SCH (22:28)
[2021-04-28] MEDS: ENOXAPARIN NA (PORCINE) 100 MG/1 ML DISP.SYRIN SQ SCH (22:32)
[2021-04-29] MEDS ORDERED: DEXTROSE 5%-WATER 100 ML IVPB ONE ×2 (02:06→09:45)
[2021-04-29] MEDS ORDERED: CEFEPIME HCL 1 GM VIAL (RESTRICTED TO ID) ONE ×2 (02:06→09:45)
[2021-04-29] MEDS ORDERED: ACETAMINOPHEN 1000 MG/100 ML BAG IVPB ONE (02:08)
[2021-04-29] MEDS: CEFEPIME 1 GM in DEXTROSE 5%-WATER 100 ML IVPB SCH ×2 (02:11→15:48)
[2021-04-29] MEDS: LORazepam 2 MG/ML SDV VIAL IVPUSH SCH ×2 (02:11→15:54)
[2021-04-29] MEDS: LEVOTHYROXINE NA 150 MCG TABLET PO SCH (06:03)
[2021-04-29] MEDS ORDERED: LEVOTHYROXINE SODIUM 100 MCG VIAL IVPUSH SCH ×2 (07:00→10:00)
[2021-04-29 08:36] LABS: HEMATOCRIT 42.7 % (32.4-45.2); MCH 26.8 pg (25.7-33.7); MCHC 30.4 g/dl (32.0-36.0); MEAN PLT VOLUME 11.1 fl (7.5-11.1); PLATELET COUNT 98 10^3/uL (134-434); RBC 4.86 M/mm3 (3.60-5.2); RDW 17.1 % (11.6-15.6); WHITE BLOOD COUNT 20.5 K/mm3 (4.0-10.0)
[2021-04-29 09:12] LABS: ANION GAP 12 MMOL/L (8-16); CHLORIDE 112 mmol/L (98-107); CO2 21 mmol/L (21-32); GLUCOSE,RANDOM 231 mg/dL (74-106); SODIUM 145 mmol/L (136-145)
[2021-04-29 09:23] LABS: ERYTHROCYTE SEDIMENTATION RATE 5 mm/hr (0-30)
[2021-04-29] MEDS ORDERED: INSULIN REGULAR HUMAN 100 UNITS/ML *VIAL SQ ONE (09:30)
[2021-04-29] MEDS ORDERED: DEXTROSE 50%-WATER - 25 GM/50 ML VIAL IVPUSH ONE (09:30)
[2021-04-29 09:51] LABS: ALK PHOS 298 U/L (45-117); BILIRUBIN,TOTAL 1.3 mg/dL (0.2-1); BLOOD UREA NITROGEN 81.4 mg/dL (7-18); CREATININE 1.6 mg/dL (0.55-1.3); SGOT/AST 45 U/L (15-37); SGPT/ALT 37 U/L (13-61); TOT PROT 5.7 g/dl (6.4-8.2)
[2021-04-29] MEDS: ENOXAPARIN NA (PORCINE) 40 MG/0.4 ML DISP.SYRIN SQ SCH (10:02)
[2021-04-29] MEDS: ASPIRIN 81 MG CHEWABLE TABLETS PO SCH (10:02)
[2021-04-29] MEDS: DULoxetine HCL 30 MG CAPSULE.DR PO SCH (10:10)
[2021-04-29] MEDS: ENOXAPARIN NA (PORCINE) 100 MG/1 ML DISP.SYRIN SQ SCH ×2 (10:12→22:05)
[2021-04-29] MEDS: DEXAMETHASONE SOD PHOSPHATE 4 MG/1 ML VIAL IVPUSH SCH (10:13)
[2021-04-29] MEDS: BUDESONIDE/FORMETEROL FUMARATE 160/4.5 mcg INHALER IH SCH ×2 (10:17→22:04)
[2021-04-29] MEDS: PANTOPRAZOLE 20 MG TABLET PO SCH (10:17)
[2021-04-29] MEDS: BARICITINIB 2 MG TABLET PO SCH (10:27)
[2021-04-29] MEDS ORDERED: DEXTROSE 50%-WATER 25 GM/50 ML DISP.SYRIN ONE (10:32)
[2021-04-29 10:40] LABS: LDH 1027 U/L (84-246)
[2021-04-29] MEDS: AMINO ACIDS 4.25%/D5W 1,000 ML IV SCH (15:48)
[2021-04-29] MEDS ORDERED: ACETAMINOPHEN 1000 MG/100 ML BAG IVPB PRN (16:47)
[2021-04-29] MEDS ORDERED: CEFEPIME 1 GM in DEXTROSE 5%-WATER 100 ML IVPB SCH (18:00)
[2021-04-29 19:38] VITALS: BP 88/38; PULSE 93; TEMP 101.7
[2021-04-29] MEDS ORDERED: SODIUM CHLORIDE 500 ML IV STA (20:02)
[2021-04-29] MEDS: ATORVASTATIN CA 40 MG TABLET (FP) PO SCH (22:04)
== END 2021-04-29 23:00 | disposition expired | DRG 177 ==
LOC: JER 06:36 → JERBED 18:29 → J4S 04-14 00:22
PROVIDERS: ADMIT Internal Medicine
PROC: 3E0333Z Introduction of Anti-inflammatory into Peripheral Vein, Percutaneous Approach (ICD-10-PCS; principal; 2021-04-14)
PROC: XW033E5 Introduction of Remdesivir Anti-infective into Peripheral Vein, Percutaneous Approach, New Technology Group 5 (ICD-10-PCS; 2021-04-14)
PROC: XW033H5 Introduction of Tocilizumab into Peripheral Vein, Percutaneous Approach, New Technology Group 5 (ICD-10-PCS; 2021-04-18)
DX: U07.1 COVID-19 (principal); J12.82 Pneumonia due to coronavirus disease 2019; J96.01 Acute respiratory failure with hypoxia; J96.02 Acute respiratory failure with hypercapnia; E87.2 Acidosis; I50.32 Chronic diastolic (congestive) heart failure; N17.9 Acute kidney failure, unspecified; E78.5 Hyperlipidemia, unspecified; E11.9 Type 2 diabetes mellitus without complications; E03.9 Hypothyroidism, unspecified; I11.0 Hypertensive heart disease with heart failure; J45.909 Unspecified asthma, uncomplicated; D72.829 Elevated white blood cell count, unspecified; R19.7 Diarrhea, unspecified; I48.0 Paroxysmal atrial fibrillation; E66.9 Obesity, unspecified; G47.33 Obstructive sleep apnea (adult) (pediatric); F41.8 Other specified anxiety disorders; Z68.32 Body mass index [BMI] 32.0-32.9, adult; M06.9 Rheumatoid arthritis, unspecified; R00.0 Tachycardia, unspecified; E86.0 Dehydration; G62.9 Polyneuropathy, unspecified; I27.20 Pulmonary hypertension, unspecified; G89.29 Other chronic pain; K21.9 Gastro-esophageal reflux disease without esophagitis; J44.9 Chronic obstructive pulmonary disease, unspecified; Z86.73 Personal history of transient ischemic attack (TIA), and cerebral infarction without residual deficits; Z96.653 Presence of artificial knee joint, bilateral; Z66 Do not resuscitate
CPT/HCPCS: 36415; 71045-TC-FY; 74176-TC; 80048; 80053; 82550; 82553; 82728; 82803; 83605; 83615; 83735; 84100; 84439; 84443; 84484; 85025; 85027; 85379; 85610; 85651; 85730; 86140; 86480; 86803; 87040; 87340; 87517; 87804; 93005; 93010; 94660; 97116-GP; 97161-GP; 99285-25; C9399; C9803; J0131; J1100; J1644; J3262; U0003; U0005